=== PATIENT | female | born 1965 | race Caucasian/White ===

== ENCOUNTER → 2016-11-30 | Outpatient (CLI) | payer BC ==
[~2016-11-30] MED LIST: ARIM1TAB4 PO; ATEN50TA2 PO; CYMB60CA3 PO; FOSA70TA PO; IMIT50TA PO; LEVO75TA4 PO; LIDO5DIS36 TD; LIPI20TA PO; LORT5TAB PO; PREG50CA PO; PROA1AER IN; VITA100066 PO; VITATAB73 PO; ZANA2CAP PO; ZANA4TAB PO
--- NOTE | 2016-12-15 23:47 | ECWPNPC ---
PATIENT NAME: NATHANIEL ROSALES : 1965 GENDER: FEMALE VISIT DATE: 11/30/2016 DISCHARGE DATE: 11/30/16 1233 VISIT LOCKED DATE TIME: PHYSICIAN: SIRI CALDERON RESOURCE: SIRI CALDERON REASON FOR APPOINTMENT 1. INCREASING PAIN/ LEG NUMBNESS HISTORY OF PRESENT ILLNESS TODAY'S VISIT: NOTES: FIRST VISIT BACK TO CLINIC SINCE 03/12/16. ON THAT DATE SHE DID HAVE A LEFT THERAPEUTIC LUMBAR FACET BLOCK . HAD SOME GENERALIZED BACK DISCOMFORT AND DID TAKE SOME OCCASIONAL SOMA WIT RELIEF. STATES AWOKE ON 11/25/16 WITH INCREASED LOW BACK PAIN, INABILITY TO TURN, STAND AND SIT. PAIN HAS IMPROVED BUT NOW HAS NEW NUMBNESS. NUMBNESS IS FROM LOW BACK RADIATING ACROSS THE BOTTOM OF RIGHT FOOT, THROUGH 3RD TOE AND UP LATERAL CALF TO KNEE. IS STILL HAVING TROUBLE SITTING, STANDING OR LYING FOR PROLONGED PERIODS.. HISTORY OF PRESENT ILLNESS: PAIN THE PATIENT DESCRIBES THE PAIN... FALL RISK SCREENING: SCREENING :NO FALLS IN THE PAST YEAR CURRENT MEDICATIONS TAKING LIPITOR 20 MG TABLET 1 TABLET ORALLY ONCE A DAY TAKING LYRICA 50 MG CAPSULE 1 CAPSULE ORALLY BID TAKING LEVOTHYROXINE SODIUM 75 MCG TABLET 1 TABLET ORALLY ONCE A DAY TAKING ATENOLOL 50 MG TABLET 1 TABLET ORALLY ONCE A DAY TAKING IMITREX 50 MG TABLET 1 TABLET NEEDED ORALLY PRN TAKING PROAIR HFA AEROSOL SOLUTION 2 PUFFS NEEDED INHALATION PRN TAKING PHENTERMINE HCL 30 MG TABLET DISPERSIBLE 1 TABLET ON THE TONGUE AND ALLOW TO DISSOLVE ORALLY ONCE A DAY TAKING IBUPROFEN 600 MG TABLET 1 TABLET ORALLY THREE TIMES A DAY NOT-TAKING ARIMIDEX 1 MG TABLET 1 TABLET ORALLY ONCE A DAY NOT-TAKING CYMBALTA 60 MG CAPSULE DELAYED RELEASE PARTICLES 1 CAPSULE ORALLY ONCE A DAY, NOTES: 03-11-162099 NOT-TAKING ALPRAZOLAM 0.25 MG TABLET 1 TABLET ORALLY THREE TIMES A DAY, NOTES: 12-06-15 NOT-TAKING ZANAFLEX 2 MG CAPSULE 1 TO 2 CAPSULE NEEDED ORALLY PRIOR GOING TO SLEEP, NOTES: 03-11-162099 NOT-TAKING B COMPLETE TABLET ORALLY DAILY MEDICATION LIST REVIEWED AND RECONCILED WITH THE PATIENT PAST MEDICAL HISTORY SVT BREAST CANCER HYPOTHYROID MIGRANES ASTHMA FIBROMYALGIA ALLERGIES SULFA (FOR ALLERGY USE ONLY): ITCH / SWELLING MACRODANTIN: ITCH/ SWELLING CIPRO: REDNESS SOCIAL HISTORY GENERAL: TOBACCO USE ARE YOU A:NONSMOKER ARE YOU A:NONSMOKER ARE YOU A:NONSMOKER LEARNING BARRIERS / SPECIAL NEEDS ORIENTED TO PLAN OF CARE: PATIENT, PAIN MANAGEMENT PATIENT, ORIENTED TO PLAN OF CARE: PATIENT, PAIN MANAGEMENT PATIENT, ORIENTED TO PLAN OF CARE: PATIENT, PAIN MANAGEMENT PATIENT, ORIENTED TO PLAN OF CARE: PATIENT, PAIN MANAGEMENT PATIENT, ORIENTED TO PLAN OF CARE: PATIENT, PAIN MANAGEMENT PATIENT, ORIENTED TO PLAN OF CARE: PATIENT, PAIN MANAGEMENT PATIENT. NEW PATIENT PAIN DIARY TODAY'S VISITNOTES FROM 0-10, WHAT LEVEL IS YOUR PAIN TODAY?0 TODAY'S VISITNOTES FROM 0-10, WHAT LEVEL IS YOUR PAIN TODAY?0 TODAY'S VISITNOTES FROM 0-10, WHAT LEVEL IS YOUR PAIN TODAY?0 PAIN CLINIC PFS, CLERGY, PUBLIC HEALTH REFERRALS PFS REFERRAL NEEDED?NO CLERGY REFERRAL NEEDED?NO PUBLIC HEALTH REFERRAL NEEDED?NO WAS THE PROVIDER NOTIFIED OF ANY PERTINENT INFO?NO PFS REFERRAL NEEDED?NO CLERGY REFERRAL NEEDED?NO PUBLIC HEALTH REFERRAL NEEDED?NO WAS THE PROVIDER NOTIFIED OF ANY PERTINENT INFO?NO PFS REFERRAL NEEDED?NO CLERGY REFERRAL NEEDED?NO PUBLIC HEALTH REFERRAL NEEDED?NO WAS THE PROVIDER NOTIFIED OF ANY PERTINENT INFO?NO PFS REFERRAL NEEDED?NO CLERGY REFERRAL NEEDED?NO PUBLIC HEALTH REFERRAL NEEDED?NO WAS THE PROVIDER NOTIFIED OF ANY PERTINENT INFO?NO PFS REFERRAL NEEDED?NO CLERGY REFERRAL NEEDED?NO PUBLIC HEALTH REFERRAL NEEDED?NO WAS THE PROVIDER NOTIFIED OF ANY PERTINENT INFO?NO PFS REFERRAL NEEDED?NO CLERGY REFERRAL NEEDED?NO PUBLIC HEALTH REFERRAL NEEDED?NO WAS THE PROVIDER NOTIFIED OF ANY PERTINENT INFO?NO REVIEW OF SYSTEMS CONSTITUTIONAL: ANY CHANGE IN YOUR MEDICAL CONDITION? NO . CHILLS NO . FEVER NO . INFECTION: DO YOU HAVE NEW INFECTIONS? NO - HAD UPPER RESPIRATOY INFECTION IN [facility] . DO YOU HAVE HISTORY OF MRSA? NO . MUSCULOSKELETAL: ANY NEW PATTERNS OF PAIN OR NUMBNESS? YES NEW NUMBNESS SINCE 11-25-15=7 . GASTROENTEROLOGY: GENERAL STARTED PHENTERAMINE FOR WEIGHT GAIN. . ANY NEW CHANGE IN BOWEL CONTROL? NO . GENITOURINARY: ANY NEW CHANGE IN BLADDER CONTROL? NO . IS THERE A CHANCE YOU COULD BE ? NO . HEMATOLOGY/LYMPH: DO YOU TAKE ANY BLOOD THINNERS? (FOR EXAMPLE- COUMADIN, PLAVIX, AGGRENOX, PLATEL, PRADAXA, OR XARELTO) NO . WHEN WAS YOUR LAST DOSE? DATE: TIME: . NEUROLOGY: HAVE YOU FALLEN IN THE PAST 6 MONTHS? NO . ANY NEW EXTREMITY NUMBNESS OR WEAKNESS? NO . CARDIOLOGY: DO YOU HAVE A PACEMAKER OR DEFIBRILLATOR? NO . RESPIRATORY: HAVE YOU BEEN SICK IN THE PAST WEEK? NO . FEVER NO . FLU LIKE SYMPTOMS? NO . COUGH NO . INTEGUMENTARY: DO YOU HAVE ANY RASHES OR OPEN SORES? NO . ALLERGIC/IMMUNO: ARE YOU ALLERGIC TO SHELLFISH OR IV DYE? NO . ANY NEW ALLERGIES? NO . PSYCHIATRIC: DO YOU HAVE THOUGHTS OF HURTING YOURSELF OR SOMEONE ELSE? NO . ARE YOU ABUSED, NEGLECTED, OR IN AN UNSAFE ENVIRONMENT? NO . ENDOCRINOLOGY: ARE YOU DIABETIC? YES - A1C CHECKED AND WAS 6.5. HAS BEEN WORKING ON HEALTHY DIET . OTHER: DO YOU NEED ANY PRESCRIPTIONS? NO . IF YES, PLEASE LIST: ____ . ANY NEW PROBLEMS WITH YOUR MEDICATIONS? NO . WHEN DID YOU LAST EAT? ____ . WHEN DID YOU LAST DRINK? ____ . WHAT DID YOU LAST DRINK? ____ . NAME OF PERSON DRIVING YOU HOME? ____ . DO YOU HAVE ANY OTHER QUESTIONS OR CONCERNS NO . REVIEWED BY: PROVIDER: SIRI BECK . VITAL SIGNS WT 173 LBS, HT 63 IN, BMI 30.64 INDEX, BP 128/62 MM HG, HR 70 /MIN, RR 16 /MIN, TEMP 98 F, OXYGEN SAT % 98, SAFE IN ENV? (Y/N) Y, REVIEWED BY: KG. EXAMINATION GENERAL EXAMINATION: PSYCHALERT , ORIENTED X 3 , TALKATIVE, VERY UNCOMFORTABLE. LUNGS:CLEAR TO AUSCULTATION BILATERALLY, NO WHEEZES, RALES OR RHONCHI. HEART:HEART RATE REGULAR. MUSCULOSKELETAL:MUSCLE STRENGTH TESTING 5/5 BILATERAL LOWER EXT. POINT TENDERNESS OVER LUMBAR SPINOUS PROCESSES AND OVER LEFT SACRAL ILIAC JOINT AND FACETS. TRIGGER POINTS:, REMITIES, ELICITED WITH PALPATION OVER LUMBAR PARAVERTEBRAL MUSCLES AND INTO THE SECRUM. RESTRICTION OF ROM IN THIS AREA. GAIT ANTALGIC. SLOW TO RISE TO STANDING POSITION. ASSESSMENTS SPONDYLOSIS OF LUMBAR REGION WITHOUT MYELOPATHY OR RADICULOPATHY - M47.816 (PRIMARY) SACROILIITIS, NOT ELSEWHERE CLASSIFIED - M46.1 (PRIMARY) SPONDYLOSIS OF LUMBOSACRAL REGION WITHOUT MYELOPATHY OR RADICULOPATHY - M47.817 TREATMENT SPONDYLOSIS OF LUMBAR REGION WITHOUT MYELOPATHY OR RADICULOPATHY START TIZANIDINE HCL TABLET, 4 MG, 1 TABLET NEEDED, ORALLY, THREE TIMES A DAY PRN SPASM, 10 DAY(S), 30, REFILLS 1 INJECTION ANESTHETIC SACROILIAC [id number] Matute 11/30/2016 12:21:11 PM > LEFT PREVENTIVE MEDICINE PAIN CLINIC TEACHING: PROCEDURE TEACHING WENT OVER PROCEDURE AND PT VERBALIZES UNDERSTNADING/GAVE PRINTED MATERIAL. PROCEDURE CODES FA211 ESTABILISHED PATIENT [facility] FACILITY CHARGE FOLLOW UP AFTER INJECTION (REASON: CHECK AUTH FOR SIJ INJECTION JAMES) ELECTRONICALLY SIGNED BY KIRK MONTANEZ ON 12/15/2016 AT 09:38 AM EST DISCLAIMER : THIS IS A VISIT SUMMARY EXTRACTED FROM THE [employer] CHART. IT IS NOT A COPY OF THE [employer] PROGRESS NOTE. ELLIE
== END ==
LOC: M PAIN 11:20
PROVIDERS: ATTEND Nurse Practitioner Family
DX: Z09 Encounter for follow-up examination after completed treatment for conditions other than malignant neoplasm (principal); G89.29 Other chronic pain; M47.816 Spondylosis without myelopathy or radiculopathy, lumbar region; M46.1 Sacroiliitis, not elsewhere classified; M47.817 Spondylosis without myelopathy or radiculopathy, lumbosacral region; I47.1 Supraventricular tachycardia; E03.9 Hypothyroidism, unspecified; G43.909 Migraine, unspecified, not intractable, without status migrainosus; J45.909 Unspecified asthma, uncomplicated; M79.7 Fibromyalgia; E11.9 Type 2 diabetes mellitus without complications; Z88.2 Allergy status to sulfonamides; Z88.8 Allergy status to other drugs, medicaments and biological substances; Z79.1 Long term (current) use of non-steroidal anti-inflammatories (NSAID); Z79.899 Other long term (current) drug therapy; Z85.3 Personal history of malignant neoplasm of breast

== ENCOUNTER → 2016-12-02 | Outpatient (CLI) | payer BC ==
[~2016-12-02] MED LIST changes: +BUPIVACAINE HCL 0.25% 30 ML VIAL As Ordered ONE; +ISOVUE-M 300 61% 15ML VIAL (Q9967) As Ordered ONE; +LIDOCAINE 1% SDV INJ 30 ML VIAL As Ordered ONE; +TRIAMCINOLONE ACETONIDE SUSP 40 MG/ML VIAL (J3301) As Ordered ONE; +diazePAM 5 MG TAB As Ordered ONE; +oxyCODONE 5MG TAB As Ordered ONE
--- NOTE | 2016-12-02 13:24 | REP ---
C-arm fluoroscopy performed for left SI joint injection 12/02/2016 Findings: 12 seconds c-arm fluoroscopy time was provided to Dr. Beard , who performed left SI joint injection. On image #1 spinal needle placed in the superior half of the left SI joint. Small amount of contrast is seen adjacent to the needle tip. On image #2 and image #3 , there is no residual contrast within the left SI joint adjacent to needle tip 12 seconds c-arm fluoroscopy time was utilized for this procedure. Three images were recorded and are available for review on PACS. Signed by Ryann Castaneda MD 12/02/2016 01:15 P
--- NOTE | 2016-12-06 23:21 | ECWPNPC ---
PATIENT NAME: NATHANIEL ROSALES : 1965 GENDER: FEMALE VISIT DATE: 12/02/2016 DISCHARGE DATE: 12/02/16 1320 VISIT LOCKED DATE TIME: PHYSICIAN: NELSON LUNA RESOURCE: NELSON LUNA REASON FOR APPOINTMENT 1. SIJ HISTORY OF PRESENT ILLNESS HISTORY OF PRESENT ILLNESS: PAIN THE PATIENT DESCRIBES THE PAIN... FALL RISK SCREENING: SCREENING :NO FALLS IN THE PAST YEAR CURRENT MEDICATIONS TAKING LIPITOR 20 MG TABLET 1 TABLET ORALLY ONCE A DAY, NOTES: 12/01/16 TAKING LYRICA 50 MG CAPSULE 1 CAPSULE ORALLY BID, NOTES: 12/02/16 TAKING LEVOTHYROXINE SODIUM 75 MCG TABLET 1 TABLET ORALLY ONCE A DAY, NOTES: 12/02/16 TAKING ATENOLOL 50 MG TABLET 1 TABLET ORALLY ONCE A DAY, NOTES: 12/01/16 TAKING IMITREX 50 MG TABLET 1 TABLET NEEDED ORALLY PRN, NOTES: 1 MONTH AGO TAKING PROAIR HFA AEROSOL SOLUTION 2 PUFFS NEEDED INHALATION PRN, NOTES: 3 MONTHS AGO TAKING PHENTERMINE HCL 30 MG TABLET DISPERSIBLE 1 TABLET ON THE TONGUE AND ALLOW TO DISSOLVE ORALLY ONCE A DAY, NOTES: 12/02/16@699 TAKING IBUPROFEN 600 MG TABLET 1 TABLET ORALLY THREE TIMES A DAY, NOTES: 11/30/16 TAKING TIZANIDINE HCL 4 MG TABLET 1 TABLET NEEDED ORALLY THREE TIMES A DAY PRN SPASM, NOTES: 11/30/16@0630 TAKING VITAMIN D 2000 UNIT TABLET 1 TABLET ORALLY ONCE A DAY, NOTES: 12/02/16@0700 NOT-TAKING ARIMIDEX 1 MG TABLET 1 TABLET ORALLY ONCE A DAY NOT-TAKING CYMBALTA 60 MG CAPSULE DELAYED RELEASE PARTICLES 1 CAPSULE ORALLY ONCE A DAY, NOTES: 03-11-162099 NOT-TAKING ALPRAZOLAM 0.25 MG TABLET 1 TABLET ORALLY THREE TIMES A DAY, NOTES: 12-06-15 NOT-TAKING ZANAFLEX 2 MG CAPSULE 1 TO 2 CAPSULE NEEDED ORALLY PRIOR GOING TO SLEEP, NOTES: 03-11-162099 NOT-TAKING B COMPLETE TABLET ORALLY DAILY MEDICATION LIST REVIEWED AND RECONCILED WITH THE PATIENT PAST MEDICAL HISTORY SVT BREAST CANCER HYPOTHYROID MIGRANES ASTHMA FIBROMYALGIA ALLERGIES SULFA (FOR ALLERGY USE ONLY): ITCH / SWELLING MACRODANTIN: ITCH/ SWELLING CIPRO: REDNESS SOCIAL HISTORY GENERAL: TOBACCO USE ARE YOU A:NONSMOKER LEARNING BARRIERS / SPECIAL NEEDS ORIENTED TO PLAN OF CARE: PATIENT, PAIN MANAGEMENT PATIENT, ORIENTED TO PLAN OF CARE: PATIENT, PAIN MANAGEMENT PATIENT. NEW PATIENT PAIN DIARY TODAY'S VISITNOTES FROM 0-10, WHAT LEVEL IS YOUR PAIN TODAY?0 PAIN CLINIC PFS, CLERGY, PUBLIC HEALTH REFERRALS PFS REFERRAL NEEDED?NO CLERGY REFERRAL NEEDED?NO PUBLIC HEALTH REFERRAL NEEDED?NO WAS THE PROVIDER NOTIFIED OF ANY PERTINENT INFO?NO PFS REFERRAL NEEDED?NO CLERGY REFERRAL NEEDED?NO PUBLIC HEALTH REFERRAL NEEDED?NO WAS THE PROVIDER NOTIFIED OF ANY PERTINENT INFO?NO REVIEW OF SYSTEMS CONSTITUTIONAL: ANY CHANGE IN YOUR MEDICAL CONDITION? NO . CHILLS NO . FEVER NO . INFECTION: DO YOU HAVE NEW INFECTIONS? NO . DO YOU HAVE HISTORY OF MRSA? NO . MUSCULOSKELETAL: ANY NEW PATTERNS OF PAIN OR NUMBNESS? YES . GASTROENTEROLOGY: ANY NEW CHANGE IN BOWEL CONTROL? NO . GENITOURINARY: ANY NEW CHANGE IN BLADDER CONTROL? NO . IS THERE A CHANCE YOU COULD BE ? NO . HEMATOLOGY/LYMPH: DO YOU TAKE ANY BLOOD THINNERS? (FOR EXAMPLE- COUMADIN, PLAVIX, AGGRENOX, PLATEL, PRADAXA, OR XARELTO) NO . WHEN WAS YOUR LAST DOSE? DATE: TIME: . NEUROLOGY: HAVE YOU FALLEN IN THE PAST 6 MONTHS? NO . ANY NEW EXTREMITY NUMBNESS OR WEAKNESS? NO . CARDIOLOGY: DO YOU HAVE A PACEMAKER OR DEFIBRILLATOR? NO . RESPIRATORY: HAVE YOU BEEN SICK IN THE PAST WEEK? NO . FEVER NO . FLU LIKE SYMPTOMS? NO . COUGH NO . INTEGUMENTARY: DO YOU HAVE ANY RASHES OR OPEN SORES? NO . ALLERGIC/IMMUNO: ARE YOU ALLERGIC TO SHELLFISH OR IV DYE? NO . ANY NEW ALLERGIES? NO . PSYCHIATRIC: DO YOU HAVE THOUGHTS OF HURTING YOURSELF OR SOMEONE ELSE? NO . ARE YOU ABUSED, NEGLECTED, OR IN AN UNSAFE ENVIRONMENT? NO . ENDOCRINOLOGY: ARE YOU DIABETIC? YES . OTHER: DO YOU NEED ANY PRESCRIPTIONS? NO . IF YES, PLEASE LIST: ____ . ANY NEW PROBLEMS WITH YOUR MEDICATIONS? NO . WHEN DID YOU LAST EAT? ____12/01/16@1900 . WHEN DID YOU LAST DRINK? ____12/02/16@0700 . WHAT DID YOU LAST DRINK? ____WATER . NAME OF PERSON DRIVING YOU HOME? ___ASHLEE . DO YOU HAVE ANY OTHER QUESTIONS OR CONCERNS NO . REVIEWED BY: PROVIDER: . VITAL SIGNS WT 172 LBS, HT 63 IN, BMI 30.47 INDEX, BP 119/74 MM HG, HR 74 /MIN, RR 16 /MIN, TEMP 96.5 F, OXYGEN SAT % 98, NA INITIALS TL 1110, REVIEWED BY: VD. ASSESSMENTS SACROILIITIS, NOT ELSEWHERE CLASSIFIED - M46.1 (PRIMARY) PROCEDURES PN SI PRE PROCEDURE DIAGNOSIS SACROILIITIS, SACROILIAC JOINT DYSFUNCTION POST PROCEDURE DIAGNOSIS SACROILIITIS, SACROILIAC JOINT DYSFUNCTION PROCEDURE ., LEFT SACROILIAC JOINT BLOCK SURGEON DR. 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 I EVALUATED THE PATIENT AND REVIEWED THE CHART. I WENT OVER THE RISKS, ALTERNATIVES, AND BENEFITS ASSOCIATED WITH THIS PROCEDURE. THE PATIENT WOULD LIKE TO PROCEED AND GAVE CONSENT TO PERFORM THE PROCEDURE. THE PATIENT DENIES UNEXPLAINABLE WEIGHT LOSS, FEVER, CHILLS, OR NEW CHANGES IN URINARY OR BOWEL CONTROL DESCRIPTION OF PROCEDURE THE PATIENT WAS BROUGHT TO THE PROCEDURE ROOM AND PLACED IN THE PRONE POSITION. THE LUMBOSACRAL AREA WAS CLEANED WITH CHLORAPREP SOLUTION AND DRAPED ASEPTICALLY. THE PROCEDURE WAS DONE UNDER STERILE CONDITIONS. I CHECKED LATERALITY AND THE LEVEL WHERE THE PROCEDURE WAS GOING TO BE PERFORMED WITH THE PATIENT AND THE SUPPORTING STAFF AT THE MOMENT OF THE TIME OUT IN THE PROCEDURE ROOM. UNDER FLUOROSCOPIC GUIDANCE, TARGET POINT WAS SELECTED AT THE LOWER BORDER OF THE LEFT SACROILIAC JOINT. TARGET POINT WAS SELECTED AFTER MEDIAL ROTATION AND TILT OF THE MAGNIFIER OF THE C-ARM. LIDOCAINE WAS USED TO NUMB THE SKIN AND SUBCUTANEOUS TISSUE BELOW IT. A SPINAL NEEDLE, 22-GAUGE, WAS ADVANCED UNDER FLUOROSCOPIC GUIDANCE AND FOLLOWING PATIENT FEEDBACK UNTIL THE TARGET AREA WAS TOUCHED. THE POSITION OF THE NEEDLE WAS VERIFIED WITH AP AND LATERAL VIEWS. AFTER PROPER POSITION OF THE NEEDLE WAS ACHIEVED, ISOVUE M DYE 30%, 0.25 ML, WAS INJECTED SHOWING SPREAD OF THE DYE. THEN, A SOLUTION OF 20 MG OF KENALOG WAS INJECTED IN RIGHT JOINT WITH 3 ML OF BUPIVACAINE 0.125%. THERE WAS NO EVIDENCE OF BLOOD, PARESTHESIA OR CEREBROSPINAL FLUID DURING THE PROCEDURE. THE PATIENT WAS SENT TO THE RECOVERY ROOM. THE PATIENT WAS MOVING THE EXTREMITIES AND DOING WELL. THERE WAS NO COMPLICATION DURING THE PROCEDURE. FLUOROSCOPY TIME WAS 12 SECONDS POST PROCEDURE NOTE THE PATIENT WILL BE SEEN IN A FOLLOW UP IN THE NEXT FEW WEEKS. INSTRUCTIONS WERE GIVEN, QUESTIONS WERE ANSWERED, AND THE PATIENT EXPRESSED UNDERSTANDING AND AGREED WITH THE PLAN. INSTRUCTIONS WERE GIVEN, QUESTIONS WERE ANSWERED, PATIENT REPORTS UNDERSTANDING AND AGREES WITH THE PLAN. I, CINDI HERNANDEZ, DOCUMENTED THE ABOVE INFORMATION ACTING A SCRIBE FOR DR. LUNA. I HAVE REVIEWED THE ABOVE DOCUMENT, WRITTEN BY CINDI HERNANDEZ SCRIBE AND I VERIFY THAT IT IS ACCURATE. DIAGNOSTIC IM[facility] FLUORO GUIDANCE (PAIN)[id number] PROCEDURE CODES 63619 INJECT SACROILIAC JOINT 6045F RADXPS IN END [id number] PXD FOLLOW UP 3 WEEKS ELECTRONICALLY SIGNED BY NELSON LUNA MD ON 12/06/2016 AT 09:23 PM EST DISCLAIMER : THIS IS A VISIT SUMMARY EXTRACTED FROM THE [employer] CHART. IT IS NOT A COPY OF THE [employer] PROGRESS NOTE. MTDD
== END ==
LOC: M PAIN 11:10
PROVIDERS: ATTEND Anesthesiology
DX: G89.29 Other chronic pain (principal); M54.5 Low back pain; M46.1 Sacroiliitis, not elsewhere classified; Z79.899 Other long term (current) drug therapy; Z88.2 Allergy status to sulfonamides; Z88.8 Allergy status to other drugs, medicaments and biological substances; Z88.1 Allergy status to other antibiotic agents
CPT/HCPCS: G0260; J3301; Q9967

== ENCOUNTER → 2016-12-23 | Outpatient (CLI) | payer BC ==
[~2016-12-23] MED LIST changes: -BUPIVACAINE HCL 0.25% 30 ML VIAL As Ordered ONE; -ISOVUE-M 300 61% 15ML VIAL (Q9967) As Ordered ONE; -LIDOCAINE 1% SDV INJ 30 ML VIAL As Ordered ONE; -TRIAMCINOLONE ACETONIDE SUSP 40 MG/ML VIAL (J3301) As Ordered ONE; -diazePAM 5 MG TAB As Ordered ONE; -oxyCODONE 5MG TAB As Ordered ONE
--- NOTE | 2016-12-25 00:51 | ECWPNPC ---
PATIENT NAME: NATHANIEL ROSALES : 1965 GENDER: FEMALE VISIT DATE: 12/23/2016 DISCHARGE DATE: 12/23/16 1223 VISIT LOCKED DATE TIME: PHYSICIAN: SIRI CALDERON RESOURCE: SIRI CALDERON REASON FOR APPOINTMENT 1. POST SIJ HISTORY OF PRESENT ILLNESS HISTORY OF PRESENT ILLNESS: PAIN THE PATIENT DESCRIBES THE PAIN... FALL RISK SCREENING: SCREENING :NO FALLS IN THE PAST YEAR TODAY'S VISIT: NOTES: S/P LEFT SIJ INJECTION ON 12/02/16. NOTES OVERALL VERY GOOD IMPROVEMENT BUT STILL HAS SOME INTERMITTANT PAIN FLLOWING ACTIVITY HAS BEEN ABLE USE ICE AND MEDS WITH IMPROVEMENT IN 12 HOURS. RATES PAIN TODAY 3/10. IS HAVING SOME NUMBNESS IN LEFT LEG WITHOUT PAIN ALONG LATERAL ASPECT OF LEFT THIGH TO LATERAL TOES. INJECTION IMPROVED THIS BUT STILL HAS A GHOST OF THE SENSATION OVER LATERAL LEG. . CURRENT MEDICATIONS TAKING LIPITOR 20 MG TABLET 1 TABLET ORALLY ONCE A DAY, NOTES: 12/01/16 TAKING LYRICA 50 MG CAPSULE 1 CAPSULE ORALLY BID, NOTES: 12/02/16@699 TAKING LEVOTHYROXINE SODIUM 75 MCG TABLET 1 TABLET ORALLY ONCE A DAY, NOTES: 12/02/16 TAKING ATENOLOL 50 MG TABLET 1 TABLET ORALLY ONCE A DAY, NOTES: 12/01/16 TAKING IMITREX 50 MG TABLET 1 TABLET NEEDED ORALLY PRN, NOTES: 1 MONTH AGO TAKING PROAIR HFA AEROSOL SOLUTION 2 PUFFS NEEDED INHALATION PRN, NOTES: 3 MONTHS AGO TAKING PHENTERMINE HCL 30 MG TABLET DISPERSIBLE 1 TABLET ON THE TONGUE AND ALLOW TO DISSOLVE ORALLY ONCE A DAY, NOTES: 12/02/16@699 TAKING IBUPROFEN 600 MG TABLET 1 TABLET ORALLY THREE TIMES A DAY NEEDED, NOTES: 11/30/16 TAKING TIZANIDINE HCL 4 MG TABLET 1 TABLET NEEDED ORALLY THREE TIMES A DAY PRN SPASM, NOTES: 11/30/16@629 TAKING VITAMIN D 2000 UNIT TABLET 1 TABLET ORALLY ONCE A DAY, NOTES: 12/02/16 NOT-TAKING ARIMIDEX 1 MG TABLET 1 TABLET ORALLY ONCE A DAY NOT-TAKING CYMBALTA 60 MG CAPSULE DELAYED RELEASE PARTICLES 1 CAPSULE ORALLY ONCE A DAY, NOTES: 03-11-162099 NOT-TAKING ALPRAZOLAM 0.25 MG TABLET 1 TABLET ORALLY THREE TIMES A DAY, NOTES: 12-06-15 NOT-TAKING ZANAFLEX 2 MG CAPSULE 1 TO 2 CAPSULE NEEDED ORALLY PRIOR GOING TO SLEEP, NOTES: 03-11-16 2100 NOT-TAKING B COMPLETE TABLET ORALLY DAILY MEDICATION LIST REVIEWED AND RECONCILED WITH THE PATIENT PAST MEDICAL HISTORY SVT BREAST CANCER HYPOTHYROID MIGRANES ASTHMA FIBROMYALGIA ALLERGIES SULFA (FOR ALLERGY USE ONLY): ITCH / SWELLING MACRODANTIN: ITCH/ SWELLING CIPRO: REDNESS SOCIAL HISTORY GENERAL: TOBACCO USE ARE YOU A:NONSMOKER LEARNING BARRIERS / SPECIAL NEEDS ORIENTED TO PLAN OF CARE: PATIENT, PAIN MANAGEMENT PATIENT, ORIENTED TO PLAN OF CARE: PATIENT, PAIN MANAGEMENT PATIENT. NEW PATIENT PAIN DIARY TODAY'S VISITNOTES FROM 0-10, WHAT LEVEL IS YOUR PAIN TODAY?0 PAIN CLINIC PFS, CLERGY, PUBLIC HEALTH REFERRALS PFS REFERRAL NEEDED?NO CLERGY REFERRAL NEEDED?NO PUBLIC HEALTH REFERRAL NEEDED?NO WAS THE PROVIDER NOTIFIED OF ANY PERTINENT INFO?NO PFS REFERRAL NEEDED?NO CLERGY REFERRAL NEEDED?NO PUBLIC HEALTH REFERRAL NEEDED?NO WAS THE PROVIDER NOTIFIED OF ANY PERTINENT INFO?NO REVIEW OF SYSTEMS CONSTITUTIONAL: ANY CHANGE IN YOUR MEDICAL CONDITION? NO . CHILLS NO . FEVER NO . INFECTION: DO YOU HAVE NEW INFECTIONS? NO . DO YOU HAVE HISTORY OF MRSA? YES FACIAL WOUND . MUSCULOSKELETAL: ANY NEW PATTERNS OF PAIN OR NUMBNESS? NO . GASTROENTEROLOGY: ANY NEW CHANGE IN BOWEL CONTROL? NO . GENITOURINARY: ANY NEW CHANGE IN BLADDER CONTROL? NO . IS THERE A CHANCE YOU COULD BE ? NO . HEMATOLOGY/LYMPH: DO YOU TAKE ANY BLOOD THINNERS? (FOR EXAMPLE- COUMADIN, PLAVIX, AGGRENOX, PLATEL, PRADAXA, OR XARELTO) NO . WHEN WAS YOUR LAST DOSE? DATE: TIME: . NEUROLOGY: HAVE YOU FALLEN IN THE PAST 6 MONTHS? NO . ANY NEW EXTREMITY NUMBNESS OR WEAKNESS? NO . CARDIOLOGY: DO YOU HAVE A PACEMAKER OR DEFIBRILLATOR? NO . RESPIRATORY: HAVE YOU BEEN SICK IN THE PAST WEEK? NO . FEVER NO . FLU LIKE SYMPTOMS? NO . COUGH NO . INTEGUMENTARY: DO YOU HAVE ANY RASHES OR OPEN SORES? NO . ALLERGIC/IMMUNO: ARE YOU ALLERGIC TO SHELLFISH OR IV DYE? NO . ANY NEW ALLERGIES? NO . PSYCHIATRIC: DO YOU HAVE THOUGHTS OF HURTING YOURSELF OR SOMEONE ELSE? NO . ARE YOU ABUSED, NEGLECTED, OR IN AN UNSAFE ENVIRONMENT? NO . ENDOCRINOLOGY: ARE YOU DIABETIC? YES . OTHER: DO YOU NEED ANY PRESCRIPTIONS? YES LYRICA ? . IF YES, PLEASE LIST: ____ . ANY NEW PROBLEMS WITH YOUR MEDICATIONS? NO . WHEN DID YOU LAST EAT? ____ . WHEN DID YOU LAST DRINK? ____ . WHAT DID YOU LAST DRINK? ____ . NAME OF PERSON DRIVING YOU HOME? ____ . DO YOU HAVE ANY OTHER QUESTIONS OR CONCERNS NO . REVIEWED BY: PROVIDER: SIRI BECK . VITAL SIGNS WT 168.6 LBS, HT 63 IN, BMI 29.86 INDEX, BP 140/76 MM HG, HR 75 /MIN, RR 16 /MIN, TEMP 96.8 F, OXYGEN SAT % 98, NA INITIALS MP, REVIEWED BY: CÉSARF. EXAMINATION GENERAL EXAMINATION: PSYCHALERT , ORIENTED X 3 , APPROPRIATE MOOD AND AFFECT , TALKATIVE. LUNGS:CLEAR TO AUSCULTATION BILATERALLY. HEART:HEART RATE REGULAR. MUSCULOSKELETAL:RIGHT SIJ TENDERNESS. MILD TO MIN LEFT SIJ. , TRIGGER POINTS:, ELICITED WITH PALPATION OVER LUMBAR PARAVERTEBRAL MUSCLES AND INTO THE SACRUM. TIGHT FIEROUS BANDS NOTED WHICH RESTRICT ROM IN THIS AREA. ASSESSMENTS SACROILIITIS - M46.1 (PRIMARY) TREATMENT SACROILIITIS INJECTION ANESTHETIC SACROILIAC [id number] M 12/23/2016 11:59:12 AM > RIGHT NOTES: CONTINUE LYRICA 50 MG TWICE A DAY. CLINICAL NOTES: DISCUSSION HELD WITH PATIENT REGARDING RISKS AND BENEFITS OF LYRICA INCLUDING VISUAL DISTURBANCE, CARDIAC EFFECTS AND LOWER EXTREMITY SWELLING. PREVENTIVE MEDICINE PAIN CLINIC TEACHING: PROCEDURE TEACHING SIJ INFORMATION GIVEN TO PATIENT AND REVIEWED.. PROCEDURE CODES FA211 ESTABILISHED PATIENT [facility] CHARGE FOLLOW UP AFTER INJECTION (REASON: CHECK AUTH FOR SIJ RIGHT) ELECTRONICALLY SIGNED BY KIRK MONTANEZ ON 12/24/2016 AT 02:33 PM EST DISCLAIMER : THIS IS A VISIT SUMMARY EXTRACTED FROM THE [employer] CHART. IT IS NOT A COPY OF THE [employer] PROGRESS NOTE. ELLIE
== END ==
LOC: M PAIN 11:00
PROVIDERS: ATTEND Nurse Practitioner Family
DX: Z09 Encounter for follow-up examination after completed treatment for conditions other than malignant neoplasm (principal); G89.29 Other chronic pain; M46.1 Sacroiliitis, not elsewhere classified; E11.9 Type 2 diabetes mellitus without complications; I47.1 Supraventricular tachycardia; E03.9 Hypothyroidism, unspecified; G43.909 Migraine, unspecified, not intractable, without status migrainosus; J45.909 Unspecified asthma, uncomplicated; M79.7 Fibromyalgia; Z88.2 Allergy status to sulfonamides; Z88.8 Allergy status to other drugs, medicaments and biological substances; Z79.1 Long term (current) use of non-steroidal anti-inflammatories (NSAID); Z79.899 Other long term (current) drug therapy; Z85.3 Personal history of malignant neoplasm of breast; Z86.14 Personal history of Methicillin resistant Staphylococcus aureus infection

== ENCOUNTER → 2017-01-18 | Outpatient (CLI) | payer BC ==
[~2017-01-18] MED LIST changes: +BUPIVACAINE HCL 0.25% 30 ML VIAL As Ordered ONE; +ISOVUE-M 300 61% 15ML VIAL (Q9967) As Ordered ONE; +LIDOCAINE 1% SDV INJ 30 ML VIAL As Ordered ONE; +TRIAMCINOLONE ACETONIDE SUSP 40 MG/ML VIAL (J3301) As Ordered ONE; +diazePAM 5 MG TAB As Ordered ONE; +oxyCODONE 5MG TAB As Ordered ONE
--- NOTE | 2017-01-18 17:04 | REP ---
Partial SI joint series: Five views. History: Left SI joint injection for pain. 11 seconds of fluoroscopy time is reported. Findings: A sequence of five fluoroscopically obtained intraprocedural spot radiographs of the left SI joint document needle position and contrast injection associated with SI joint injection procedure. Signed by Ja Bermudez MD 01/19/2017 08:01 A
--- NOTE | 2017-01-22 23:28 | ECWPNPC ---
PATIENT NAME: NATHANIEL ROSALES : 1965 GENDER: FEMALE VISIT DATE: 01/18/2017 DISCHARGE DATE: 01/18/17 1459 VISIT LOCKED DATE TIME: PHYSICIAN: NELSON LUNA RESOURCE: NELSON LUNA REASON FOR APPOINTMENT 1. [facility] HISTORY OF PRESENT ILLNESS HISTORY OF PRESENT ILLNESS: PAIN THE PATIENT DESCRIBES THE PAIN... FALL RISK SCREENING: SCREENING :NO FALLS IN THE PAST YEAR CURRENT MEDICATIONS TAKING LIPITOR 20 MG TABLET 1 TABLET ORALLY ONCE A DAY, NOTES: 01-17-171929 TAKING LYRICA 50 MG CAPSULE 1 CAPSULE ORALLY BID, NOTES: 01-18-17 TAKING LEVOTHYROXINE SODIUM 75 MCG TABLET 1 TABLET ORALLY ONCE A DAY, NOTES: 01-18-17599 TAKING ATENOLOL 50 MG TABLET 1 TABLET ORALLY ONCE A DAY, NOTES: 01-17-171929 TAKING IMITREX 50 MG TABLET 1 TABLET NEEDED ORALLY PRN, NOTES: 01-18-17599 TAKING PROAIR HFA AEROSOL SOLUTION 2 PUFFS NEEDED INHALATION PRN, NOTES: 3 MONTHS AGO TAKING PHENTERMINE HCL 30 MG TABLET DISPERSIBLE 1 TABLET ON THE TONGUE AND ALLOW TO DISSOLVE ORALLY ONCE A DAY, NOTES: 01-18-17599 TAKING IBUPROFEN 600 MG TABLET 1 TABLET ORALLY THREE TIMES A DAY NEEDED, NOTES: NONE TAKING TIZANIDINE HCL 4 MG TABLET 1 TABLET NEEDED ORALLY THREE TIMES A DAY PRN SPASM, NOTES: 01-17-171929 DISCONTINUED VITAMIN D 2000 UNIT TABLET 1 TABLET ORALLY ONCE A DAY, NOTES: 12/02/16@0700 DISCONTINUED LYRICA 50 MG CAPSULE 1 CAPSULE ORALLY BID MDD=2 DISCONTINUED ARIMIDEX 1 MG TABLET 1 TABLET ORALLY ONCE A DAY DISCONTINUED CYMBALTA 60 MG CAPSULE DELAYED RELEASE PARTICLES 1 CAPSULE ORALLY ONCE A DAY, NOTES: 03-11-162099 DISCONTINUED ALPRAZOLAM 0.25 MG TABLET 1 TABLET ORALLY THREE TIMES A DAY, NOTES: 12-06-15 DISCONTINUED ZANAFLEX 2 MG CAPSULE 1 TO 2 CAPSULE NEEDED ORALLY PRIOR GOING TO SLEEP, NOTES: 03-11-162099 DISCONTINUED B COMPLETE TABLET ORALLY DAILY MEDICATION LIST REVIEWED AND RECONCILED WITH THE PATIENT PAST MEDICAL HISTORY SVT BREAST CANCER HYPOTHYROID MIGRANES ASTHMA FIBROMYALGIA ALLERGIES SULFA (FOR ALLERGY USE ONLY): ITCH / SWELLING MACRODANTIN: ITCH/ SWELLING CIPRO: REDNESS SURGICAL HISTORY D&C 1987 L5S1 LAMI AND DISECTOMY 2006 HYSTERECTOMY 2007 SOCIAL HISTORY GENERAL: TOBACCO USE ARE YOU A:NONSMOKER LEARNING BARRIERS / SPECIAL NEEDS ORIENTED TO PLAN OF CARE: PATIENT, PAIN MANAGEMENT PATIENT, ORIENTED TO PLAN OF CARE: PATIENT, PAIN MANAGEMENT PATIENT. NEW PATIENT PAIN DIARY TODAY'S VISITNOTES FROM 0-10, WHAT LEVEL IS YOUR PAIN TODAY?0 PAIN CLINIC PFS, CLERGY, PUBLIC HEALTH REFERRALS PFS REFERRAL NEEDED?NO CLERGY REFERRAL NEEDED?NO PUBLIC HEALTH REFERRAL NEEDED?NO WAS THE PROVIDER NOTIFIED OF ANY PERTINENT INFO?NO PFS REFERRAL NEEDED?NO CLERGY REFERRAL NEEDED?NO PUBLIC HEALTH REFERRAL NEEDED?NO WAS THE PROVIDER NOTIFIED OF ANY PERTINENT INFO?NO REVIEW OF SYSTEMS CONSTITUTIONAL: ANY CHANGE IN YOUR MEDICAL CONDITION? NO . CHILLS NO . FEVER NO . INFECTION: DO YOU HAVE NEW INFECTIONS? NO . DO YOU HAVE HISTORY OF MRSA? NO . MUSCULOSKELETAL: ANY NEW PATTERNS OF PAIN OR NUMBNESS? NO . GASTROENTEROLOGY: ANY NEW CHANGE IN BOWEL CONTROL? NO . GENITOURINARY: ANY NEW CHANGE IN BLADDER CONTROL? NO . IS THERE A CHANCE YOU COULD BE ? NO . HEMATOLOGY/LYMPH: DO YOU TAKE ANY BLOOD THINNERS? (FOR EXAMPLE- COUMADIN, PLAVIX, AGGRENOX, PLATEL, PRADAXA, OR XARELTO) NO . WHEN WAS YOUR LAST DOSE? DATE: TIME: . NEUROLOGY: HAVE YOU FALLEN IN THE PAST 6 MONTHS? NO . ANY NEW EXTREMITY NUMBNESS OR WEAKNESS? NO . CARDIOLOGY: DO YOU HAVE A PACEMAKER OR DEFIBRILLATOR? NO . RESPIRATORY: HAVE YOU BEEN SICK IN THE PAST WEEK? NO . FEVER NO . FLU LIKE SYMPTOMS? NO . COUGH NO . INTEGUMENTARY: DO YOU HAVE ANY RASHES OR OPEN SORES? NO . ALLERGIC/IMMUNO: ARE YOU ALLERGIC TO SHELLFISH OR IV DYE? NO . ANY NEW ALLERGIES? NO . PSYCHIATRIC: DO YOU HAVE THOUGHTS OF HURTING YOURSELF OR SOMEONE ELSE? NO . ARE YOU ABUSED, NEGLECTED, OR IN AN UNSAFE ENVIRONMENT? NO . ENDOCRINOLOGY: ARE YOU DIABETIC? YES . OTHER: DO YOU NEED ANY PRESCRIPTIONS? NO . IF YES, PLEASE LIST: ____ . ANY NEW PROBLEMS WITH YOUR MEDICATIONS? NO . WHEN DID YOU LAST EAT? 01-17-171929 . WHEN DID YOU LAST DRINK? 01-18-17729 . WHAT DID YOU LAST DRINK? WATER . NAME OF PERSON DRIVING YOU HOME? NATASHA . DO YOU HAVE ANY OTHER QUESTIONS OR CONCERNS YES, LEFT SIDE IS VERY PAINFUL TODAY . REVIEWED BY: PROVIDER: . VITAL SIGNS WT 163 LBS, HT 63 IN, BMI 28.87 INDEX, BP 120/69 MM HG, HR 66 /MIN, RR 16 /MIN, TEMP 96.2 F, OXYGEN SAT % 98, NA INITIALS TL 1302, REVIEWED BY: CM. ASSESSMENTS SACROILIITIS, NOT ELSEWHERE CLASSIFIED - M46.1 (PRIMARY) PROCEDURES PN SI PRE PROCEDURE DIAGNOSIS SACROILIITIS, SACROILIAC JOINT DYSFUNCTION POST PROCEDURE DIAGNOSIS SACROILIITIS, SACROILIAC JOINT DYSFUNCTION PROCEDURE ., LEFT SACROILIAC JOINT BLOCK SURGEON DR. 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 I EVALUATED THE PATIENT AND REVIEWED THE CHART. I WENT OVER THE RISKS, ALTERNATIVES, AND BENEFITS ASSOCIATED WITH THIS PROCEDURE. THE PATIENT WOULD LIKE TO PROCEED AND GAVE CONSENT TO PERFORM THE PROCEDURE. THE PATIENT DENIES UNEXPLAINABLE WEIGHT LOSS, FEVER, CHILLS, OR NEW CHANGES IN URINARY OR BOWEL CONTROL DESCRIPTION OF PROCEDURE THE PATIENT WAS BROUGHT TO THE PROCEDURE ROOM AND PLACED IN THE PRONE POSITION. THE LUMBOSACRAL AREA WAS CLEANED WITH CHLORAPREP SOLUTION AND DRAPED ASEPTICALLY. THE PROCEDURE WAS DONE UNDER STERILE CONDITIONS. I CHECKED LATERALITY AND THE LEVEL WHERE THE PROCEDURE WAS GOING TO BE PERFORMED WITH THE PATIENT AND THE SUPPORTING STAFF AT THE MOMENT OF THE TIME OUT IN THE PROCEDURE ROOM. UNDER FLUOROSCOPIC GUIDANCE, TARGET POINT WAS SELECTED AT THE LOWER BORDER OF THE LEFT SACROILIAC JOINT. TARGET POINT WAS SELECTED AFTER MEDIAL ROTATION AND TILT OF THE MAGNIFIER OF THE C-ARM. LIDOCAINE WAS USED TO NUMB THE SKIN AND SUBCUTANEOUS TISSUE BELOW IT. A SPINAL NEEDLE, 22-GAUGE, WAS ADVANCED UNDER FLUOROSCOPIC GUIDANCE AND FOLLOWING PATIENT FEEDBACK UNTIL THE TARGET AREA WAS TOUCHED. THE POSITION OF THE NEEDLE WAS VERIFIED WITH AP AND LATERAL VIEWS. AFTER PROPER POSITION OF THE NEEDLE WAS ACHIEVED, ISOVUE M DYE 30%, 0.25 ML, WAS INJECTED SHOWING SPREAD OF THE DYE. THEN, A SOLUTION OF 20 MG OF KENALOG WAS INJECTED IN RIGHT JOINT WITH 3 ML OF BUPIVACAINE 0.125%. THERE WAS NO EVIDENCE OF BLOOD, PARESTHESIA OR CEREBROSPINAL FLUID DURING THE PROCEDURE. THE PATIENT WAS SENT TO THE RECOVERY ROOM. THE PATIENT WAS MOVING THE EXTREMITIES AND DOING WELL. THERE WAS NO COMPLICATION DURING THE PROCEDURE. FLUOROSCOPY TIME WAS 11 SECONDS POST PROCEDURE NOTE THE PATIENT WILL BE SEEN IN A FOLLOW UP IN THE NEXT FEW WEEKS. INSTRUCTIONS WERE GIVEN, QUESTIONS WERE ANSWERED, AND THE PATIENT EXPRESSED UNDERSTANDING AND AGREED WITH THE PLAN. INSTRUCTIONS WERE GIVEN, QUESTIONS WERE ANSWERED, PATIENT REPORTS UNDERSTANDING AND AGREES WITH THE PLAN. I, CINDI HERNANDEZ, DOCUMENTED THE ABOVE INFORMATION ACTING A SCRIBE FOR DR. LUNA. I HAVE REVIEWED THE ABOVE DOCUMENT, WRITTEN BY CINDI HERNANDEZ SCRIBE AND I VERIFY THAT IT IS ACCURATE. DIAGNOSTIC IMAGING [facility] FLUORO GUIDANCE (PAIN)[id number] PROCEDURE CODES 88869 INJECT SACROILIAC JOINT 6045F RADXPS IN END [id number] PXD DISPOSITION & COMMUNICATION FOLLOW UP 3 WEEKS ELECTRONICALLY SIGNED BY NELSON LUNA MD ON 01/22/2017 AT 04:26 PM EST DISCLAIMER : THIS IS A VISIT SUMMARY EXTRACTED FROM THE [employer] CHART. IT IS NOT A COPY OF THE [employer] PROGRESS NOTE. MTDShelli
== END ==
LOC: M PAIN 13:00
PROVIDERS: ATTEND Anesthesiology
DX: G89.29 Other chronic pain (principal); M46.1 Sacroiliitis, not elsewhere classified; I47.1 Supraventricular tachycardia; E03.9 Hypothyroidism, unspecified; E11.9 Type 2 diabetes mellitus without complications; G43.909 Migraine, unspecified, not intractable, without status migrainosus; J45.909 Unspecified asthma, uncomplicated; M79.7 Fibromyalgia; Z88.2 Allergy status to sulfonamides; Z88.8 Allergy status to other drugs, medicaments and biological substances; Z79.1 Long term (current) use of non-steroidal anti-inflammatories (NSAID); Z79.899 Other long term (current) drug therapy; Z85.3 Personal history of malignant neoplasm of breast
CPT/HCPCS: G0260; J3301; Q9967

== ENCOUNTER → 2017-02-15 | Outpatient (CLI) | payer BC ==
[~2017-02-15] MED LIST changes: -BUPIVACAINE HCL 0.25% 30 ML VIAL As Ordered ONE; -ISOVUE-M 300 61% 15ML VIAL (Q9967) As Ordered ONE; -LIDOCAINE 1% SDV INJ 30 ML VIAL As Ordered ONE; -TRIAMCINOLONE ACETONIDE SUSP 40 MG/ML VIAL (J3301) As Ordered ONE; -diazePAM 5 MG TAB As Ordered ONE; -oxyCODONE 5MG TAB As Ordered ONE
--- NOTE | 2017-02-22 02:05 | ECWPNPC ---
PATIENT NAME: NATHANIEL ROSALES : 1965 GENDER: FEMALE VISIT DATE: 02/15/2017 DISCHARGE DATE: 02/15/17 1633 VISIT LOCKED DATE TIME: PHYSICIAN: NELSON LUNA RESOURCE: NELSON LUNA REASON FOR APPOINTMENT 1. POST PROCEDURE HISTORY OF PRESENT ILLNESS HISTORY OF PRESENT ILLNESS: PAIN THE PATIENT DESCRIBES THE PAIN... 51 YEAR OLD FEMALE PATIENT WITH HISTORY OF CHRONIC BACK PAIN. PATIENT DESCRIBES THE PAIN ACHING AND IT COMES AND GOES WITH A PAIN SCORE OF 2-3/10 ON TODAY'S VISIT. PATIENT REPORTS OF HAVING BACK SURGERY ON 04/11/2006 AT L5-S1. PATIENT RECEIVED A LEFT SIJ ON 01/18/2017 AND REPORTS OF GETTING GOOD PAIN RELIEF FROM THE INJECTION. PATIENT STATES THAT SINCE THE INJECTION SHE IS ABLE TO SLEEP BETTER, HER MOBILITY AND FUNCTIONALITY HAS GREATLY INCREASED. PATIENT REPORTS THAT SHE DOES STILL HAVE SOME PAIN BUT WHAT IS THERE DOES NOT BOTHER HER AND DOES NOT HINDER HER DAILY ACTIVITIES LIKE BEFORE THE INJECTION. PATIENT STATES THAT THE PAIN THAT IS THERE IS ON THE RIGHT LOW BACK AREA STOPPING AT THE BOTTOM OF HER BUTTOCKS. PATIENT DENIES UNEXPLAINABLE WEIGHT LOSS, FEVER, CHILLS, NEW CHANGES ON HER URINARY OR BOWEL CONTROL. FALL RISK SCREENING: SCREENING :NO FALLS IN THE PAST YEAR CURRENT MEDICATIONS TAKING LIPITOR 20 MG TABLET 1 TABLET ORALLY ONCE A DAY TAKING LYRICA 50 MG CAPSULE 1 CAPSULE ORALLY BID TAKING LEVOTHYROXINE SODIUM 75 MCG TABLET 1 TABLET ORALLY ONCE A DAY TAKING ATENOLOL 50 MG TABLET 1 TABLET ORALLY ONCE A DAY TAKING IMITREX 50 MG TABLET 1 TABLET NEEDED ORALLY PRN TAKING PROAIR HFA AEROSOL SOLUTION 2 PUFFS NEEDED INHALATION PRN TAKING PHENTERMINE HCL 30 MG TABLET DISPERSIBLE 1 TABLET ON THE TONGUE AND ALLOW TO DISSOLVE ORALLY ONCE A DAY TAKING TIZANIDINE HCL 4 MG TABLET 1 TABLET NEEDED ORALLY THREE TIMES A DAY PRN SPASM NOT-TAKING IBUPROFEN 600 MG TABLET 1 TABLET ORALLY THREE TIMES A DAY NEEDED MEDICATION LIST REVIEWED AND RECONCILED WITH THE PATIENT PAST MEDICAL HISTORY SVT BREAST CANCER HYPOTHYROID MIGRANES ASTHMA FIBROMYALGIA ALLERGIES SULFA (FOR ALLERGY USE ONLY): ITCH / SWELLING MACRODANTIN: ITCH/ SWELLING CIPRO: REDNESS SURGICAL HISTORY D&C 1986 L5S1 LAMI AND DISECTOMY 2006 HYSTERECTOMY 2007 FAMILY HISTORY NO FAMILY HISTORY DOCUMENTED. SOCIAL HISTORY GENERAL: TOBACCO USE ARE YOU A:NONSMOKER LEARNING BARRIERS / SPECIAL NEEDS ORIENTED TO PLAN OF CARE: PATIENT, PAIN MANAGEMENT PATIENT, ORIENTED TO PLAN OF CARE: PATIENT, PAIN MANAGEMENT PATIENT. NEW PATIENT PAIN DIARY TODAY'S VISITNOTES FROM 0-10, WHAT LEVEL IS YOUR PAIN TODAY?0 PAIN CLINIC PFS, CLERGY, PUBLIC HEALTH REFERRALS PFS REFERRAL NEEDED?NO CLERGY REFERRAL NEEDED?NO PUBLIC HEALTH REFERRAL NEEDED?NO WAS THE PROVIDER NOTIFIED OF ANY PERTINENT INFO?NO PFS REFERRAL NEEDED?NO CLERGY REFERRAL NEEDED?NO PUBLIC HEALTH REFERRAL NEEDED?NO WAS THE PROVIDER NOTIFIED OF ANY PERTINENT INFO?NO HOSPITALIZATION/MAJOR DIAGNOSTIC PROCEDURE NO HOSPITALIZATION HISTORY. REVIEW OF SYSTEMS CONSTITUTIONAL: ANY CHANGE IN YOUR MEDICAL CONDITION? NO . CHILLS NO . FEVER NO . INFECTION: DO YOU HAVE NEW INFECTIONS? NO . DO YOU HAVE HISTORY OF MRSA? YES 2 YRS AGO ON [place] . MUSCULOSKELETAL: ANY NEW PATTERNS OF PAIN OR NUMBNESS? NO . GASTROENTEROLOGY: ANY NEW CHANGE IN BOWEL CONTROL? NO . GENITOURINARY: ANY NEW CHANGE IN BLADDER CONTROL? NO . IS THERE A CHANCE YOU COULD BE ? NO . HEMATOLOGY/LYMPH: DO YOU TAKE ANY BLOOD THINNERS? (FOR EXAMPLE- COUMADIN, PLAVIX, AGGRENOX, PLATEL, PRADAXA, OR XARELTO) NO . WHEN WAS YOUR LAST DOSE? DATE: TIME: . NEUROLOGY: HAVE YOU FALLEN IN THE PAST 6 MONTHS? NO . ANY NEW EXTREMITY NUMBNESS OR WEAKNESS? NO . CARDIOLOGY: DO YOU HAVE A PACEMAKER OR DEFIBRILLATOR? NO . RESPIRATORY: HAVE YOU BEEN SICK IN THE PAST WEEK? NO . FEVER NO . FLU LIKE SYMPTOMS? NO . COUGH NO . INTEGUMENTARY: DO YOU HAVE ANY RASHES OR OPEN SORES? NO . ALLERGIC/IMMUNO: ARE YOU ALLERGIC TO SHELLFISH OR IV DYE? NO . ANY NEW ALLERGIES? NO . PSYCHIATRIC: DO YOU HAVE THOUGHTS OF HURTING YOURSELF OR SOMEONE ELSE? NO . ARE YOU ABUSED, NEGLECTED, OR IN AN UNSAFE ENVIRONMENT? NO . ENDOCRINOLOGY: ARE YOU DIABETIC? YES, DIET CONTROLLED . OTHER: DO YOU NEED ANY PRESCRIPTIONS? NO . IF YES, PLEASE LIST: ____ . ANY NEW PROBLEMS WITH YOUR MEDICATIONS? NO . WHEN DID YOU LAST EAT? ____ . WHEN DID YOU LAST DRINK? ____ . WHAT DID YOU LAST DRINK? ____ . NAME OF PERSON DRIVING YOU HOME? ____ . DO YOU HAVE ANY OTHER QUESTIONS OR CONCERNS NO . REVIEWED BY: PROVIDER: NELSON LUNA MD . VITAL SIGNS WT 159.2 LBS, HT 63 IN, BMI 28.20 INDEX, BP 120/81 MM HG, HR 78 /MIN, RR 16 /MIN, TEMP 98.8 F, OXYGEN SAT % 100%, NA INITIALS SC 15:03, REVIEWED BY: AD. EXAMINATION : PATIENT IS ALERT O X 3 AND COOPERATIVE. PATIENT AMBULATES WITH A SLIGHT ANTALGIC GAIT. PATIENT HAS SOME TENDERNESS IN THE LOWER BACK. 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 ROSALES'S PAIN MANAGEMENT CASE. AT THIS TIME I WILL REFILL TIZANIDINE FOR THE PATIENT TODAY. PATIENT WILL START ON IBUPROFEN TODAY, I ADVISED THE PATIENT TO ALWAYS TAKE THIS MEDICATION WITH FOOD, TO AVOID ANY POTENTIAL STOMACH UPSETS. PATIENT WILL FOLLOW UP WITH ME IN 2 MONTHS AND ADVISED THE PATIENT TO CALL IF SHE NEEDS TO COME IN SOONER. , INSTRUCTIONS WERE GIVEN, QUESTIONS WERE ANSWERED, PATIENT REPORTS UNDERSTANDING AND AGREES WITH THE PLAN. I, CINDI HERNANDEZ, DOCUMENTED THE ABOVE INFORMATION ACTING A SCRIBE FOR DR. LUNA. I HAVE REVIEWED THE ABOVE DOCUMENT, WRITTEN BY CINDI THAOIBKatia AND I VERIFY THAT IT IS ACCURATE. OTHERS START IBUPROFEN TABLET, 800 MG, 1 TABLET, ORALLY WITH FOOD, THREE TIMES A DAY NEEDED FOR PAIN MDD3, 30 DAY(S), 50, REFILLS 2 PROCEDURE CODES FA211 ESTABILISHED PATIENT [facility] FACILITY CHARGE G8730 PAIN ASSESS POS TOOL F/U PLAN DOC G8427 DOC MEDS VERIFIED W/PT OR RE DISPOSITION & COMMUNICATION FOLLOW UP 2 MONTHS ELECTRONICALLY SIGNED BY NELSON LUNA MD ON 02/21/2017 AT 09:27 AM EDT DISCLAIMER : THIS IS A VISIT SUMMARY EXTRACTED FROM THE [employer] CHART. IT IS NOT A COPY OF THE [employer] PROGRESS NOTE. MTDD
== END ==
LOC: M PAIN 15:00
PROVIDERS: ATTEND Anesthesiology
DX: Z09 Encounter for follow-up examination after completed treatment for conditions other than malignant neoplasm (principal); G89.29 Other chronic pain; M47.816 Spondylosis without myelopathy or radiculopathy, lumbar region; M96.1 Postlaminectomy syndrome, not elsewhere classified; M51.16 Intervertebral disc disorders with radiculopathy, lumbar region; I47.1 Supraventricular tachycardia; E03.9 Hypothyroidism, unspecified; J45.909 Unspecified asthma, uncomplicated; M79.7 Fibromyalgia; E11.9 Type 2 diabetes mellitus without complications; Z88.2 Allergy status to sulfonamides; Z88.8 Allergy status to other drugs, medicaments and biological substances; Z79.899 Other long term (current) drug therapy; Z85.3 Personal history of malignant neoplasm of breast; Z86.14 Personal history of Methicillin resistant Staphylococcus aureus infection

== ENCOUNTER → 2017-04-21 | Outpatient (CLI) | payer BC ==
--- NOTE | 2017-05-12 00:23 | ECWPNPC ---
PATIENT NAME: NATHANIEL ROSALES : 1965 GENDER: FEMALE VISIT DATE: 04/21/2017 DISCHARGE DATE: 04/21/17 1511 VISIT LOCKED DATE TIME: PHYSICIAN: SIRI CALDERON RESOURCE: SIRI CALDERON HISTORY OF PRESENT ILLNESS HISTORY OF PRESENT ILLNESS: PAIN THE PATIENT DESCRIBES THE PAIN... FALL RISK SCREENING: SCREENING :NO FALLS IN THE PAST YEAR TODAY'S VISIT: NOTES: INTERMITTANT LOW BACK AND SACRAL ILIAC JOINT PAIN - USES ICE, TIZANLEX, AND IBU PROFEN. NOTESPAIN WHEN RISES TO STANDING POSITION.HAD ISSUE WHEN HOLDING 30# GRANDDAUGHTER WHEN LOW BACK/SACRUM WENT NUMB AND "COULDN'T DO ANYTHING". THIS LASTED LESS THAN 2 MINUTES. OCCURRED . BACK PAIN HAS BEEN . NECK PAIN ONSET 2005. PREVIOUSLY HAD TPI WITH DR CRUZ. PAIN WITH NECK ROTATION. HAS HAD XRAYS WHICH DEMONSTRATED DEGENERATIVE CHANGES. TREATS WITH ICE, HEAT AND MASSAGE WELL AN INVERSION TABLE. HAS PERSISTANT NUMBNESS IN BOTH UPPER EXTREMITES. HAS HAD NERVE CONDUCTION STUDIES WHICH DEMONSTRATED CTS. IN 2005-. . CURRENT MEDICATIONS TAKING IBUPROFEN 800 MG TABLET 1 TABLET ORALLY WITH FOOD THREE TIMES A DAY NEEDED FOR PAIN MDD3 TAKING TIZANIDINE HCL 4 MG TABLET 1 TABLET NEEDED ORALLY THREE TIMES A DAY PRN SPASM TAKING LIPITOR 20 MG TABLET 1 TABLET ORALLY ONCE A DAY TAKING LYRICA 50 MG CAPSULE 1 CAPSULE ORALLY BID TAKING LEVOTHYROXINE SODIUM 75 MCG TABLET 1 TABLET ORALLY ONCE A DAY TAKING ATENOLOL 50 MG TABLET 1 TABLET ORALLY ONCE A DAY TAKING IMITREX 50 MG TABLET 1 TABLET NEEDED ORALLY PRN TAKING PROAIR HFA AEROSOL SOLUTION 2 PUFFS NEEDED INHALATION PRN TAKING PHENTERMINE HCL 30 MG TABLET DISPERSIBLE 1 TABLET ON THE TONGUE AND ALLOW TO DISSOLVE ORALLY ONCE A DAY NOT-TAKING IBUPROFEN 600 MG TABLET 1 TABLET ORALLY THREE TIMES A DAY NEEDED MEDICATION LIST REVIEWED AND RECONCILED WITH THE PATIENT PAST MEDICAL HISTORY SVT BREAST CANCER HYPOTHYROID MIGRANES ASTHMA FIBROMYALGIA ALLERGIES SULFA (FOR ALLERGY USE ONLY): ITCH / SWELLING MACRODANTIN: ITCH/ SWELLING CIPRO: REDNESS REVIEW OF SYSTEMS CONSTITUTIONAL: ANY CHANGE IN YOUR MEDICAL CONDITION? NO . CHILLS NO . FEVER NO . INFECTION: DO YOU HAVE NEW INFECTIONS? NO . DO YOU HAVE HISTORY OF MRSA? NO . MUSCULOSKELETAL: ANY NEW PATTERNS OF PAIN OR NUMBNESS? NO . GASTROENTEROLOGY: GENERAL ON PHENTERAINE - HAS LOST WEIGHT. . ANY NEW CHANGE IN BOWEL CONTROL? NO . GENITOURINARY: ANY NEW CHANGE IN BLADDER CONTROL? NO . IS THERE A CHANCE YOU COULD BE ? NO . HEMATOLOGY/LYMPH: DO YOU TAKE ANY BLOOD THINNERS? (FOR EXAMPLE- COUMADIN, PLAVIX, AGGRENOX, PLATEL, PRADAXA, OR XARELTO) NO . WHEN WAS YOUR LAST DOSE? DATE: TIME: . NEUROLOGY: HAVE YOU FALLEN IN THE PAST 6 MONTHS? NO . ANY NEW EXTREMITY NUMBNESS OR WEAKNESS? NO . CARDIOLOGY: DO YOU HAVE A PACEMAKER OR DEFIBRILLATOR? NO . CHEST PAIN PATIENT DENIES . IRREGULAR HEART BEAT FEELS HEART RACING INTERMITTANTLY. . RESPIRATORY: HAVE YOU BEEN SICK IN THE PAST WEEK? NO . FEVER NO . FLU LIKE SYMPTOMS? NO . COUGH NO . INTEGUMENTARY: DO YOU HAVE ANY RASHES OR OPEN SORES? NO . ALLERGIC/IMMUNO: ARE YOU ALLERGIC TO SHELLFISH OR IV DYE? NO . ANY NEW ALLERGIES? NO . PSYCHIATRIC: DO YOU HAVE THOUGHTS OF HURTING YOURSELF OR SOMEONE ELSE? NO . ARE YOU ABUSED, NEGLECTED, OR IN AN UNSAFE ENVIRONMENT? NO . ENDOCRINOLOGY: ARE YOU DIABETIC? YES . OTHER: DO YOU NEED ANY PRESCRIPTIONS? YES . IF YES, PLEASE LIST: ____LYRICA . ANY NEW PROBLEMS WITH YOUR MEDICATIONS? NO . WHEN DID YOU LAST EAT? ____ . WHEN DID YOU LAST DRINK? ____ . WHAT DID YOU LAST DRINK? ____ . NAME OF PERSON DRIVING YOU HOME? ____ . DO YOU HAVE ANY OTHER QUESTIONS OR CONCERNS NO . REVIEWED BY: PROVIDER: SIRI BECK . VITAL SIGNS WT 153.8 LBS, HT 63 IN, BMI 27.24 INDEX, BP 115/72 MM HG, HR 61 /MIN, RR 16 /MIN, TEMP 98.4 F, OXYGEN SAT % 99%, SAFE IN ENV? (Y/N) YES, NA INITIALS SC 14:30, REVIEWED BY: CARIE. EXAMINATION GENERAL EXAMINATION: PSYCHALERT , ORIENTED X 3 , APPROPRIATE MOOD AND AFFECT , TALKATIVE. LUNGS:CLEAR TO AUSCULTATION BILATERALLY. HEART:HEART RATE REGULAR. MUSCULOSKELETAL: EXQUISITE RIGHT SIJ TENDERNESS. MILD TO MIN LEFT SIJ. , TRIGGER POINTS:, ELICITED WITH PALPATION OVER LUMBAR PARAVERTEBRAL MUSCLES AND INTO THE SACRUM. TIGHT FIBROUS BANDS NOTED WHICH RESTRICT ROM IN THIS AREA. RISES EASILY TO STANDING POSITION. POSTURE UPRIGHT. GAIT MILDLY ANTALGIC. POINT TENDERNESS OVER CERVICAL SPINOUS PROCESSES AND OVER CERVICAL PARASPINOUS MUSCLES. PATCHY DYSESTHESIA OVER BILATERAL SHOULDERS AND UPPER ARMS, LEFT GREATER THAN RIGHT. 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 CLINICAL NOTES: PT HAS ATTENDED PHYSICAL THERAPY FOR NECK AND UPPER EXTREMITY PAIN AND STRENGTHENING WITHOUT IMPROVMENT. HAS TAKEN NSAIDS FOR MORE THAN 6 SUPERIVISED WEEKS. DISPOSITION & COMMUNICATION FOLLOW UP AFTER (REASON: CHECK AUTH BILATERAL SACRALILIAC JOINT INJECTS AND CHECK AUTH FOR CERVICAL MRI) ELECTRONICALLY SIGNED BY KIRK MONTANEZ ON 05/11/2017 AT 09:20 AM EDT DISCLAIMER : THIS IS A VISIT SUMMARY EXTRACTED FROM THE [email or web address] CHART. IT IS NOT A COPY OF THE [email or web address] PROGRESS NOTE. ELLIE
== END ==
LOC: M PAIN 14:20
PROVIDERS: ATTEND Nurse Practitioner Family
DX: G89.29 Other chronic pain (principal); M47.816 Spondylosis without myelopathy or radiculopathy, lumbar region; M96.1 Postlaminectomy syndrome, not elsewhere classified; M51.16 Intervertebral disc disorders with radiculopathy, lumbar region; M12.88 Other specific arthropathies, not elsewhere classified, other specified site; M79.1 Myalgia; I47.1 Supraventricular tachycardia; E03.9 Hypothyroidism, unspecified; G43.909 Migraine, unspecified, not intractable, without status migrainosus; J45.909 Unspecified asthma, uncomplicated; Z88.2 Allergy status to sulfonamides; Z88.8 Allergy status to other drugs, medicaments and biological substances; Z79.899 Other long term (current) drug therapy

== ENCOUNTER → 2017-04-28 | Outpatient (CLI) | payer BC ==
[~2017-04-28] MED LIST changes: +BUPIVACAINE HCL 0.25% 30 ML VIAL As Ordered ONE; +ISOVUE-M 300 61% 15ML VIAL (Q9967) As Ordered ONE; +LIDOCAINE 1% SDV INJ 30 ML VIAL As Ordered ONE; +TRIAMCINOLONE ACETONIDE SUSP 40 MG/ML VIAL (J3301) As Ordered ONE
--- NOTE | 2017-04-28 12:14 | REP ---
PARTIAL SI JOINT SERIES: Four views. HISTORY: Bilateral SI joint injection for pain. 20 seconds of fluoroscopy time is reported. FINDINGS: A sequence of four last image hold fluoroscopic spot radiographs of the SI joints document bilateral needle positions and contrast injections associated with injection procedure. Signed by Ja Bermudez MD 04/28/2017 03:07 P
--- NOTE | 2017-05-08 23:31 | ECWPNPC ---
PATIENT NAME: NATHANIEL ROSALES : 1965 GENDER: FEMALE VISIT DATE: 04/28/2017 DISCHARGE DATE: 04/28/17 1057 VISIT LOCKED DATE TIME: PHYSICIAN: NELSON LUNA RESOURCE: NELSON LUNA REASON FOR APPOINTMENT 1. SIJ, NO AUTH HISTORY OF PRESENT ILLNESS HISTORY OF PRESENT ILLNESS: PAIN THE PATIENT DESCRIBES THE PAIN... FALL RISK SCREENING: SCREENING :NO FALLS IN THE PAST YEAR CURRENT MEDICATIONS TAKING IBUPROFEN 800 MG TABLET 1 TABLET ORALLY WITH FOOD THREE TIMES A DAY NEEDED FOR PAIN MDD3, NOTES: 04/27/17 0900 TAKING TIZANIDINE HCL 4 MG TABLET 1 TABLET NEEDED ORALLY THREE TIMES A DAY PRN SPASM, NOTES: 04/27/171999 TAKING LIPITOR 20 MG TABLET 1 TABLET ORALLY ONCE A DAY, NOTES: 04/27/171999 TAKING LYRICA 50 MG CAPSULE 1 CAPSULE ORALLY BID, NOTES: 04/27/171999 TAKING LEVOTHYROXINE SODIUM 75 MCG TABLET 1 TABLET ORALLY ONCE A DAY, NOTES: 04/27/17 06 TAKING ATENOLOL 50 MG TABLET 1 TABLET ORALLY ONCE A DAY, NOTES: 04/27/171999 TAKING IMITREX 50 MG TABLET 1 TABLET NEEDED ORALLY PRN, NOTES: 1 MONTH AGO TAKING PROAIR HFA AEROSOL SOLUTION 2 PUFFS NEEDED INHALATION PRN, NOTES: MORE THAN 3 MONTHS AGO TAKING PHENTERMINE HCL 30 MG CAPSULE 1 CAPSULE ORALLY ONCE A DAY, NOTES: 04/28/17 0400 TAKING VITAMIN B COMPLEX - TABLET 1 TABLET ORALLY DAILY, NOTES: 2 DAYS AGO NOT-TAKING IBUPROFEN 600 MG TABLET 1 TABLET ORALLY THREE TIMES A DAY NEEDED MEDICATION LIST REVIEWED AND RECONCILED WITH THE PATIENT PAST MEDICAL HISTORY SVT BREAST CANCER HYPOTHYROID MIGRANES ASTHMA FIBROMYALGIA ALLERGIES SULFA (FOR ALLERGY USE ONLY): ITCH / SWELLING MACRODANTIN: ITCH/ SWELLING CIPRO: REDNESS SURGICAL HISTORY D&C 1987 L5S1 LAMI AND DISECTOMY 2006 HYSTERECTOMY 2007 SOCIAL HISTORY GENERAL: TOBACCO USE ARE YOU A:NONSMOKER LEARNING BARRIERS / SPECIAL NEEDS ORIENTED TO PLAN OF CARE: PATIENT, PAIN MANAGEMENT PATIENT, ORIENTED TO PLAN OF CARE: PATIENT, PAIN MANAGEMENT PATIENT. NEW PATIENT PAIN DIARY TODAY'S VISITNOTES FROM 0-10, WHAT LEVEL IS YOUR PAIN TODAY?0 PAIN CLINIC PFS, CLERGY, PUBLIC HEALTH REFERRALS PFS REFERRAL NEEDED?NO CLERGY REFERRAL NEEDED?NO PUBLIC HEALTH REFERRAL NEEDED?NO WAS THE PROVIDER NOTIFIED OF ANY PERTINENT INFO?NO PFS REFERRAL NEEDED?NO CLERGY REFERRAL NEEDED?NO PUBLIC HEALTH REFERRAL NEEDED?NO WAS THE PROVIDER NOTIFIED OF ANY PERTINENT INFO?NO HOSPITALIZATION/MAJOR DIAGNOSTIC PROCEDURE SURGERIES INTRACTABLET BACK PAIN AND SVT 10/2015 CHILDBIRTH REVIEW OF SYSTEMS CONSTITUTIONAL: ANY CHANGE IN YOUR MEDICAL CONDITION? NO . CHILLS NO . FEVER NO . INFECTION: DO YOU HAVE NEW INFECTIONS? NO . DO YOU HAVE HISTORY OF MRSA? NO . MUSCULOSKELETAL: ANY NEW PATTERNS OF PAIN OR NUMBNESS? NO . GASTROENTEROLOGY: ANY NEW CHANGE IN BOWEL CONTROL? NO . GENITOURINARY: ANY NEW CHANGE IN BLADDER CONTROL? NO . IS THERE A CHANCE YOU COULD BE ? NO . HEMATOLOGY/LYMPH: DO YOU TAKE ANY BLOOD THINNERS? (FOR EXAMPLE- COUMADIN, PLAVIX, AGGRENOX, PLATEL, PRADAXA, OR XARELTO) NO . WHEN WAS YOUR LAST DOSE? DATE: TIME: . NEUROLOGY: HAVE YOU FALLEN IN THE PAST 6 MONTHS? NO . ANY NEW EXTREMITY NUMBNESS OR WEAKNESS? NO . CARDIOLOGY: DO YOU HAVE A PACEMAKER OR DEFIBRILLATOR? NO . RESPIRATORY: HAVE YOU BEEN SICK IN THE PAST WEEK? NO . FEVER NO . FLU LIKE SYMPTOMS? NO . COUGH NO . INTEGUMENTARY: DO YOU HAVE ANY RASHES OR OPEN SORES? YES, STATES HAS SPIDER BITE FROM [address] REPORT[address] LUNA. . ALLERGIC/IMMUNO: ARE YOU ALLERGIC TO SHELLFISH OR IV DYE? NO . ANY NEW ALLERGIES? NO . PSYCHIATRIC: DO YOU HAVE THOUGHTS OF HURTING YOURSELF OR SOMEONE ELSE? NO . ARE YOU ABUSED, NEGLECTED, OR IN AN UNSAFE ENVIRONMENT? NO . ENDOCRINOLOGY: ARE YOU DIABETIC? YES, DOES NOT DO FSBS . OTHER: DO YOU NEED ANY PRESCRIPTIONS? NO . IF YES, PLEASE LIST: ____ . ANY NEW PROBLEMS WITH YOUR MEDICATIONS? NO . WHEN DID YOU LAST EAT? 1999 . WHEN DID YOU LAST DRINK? 399 . WHAT DID YOU LAST DRINK? WATER WITH PILL . NAME OF PERSON DRIVING YOU HOME? NATASHA . DO YOU HAVE ANY OTHER QUESTIONS OR CONCERNS NO . REVIEWED BY: PROVIDER: . VITAL SIGNS WT 153.8 LBS, HT 63 IN, BMI 27.24 INDEX, BP 119/80 MM HG, HR 63 /MIN, RR 16 /MIN, TEMP 97.9 F, OXYGEN SAT % 99%, NA INITIALS SC 09:45, REVIEWED BY: MARTHA. ASSESSMENTS SACROILIITIS, NOT ELSEWHERE CLASSIFIED - M46.1 (PRIMARY) PROCEDURES PN SI PRE PROCEDURE DIAGNOSIS SACROILIITIS, SACROILIAC JOINT DYSFUNCTION POST PROCEDURE DIAGNOSIS SACROILIITIS, SACROILIAC JOINT DYSFUNCTION PROCEDURE BILATERAL SACROILIAC JOINT BLOCK SURGEON DR. 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 I EVALUATED THE PATIENT AND REVIEWED THE CHART. I WENT OVER THE RISKS, ALTERNATIVES, AND BENEFITS ASSOCIATED WITH THIS PROCEDURE. THE PATIENT WOULD LIKE TO PROCEED AND GAVE CONSENT TO PERFORM THE PROCEDURE. THE PATIENT DENIES UNEXPLAINABLE WEIGHT LOSS, FEVER, CHILLS, OR NEW CHANGES IN URINARY OR BOWEL CONTROL DESCRIPTION OF PROCEDURE THE PATIENT WAS BROUGHT TO THE PROCEDURE ROOM AND PLACED IN THE PRONE POSITION. THE LUMBOSACRAL AREA WAS CLEANED WITH CHLORAPREP SOLUTION AND DRAPED ASEPTICALLY. THE PROCEDURE WAS DONE UNDER STERILE CONDITIONS. I CHECKED LATERALITY AND THE LEVEL WHERE THE PROCEDURE WAS GOING TO BE PERFORMED WITH THE PATIENT AND THE SUPPORTING STAFF AT THE MOMENT OF THE TIME OUT IN THE PROCEDURE ROOM. UNDER FLUOROSCOPIC GUIDANCE, TARGET POINT WAS SELECTED AT THE LOWER BORDER OF THE RIGHT AND LEFT SACROILIAC JOINT. TARGET POINT WAS SELECTED AFTER MEDIAL ROTATION AND TILT OF THE MAGNIFIER OF THE C-ARM. LIDOCAINE WAS USED TO NUMB THE SKIN AND SUBCUTANEOUS TISSUE BELOW IT. A SPINAL NEEDLE, 22-GAUGE, WAS ADVANCED UNDER FLUOROSCOPIC GUIDANCE AND FOLLOWING PATIENT FEEDBACK UNTIL THE TARGET AREA WAS TOUCHED. THE POSITION OF THE NEEDLE WAS VERIFIED WITH AP AND LATERAL VIEWS. AFTER PROPER POSITION OF THE NEEDLE WAS ACHIEVED, ISOVUE M DYE 30%, 0.25 ML, WAS INJECTED SHOWING SPREAD OF THE DYE. THEN, A SOLUTION OF 20 MG OF KENALOG WAS INJECTED IN RIGHT JOINT WITH 3 ML OF BUPIVACAINE 0.125%. THERE WAS NO EVIDENCE OF BLOOD, PARESTHESIA OR CEREBROSPINAL FLUID DURING THE PROCEDURE. THE PATIENT WAS SENT TO THE RECOVERY ROOM. THE PATIENT WAS MOVING THE EXTREMITIES AND DOING WELL. THERE WAS NO COMPLICATION DURING THE PROCEDURE. FLUOROSCOPY TIME WAS 20 SECONDS POST PROCEDURE NOTE THE PATIENT WILL BE SEEN IN A FOLLOW UP IN THE NEXT FEW WEEKS. INSTRUCTIONS WERE GIVEN, QUESTIONS WERE ANSWERED, AND THE PATIENT EXPRESSED UNDERSTANDING AND AGREED WITH THE PLAN. I, CINDI HERNANDEZ, DOCUMENTED THE ABOVE INFORMATION ACTING A SCRIBE FOR DR. LUNA. I HAVE REVIEWED THE ABOVE DOCUMENT, WRITTEN BY CINDI MARVIN AND I VERIFY THAT IT IS ACCURATE DIAGNOSTIC IMAGING [facility] FLUORO GUIDANCE (PAIN)[id number] PROCEDURE CODES 70921 INJECT SACROILIAC JOINT 6045F RADXPS IN END [id number] PXD DISPOSITION & COMMUNICATION FOLLOW UP 3 WEEKS ELECTRONICALLY SIGNED BY NELSON LUNA MD ON 05/08/2017 AT 03:47 PM EDT DISCLAIMER : THIS IS A VISIT SUMMARY EXTRACTED FROM THE [employer] CHART. IT IS NOT A COPY OF THE [employer] PROGRESS NOTE. MTDD
== END ==
LOC: M PAIN 09:40
PROVIDERS: ATTEND Anesthesiology
DX: G89.29 Other chronic pain (principal); M46.1 Sacroiliitis, not elsewhere classified; M53.88 Other specified dorsopathies, sacral and sacrococcygeal region; I47.1 Supraventricular tachycardia; E03.9 Hypothyroidism, unspecified; G43.909 Migraine, unspecified, not intractable, without status migrainosus; J45.909 Unspecified asthma, uncomplicated; M79.7 Fibromyalgia; E11.9 Type 2 diabetes mellitus without complications; Z88.2 Allergy status to sulfonamides; Z88.8 Allergy status to other drugs, medicaments and biological substances; Z79.899 Other long term (current) drug therapy
CPT/HCPCS: G0260; J3301; Q9967

== ENCOUNTER → 2017-05-09 | Outpatient (REF) ==
[~2017-05-09] MED LIST changes: -BUPIVACAINE HCL 0.25% 30 ML VIAL As Ordered ONE; -ISOVUE-M 300 61% 15ML VIAL (Q9967) As Ordered ONE; -LIDOCAINE 1% SDV INJ 30 ML VIAL As Ordered ONE; -TRIAMCINOLONE ACETONIDE SUSP 40 MG/ML VIAL (J3301) As Ordered ONE
[2017-05-09 09:54] LABS: MEAN CORPUSCULAR HEMOGLOBIN 31.3 pg (27.0-33.0); MEAN CORPUSCULAR HGB CONC 33.8 g/dl (32.0-36.5); MEAN CORPUSCULAR VOLUME 92.6 fl (80.0-96.0); RED CELL DISTRIBUTION WIDTH 13.3 % (11.5-14.5); WHITE BLOOD COUNT 8.9 K/mm3 (4.0-10.0)
[2017-05-09 10:55] LABS: ANION GAP 8 MEQ/L (8-16); BLOOD UREA NITROGEN 17 MG/DL (7-18); CARBON DIOXIDE LEVEL 24 MEQ/L (21-32); CHLORIDE LEVEL 109 MEQ/L (98-107); CHOLESTEROL LEVEL 153 MG/DL (<200); CREATININE FOR GFR 0.72 MG/DL (0.55-1.02); GLOMERULAR FILTRATION RATE > 60.0 (>51); GLUCOSE, FASTING 91 MG/DL (70-105); POTASSIUM SERUM 4.5 MEQ/L (3.5-5.1); SODIUM LEVEL 141 MEQ/L (136-145); TRIGLYCERIDES LEVEL 63 MG/DL (<150)
[2017-05-09 10:57] LABS: HEPATITIS B SURFACE ANTIBODY NEGATIVE (POSITIVE)
--- NOTE | 2017-05-10 00:49 | ECGEPIP ---
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
== END ==
LOC: M LAB 08:50
PROVIDERS: ATTEND Internal Medicine
DX: Z02.9 Encounter for administrative examinations, unspecified (principal)

== ENCOUNTER → 2017-05-20 | Outpatient (CLI) | payer BC ==
[~2017-05-20] MED LIST changes: -LIDO5DIS36 TD; +LIDO5DIS41 TD; -PROA1AER IN; +PROAAER10 IN
--- NOTE | 2017-06-08 03:28 | ECWPNPC ---
PATIENT NAME: NATHANIEL ROSALES : 1965 GENDER: FEMALE VISIT DATE: 05/20/2017 DISCHARGE DATE: 05/20/17 1402 VISIT LOCKED DATE TIME: PHYSICIAN: SIRI CALDERON RESOURCE: SIRI CALDERON REASON FOR APPOINTMENT 1. POST [facility], [place] HISTORY OF PRESENT ILLNESS HISTORY OF PRESENT ILLNESS: PAIN THE PATIENT DESCRIBES THE PAIN... FALL RISK SCREENING: SCREENING :NO FALLS IN THE PAST YEAR TODAY'S VISIT: NOTES: RATES PAIN TODAY 0-1/10 ON RIGHT AND 2/10 ON LEFT. IS S/P BILATERAL BIJ INJECTIONS 04/26/17. HAD EPISODE OF SEVERE BACK PAIN AFTER ACTIVITY AGGRAVATED PAIN BUT THIS IMPROVED AFTER MOTRIN AND ZANAFLEX. IS NOT SLEEPING WELL FOR A NUMBER OF REASONS INCLUDING PAIN. . CURRENT MEDICATIONS TAKING IBUPROFEN 800 MG TABLET 1 TABLET ORALLY WITH FOOD THREE TIMES A DAY NEEDED FOR PAIN MDD3 TAKING TIZANIDINE HCL 4 MG TABLET 1 TABLET NEEDED ORALLY THREE TIMES A DAY PRN SPASM TAKING LIPITOR 20 MG TABLET 1 TABLET ORALLY ONCE A DAY TAKING LYRICA 50 MG CAPSULE 1 CAPSULE ORALLY BID TAKING LEVOTHYROXINE SODIUM 75 MCG TABLET 1 TABLET ORALLY ONCE A DAY TAKING ATENOLOL 50 MG TABLET 1 TABLET ORALLY ONCE A DAY TAKING IMITREX 50 MG TABLET 1 TABLET NEEDED ORALLY PRN TAKING PROAIR HFA AEROSOL SOLUTION 2 PUFFS NEEDED INHALATION PRN TAKING PHENTERMINE HCL 30 MG CAPSULE 1 CAPSULE ORALLY ONCE A DAY TAKING VITAMIN B COMPLEX - TABLET 1 TABLET ORALLY DAILY NOT-TAKING IBUPROFEN 600 MG TABLET 1 TABLET ORALLY THREE TIMES A DAY NEEDED MEDICATION LIST REVIEWED AND RECONCILED WITH THE PATIENT PAST MEDICAL HISTORY SVT BREAST CANCER HYPOTHYROID MIGRANES ASTHMA FIBROMYALGIA ALLERGIES SULFA (FOR ALLERGY USE ONLY): ITCH / SWELLING MACRODANTIN: ITCH/ SWELLING CIPRO: ERYTHEMA NODNOSUM SOCIAL HISTORY GENERAL: TOBACCO USE ARE YOU A:NONSMOKER HOAHAOISM [id number] MU-ISM LEARNING BARRIERS / SPECIAL NEEDS ORIENTED TO PLAN OF CARE: PATIENT, PAIN MANAGEMENT PATIENT, ORIENTED TO PLAN OF CARE: PATIENT, PAIN MANAGEMENT PATIENT. NEW PATIENT PAIN DIARY TODAY'S VISITNOTES FROM 0-10, WHAT LEVEL IS YOUR PAIN TODAY?0 PAIN CLINIC PFS, CLERGY, PUBLIC HEALTH REFERRALS PFS REFERRAL NEEDED?NO CLERGY REFERRAL NEEDED?NO PUBLIC HEALTH REFERRAL NEEDED?NO WAS THE PROVIDER NOTIFIED OF ANY PERTINENT INFO?NO HAS THE PATIENT BEEN EDUCATED REGARDING HIS/HER PLAN OF CARE?YES HAS THE PATIENT BEEN EDUCATED REGARDING PAIN, THE RISK FOR PAIN, THE IMPORTANCE OF EFFECTIVE PAIN MANAGEMENT, AND THE PAIN ASSESSMENT PROCESS?YES REVIEW OF SYSTEMS REVIEWED BY: PROVIDER: SIRI BECK . CONSTITUTIONAL: ANY CHANGE IN YOUR MEDICAL CONDITION? NO . CHILLS NO . FEVER NO . INFECTION: DO YOU HAVE NEW INFECTIONS? NO . DO YOU HAVE HISTORY OF MRSA? NO . MUSCULOSKELETAL: ANY NEW PATTERNS OF PAIN OR NUMBNESS? NO . GASTROENTEROLOGY: GENERAL RECENT INDIGENSTION WHICH DID NOT RESPOND TO TUMS . ANY NEW CHANGE IN BOWEL CONTROL? NO . GENITOURINARY: ANY NEW CHANGE IN BLADDER CONTROL? NO . IS THERE A CHANCE YOU COULD BE ? NO . HEMATOLOGY/LYMPH: DO YOU TAKE ANY BLOOD THINNERS? (FOR EXAMPLE- COUMADIN, PLAVIX, AGGRENOX, PLATEL, PRADAXA, OR XARELTO) NO . WHEN WAS YOUR LAST DOSE? DATE: TIME: . NEUROLOGY: HAVE YOU FALLEN IN THE PAST 6 MONTHS? NO . ANY NEW EXTREMITY NUMBNESS OR WEAKNESS? NO . CARDIOLOGY: DO YOU HAVE A PACEMAKER OR DEFIBRILLATOR? NO . RESPIRATORY: HAVE YOU BEEN SICK IN THE PAST WEEK? NO . FEVER NO . FLU LIKE SYMPTOMS? NO . COUGH NO . INTEGUMENTARY: DO YOU HAVE ANY RASHES OR OPEN SORES? NO . ALLERGIC/IMMUNO: ARE YOU ALLERGIC TO SHELLFISH OR IV DYE? NO . ANY NEW ALLERGIES? NO . PSYCHIATRIC: DO YOU HAVE THOUGHTS OF HURTING YOURSELF OR SOMEONE ELSE? NO . ARE YOU ABUSED, NEGLECTED, OR IN AN UNSAFE ENVIRONMENT? NO . ENDOCRINOLOGY: ARE YOU DIABETIC? YES - UNSURE OF BS - A1C IN 03/07 6.4 . OTHER: DO YOU NEED ANY PRESCRIPTIONS? NO . IF YES, PLEASE LIST: ____ . ANY NEW PROBLEMS WITH YOUR MEDICATIONS? NO . WHEN DID YOU LAST EAT? ____ . WHEN DID YOU LAST DRINK? ____ . WHAT DID YOU LAST DRINK? ____ . NAME OF PERSON DRIVING YOU HOME? ____ . DO YOU HAVE ANY OTHER QUESTIONS OR CONCERNS NO . VITAL SIGNS WT 145.2 LBS, HT 63 IN, BMI 25.72 INDEX, BP 120/76 MM HG, HR 64 /MIN, RR 18 /MIN, TEMP 98.7 F, OXYGEN SAT % 96%, REVIEWED BY: CS (DONE AT 1330). EXAMINATION GENERAL EXAMINATION: PSYCHALERT , ORIENTED X 3 , APPROPRIATE MOOD AND AFFECT , TALKATIVE. LUNGS:CLEAR TO AUSCULTATION BILATERALLY. HEART:HEART RATE REGULAR. MUSCULOSKELETAL:MINIMAL SIJ TENDERNESS. TRIGGER POINTS:, ELICITED WITH PALPATION OVER LUMBAR PARAVERTEBRAL MUSCLES AND INTO THE SACRUM. TIGHT FIBROUS BANDS NOTED WHICH RESTRICT ROM IN THIS AREA. RISES EASILY TO STANDING POSITION. POSTURE UPRIGHT. GAIT MILDLY ANTALGIC. POINT TENDERNESS OVER CERVICAL SPINOUS PROCESSES AND OVER CERVICAL PARASPINOUS MUSCLES.. 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 INCREASE FLUIDS. USE NEEDED ZANAFLEX. GET EARPLUGS/HEADPHONES TO DIMINISH NOISE. PROCEDURE CODES FA211 ESTABILISHED PATIENT [facility] CHARGE DISPOSITION & COMMUNICATION FOLLOW UP CALL IF PAIN RETURNS (REASON: BACK/NECK PAIN) ELECTRONICALLY SIGNED BY KIRK MONTANEZ ON 06/07/2017 AT 05:56 PM EDT DISCLAIMER : THIS IS A VISIT SUMMARY EXTRACTED FROM THE [employer] CHART. IT IS NOT A COPY OF THE [employer] PROGRESS NOTE. ELLIE
== END ==
LOC: M PAIN 13:20
PROVIDERS: ATTEND Nurse Practitioner Family
DX: M96.1 Postlaminectomy syndrome, not elsewhere classified (principal); M47.816 Spondylosis without myelopathy or radiculopathy, lumbar region; M51.16 Intervertebral disc disorders with radiculopathy, lumbar region; M12.88 Other specific arthropathies, not elsewhere classified, other specified site; M79.7 Fibromyalgia; E03.9 Hypothyroidism, unspecified; G43.909 Migraine, unspecified, not intractable, without status migrainosus; J45.909 Unspecified asthma, uncomplicated; Z88.2 Allergy status to sulfonamides; Z88.8 Allergy status to other drugs, medicaments and biological substances; Z79.899 Other long term (current) drug therapy

== ENCOUNTER → 2017-06-22 | Outpatient (CLI) | payer BC ==
--- NOTE | 2017-06-23 08:31 | REP ---
MR CERVICAL SPINE WITHOUT CONTRAST: HISTORY: Spondylosis. COMPARISON: 06/16/2010 Facet hypertrophy is present on the left at the C2-3 level. This produces minimal narrowing of the left C2 neural foramen. The right C2 neural foramen is patent. Uncinate process hypertrophy is present on the right at the C4-5 level. This produces minimal narrowing of the right C4 neural foramen. The left C4 neural foramen is patent. A disc bulge with associated osteophyte formation is present at the C5-6 level. There is mild effacement of the thecal sac without spinal cord compression. Bilateral uncinate process hypertrophy is present. This produces moderate and minimal narrowing of the right and left C4 neural foramina respectively. A disc bulge with associated osteophyte formation is present at the C6-7 level. There is mild effacement of the thecal sac without spinal cord compression. Bilateral uncinate process hypertrophy is present. This produces moderate and minimal narrowing of the right and left C6 neural foramina respectively. There is no other disc bulge or herniation. The remaining neural foramina are patent. The spinal cord is normal in signal intensity. Normal signal intensity is present in the cervical vertebral bodies. IMPRESSION: There is cervical spondylosis at the C2-3 through C6-7 levels without spinal cord compression. Findings at the C2-3 and C4-5 levels are new. Signed by Xavi Olmos MD 06/23/2017 08:41 A
== END ==
LOC: M RAD 18:08
PROVIDERS: ATTEND Nurse Practitioner Family
DX: M47.812 Spondylosis without myelopathy or radiculopathy, cervical region (principal); M47.816 Spondylosis without myelopathy or radiculopathy, lumbar region

== ENCOUNTER → 2017-12-13 | Outpatient (CLI) | payer BC | LOC: M WUC 10:22 | DX: S50.01XA Contusion of right elbow, initial encounter (principal); X58.XXXA Exposure to other specified factors, initial encounter; Y92.9 Unspecified place or not applicable | CPT/HCPCS: 73080 ==

== ENCOUNTER → 2018-01-06 | Outpatient (CLI) | payer BC | LOC: M PAIN 14:30 | DX: M47.816 Spondylosis without myelopathy or radiculopathy, lumbar region (principal); M96.1 Postlaminectomy syndrome, not elsewhere classified; M51.16 Intervertebral disc disorders with radiculopathy, lumbar region; M12.88 Other specific arthropathies, not elsewhere classified, other specified site; M79.1 Myalgia; M46.1 Sacroiliitis, not elsewhere classified; M79.7 Fibromyalgia; E03.9 Hypothyroidism, unspecified; G43.909 Migraine, unspecified, not intractable, without status migrainosus; J45.909 Unspecified asthma, uncomplicated; Z79.899 Other long term (current) drug therapy; Z88.8 Allergy status to other drugs, medicaments and biological substances; Z85.3 Personal history of malignant neoplasm of breast | CPT/HCPCS: G0463 ==

== ENCOUNTER → 2018-01-30 | Outpatient (CLI) | payer BC ==
[~2018-01-30] MED LIST changes: -ARIM1TAB4 PO; -ATEN50TA2 PO; +BUPIVACAINE HCL 0.25% 30 ML VIAL As Ordered; -CYMB60CA3 PO; -FOSA70TA PO; -IMIT50TA PO; +ISOVUE-M 300 61% 15ML VIAL (Q9967) As Ordered; -LEVO75TA4 PO; -LIDO5DIS41 TD; +LIDOCAINE 1% SDV INJ 30 ML VIAL As Ordered; -LIPI20TA PO; -LORT5TAB PO; -PREG50CA PO; -PROAAER10 IN; +TRIAMCINOLONE ACETONIDE SUSP 40 MG/ML VIAL (J3301) As Ordered; -VITA100066 PO; -VITATAB73 PO; -ZANA2CAP PO; -ZANA4TAB PO
== END ==
LOC: M PAIN 08:30
DX: G89.29 Other chronic pain (principal); M46.1 Sacroiliitis, not elsewhere classified; E03.9 Hypothyroidism, unspecified; G43.909 Migraine, unspecified, not intractable, without status migrainosus; J45.909 Unspecified asthma, uncomplicated; Z79.899 Other long term (current) drug therapy; Z88.8 Allergy status to other drugs, medicaments and biological substances; Z85.3 Personal history of malignant neoplasm of breast
CPT/HCPCS: J3301

== ENCOUNTER 2019-04-26 17:50 | Emergency (ER) | payer BC, SELFPAY ==
[~2019-04-26] VITALS: Ht 160 cm; Wt 62.7 kg
[~2019-04-26 17:50] MED LIST changes: +ARIM1TAB5 PO; +ATEN50TA2 PO; -BUPIVACAINE HCL 0.25% 30 ML VIAL As Ordered; +CYMB60CA3 PO; +FOSA70TA PO; +IMIT50TA PO; -ISOVUE-M 300 61% 15ML VIAL (Q9967) As Ordered; +LEVO75TA4 PO; +LIDO5DIS41 TD; -LIDOCAINE 1% SDV INJ 30 ML VIAL As Ordered; +LIPI20TA PO; +LORT5TAB PO; +PREG50CA PO; +PROAAER10 IN; -TRIAMCINOLONE ACETONIDE SUSP 40 MG/ML VIAL (J3301) As Ordered; +VITA100066 PO; +VITATAB73 PO; +ZANA2CAP PO; +ZANA4TAB PO
[2019-04-26] MEDS ORDERED: METHOCARBAMOL 750 MG TAB PO ONE (19:15)
[2019-04-26] MEDS ORDERED: KETOROLAC 60 MG/2 ML VIAL (J1885) IM ONE (19:15)
--- NOTE | 2019-04-26 20:12 | REP ---
AP PELVIS AND TWO VIEW RIGHT HIP: HISTORY: Status post trauma. A single AP view of the pelvis was performed. The right hip joint spaces are symmetric and relatively well maintained. There is no acute fracture or destructive osseous lesion. Electronically Signed by Piyush Chavez DO 04/27/2019 04:42 P
[2019-04-26] MEDS ORDERED: IBUP-1114 PO (20:14)
[2019-04-26] MEDS ORDERED: METF10004 PO (20:16)
[2019-04-26 21:13] VITALS: BP 131/73
[2019-04-26] MEDS ORDERED: ROBA500T PO (21:47)
[2019-04-26] MEDS ORDERED: GABA-843 PO (21:47)
[2019-04-26] MEDS ORDERED: KETO10TAB PO (21:47)
== END 2019-04-26 21:59 | disposition home or self-care (01) ==
LOC: M ED 17:50
DX: M25.551 Pain in right hip (principal); M54.30 Sciatica, unspecified side; M79.7 Fibromyalgia; G43.909 Migraine, unspecified, not intractable, without status migrainosus; J45.909 Unspecified asthma, uncomplicated; Z85.3 Personal history of malignant neoplasm of breast; Z79.84 Long term (current) use of oral hypoglycemic drugs; Z79.899 Other long term (current) drug therapy; Z88.2 Allergy status to sulfonamides; Z88.8 Allergy status to other drugs, medicaments and biological substances
CPT/HCPCS: 73502; 96372; 99283; J1885

== ENCOUNTER 2019-11-29 16:46 | Inpatient (IN) | payer MEDICAID, MEDICARE, OTHER ==
[~2019-11-29] VITALS: Ht 160 cm; Wt 58.1 kg
[~2019-11-29 16:46] MED LIST changes: -IBRA125C PO; -VENTAER INH
[2019-11-29] MEDS: MORPHINE 2 MG/ML 1ML VIAL (J2270) IV PRN ×2 (17:41→19:11)
[2019-11-29] MEDS ORDERED: PERCOCET 5MG/325MG TAB PO ONE (17:45)
[2019-11-29] MEDS ORDERED: VENTAER INH (18:00)
[2019-11-29] MEDS ORDERED: GABA-843 PO (18:00)
[2019-11-29] MEDS ORDERED: MOM 30ML SUSPENSION UDC PO PRN (18:15)
[2019-11-29] MEDS ORDERED: SUMAtriptan SUCCINATE 25 MG TAB PO PRN (18:30)
[2019-11-29] MEDS ORDERED: METHYLNALTREXONE BROMIDE 12 MG/0.6 ML VIAL (RELISTOR) SC ONE (18:30)
--- NOTE | 2019-11-29 18:36 | HPEPDOC ---
General Date of Admission 11/29/19 Date of Service: Nov 29, 2019 Chief Complaint The patient is a 54-year-old female admitted with a reason for visit of PAIN. Source: Patient Exam Limitations: No limitations Timing/Duration: Other Severity: Severe Associated Symptoms: Other (since few weeks. Right hip) History of Present Illness This is a 54 years old white female with past medical history of breast cancer, status post chemoradiation and a right-sided mastectomy in 2012, history of SVT, hyperlipidemia, hypertension, fibromyalgia, hypothyroidism, was in usual state of health while she was working in [place]. She started having difficulty walking and she was using 2 cans to walk and she was seen at multiple emergency room today without any diagnosis. Later, patient had a MRI of the spine and hip done which showed multiple bone lesions in both extremities, lumbar, thoracic and cervical spine as well as bilateral ribs. And had a bone lesion biopsy done today and was sent for admission to medical floor by Dr. Martin as she is planning to start hormonal therapy on patient. Also patient requires pain management in the meantime. Home Medications Scheduled Atenolol (Atenolol) 50 Mg Tab, 50 MG PO DAILY, (Reported) Dexamethasone (Dexamethasone) 4 Mg Tablet, 4 MG PO BID Gabapentin (Gabapentin) 300 Mg Capsule, 300 MG PO TID, (Reported) Letrozole (Letrozole) 2.5 Mg Tablet, 1 TAB PO DAILY Levothyroxine Sodium (Levothyroxine Sodium) 75 Mcg Tab, 75 MCG PO QAM, (Reported) Sennosides (Senna) 8.6 Mg Tablet, 8.6 MG PO DAILY, (Reported) Vitamin B Complex (Vitamin B Complex) 1 Tab Tab, 1 TAB PO DAILY, (Reported) Scheduled PRN Albuterol Sulfate (Ventolin Hfa) 18 Gm Hfa.aer.ad, 2 PUFF INH Q6H PRN for S HORTNESS OF BREATH, (Reported) Ondansetron HCl (Zofran) 8 Mg Tablet, 8 MG PO TID PRN for NAUSEA OR VOMITING, (Reported) Oxycodone HCl (Oxycodone HCl) 5 Mg Tablet, 5 MG PO Q4H PRN for PAIN, (Reported) MAY TAKE ONE TO THREE TABLETS NEEDED Sumatriptan Succinate (Imitrex) 50 Mg Tab, 50 MG PO PRN PRN for MIGRAINE, (Reported) Allergies Coded Allergies: Quinolones (Verified Allergy, Unknown, "HARD RED BUMPS ON LEGS AND COULDN'T WALK", 11/29/19) Sulfa (Sulfonamide Antibiotics) (Verified Allergy, Unknown, 11/29/19) nitrofurantoin (Verified Allergy, Unknown, ITCHING AND SWELLING OF ARMS, 11/29/19) Past Medical History Medical History CA breast status post right mastectomy with chemotherapy and radiation, hyperlipidemia, hypertension, fibromyalgia, hypothyroidism, Surgical History surgical history lumpectomy on right side L5-S1 laminectomy, hysterectomy and D&C Family History Significant Family History: No pertinent family hx Social History * Smoker: Denies Alcohol: Denies Drugs: denies A-FIB/CHADSVASC A-FIB History Current/History of A-Fib/PAF?: No Review of Systems Constitutional: Reports: Fatigue Eyes: Denies: Pain, Vision change, Conjunctivae inflammation, Eyelid inflammation, Redness, Other ENT: Denies: Head Aches, Ear Pain, Dysphagia, Sinus Congestion, Post Nasal Drip, Sore Throat, Epistaxis, Other Symptoms Skin: Denies: Rash, Lesions, Jaundice, Bruising, Itching, Dry, Breakdown, Nail Changes, Other Pulmonary: Denies: Dyspnea, Cough, Pleuritic Chest Pain, Other Symptoms Cardiovascular: Denies: Chest Pain, Palpitations, Orthopnea, Paroxysmal Noc. Dyspnea, Edema, Lt Headedness, Other Symptoms Gastrointestinal: Denies: Nausea, Vomiting, Abdominal Pain, Diarrhea, Constipation, Melena, Hematochezia, Other Symptoms Hematologic: Denies: Bruising, Bleeding Excessively, Petecchia, Purpura, Enlarged Lymph Nodes, Other Hematologic Endocrine: Denies: Polydipsia, Polyphagia, Polyuria, Heat Intolerance, Cold Intolerance, Other Endocrine Sx Musculoskeletal: Reports: Back Pain, Leg Pain (, right hip pain and pain all over the body), Other Symptoms Neurological: Reports: Weakness, Other Symptoms (, decreased motor strength on right leg but able to ambulate) Physical Examination General Exam: Positive: Alert, Cooperative Eye Exam: Positive: PERRLA, Conjunctiva & lids normal ENT Exam: Positive: Atraumatic, Mucous membr. moist/pink Neck Exam: Positive: Supple Chest Exam: Positive: Clear to auscultation, Normal air movement Heart Exam: Positive: Rate Normal, Normal S1, Normal S2 Abdomen Exam: Positive: Normal bowel sounds, Soft Extremity Exam: Positive: Other (and weakness with tenderness on right hip) Skin Exam: Positive: Nl turgor and temperature Neuro Exam: Positive: Sensation Intact, Cranial Nerves 3-12 NL, Other (weakness on the right hip but able to ambulate) Psych Exam: Positive: Mental status NL, Mood NL, Oriented x 3 Vital Signs Vital Signs Date Time Temp Pulse Resp B/P (MAP) Pulse Ox O2 Delivery O2 Flow Rate FiO2 11/29/19 18:06 18 11/29/19 16:58 99.4 81 153/81 (105) 99 Room Air Laboratory Data Labs 24H Laboratory Tests 2 11/29/19 17:34: Urine Color YELLOW, Urine Appearance CLEAR, Urine pH 7.0, Urine Specific [place] 1.006, Urine Protein NEGATIVE, Urine Glucose (UA) NEGATIVE, Urine Ketones NEGATIVE, Urine Blood NEGATIVE, Urine Nitrite NEGATIVE, Urine Bilirubin NEGATIVE, Urine Urobilinogen 0.2, Urine Leukocyte Esterase TRACEH, Urine WBC (Auto) 12H, Urine RBC (Auto) 2, Urine Hyaline Casts (Auto) 0, Urine Bacteria (Auto) 1+H, Urine Squamous Epithelial Cells 1, Urine Amorphous Sediment SMALLH, Urine Mucus (Auto) SMALL, Urine Sperm (Auto) Microbiology Microbiology 11/29/19 Urine Culture, Received Pending Problems (1) Breast cancer metastasized to bone Status: Acute Problem Text: 54 years old white female with past medical history of breast cancer status post right lumpectomy with chemotherapy radiation 2013 has been diagnosed again with multiple bone metastases all over the body lower extremities, lumbar, thoracic and cervical spine bilateral ribs and lungs. Patient being admitted for pain management and symptom control and possible hormonal therapy as per Dr. Martin Patient. WBC count is 7.7, hemoglobin 10.6, platelets 372. Electrolytes are normal. Calcium 10.2, magnesium 10.2, AST 94, ALT 127, and ALP 195 Admit patient to [facility] floor for symptomatic care Start IV fluid normal saline at 70 mL per hour Oxycodone 10 mg by mouth every 4 hours when necessary Sulfate 2 mg IV every 4 hours when necessary Zofran 8 mg by mouth every 4 hours when necessary Bed rest with commode Regular diet DVT prophylaxis with heparin Oncology consult with Dr. Martin has been called. Further, as per oncology's recommendations (2) HTN (hypertension) Status: Chronic Problem Text: Continue home meds (3) Pain management Status: Acute Problem Text: Oxycodone 10 mg by mouth every 4 hours when necessary Morphine sulfate 2 mg IV every 4 4-6 hour when necessary (4) Hypercalcemia Status: Acute Problem Text: Calcium level was 10.2 Continue IV fluids normal saline at 70 mL per hour Further, as per oncology recommendations (5) Hypothyroid Status: Chronic Problem Text: Continue home meds (6) Constipation due to pain medication Status: Acute Problem Text: Constipation, most likely secondary to opiate pain meds relistor 12 g subcutaneous 1 Plan / VTE VTE Prophylaxis Ordered?: Yes SANDEE LEDBETTER MD Nov 29, 2019 18:36
[2019-11-29 20:59] VITALS: BP 128/72
[2019-11-29] MEDS: NS 1,000 ML IV SCH (21:54)
[2019-11-29] MEDS: DOCUSATE SODIUM 100 MG CAP PO SCH (23:07)
[2019-11-29] MEDS: GABAPENTIN 300 MG CAP PO SCH (23:08)
[2019-11-29] MEDS: oxyCODONE 5MG TAB PO PRN (23:11)
[2019-11-30] MEDS: ACETAMINOPHEN TAB 650MG DOSE (2X325MG) PO PRN ×2 (01:50→22:07)
[2019-11-30 06:14] LABS: HEMATOCRIT 34.7 % (36.0-47.0); HEMOGLOBIN 10.8 g/dl (12.0-15.5); MEAN CORPUSCULAR HEMOGLOBIN 28.6 pg (27.0-33.0); MEAN CORPUSCULAR HGB CONC 31.1 g/dl (32.0-36.5); MEAN CORPUSCULAR VOLUME 91.8 fl (80.0-96.0); PLATELET COUNT, AUTOMATED 340 10^3/uL (150-450); RED BLOOD COUNT 3.78 10^6/uL (4.00-5.40); WHITE BLOOD COUNT 9.5 10^3/uL (4.0-10.0)
[2019-11-30] MEDS: LEVOTHYROXINE 75MCG TABLET (0.075MG) PO SCH (06:23)
[2019-11-30 06:41] LABS: ALBUMIN 3.3 GM/DL (3.2-5.2); ALT/SGPT 119 U/L (12-78); BILIRUBIN,TOTAL 0.5 MG/DL (0.2-1.0); BLOOD UREA NITROGEN 8 MG/DL (7-18); CALCIUM LEVEL 9.5 MG/DL (8.5-10.1); CARBON DIOXIDE LEVEL 24 MEQ/L (21-32); CHLORIDE LEVEL 106 MEQ/L (98-107); CREATININE FOR GFR 0.75 MG/DL (0.55-1.30); GLOMERULAR FILTRATION RATE > 60.0 (>51); GLUCOSE, FASTING 122 MG/DL (70-100); POTASSIUM SERUM 4.5 MEQ/L (3.5-5.1); SODIUM LEVEL 139 MEQ/L (136-145); TOTAL PROTEIN 7.5 GM/DL (6.4-8.2)
[2019-11-30 06:46] VITALS: BP 113/59
[2019-11-30] MEDS: GABAPENTIN 300 MG CAP PO SCH ×3 (09:06→20:44)
[2019-11-30] MEDS: LETROZOLE 2.5 MG TAB PO SCH (09:06)
[2019-11-30] MEDS: SENNA 8.6 MG TAB (SENOKOT) PO SCH (09:07)
[2019-11-30] MEDS: DOCUSATE SODIUM 100 MG CAP PO SCH ×2 (09:07→20:44)
[2019-11-30] MEDS: atenoloL 50 MG TAB PO SCH (09:08)
[2019-11-30] MEDS: NS 1,000 ML IV SCH (09:09)
[2019-11-30] MEDS: HEPARIN SOD (PORCINE) 5000 UNITS/ML VIAL (J1644 PER 1000UNITS) SC SCH ×2 (09:09→20:45)
[2019-11-30] MEDS ORDERED: ZOLEDRONIC ACID 4 MG in D5W 100 ML IV ONE ×3 (10:00→14:00)
--- NOTE | 2019-11-30 10:58 | IPNPDOC ---
Subjective Date Seen The patient was seen on 11/30/19. Subjective Chief Complaint/HPI Patient had a large BMs feels much better, in no apparent distress General: Denies: ROS Unobtainable, Chills, Night Sweats, Fatigue, Malaise, Normal Appetite, Other Symptoms Constitutional: Denies: Chills, Fever, Malaise, Night Sweats, Weakness, Fatigue, Weight Loss, Lethargy, Other Pulmonary: Denies: Dyspnea, Cough, Pleuritic Chest Pain, Other Symptoms Cardiovascular: Denies: Chest Pain, Palpitations, Orthopnea, Paroxysmal Noc. Dyspnea, Edema, Lt Headedness, Other Symptoms Gastrointestinal: Denies: Nausea, Vomiting, Abdominal Pain, Diarrhea, Constipation, Melena, Hematochezia, Other Symptoms Musculoskeletal: Denies: Neck Pain, Back Pain, Shoulder Pain, Arm Pain, Hand Pain, Leg Pain, Foot Pain, Joint Pain, Muscle Pain, Spasms, Other Symptoms Neurological: Denies: Weakness, Numbness, Incoordination, Change in speech, Confusion, Seizures, Other Symptoms Objective Physical Examination General Exam: Positive: Alert, Cooperative Eye Exam: Positive: PERRLA, Conjunctiva & lids normal ENT Exam: Positive: Atraumatic, Mucous membr. moist/pink Neck Exam: Positive: Supple Chest Exam: Positive: Clear to auscultation, Normal air movement Heart Exam: Positive: Rate Normal, Normal S1, Normal S2 Abdomen Exam: Positive: Normal bowel sounds, Soft Extremity Exam: Positive: Other (and weakness with tenderness on right hip) Skin Exam: Positive: Nl turgor and temperature Neuro Exam: Positive: Sensation Intact, Cranial Nerves 3-12 NL, Other (weakness on the right hip but able to ambulate) Psych Exam: Positive: Mental status NL, Mood NL, Oriented x 3 Assessment /Plan Problems (1) Breast cancer Onset Date: ~ 2019 Status: Acute Problem Text: Breast cancer with bone metastases 54 years old white female with past medical history of breast cancer status post right lumpectomy with chemotherapy radiation 2013 has been diagnosed again with multiple bone metastases all over the body lower extremities, lumbar, thoracic and cervical spine bilateral ribs and lungs. Patient being admitted for pain management and symptom control and possible hormonal therapy as per Dr. Martin Patient. WBC count is 7.7, hemoglobin 10.6, platelets 372. Electrolytes are normal. Calcium 10.2, magnesium 10.2, AST 94, ALT 127, and ALP 195 Oxycodone 10 mg by mouth every 4 hours when necessary Zofran when necessary Discussed with Dr. Goldstein Will order CT of the abdomen and pelvis with contrast Zoledronate also has been ordered Shows a repeat calcium level is within normal limits. DC IV fluids Further, as per oncology recommendations (2) Hypercalcemia Status: Resolved Problem Text: Calcium level was 10.2 on admission Received IV fluids, calcium level is 9.0 today DC IV fluids Further, as per oncology recommendations (3) HTN (hypertension) Status: Chronic Problem Text: Continue home meds (4) Hypothyroid Status: Chronic Problem Text: Continue home meds (5) Constipation Status: Resolved Problem Text: Cost to patient secondary to provide Constipation, resolved with Relistor injection Stool softeners and will watch clinically Plan/VTE VTE Prophylaxis Ordered?: Yes VS, I&O, 24H, Fishbone Vital Signs/I&O Vital Signs Date Time Temp Pulse Resp B/P (MAP) Pulse Ox O2 Delivery O2 Flow Rate FiO2 11/30/19 09:08 91 129/80 11/30/19 06:46 98.1 20 95 Room Air I&O- Last 24 Hours up to 6 AM 11/30/19 06:00 Intake Total 100 ml Output Total 750 ml Balance -650 ml Laboratory Data 24H LABS Laboratory Tests 2 11/29/19 17:34: Urine Color YELLOW, Urine Appearance CLEAR, Urine pH 7.0, Urine Specific Alpine 1.006, Urine Protein NEGATIVE, Urine Glucose (UA) NEGATIVE, Urine Ketones NEGATIVE, Urine Blood NEGATIVE, Urine Nitrite NEGATIVE, Urine Bilirubin NEGATIVE, Urine Urobilinogen 0.2, Urine Leukocyte Esterase TRACEH, Urine WBC (Auto) 12H, Urine RBC (Auto) 2, Urine Hyaline Casts (Auto) 0, Urine Bacteria (Auto) 1+H, Urine Squamous Epithelial Cells 1, Urine Amorphous Sediment SMALLH, Urine Mucus (Auto) SMALL, Urine Sperm (Auto) 11/30/19 05:53: Nucleated Red Blood Cells % (auto) 0.0, Anion Gap 9, Glomerular Filtration Rate > 60.0, Calcium Level 9.5, Total Bilirubin 0.5, Aspartate Amino Transf (AST/SGOT) 82H, Alanine Aminotransferase (ALT/SGPT) 119H, Alkaline Phosphatase 192H, Total Protein 7.5, Albumin 3.3, Albumin/Globulin Ratio 0.79L CBC/BMP Laboratory Tests 11/30/19 05:53 Microbiology Microbiology 11/29/19 Urine Culture, Received Pending SANDEE LEDBETTER MD Nov 30, 2019 10:57
[2019-11-30] MEDS ORDERED: ZOLEDRONIC ACID 4 MG OVER 15 MINUTES IV ONE ×2 (12:00)
[2019-11-30] MEDS: GASTROGRAFIN SOLUTION 30ML PO SCH (12:33)
[2019-11-30] MEDS ORDERED: ISOVUE-370 76% 100ML VIAL (Q9967) As Ordered ONE (13:32)
[2019-11-30] MEDS: oxyCODONE 5MG TAB PO PRN ×2 (13:48→19:41)
[2019-11-30] MEDS: MORPHINE 2 MG/ML 1ML VIAL (J2270) IV PRN (13:48)
[2019-11-30 14:00] VITALS: BP 123/76
[2019-11-30 15:34] LABS: IMMUNOGLOBULIN G 859 MG/DL (681-1648); LDH LACTATE DEHYDROGENASE 324 U/L (84-246); TOTAL PROTEIN 7.3 GM/DL (6.4-8.2)
--- NOTE | 2019-11-30 19:07 | REP ---
CT abdomen and pelvis with IV and oral contrast: History: Known extensive skeletal metastasis. Rule out progression. Comparison is made with recent prior CT study from an outside institution dated November 11, 2019. The patient has a history of breast carcinoma. CT contrast dose: 100 mL of intravenous Isovue [address] findings: Buyer Grain view demonstrates an unremarkable bowel gas pattern. There are right lower lobe and right middle lobe nodules which are felt to be unchanged. No pleural effusion is seen. The liver is normal in size and homogeneous in texture. No definite liver lesion is seen. The spleen is unremarkable. No adrenal masses observed. No abnormalities noted in the pancreas or the gallbladder. Small and large intestinal bowel loops are unremarkable in the abdomen and pelvis. The uterus is surgically absent. Urinary bladder is intact. The kidneys enhance symmetrically and are morphologically intact. On bone window settings, there is widespread skeletal metastatic disease again noted. There is anterior wedge compression deformity at T10 with some retropulsion and epidural disease narrowing the canal at the T10 level. There has been some progressive loss of anterior vertebral body height at T10 in the interval since the November 11, 2019 study. Anterior vertebral body height was 15 mm November 11, 2019 and is 12 mm today. Similarly, there has been interval growth in a small metastasis in the anterior aspect of the T11 level. There is interval cortical erosion and bone destruction in the spinous process and laminar metastasis at T12. There is a new metastatic lesion visible in the inferior aspect of L3 and another new lesion is seen at the superior endplate of L2. At L4, there is a large lesion anteriorly which appears unchanged. There is extensive involvement of the right L4 pedicle and this lesion has progressed. There is encroachment on the right foramen at 4-5 due to this deposit. There is extensive posterior element and pedicle involvement on the right at L5 as well. This is essentially unchanged. There is extensive replacement of the bony sacrum with metastatic disease. There is pathologic sacral fracture and deformity. The deformity has become more prominent at the level of the 5th sacral segment. There is extensive metastatic destruction of the right pelvis from the ischium to the iliac crest including the acetabular region. This does appear more extensive as well since the November 11, 2019 study. Impression: Rapidly progressive skeletal metastatic disease. Electronically Signed by Ja Bermudez MD 12/01/2019 05:37 A
[2019-11-30 20:22] VITALS: BP 107/64
[2019-12-01] MEDS: oxyCODONE 5MG TAB PO PRN (05:48)
[2019-12-01] MEDS: LEVOTHYROXINE 75MCG TABLET (0.075MG) PO SCH (05:48)
[2019-12-01 06:20] VITALS: BP 112/64
[2019-12-01] MEDS: ACETAMINOPHEN TAB 650MG DOSE (2X325MG) PO PRN ×2 (06:47→15:11)
[2019-12-01] MEDS: SENNA 8.6 MG TAB (SENOKOT) PO SCH (08:50)
[2019-12-01] MEDS: LETROZOLE 2.5 MG TAB PO SCH (08:50)
[2019-12-01] MEDS: DOCUSATE SODIUM 100 MG CAP PO SCH ×2 (08:50→20:32)
[2019-12-01] MEDS: GABAPENTIN 300 MG CAP PO SCH ×3 (08:50→20:32)
[2019-12-01] MEDS: HEPARIN SOD (PORCINE) 5000 UNITS/ML VIAL (J1644 PER 1000UNITS) SC SCH ×2 (08:51→20:32)
[2019-12-01] MEDS: atenoloL 50 MG TAB PO SCH (08:51)
--- NOTE | 2019-12-01 09:04 | IPNPDOC ---
Subjective Date Seen The patient was seen on 12/01/19. Subjective Chief Complaint/HPI Patient complaining of a lot of pain in her right hip and unable to find a comfortable position has good BMs the General: Denies: ROS Unobtainable, Chills, Night Sweats, Fatigue, Malaise, Normal Appetite, Other Symptoms Constitutional: Denies: Chills, Fever, Malaise, Night Sweats, Weakness, Fatigue, Weight Loss, Lethargy, Other Pulmonary: Denies: Dyspnea, Cough, Pleuritic Chest Pain, Other Symptoms Cardiovascular: Denies: Chest Pain, Palpitations, Orthopnea, Paroxysmal Noc. Dyspnea, Edema, Lt Headedness, Other Symptoms Gastrointestinal: Denies: Nausea, Vomiting, Abdominal Pain, Diarrhea, Constipation, Melena, Hematochezia, Other Symptoms Musculoskeletal: Reports: Back Pain, Leg Pain, Joint Pain Neurological: Denies: Weakness, Numbness, Incoordination, Change in speech, Confusion, Seizures, Other Symptoms Psych: Denies: Mood Normal, Anxiety, Depression, Memory Issues, Thoughts of Self Harm, Anger, Thoughts of Harming Other, Other Psych Objective Physical Examination Neck Exam: Positive: Supple Chest Exam: Positive: Clear to auscultation, Normal air movement Heart Exam: Positive: Rate Normal, Normal S1, Normal S2 Abdomen Exam: Positive: Normal bowel sounds, Soft Extremity Exam: Positive: Other (and weakness with tenderness on right hip) Skin Exam: Positive: Nl turgor and temperature Neuro Exam: Positive: Sensation Intact, Cranial Nerves 3-12 NL, Other (weakness on the right hip but able to ambulate) Psych Exam: Positive: Mental status NL, Mood NL, Oriented x 3 Assessment /Plan Problems (1) Breast cancer Onset Date: ~ 2018 Status: Acute Problem Text: Breast cancer with bone metastases 54 years old white female with past medical history of breast cancer status post right lumpectomy with chemotherapy radiation 2013 has been diagnosed again with multiple bone metastases all over the body lower extremities, lumbar, thoracic and cervical spine bilateral ribs and lungs. Patient being admitted for pain management and symptom control and possible hormonal therapy as per Dr. Martin Patient. WBC count is 7.7, hemoglobin 10.6, platelets 372. Electrolytes are normal. Calcium 10.2, magnesium 10.2, AST 94, ALT 127, and ALP 195 Oxycodone 10 mg by mouth every 4 hours when necessary Zofran when necessary Discussed with Dr. Goldstein Will order CT of the abdomen and pelvis with contrast Zoledronate also has been ordered Shows a repeat calcium level is within normal limits. DC IV fluids Patient was seen by Dr. Goldstein as per patient, awaiting official consult in the chart Patient was also seen by Dr. Carmona again the official note is awaited Further treatment plans as per Dr. Goldstein and Dr. Carmona Regarding pain management. We will start OxyContin 10 mg by mouth twice a day and oxycodone when necessary as needed better pain control (2) Hypercalcemia Status: Resolved Problem Text: Calcium level was 10.2 on admission Received IV fluids, calcium level is 9.0 today DC IV fluids Further, as per oncology recommendations (3) HTN (hypertension) Status: Chronic Problem Text: Continue home meds (4) Hypothyroid Status: Chronic Problem Text: Continue home meds (5) Constipation Status: Resolved Problem Text: Cost to patient secondary to provide Constipation, resolved with Relistor injection Stool softeners and will watch clinically Plan/VTE VTE Prophylaxis Ordered?: Yes VS, I&O, 24H, Fishbone Vital Signs/I&O Vital Signs Date Time Temp Pulse Resp B/P (MAP) Pulse Ox O2 Delivery O2 Flow Rate FiO2 12/01/19 08:51 77 112/64 12/01/19 06:20 98.4 16 95 Room Air I&O- Last 24 Hours up to 6 AM 12/01/19 06:00 Intake Total 2430 ml Output Total 2650 ml Balance -220 ml Laboratory Data 24H LABS Laboratory Tests 2 11/30/19 14:43: Lactate Dehydrogenase 324H, Total Protein (PEP) 7.3, Immunoglobulin G 859, Immunoglobulin A 127.0, Immunoglobulin M 103.0, Immunoglobulin E 60.0 Microbiology Microbiology 11/29/19 Urine Culture - Final, Complete SANDEE LEDBETTER MD Dec 01, 2019 09:04
[2019-12-01] MEDS: oxyCODONE 10 MG CR TAB PO SCH ×2 (09:52→20:32)
[2019-12-01 14:00] VITALS: BP 101/56
--- NOTE | 2019-12-01 16:29 | IPN ---
DATE: 12/01/2019 DIAGNOSIS: A 54-year-old woman with personal history of stage II ER positive breast cancer in 2013, now presenting with widespread skeletal metastases, unstable T10 and iliac lytic lesions, progressive spinal disease status post right hip bone biopsy result pending with elevated CA27.29 and normal quantitative immunoglobulins, suggestive of metastatic breast cancer. INTERIM HISTORY: Mirna reports doing okay. She recounts in some detail how yesterday the CT abdomen and pelvis scan interrupted the flow of work before her T-spine localizing procedure. The pain medications were not given an hour before as directed. She was not able to lie on the table. The pain medications were brought to her, and since then her pain medications have been given appropriately. She is into the discussions with Dr. Randolph about the pain medication regimen. I explained the current knowledge of biochemical results as far as CA 27, 29 being elevated supporting metastatic breast cancer but not proving it. The abdomen and pelvis CT was negative for evidence of liver metastases. The abdomen and pelvis CT was negative for evidence of liver involvement or other abdominal organ involvement, and the transaminitis has not worsened. Mirna is seated up in bed with lunch on a tray before her, open potato chip packages, drink orange juice, and a hot dog half eaten. She is surrounded by family. More family comes in during our visit. She reports currently being more comfortable than yesterday and again in fairly articulate long setencene, elaborate, descriptive narration describes that her pain is 5/5. Reviewing the analgesia, Mirna is currently on OxyContin 10 mg twice a day, gabapentin 300 mg three times a day, sumatriptan as needed, morphine sulfate 2 mg intravenous (IV) every 4 hours as needed, and Roxicodone 10 mg every 4 hours as needed. Her bowel regimen appears adequate. She received zoledronic laconic acid on 11/30/2019, and her medications include letrozole 2.5 mg daily, which she reports taking. LABORATORY DATA: WBC 9.5, hemoglobin 10.8, hematocrit 34.7, platelets 340, neutrophil percentage 70. Electrolytes overall unremarkable. Normal renal function. Quantitative immunoglobulins normal. ALTA negative. SPEP serum free light chain pending. IMPRESSION: A 54-year-old woman with history of stage II ER positive, OK weakly positive HER2/sharron negative breast cancer in 2012 with widespread skeletal metastases, bilateral pulmonary subcentimeter metastases. No evidence of below the diaphragm visceral disease. Elevated CA27.29 (1864), on empiric letrozole, zoledronic acid, and starting palliative radiation to thoracic spine, possibly lumbar spine, and right hip/iliac for bony destructive lesions. Eastern Cooperative Oncology Group (ECOG) performance to currently 4, avoiding weightbearing due to extent of iliac destruction and vertebral involvement with many vertebrate nearly completely replaced by tumor. Pain partially controlled. The patient's subjective report slightly out of synchrony with objective appearance. Bone biopsy pending. PLAN: 1. Continue current therapy. 2. Should breast cancer be confirmed I will work toward getting Mirna on a CDK4/6 inhibitor therapy, such as palbociclib. 3. At some point, next-generation sequencing should be sought on tumor tissue to discern whether an estrogen receptor mutation is present which confirms resistance to aromatase inhibitor therapy. Again, assuming confirmation of metastatic breast cancer. 4. For the time being, antiestrogen therapy is appropriate unless rapid evolution of visceral metastases develops. 5. Followup all myeloma labs. 6. Will follow [facility] health care team. It's 801 pm and I'm still here! MTDD
--- NOTE | 2019-12-01 19:07 | CR ---
DATE OF CONSULTATION: 11/30/2019 DIAGNOSIS: Widespread metastatic cancer, primarily involving skeleton, with severe bone marrow involvement throughout the cervical, thoracic, and lumbar spine, widely involving pelvis with epidural involvement at T10, destructive right iliac lesions, right leg weakness for over a month, and pulmonary metastases. Admitted for skeletal fragility involving all weightbearing bones, concern for imminent vertebral collapse at T10 and pelvic bone collapse. Patient with history of stage II node-negative, ER positive/HI weakly positive/HER2/sharron negative breast cancer in 2012. REQUESTING PHYSICIAN: Dr. Randolph of the hospital service. 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 She has a personal history of T2N0M0 screen-detected right breast upper-outer quadrant invasive ductal carcinoma, moderate to poorly differentiated with lymphovascular invasion, ER 70% positive, HI 5-10% positive, HER2/sharron negative. She is status post lumpectomy/sentinel node biopsy 06/07/2013 with a 2.7 cm tumor, clear margins, but satellite lesions noted, and lymphovascular vision. She had adjuvant chemotherapy with Adriamycin/Cytoxan followed by Taxol followed by radiation followed by anastrozole for 3 years. She has been no evidence of disease ([place]) since. Over the summer and particularly fall she developed low back pain. She had the diagnosis of fibromyalgia and said it was just chronic, but she worked through it. The pain extended to become right leg pain, becoming so severe that in late October while working in [place] on a job she was referred to orthopedics for workup of her right leg pain. An MRI of the pelvis revealed extensive right iliac lytic metastases, destructive to the iliac wing. Lumbosacral (LS) spine and thoracic spine imaging revealed a large T10 vertebral compression fracture with soft tissue extension into the epidural space, metastases involving L4-5, and multiple other chest CTs showed intrathoracic bilateral pulmonary metastases up to 1.2 cm, skeletal lesions involving left supraclavicular and left scapular lesions, supraclavicular and mediastinal lymphadenopathy, and the T10 lytic metastasis with 50% loss of vertebral height. Brain MRI was negative for intracranial parenchymal lesions but showed osseous metastasis in the left petrous apex extending into the petroclival ligament and left internal auditory canal, abutting the left flocculus with small osseous metastasis in the left C1 vertebral area. Abdomen and pelvis CT was negative for hepatic or splenic involvement. The patient was referred immediately to oncology at [facility] ([facility]). On her way to the oncology appointment she collapsed, was hospitalized. Much of the imaging workup completed there. She declined biopsy and radiation treatment there are in favor of relocating back home where she would be closer to family. She was seen in radiation oncology yesterday by Dr. Carmona, who raised concern for potentially unstable vertebral and iliac metastatic disease. She was seen by me in oncology clinic yesterday. The primarily skeletal nature of her metastatic disease raises a question of recurrent breast cancer, though notably, a right hip and pelvis plain x-ray of 04/26/2019 was negative for acute fracture or destructive bony lesion and showed that the right hip joint spaces were symmetric and well maintained. Thus, this is a very aggressive process emerging within the last 6 months. Based on extent of disease, concern for unstable pelvic and spinal skeletal lesions, Dr. Carmona and I agreed Mirna should be inpatient, nonweightbearing, with some repeat imaging to rule out any progression of disease. On exam yesterday, she had notable right hip flexor weakness, knee extensor weakness, ankle flexor weakness, but, reviewing the notes from [facility] from on a November 16 at [facility] with Dr. Pamela So, these were entirely present as recorded yesterday on my exam. Mirna also notes she has had the consistent right leg weakness without any changes at least for the last month or more. PAST MEDICAL HISTORY: 1. Fibromyalgia. 2. Asthma. 3. Heart murmur. 4. Bronchitis. 5. Osteoarthritis. 6. Stage II ER/HI positive, HER2/sharron negative breast cancer 2012. PAST SURGICAL HISTORY: Includes total abdominal hysterectomy/bilateral salpingo-oophorectomy (JEREMIAH-BSO) in 2006. Microdiskectomy. SOCIAL HISTORY: Patient is a never smoker, rarely drinks alcohol. 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 Has family in [place]. ALLERGIES: QUINOLONES, SULFA, and NITROFURANTOIN. FAMILY HISTORY: Maternal grandmother with lymphoma and breast cancer. A maternal aunt with breast cancer. Father with skin cancer. Brother with skin cancer. Father was a smoker. REVIEW OF SYSTEMS: Right leg weakness for many months, low back pain, many months. No urinary or bowel incontinence. One skin lesion involving left upper abdominal wall laterally, mobile, subcutaneous, the patient noticed in the last week or so. No new headache or visual disturbance but some ear discomfort. No shortness of breath or cough. No hemoptysis. Decreased appetite but no tray postprandial vomiting or nausea. Constipation recently but able to have infrequent bowel movements. Gas being passed daily. No urinary incontinence or inability to urinate. No leg swelling or cramping. No numbness involving the legs, toes, or hand. PHYSICAL EXAMINATION: Deferred today. Vital signs: Blood pressure 113/59, heart rate 75, respiratory 20, oxygen saturation 95%. Patient is a well-groomed appearing, pleasant woman in no distress. LABORATORY DATA: WBC 7.7 on admission, 9.5 today, hemoglobin 10.6-10.8 between yesterday and today, platelets 372 on admission, 340 today. Differential notable for neutrophilia 70%. CMP from this morning: Sodium 139, potassium 4.5, chloride 106. Remainder of electrolytes normal. BUN 8, creatinine 0.75, GFR greater than 60, glucose 125. Calcium yesterday 10.2 on admission with albumin 3.7, AST/ALT 82 and 119 today, alkaline phosphatase 192. IMAGING: As discussed. IMPRESSION: A 54-year-old woman with widespread destructive skeletal metastatic lesions of uncertain primary cancer with a history of stage II breast cancer in 2012 and status post completed treatment, ER positive, HI weakly positive, HER2/sharron negative with a full high-risk feature lymphovascular invasion, pulmonary metastatic disease at present. No current evidence of abdomen and pelvis visceral disease but new transaminitis emerging since her hospitalization in [place] in October. The differential diagnosis includes metastatic breast cancer, metastatic other malignancy, such as other solid tumor, lung cancer, melanoma, thyroid cancer. In addition to primary, hematologic malignancy, such as multiple myeloma, needs to be considered. PLAN: 1. Empirically we started Mirna on letrozole yesterday, pending biopsy results (biopsy of bone site). 2. Empiric zoledronic acid 4 mg once today. This would treat solid tumor metastasis, multiple myeloma, and manage the patient's transitory hypercalcemia. 3. Abdomen and pelvis CT to evaluate for liver metastases given new fairly significant transaminitis. 4. Multiple myeloma. Lab survey, including SPEP, serum free light chains, LDH, quantitative immunoglobulins, including IgG, IgA, IgM, IgD. 5. Pain management as needed. 6. CA27.29 and CA15-3 levels with remaining high concern for metastatic breast cancer. 7. Close followup of biopsy results. 8. Radiation palliatively as indicated by Dr. Carmona. Most importantly, probably involving the T10 lesion and consideration of intracranial radiation to the pterygoid and clivus areas if needed. 9. If biopsy positive for breast cancer, would consider addition of CDK4/6 inhibitor to letrozole; if liver metastatic disease has emerged, and biopsy consistent with breast or other solid tumor cancer, will consider systemic chemotherapy. 10. Avoid weightbearing; may need orthopedic involvement. We will follow. MTDD
[2019-12-01 22:22] VITALS: BP 116/68
[2019-12-02] MEDS: oxyCODONE 5MG TAB PO PRN ×2 (01:47→16:08)
[2019-12-02] MEDS: LEVOTHYROXINE 75MCG TABLET (0.075MG) PO SCH (05:15)
[2019-12-02 07:05] VITALS: BP 116/68
[2019-12-02] MEDS: HEPARIN SOD (PORCINE) 5000 UNITS/ML VIAL (J1644 PER 1000UNITS) SC SCH ×2 (08:44→20:06)
[2019-12-02] MEDS: GABAPENTIN 300 MG CAP PO SCH ×3 (08:44→20:05)
[2019-12-02] MEDS: DOCUSATE SODIUM 100 MG CAP PO SCH ×2 (08:45→20:06)
[2019-12-02] MEDS: SENNA 8.6 MG TAB (SENOKOT) PO SCH (08:45)
[2019-12-02] MEDS: LETROZOLE 2.5 MG TAB PO SCH (08:46)
[2019-12-02] MEDS: oxyCODONE 10 MG CR TAB PO SCH ×2 (08:46→20:05)
[2019-12-02] MEDS: atenoloL 50 MG TAB PO SCH (09:09)
--- NOTE | 2019-12-02 09:25 | IPNPDOC ---
Subjective Date Seen The patient was seen on 12/02/19. Subjective Chief Complaint/HPI Patient comfortable. Still has some pain in right hip but improved with the pain medications General: Denies: ROS Unobtainable, Chills, Night Sweats, Fatigue, Malaise, Normal Appetite, Other Symptoms Pulmonary: Denies: Dyspnea, Cough, Pleuritic Chest Pain, Other Symptoms Cardiovascular: Denies: Chest Pain, Palpitations, Orthopnea, Paroxysmal Noc. Dyspnea, Edema, Lt Headedness, Other Symptoms Gastrointestinal: Denies: Nausea, Vomiting, Abdominal Pain, Diarrhea, Constipation, Melena, Hematochezia, Other Symptoms Musculoskeletal: Reports: Other Symptoms (. Right hip pain); Denies: Neck Pain, Back Pain, Shoulder Pain, Arm Pain, Hand Pain, Leg Pain, Foot Pain, Joint Pain, Muscle Pain, Spasms Neurological: Denies: Weakness, Numbness, Incoordination, Change in speech, Confusion, Seizures, Other Symptoms Objective Physical Examination Neck Exam: Positive: Supple Chest Exam: Positive: Clear to auscultation, Normal air movement Heart Exam: Positive: Rate Normal, Normal S1, Normal S2 Abdomen Exam: Positive: Normal bowel sounds, Soft Extremity Exam: Positive: Other (and weakness with tenderness on right hip) Skin Exam: Positive: Nl turgor and temperature Neuro Exam: Positive: Sensation Intact, Cranial Nerves 3-12 NL, Other (weakness on the right hip but able to ambulate) Psych Exam: Positive: Mental status NL, Mood NL, Oriented x 3 Assessment /Plan Problems (1) Breast cancer Onset Date: ~ 2018 Status: Acute Problem Text: Breast cancer with bone metastases 54 years old white female with past medical history of breast cancer status post right lumpectomy with chemotherapy radiation 2013 has been diagnosed again with multiple bone metastases all over the body lower extremities, lumbar, thoracic and cervical spine bilateral ribs and lungs. Patient being admitted for pain management and symptom control and possible hormonal therapy as per Dr. Martin Patient. WBC count is 7.7, hemoglobin 10.6, platelets 372. Electrolytes are normal. Calcium 10.2, magnesium 10.2, AST 94, ALT 127, and ALP 195 Oxycodone 10 mg by mouth every 4 hours when necessary Zofran when necessary Discussed with Dr. Goldstein Will order CT of the abdomen and pelvis with contrast Zoledronate also has been ordered Shows a repeat calcium level is within normal limits. DC IV fluids and Dr. Carmona has seen the patient and consults appreciated Further plan as per Dr. Martin once the biopsy report is back Regarding pain management. We will start OxyContin 10 mg by mouth twice a day and oxycodone when necessary as needed better pain control (2) Hypercalcemia Status: Resolved Problem Text: Calcium level was 10.2 on admission Received IV fluids, calcium level is 9.0 today DC IV fluids Further, as per oncology recommendations (3) HTN (hypertension) Status: Chronic Problem Text: Continue home meds (4) Hypothyroid Status: Chronic Problem Text: Continue home meds (5) Constipation Status: Resolved Problem Text: Cost to patient secondary to provide Constipation, resolved with Relistor injection Stool softeners and will watch clinically Plan/VTE VTE Prophylaxis Ordered?: Yes VS, I&O, 24H, Fishbone Vital Signs/I&O Vital Signs Date Time Temp Pulse Resp B/P (MAP) Pulse Ox O2 Delivery O2 Flow Rate FiO2 12/02/19 09:09 77 115/67 12/02/19 08:46 18 12/02/19 07:05 98.5 97 Room Air I&O- Last 24 Hours up to 6 AM 12/02/19 06:00 Intake Total 2030 ml Balance 2030 ml Laboratory Data Microbiology Microbiology 11/29/19 Urine Culture - Final, Complete SANDEE LEDBETTER MD Dec 02, 2019 09:25
[2019-12-02 14:00] VITALS: BP 122/77
[2019-12-02 22:00] VITALS: BP 121/76
[2019-12-03] MEDS: ACETAMINOPHEN TAB 650MG DOSE (2X325MG) PO PRN (03:04)
[2019-12-03] MEDS: oxyCODONE 5MG TAB PO PRN ×2 (05:57→14:28)
[2019-12-03] MEDS: LEVOTHYROXINE 75MCG TABLET (0.075MG) PO SCH (05:57)
[2019-12-03 06:00] VITALS: BP 106/58
[2019-12-03] MEDS: HEPARIN SOD (PORCINE) 5000 UNITS/ML VIAL (J1644 PER 1000UNITS) SC SCH ×2 (08:22→20:57)
[2019-12-03] MEDS: oxyCODONE 10 MG CR TAB PO SCH ×2 (08:25→20:58)
[2019-12-03] MEDS: GABAPENTIN 300 MG CAP PO SCH ×3 (08:25→20:57)
[2019-12-03] MEDS: atenoloL 50 MG TAB PO SCH (08:25)
[2019-12-03] MEDS: DOCUSATE SODIUM 100 MG CAP PO SCH ×2 (08:26→20:57)
[2019-12-03] MEDS: LETROZOLE 2.5 MG TAB PO SCH (08:26)
[2019-12-03] MEDS: SENNA 8.6 MG TAB (SENOKOT) PO SCH (08:26)
--- NOTE | 2019-12-03 10:29 | IPNPDOC ---
Subjective Date Seen The patient was seen on 12/03/19. Subjective Chief Complaint/HPI Patient is comfortable offers no new complaint is still has a loss of appetite General: Denies: ROS Unobtainable, Chills, Night Sweats, Fatigue, Malaise, Normal Appetite, Other Symptoms Constitutional: Denies: Chills, Fever, Malaise, Night Sweats, Weakness, Fatigue, Weight Loss, Lethargy, Other Eyes: Denies: Pain, Vision change, Conjunctivae inflammation, Eyelid inflammation, Redness, Other Cardiovascular: Denies: Chest Pain, Palpitations, Orthopnea, Paroxysmal Noc. Dyspnea, Edema, Lt Headedness, Other Symptoms Gastrointestinal: Denies: Nausea, Vomiting, Abdominal Pain, Diarrhea, Constipation, Melena, Hematochezia, Other Symptoms Genitourinary: Denies: Dysuria, Frequency, Incontinence, Hematuria, Retention, Other Symptoms Musculoskeletal: Denies: Neck Pain, Back Pain, Shoulder Pain, Arm Pain, Hand Pain, Leg Pain, Foot Pain, Joint Pain, Muscle Pain, Spasms, Other Symptoms Neurological: Denies: Weakness, Numbness, Incoordination, Change in speech, Confusion, Seizures, Other Symptoms Objective Physical Examination Neck Exam: Positive: Supple Chest Exam: Positive: Clear to auscultation, Normal air movement Heart Exam: Positive: Rate Normal, Normal S1, Normal S2 Abdomen Exam: Positive: Normal bowel sounds, Soft Extremity Exam: Positive: Other (and weakness with tenderness on right hip) Skin Exam: Positive: Nl turgor and temperature Neuro Exam: Positive: Sensation Intact, Cranial Nerves 3-12 NL, Other (weakness on the right hip but able to ambulate) Psych Exam: Positive: Mental status NL, Mood NL, Oriented x 3 Assessment /Plan Problems (1) Breast cancer Onset Date: ~ 2018 Status: Acute Problem Text: Breast cancer with bone metastases 54 years old white female with past medical history of breast cancer status post right lumpectomy with chemotherapy radiation 2013 has been diagnosed again with multiple bone metastases all over the body lower extremities, lumbar, thoracic and cervical spine bilateral ribs and lungs. Patient being admitted for pain management and symptom control and possible hormonal therapy as per Dr. Martin Patient. WBC count is 7.7, hemoglobin 10.6, platelets 372. Electrolytes are normal. Calcium 10.2, magnesium 10.2, AST 94, ALT 127, and ALP 195 Oxycodone 10 mg by mouth every 4 hours when necessary Zofran when necessary Discussed with Dr. Goldstein Will order CT of the abdomen and pelvis with contrast Zoledronate also has been ordered Shows a repeat calcium level is within normal limits. DC IV fluids and Dr. Carmona has seen the patient and consults appreciated Further plan as per Dr. Martin once the biopsy report is back Good pain control with OxyContin 10 mg by mouth twice a day and oxycodone when necessary At [place] no pedal milligrams by mouth twice a day for loss of appetite (2) Hypercalcemia Status: Resolved Problem Text: Calcium level was 10.2 on admission Received IV fluids, calcium level is 9.0 today DC IV fluids Further, as per oncology recommendations (3) HTN (hypertension) Status: Chronic Problem Text: Continue home meds (4) Hypothyroid Status: Chronic Problem Text: Continue home meds (5) Constipation Status: Resolved Problem Text: Cost to patient secondary to provide Constipation, resolved with Relistor injection Stool softeners and will watch clinically Plan/VTE VTE Prophylaxis Ordered?: Yes VS, I&O, 24H, Fishbone Vital Signs/I&O Vital Signs Date Time Temp Pulse Resp B/P (MAP) Pulse Ox O2 Delivery O2 Flow Rate FiO2 12/03/19 08:25 18 12/03/19 08:25 70 106/58 12/03/19 06:00 98.5 96 Room Air I&O- Last 24 Hours up to 6 AM 12/03/19 06:00 Intake Total 2090 ml Output Total 400 ml Balance 1690 ml Laboratory Data Microbiology Microbiology 11/29/19 Urine Culture - Final, Complete SANDEE LEDBETTER MD Dec 03, 2019 10:29
[2019-12-03] MEDS: DRONABINOL 2.5 MG CAP (MARINOL) PO SCH ×2 (12:30→17:19)
[2019-12-03] MEDS ORDERED: IBRA125C PO (14:46)
[2019-12-03 16:42] VITALS: BP 119/66
[2019-12-03 22:00] VITALS: BP 116/65
--- NOTE | 2019-12-03 22:41 | IPN ---
DATE: 12/03/2019 MEDICAL ONCOLOGY INPATIENT FOLLOWUP DIAGNOSIS: Widespread skeletal metastatic adenocarcinoma, with small pulmonary nodules, presumptive metastatic ER positive, HER2 negative breast cancer in patient with personal history of stage II breast cancer 2012. INTERVAL EVENTS: Bone biopsy performed on 11/30/2019 is positive for adenocarcinoma most consistent with the patient's prior breast. We have requested ER, [place], HER2 testing. In addition, if there is sufficient tissue, I will request next generation sequencing testing with [facility] for ERBB2, and other potential targetable mutations. Over the weekend, CT abdomen and pelvis revealed disease progression in the epidural space at clearly dictated L4-L5, and this will be incorporated into the radiation planning per Dr. Carmona. Today, at the bedside, Mirna is comfortable. She understands we are going forward with radiation. I explained the second drug, palbociclib can only be added once she is outpatient. This is primarily due to a drug distribution and insurance issue, but it is perfectly okay to withhold it currently as she is starting radiation, has received Zometa recently, and is just starting the letrozole. IMPRESSION: Metastatic breast cancer, presumptive ER positive, HER2 negative. ECOG performance status: Zero; avoiding weightbearing due to fracture threatening pelvic lesions, T10 and L4-5 epidural involved lesions. Right leg weakness since at least October, persistent, likely secondary to the L4-5 lesion. PLAN: 1. Continue letrozole. 2. Plan for zoledronic acid, repeat at least 30 days after the first. 3. Continue radiation as planned. 4. Plan for palbociclib 125 mg daily days 1 through 21 every 28 days once outpatient. 5. Organizing the ultimate discharge plan will be complex for Mirna given her need to be nonweightbearing for the foreseeable future until radiation is mostly under way or possibly completed. She may need complex, high level orthopedic oncology evaluation prior to being able to weightbear given the extent of disease involving the pelvis and spine. She could potentially be referred to Dr. Sidney Clarke in [place]. 5. I will follow intermittently for the present. MTDD
[2019-12-04] MEDS: oxyCODONE 5MG TAB PO PRN ×3 (02:14→14:15)
[2019-12-04 06:00] VITALS: BP 106/59
[2019-12-04] MEDS: LEVOTHYROXINE 75MCG TABLET (0.075MG) PO SCH (06:06)
[2019-12-04 06:51] LABS: BASO % 0.2 % (0.0-1.0); EOS % 0.1 % (0.0-3.0); HEMATOCRIT 33.6 % (36.0-47.0); HEMOGLOBIN 10.7 g/dl (12.0-15.5); LYMPH # 1.4 10^3/uL (1.5-5.0); LYMPH % 12.6 % (24.0-44.0); MEAN CORPUSCULAR HEMOGLOBIN 28.8 pg (27.0-33.0); MEAN CORPUSCULAR HGB CONC 31.8 g/dl (32.0-36.5); MEAN CORPUSCULAR VOLUME 90.6 fl (80.0-96.0); MONO # 0.9 10^3/uL (0.0-0.8); NEUTROPHILS # 8.6 10^3/uL (1.5-8.5); PLATELET COUNT, AUTOMATED 380 10^3/uL (150-450); RED BLOOD COUNT 3.71 10^6/uL (4.00-5.40)
[2019-12-04 07:20] LABS: ALBUMIN 3.2 GM/DL (3.2-5.2); ALT/SGPT 81 U/L (12-78); BILIRUBIN,TOTAL 0.3 MG/DL (0.2-1.0); BLOOD UREA NITROGEN 13 MG/DL (7-18); CALCIUM LEVEL 8.3 MG/DL (8.5-10.1); CARBON DIOXIDE LEVEL 21 MEQ/L (21-32); CHLORIDE LEVEL 107 MEQ/L (98-107); CREATININE FOR GFR 0.61 MG/DL (0.55-1.30); GLOMERULAR FILTRATION RATE > 60.0 (>51); GLUCOSE, FASTING 106 MG/DL (70-100); POTASSIUM SERUM 4.5 MEQ/L (3.5-5.1); SODIUM LEVEL 136 MEQ/L (136-145); TOTAL PROTEIN 6.9 GM/DL (6.4-8.2)
[2019-12-04] MEDS: DOCUSATE SODIUM 100 MG CAP PO SCH ×2 (09:03→20:36)
[2019-12-04] MEDS: GABAPENTIN 300 MG CAP PO SCH ×3 (09:03→20:36)
[2019-12-04] MEDS: SENNA 8.6 MG TAB (SENOKOT) PO SCH (09:04)
[2019-12-04] MEDS: HEPARIN SOD (PORCINE) 5000 UNITS/ML VIAL (J1644 PER 1000UNITS) SC SCH ×2 (09:04→20:36)
[2019-12-04] MEDS: oxyCODONE 10 MG CR TAB PO SCH ×2 (09:04→20:37)
[2019-12-04] MEDS: atenoloL 50 MG TAB PO SCH (09:04)
[2019-12-04] MEDS: LETROZOLE 2.5 MG TAB PO SCH (09:04)
[2019-12-04] MEDS: DRONABINOL 2.5 MG CAP (MARINOL) PO SCH ×2 (12:44→17:17)
[2019-12-04 12:55] LABS: ALBUMIN % 49.3 % (55.8-66.1)
[2019-12-04 12:56] LABS: ALPHA-1-GLOBULINS 0.51 GM/DL (0.17-0.41); ALPHA-2-GLOBULINS % 23.3 % (7.1-11.8); BETA-1-GLOBULINS 0.34 GM/DL (0.28-0.60); BETA-1-GLOBULINS % 4.7 % (4.7-7.2); BETA-2-GLOBULINS 0.36 GM/DL (0.19-0.55); BETA-2-GLOBULINS % 4.9 % (3.2-6.5); GAMMA GLOBULIN % 10.8 % (11.1-18.8); GAMMA GLOBULINS 0.79 GM/DL (0.65-1.58)
[2019-12-04 14:07] VITALS: BP 102/59
--- NOTE | 2019-12-04 18:57 | IPNPDOC ---
Date Seen The patient was seen on 12/04/19. Progress Note SUBJECTIVE: 54-year-old female with past medical history of breast cancer with extensive bone metastases is admitted for pain control and radiation therapy. Patient is nonweightbearing given high risk for pathologic fractures due to metastases, started radiation therapy yesterday, without any complaints at this time apart from right hip pain. Patient denies any shortness of breath, chest pain, nausea, vomiting, abdominal pain or diarrhea. 10 point review of system is negative except for above PHYSICAL EXAMINATION: VITAL SIGNS: Please see below. GENERAL: No distress HEENT: Normocephalic, atraumatic, moist mucous membranes NECK: Supple CARDIOVASCULAR EXAMINATION: S1, S2, no murmurs RESPIRATORY EXAMINATION: Clear to auscultation, no wheezing ABDOMINAL EXAMINATION: Soft, nontender, nondistended, positive bowel sounds EXTREMITIES: Right hip with significant tenderness to palpation SKIN: No rash NEUROLOGICAL EXAMINATION: Alert and oriented 3, no focal deficits PSYCHIATRIC EXAMINATION: Calm and cooperative LABORATORY DATA, IMAGING STUDIES, MICROBIOLOGY: Please see below. DVT prophylaxis ordered?: Yes ASSESSMENT AND PLAN: 54-year-old female with past medical history of breast ca ncer and extensive bone metastases is admitted for pain control and radiation treatment. PROBLEMS: 1. Breast cancer with bone metastases: Being followed by medical and radiation oncology, currently undergoing radiation therapy, continue Letrozole with plan for a second chemotherapy agent in the outpatient setting, continue pain control and Decadron. Further management as per medical/radiation oncologist. 2. Hypothyroidism: Continue levothyroxine DVT prophylaxis: Heparin subcutaneous GI prophylaxis: Not needed VS, I&O, 24H, Fishbone Vital Signs/I&O Vital Signs Date Time Temp Pulse Resp B/P (MAP) Pulse Ox O2 Delivery O2 Flow Rate FiO2 12/04/19 14:46 18 Room Air 12/04/19 14:07 99.2 77 102/59 (73) 95 I&O- Last 24 Hours up to 6 AM 12/04/19 06:00 Intake Total 1390 ml Output Total 1150 ml Balance 240 ml Laboratory Data 24H LABS Laboratory Tests 2 12/04/19 06:31: Immature Granulocyte % (Auto) 1.1, Neutrophils (%) (Auto) 78.0H, Lymphocytes (%) (Auto) 12.6L, Monocytes (%) (Auto) 8.0H, Eosinophils (%) (Auto) 0.1, Basophils (%) (Auto) 0.2, Neutrophils # (Auto) 8.6H, Lymphocytes # (Auto) 1.4L, Monocytes # (Auto) 0.9H, Eosinophils # (Auto) 0.0, Basophils # (Auto) 0.0, Nucleated Red Blood Cells % (auto) 0.0, Anion Gap 8, Glomerular Filtration Rate > 60.0, Calcium Level 8.3L, Total Bilirubin 0.3, Aspartate Amino Transf (AST/SGOT) 62H, Alanine Aminotransferase (ALT/SGPT) 81H, Alkaline Phosphatase 232H, Total Protein 6.9, Albumin 3.2, Albumin/Globulin Ratio 0.86L CBC/BMP Laboratory Tests 12/04/19 06:31 Microbiology Microbiology 11/29/19 Urine Culture - Final, Complete IZAIAH PARRA MD Dec 04, 2019 18:57
[2019-12-04 22:00] VITALS: BP 106/60
[2019-12-05 00:06] LABS: FREE KAPPA LIGHT CHAINS SERUM 13.4 mg/L (3.3-19.4); FREE LAMBDA LIGHT CHAINS SERUM 14.6 mg/L (5.7-26.3); IMMUNOGLOBULIN D <1.28 mg/dL (<14.11); KAPPA/LAMBDA RATIO SERUM 0.92 (0.26-1.65)
[2019-12-05] MEDS: oxyCODONE 5MG TAB PO PRN ×4 (03:57→18:22)
[2019-12-05 06:00] VITALS: BP 113/62
[2019-12-05] MEDS: LEVOTHYROXINE 75MCG TABLET (0.075MG) PO SCH (06:09)
[2019-12-05 08:12] LABS: HEMATOCRIT 35.5 % (36.0-47.0); HEMOGLOBIN 11.2 g/dl (12.0-15.5); MEAN CORPUSCULAR HEMOGLOBIN 28.6 pg (27.0-33.0); MEAN CORPUSCULAR HGB CONC 31.5 g/dl (32.0-36.5); MEAN CORPUSCULAR VOLUME 90.8 fl (80.0-96.0); PLATELET COUNT, AUTOMATED 372 10^3/uL (150-450); RED BLOOD COUNT 3.91 10^6/uL (4.00-5.40); WHITE BLOOD COUNT 11.7 10^3/uL (4.0-10.0)
[2019-12-05] MEDS: HEPARIN SOD (PORCINE) 5000 UNITS/ML VIAL (J1644 PER 1000UNITS) SC SCH ×2 (08:26→21:28)
[2019-12-05] MEDS: oxyCODONE 10 MG CR TAB PO SCH ×2 (08:27→21:28)
[2019-12-05] MEDS: SENNA 8.6 MG TAB (SENOKOT) PO SCH (08:28)
[2019-12-05] MEDS: atenoloL 50 MG TAB PO SCH (08:30)
[2019-12-05] MEDS: DOCUSATE SODIUM 100 MG CAP PO SCH ×2 (08:31→21:29)
[2019-12-05] MEDS: GABAPENTIN 300 MG CAP PO SCH ×3 (08:31→21:29)
[2019-12-05] MEDS: LETROZOLE 2.5 MG TAB PO SCH (08:33)
[2019-12-05 08:40] LABS: BLOOD UREA NITROGEN 15 MG/DL (7-18); CALCIUM LEVEL 8.3 MG/DL (8.5-10.1); CARBON DIOXIDE LEVEL 21 MEQ/L (21-32); CHLORIDE LEVEL 106 MEQ/L (98-107); CREATININE FOR GFR 0.61 MG/DL (0.55-1.30); GLOMERULAR FILTRATION RATE > 60.0 (>51); GLUCOSE, FASTING 90 MG/DL (70-100); MAGNESIUM LEVEL 2.7 MG/DL (1.8-2.4); POTASSIUM SERUM 4.8 MEQ/L (3.5-5.1); SODIUM LEVEL 135 MEQ/L (136-145)
[2019-12-05] MEDS: K-PHOS NEUTRAL 250MG TABLET (SOD.PHOSPHATE/POT.PHOSPHATE) PO SCH ×3 (10:30→21:29)
[2019-12-05] MEDS: DRONABINOL 2.5 MG CAP (MARINOL) PO SCH ×2 (12:33→16:44)
[2019-12-05] MEDS ORDERED: VITAMIN D 1,000 INTERNATIONAL UNITS TABLET PO ONE (16:00)
[2019-12-05] MEDS ORDERED: VITAMIN D 50,000 UNITS CAPSULE (ERGOCALCIFEROL 1.25MG) PO ONE (17:00)
[2019-12-05 21:29] VITALS: BP 113/63
--- NOTE | 2019-12-05 22:48 | IPNPDOC ---
Date Seen The patient was seen on 12/05/19. Progress Note SUBJECTIVE: 54-year-old female with past medical history of breast cancer with extensive bone metastases is admitted for pain control and radiation therapy. Patient is nonweightbearing given high risk for pathologic fractures due to metastases, started radiation therapy yesterday, without any complaints at this time apart from right hip pain. Patient denies any shortness of breath, chest pain, nausea, vomiting, abdominal pain or diarrhea. 12/05/19 Patient reports significant improvement in hip pain, she has had the best pain control today since admission. She is tolerating radiation therapy without any difficulty or adverse effects at this time. She denies any SOB, CP, N/V/D or abdominal pain. 10 point review of system is negative except for above PHYSICAL EXAMINATION: VITAL SIGNS: Please see below. GENERAL: No distress HEENT: Normocephalic, atraumatic, moist mucous membranes NECK: Supple CARDIOVASCULAR EXAMINATION: S1, S2, no murmurs RESPIRATORY EXAMINATION: Clear to auscultation, no wheezing ABDOMINAL EXAMINATION: Soft, nontender, nondistended, positive bowel sounds EXTREMITIES: Right hip with significant tenderness to palpation SKIN: No rash NEUROLOGICAL EXAMINATION: Alert and oriented 3, no focal deficits PSYCHIATRIC EXAMINATION: Calm and cooperative LABORATORY DATA, IMAGING STUDIES, MICROBIOLOGY: Please see below. DVT prophylaxis ordered?: Yes ASSESSMENT AND PLAN: 54-year-old female with past medical history of breast cancer and extensive bone metastases is admitted for pain control and radiation treatment. PROBLEMS: 1. Breast cancer with bone metastases: Being followed by medical and radiation oncology, currently undergoing radiation therapy, continue Letrozole with plan for a second chemotherapy agent in the outpatient setting, continue pain control and Decadron. Further management as per medical/radiation oncologist. - patient is high risk for pathological fracture, will continue inpatient treatment until deemed appropriate for discharge by radiation/medical oncologist. 2. Hypothyroidism: Continue levothyroxine DVT prophylaxis: Heparin subcutaneous GI prophylaxis: Not needed VS, I&O, 24H, Fishbone Vital Signs/I&O Vital Signs Date Time Temp Pulse Resp B/P (MAP) Pulse Ox O2 Delivery O2 Flow Rate FiO2 12/05/19 21:28 17 12/05/19 08:30 63 113/62 12/05/19 06:00 98.7 95 Room Air I&O- Last 24 Hours up to 6 AM 12/05/19 06:00 Intake Total 880 ml Output Total 2090 ml Balance -1210 ml Laboratory Data 24H LABS Laboratory Tests 2 12/05/19 07:34: Nucleated Red Blood Cells % (auto) 0.0, Anion Gap 8, Glomerular Filtration Rate > 60.0, Calcium Level 8.3L, Phosphorus Level 2.0L, Magnesium Level 2.7H CBC/BMP Laboratory Tests 12/05/19 07:34 Microbiology Microbiology 11/29/19 Urine Culture - Final, Complete IZAIAH PARRA MD Dec 05, 2019 22:48
[2019-12-06] MEDS: oxyCODONE 5MG TAB PO PRN ×3 (03:16→14:00)
[2019-12-06] MEDS: LEVOTHYROXINE 75MCG TABLET (0.075MG) PO SCH (05:38)
[2019-12-06 06:17] VITALS: BP 113/60
[2019-12-06] MEDS: GABAPENTIN 300 MG CAP PO SCH ×3 (08:48→21:41)
[2019-12-06] MEDS: LETROZOLE 2.5 MG TAB PO SCH (08:48)
[2019-12-06] MEDS: SENNA 8.6 MG TAB (SENOKOT) PO SCH (08:48)
[2019-12-06] MEDS: HEPARIN SOD (PORCINE) 5000 UNITS/ML VIAL (J1644 PER 1000UNITS) SC SCH ×2 (08:48→21:40)
[2019-12-06] MEDS: DOCUSATE SODIUM 100 MG CAP PO SCH ×2 (08:49→21:41)
[2019-12-06] MEDS: oxyCODONE 10 MG CR TAB PO SCH ×2 (08:49→21:40)
[2019-12-06] MEDS: K-PHOS NEUTRAL 250MG TABLET (SOD.PHOSPHATE/POT.PHOSPHATE) PO SCH ×3 (08:49→21:40)
[2019-12-06] MEDS: atenoloL 50 MG TAB PO SCH (08:50)
[2019-12-06] MEDS: DRONABINOL 2.5 MG CAP (MARINOL) PO SCH ×2 (11:31→17:05)
[2019-12-06 14:00] VITALS: BP 106/65
--- NOTE | 2019-12-06 17:41 | IPNPDOC ---
Date Seen The patient was seen on 12/06/19. Progress Note SUBJECTIVE: 54-year-old female with past medical history of breast cancer with extensive bone metastases is admitted for pain control and radiation therapy. Patient is nonweightbearing given high risk for pathologic fractures due to metastases, started radiation therapy yesterday, without any complaints at this time apart from right hip pain. Patient denies any shortness of breath, chest pain, nausea, vomiting, abdominal pain or diarrhea. 12/05/19 Patient reports significant improvement in hip pain, she has had the best pain control today since admission. She is tolerating radiation therapy without any difficulty or adverse effects at this time. She denies any SOB, CP, N/V/D or abdominal pain. 12/06/19 Reports increased R hip pain today with an episode of loose stool along with fe eling irritable today; no other complaints. She denies any SOB, CP, N/V or abdominal pain. 10 point review of system is negative except for above PHYSICAL EXAMINATION: VITAL SIGNS: Please see below. GENERAL: No distress HEENT: Normocephalic, atraumatic, moist mucous membranes NECK: Supple CARDIOVASCULAR EXAMINATION: S1, S2, no murmurs RESPIRATORY EXAMINATION: Clear to auscultation, no wheezing ABDOMINAL EXAMINATION: Soft, nontender, nondistended, positive bowel sounds EXTREMITIES: Right hip with minimal tenderness to palpation SKIN: No rash NEUROLOGICAL EXAMINATION: Alert and oriented 3, no focal deficits PSYCHIATRIC EXAMINATION: Calm and cooperative LABORATORY DATA, IMAGING STUDIES, MICROBIOLOGY: Please see below. DVT prophylaxis ordered?: Yes ASSESSMENT AND PLAN: 54-year-old female with past medical history of breast cancer and extensive bone metastases is admitted for pain control and radiation treatment. PROBLEMS: 1. Breast cancer with bone metastases: Being followed by medical and radiation oncology, currently undergoing radiation therapy, further management as per medical/radiation oncologist. - patient is high risk for pathological fracture, will continue inpatient treatment until deemed appropriate for discharge by radiation/medical oncologist . 2. Hypothyroidism: Continue levothyroxine DVT prophylaxis: Heparin subcutaneous GI prophylaxis: Not needed VS, I&O, 24H, Fishbone Vital Signs/I&O Vital Signs Date Time Temp Pulse Resp B/P (MAP) Pulse Ox O2 Delivery O2 Flow Rate FiO2 12/06/19 14:41 18 12/06/19 14:00 98.9 71 106/65 (79) 95 Room Air I&O- Last 24 Hours up to 6 AM 12/06/19 06:00 Intake Total 1585 ml Output Total 700 ml Balance 885 ml Laboratory Data Microbiology Microbiology 11/29/19 Urine Culture - Final, Complete IZAIAH PARRA MD Dec 06, 2019 17:41
[2019-12-06 20:52] VITALS: BP 106/64
[2019-12-07] MEDS: oxyCODONE 5MG TAB PO PRN ×2 (01:26→13:56)
[2019-12-07] MEDS: LEVOTHYROXINE 75MCG TABLET (0.075MG) PO SCH (05:33)
[2019-12-07 05:34] VITALS: BP 107/63
[2019-12-07] MEDS: HEPARIN SOD (PORCINE) 5000 UNITS/ML VIAL (J1644 PER 1000UNITS) SC SCH ×2 (08:36→21:01)
[2019-12-07] MEDS: DOCUSATE SODIUM 100 MG CAP PO SCH ×2 (08:37→21:00)
[2019-12-07] MEDS: SENNA 8.6 MG TAB (SENOKOT) PO SCH (08:37)
[2019-12-07] MEDS: LETROZOLE 2.5 MG TAB PO SCH (08:37)
[2019-12-07] MEDS: GABAPENTIN 300 MG CAP PO SCH ×3 (08:37→21:00)
[2019-12-07] MEDS: atenoloL 50 MG TAB PO SCH (08:38)
[2019-12-07] MEDS: oxyCODONE 10 MG CR TAB PO SCH ×2 (08:38→21:00)
[2019-12-07] MEDS: DRONABINOL 2.5 MG CAP (MARINOL) PO SCH ×2 (12:33→17:38)
[2019-12-07 14:00] VITALS: BP 109/62
[2019-12-07] MEDS ORDERED: IBRA125C PO (15:54)
[2019-12-07 22:00] VITALS: BP 115/60
[2019-12-08] MEDS: oxyCODONE 5MG TAB PO PRN ×3 (00:33→15:46)
[2019-12-08] MEDS: LEVOTHYROXINE 75MCG TABLET (0.075MG) PO SCH (05:23)
[2019-12-08 06:00] VITALS: BP 111/60
[2019-12-08 06:38] LABS: HEMATOCRIT 35.8 % (36.0-47.0); MEAN CORPUSCULAR HEMOGLOBIN 28.1 pg (27.0-33.0); MEAN CORPUSCULAR HGB CONC 30.7 g/dl (32.0-36.5); MEAN CORPUSCULAR VOLUME 91.6 fl (80.0-96.0); PLATELET COUNT, AUTOMATED 360 10^3/uL (150-450); RED BLOOD COUNT 3.91 10^6/uL (4.00-5.40); WHITE BLOOD COUNT 7.4 10^3/uL (4.0-10.0)
[2019-12-08 07:10] LABS: ALBUMIN 2.9 GM/DL (3.2-5.2); ALT/SGPT 63 U/L (12-78); BILIRUBIN,TOTAL 0.7 MG/DL (0.2-1.0); BLOOD UREA NITROGEN 16 MG/DL (7-18); CALCIUM LEVEL 7.9 MG/DL (8.5-10.1); CARBON DIOXIDE LEVEL 20 MEQ/L (21-32); CHLORIDE LEVEL 102 MEQ/L (98-107); CREATININE FOR GFR 0.62 MG/DL (0.55-1.30); GLOMERULAR FILTRATION RATE > 60.0 (>51); GLUCOSE, FASTING 125 MG/DL (70-100); MAGNESIUM LEVEL 2.4 MG/DL (1.8-2.4); PHOSPHORUS LEVEL 1.7 MG/DL (2.5-4.9); POTASSIUM SERUM 4.7 MEQ/L (3.5-5.1); SODIUM LEVEL 132 MEQ/L (136-145); TOTAL PROTEIN 6.8 GM/DL (6.4-8.2)
[2019-12-08] MEDS: atenoloL 50 MG TAB PO SCH (08:57)
[2019-12-08] MEDS: GABAPENTIN 300 MG CAP PO SCH ×3 (08:57→20:23)
[2019-12-08] MEDS: SENNA 8.6 MG TAB (SENOKOT) PO SCH (08:58)
[2019-12-08] MEDS: DOCUSATE SODIUM 100 MG CAP PO SCH ×2 (08:58→20:23)
[2019-12-08] MEDS: oxyCODONE 10 MG CR TAB PO SCH ×2 (08:59→20:23)
[2019-12-08] MEDS: LETROZOLE 2.5 MG TAB PO SCH (08:59)
[2019-12-08] MEDS: HEPARIN SOD (PORCINE) 5000 UNITS/ML VIAL (J1644 PER 1000UNITS) SC SCH ×2 (08:59→20:23)
[2019-12-08] MEDS ORDERED: SODIUM PHOSPHATE INJ 30 MMOL in D5W 500 ML IV ONE (11:00)
[2019-12-08] MEDS: DRONABINOL 2.5 MG CAP (MARINOL) PO SCH ×2 (12:11→16:56)
[2019-12-09] MEDS: oxyCODONE 5MG TAB PO PRN ×3 (03:11→17:37)
[2019-12-09] MEDS: LEVOTHYROXINE 75MCG TABLET (0.075MG) PO SCH (05:59)
[2019-12-09 06:00] VITALS: BP 109/59
[2019-12-09] MEDS: HEPARIN SOD (PORCINE) 5000 UNITS/ML VIAL (J1644 PER 1000UNITS) SC SCH ×2 (08:19→20:46)
[2019-12-09] MEDS: LETROZOLE 2.5 MG TAB PO SCH (08:19)
[2019-12-09] MEDS: GABAPENTIN 300 MG CAP PO SCH ×3 (08:19→20:47)
[2019-12-09] MEDS: SENNA 8.6 MG TAB (SENOKOT) PO SCH (08:20)
[2019-12-09] MEDS: DOCUSATE SODIUM 100 MG CAP PO SCH ×2 (08:20→20:47)
[2019-12-09] MEDS: atenoloL 50 MG TAB PO SCH (08:20)
[2019-12-09] MEDS: oxyCODONE 10 MG CR TAB PO SCH ×2 (08:21→20:47)
[2019-12-09] MEDS: DRONABINOL 2.5 MG CAP (MARINOL) PO SCH ×2 (12:53→17:37)
[2019-12-10] MEDS: oxyCODONE 5MG TAB PO PRN ×2 (03:51→14:04)
[2019-12-10 05:32] VITALS: BP 109/60
[2019-12-10] MEDS: LEVOTHYROXINE 75MCG TABLET (0.075MG) PO SCH (05:52)
[2019-12-10 06:26] LABS: HEMATOCRIT 34.1 % (36.0-47.0); HEMOGLOBIN 10.8 g/dl (12.0-15.5); MEAN CORPUSCULAR HEMOGLOBIN 28.6 pg (27.0-33.0); MEAN CORPUSCULAR HGB CONC 31.7 g/dl (32.0-36.5); MEAN CORPUSCULAR VOLUME 90.5 fl (80.0-96.0); PLATELET COUNT, AUTOMATED 335 10^3/uL (150-450); RED BLOOD COUNT 3.77 10^6/uL (4.00-5.40); WHITE BLOOD COUNT 5.7 10^3/uL (4.0-10.0)
[2019-12-10 07:07] LABS: BLOOD UREA NITROGEN 17 MG/DL (7-18); CALCIUM LEVEL 8.6 MG/DL (8.5-10.1); CARBON DIOXIDE LEVEL 23 MEQ/L (21-32); CHLORIDE LEVEL 101 MEQ/L (98-107); CREATININE FOR GFR 0.54 MG/DL (0.55-1.30); GLOMERULAR FILTRATION RATE > 60.0 (>51); GLUCOSE, FASTING 93 MG/DL (70-100); POTASSIUM SERUM 5.3 MEQ/L (3.5-5.1); SODIUM LEVEL 132 MEQ/L (136-145)
[2019-12-10] MEDS: DOCUSATE SODIUM 100 MG CAP PO SCH ×2 (08:45→21:41)
[2019-12-10] MEDS: atenoloL 50 MG TAB PO SCH (08:45)
[2019-12-10] MEDS: SENNA 8.6 MG TAB (SENOKOT) PO SCH (08:45)
[2019-12-10] MEDS: GABAPENTIN 300 MG CAP PO SCH ×3 (08:45→21:41)
[2019-12-10] MEDS: LETROZOLE 2.5 MG TAB PO SCH (08:46)
[2019-12-10] MEDS: HEPARIN SOD (PORCINE) 5000 UNITS/ML VIAL (J1644 PER 1000UNITS) SC SCH ×2 (08:46→21:40)
[2019-12-10] MEDS: oxyCODONE 10 MG CR TAB PO SCH ×2 (08:47→21:41)
[2019-12-10] MEDS: MAALOX 30 ML SUSP *UDC PO PRN (10:10)
--- NOTE | 2019-12-10 11:26 | IPNPDOC ---
Subjective Date Seen The patient was seen on 12/10/19. Subjective Chief Complaint/HPI Patient offers no new complaints undergoing radiation therapy at present General: Denies: ROS Unobtainable, Chills, Night Sweats, Fatigue, Malaise, Normal Appetite, Other Symptoms Constitutional: Denies: Chills, Fever, Malaise, Night Sweats, Weakness, Fatigue, Weight Loss, Lethargy, Other Pulmonary: Denies: Dyspnea, Cough, Pleuritic Chest Pain, Other Symptoms Cardiovascular: Denies: Chest Pain, Palpitations, Orthopnea, Paroxysmal Noc. Dyspnea, Edema, Lt Headedness, Other Symptoms Gastrointestinal: Denies: Nausea, Vomiting, Abdominal Pain, Diarrhea, Constipation, Melena, Hematochezia, Other Symptoms Musculoskeletal: Denies: Neck Pain, Back Pain, Shoulder Pain, Arm Pain, Hand Pain, Leg Pain, Foot Pain, Joint Pain, Muscle Pain, Spasms, Other Symptoms Neurological: Denies: Weakness, Numbness, Incoordination, Change in speech, Confusion, Seizures, Other Symptoms Objective Physical Examination General Exam: Positive: Alert, Cooperative Neck Exam: Positive: Supple Chest Exam: Positive: Clear to auscultation, Normal air movement Heart Exam: Positive: Rate Normal, Normal S1, Normal S2 Abdomen Exam: Positive: Normal bowel sounds, Soft Extremity Exam: Positive: Other (and weakness with tenderness on right hip) Skin Exam: Positive: Nl turgor and temperature Neuro Exam: Positive: Sensation Intact, Cranial Nerves 3-12 NL, Other (weakness on the right hip but able to ambulate) Psych Exam: Positive: Mental status NL, Mood NL, Oriented x 3 Assessment /Plan Problems (1) Breast cancer Onset Date: ~ 2018 Status: Acute Problem Text: Breast cancer with bone metastases Continue present medications Patient is receiving radiation therapy by Dr. Carmona Discharge once the radiation therapy is complete Shunt his ALC is status (2) HTN (hypertension) Status: Chronic Problem Text: Continue home meds (3) Hypothyroid Status: Chronic Problem Text: Continue home meds Plan/VTE VTE Prophylaxis Ordered?: Yes VS, I&O, 24H, Fishbone Vital Signs/I&O Vital Signs Date Time Temp Pulse Resp B/P (MAP) Pulse Ox O2 Delivery O2 Flow Rate FiO2 12/10/19 08:47 18 Room Air 12/10/19 08:45 64 109/60 12/10/19 05:32 98.9 95 I&O- Last 24 Hours up to 6 AM 12/10/19 06:00 Intake Total 1350 ml Output Total 1520 ml Balance -170 ml Laboratory Data 24H LABS Laboratory Tests 2 12/10/19 05:39: Nucleated Red Blood Cells % (auto) 0.0, Anion Gap 8, Glomerular Filtration Rate > 60.0, Calcium Level 8.6 CBC/BMP Laboratory Tests 12/10/19 05:39 SANDEE LEDBETTER MD Dec 10, 2019 11:26
[2019-12-10] MEDS: DRONABINOL 2.5 MG CAP (MARINOL) PO SCH ×2 (12:58→18:58)
[2019-12-10] MEDS: ONDANSETRON 4 MG TAB (S0181) PO PRN (14:03)
[2019-12-11] MEDS: oxyCODONE 5MG TAB PO PRN ×2 (04:22→13:58)
[2019-12-11] MEDS: LEVOTHYROXINE 75MCG TABLET (0.075MG) PO SCH (05:43)
[2019-12-11 06:00] VITALS: BP 118/72
[2019-12-11] MEDS: HEPARIN SOD (PORCINE) 5000 UNITS/ML VIAL (J1644 PER 1000UNITS) SC SCH ×2 (09:35→20:56)
[2019-12-11] MEDS: SENNA 8.6 MG TAB (SENOKOT) PO SCH (09:36)
[2019-12-11] MEDS: atenoloL 50 MG TAB PO SCH (09:37)
[2019-12-11] MEDS: DOCUSATE SODIUM 100 MG CAP PO SCH ×2 (09:37→20:56)
[2019-12-11] MEDS: GABAPENTIN 300 MG CAP PO SCH ×3 (09:38→20:56)
[2019-12-11] MEDS: LETROZOLE 2.5 MG TAB PO SCH (09:39)
[2019-12-11] MEDS: oxyCODONE 10 MG CR TAB PO SCH ×2 (09:39→20:57)
[2019-12-11] MEDS: DRONABINOL 2.5 MG CAP (MARINOL) PO SCH ×2 (11:59→16:39)
--- NOTE | 2019-12-11 18:38 | IPN ---
DATE: 12/11/2019 DIAGNOSIS: Metastatic ER-positive, ID-negative, HER2/sharron unknown breast cancer with widespread skeletal involvement, extensively involving weightbearing bones, including bilateral femurs, right greater than left pelvis, thoracic and lumbar spine, now undergoing radiation to epidural involving sites in the thoracic and lumbar spine and right pelvis. Baseline CA27.29 of 1864 on 11/29/2019. CURRENT THERAPY: 1. Letrozole 2.5 mg daily. 2. Zoledronic acid 4 mg every 4 weeks 3. Palliative radiation 4. To begin palbociclib 125 mg by mouth daily days 1-25 every 28 days within the next week. INTERIM HISTORY: Mirna continues radiation. She reports things going fairly well. She has some pain on and off but is generally well controlled. I spoke with her today about beginning palbociclib, now that her ER positive breast cancer status has been established. This is a targeted CD4-6 inhibitor, not a cytotoxic drug, not a chemotherapy, taken orally days 1-21 every 28 days. Its typical side effects can include myelosuppression, including anemia of low platelets and low white blood cell count, fatigue, transaminitis. Typically patients are monitored with weekly complete blood count (CBC) in the first cycle, followed by CBC each day 1 of each subsequent cycle. I gave Mirna a starter package from the company, including brochures with information about the drug. She has questions about the specialty pharmacy to deliver the drug at home in the future, which I did my best to answer, but she will need to be in touch with our specialty drug oral chemotherapy Sarah navarro, to sort out details. Meanwhile, while she is inpatient, we were able to get drugs delivered later this week, which can be administered inpatient. This is optimum care for metastatic ER-positive breast cancer with low-volume visceral disease. Mirna and her daughter had many questions and observations about the care, communications between nurses, the hospitalist doctor, the radiation oncologist doctor, the medical oncology doctor, the specialty pharmacy, [facility]. They have concerns about her discharge planning. Between Dr. Carmona and I, we will strongly feel she needs to be in a situation where she has good supportive care, as her skeletal disease is quite extensive with questionable stability of her weightbearing bones. An optimal scenario would involve completing radiation, discharge in a wheelchair-type situation, eventual evaluation by orthopedic oncology, which may involve a trip to [place], and outpatient followup at the cancer center. Avoiding interruptions in her antiestrogen care will be campos, and on-time completion of her radiation as well as on-time next zoledronic acid dose will also be important. IMPRESSION: A 54-year-old woman with a personal history of stage II ER-positive breast cancer, now with widespread metastatic breast cancer involving the skeleton with spinal cord threatening lesions at L4-5 and T10, and unstable right pelvis, all under radiation treatment currently. Day 12, cycle 1 letrozole [employer] Co[employer] Oncology Group (ECOG) performance status 3/4. PLAN: 1. Continue current therapy. 2. Once palbociclib (Ibrance) has been delivered, will request this be administered as indicated above while inpatient. 3. Social work consult may be needed to help with the overall discharge plan for this patient with a complex medical and oncology situation. Will follow MTDD
[2019-12-12] MEDS: LEVOTHYROXINE 75MCG TABLET (0.075MG) PO SCH (05:35)
[2019-12-12 05:53] VITALS: BP 110/64
[2019-12-12] MEDS: HEPARIN SOD (PORCINE) 5000 UNITS/ML VIAL (J1644 PER 1000UNITS) SC SCH ×2 (09:50→21:18)
[2019-12-12] MEDS: atenoloL 50 MG TAB PO SCH (09:51)
[2019-12-12] MEDS: SENNA 8.6 MG TAB (SENOKOT) PO SCH (09:51)
[2019-12-12] MEDS: GABAPENTIN 300 MG CAP PO SCH ×3 (09:51→21:18)
[2019-12-12] MEDS: oxyCODONE 10 MG CR TAB PO SCH ×2 (09:51→21:18)
[2019-12-12] MEDS: DOCUSATE SODIUM 100 MG CAP PO SCH ×2 (09:51→21:18)
[2019-12-12] MEDS: LETROZOLE 2.5 MG TAB PO SCH (09:52)
--- NOTE | 2019-12-12 11:32 | IPNPDOC ---
Subjective Date Seen The patient was seen on 12/12/19. Subjective Chief Complaint/HPI Patient is comfortable in no distress. Offers no new complaints General: Denies: ROS Unobtainable, Chills, Night Sweats, Fatigue, Malaise, Normal Appetite, Other Symptoms Constitutional: Denies: Chills, Fever, Malaise, Night Sweats, Weakness, Fatigue, Weight Loss, Lethargy, Other Pulmonary: Denies: Dyspnea, Cough, Pleuritic Chest Pain, Other Symptoms Cardiovascular: Denies: Chest Pain, Palpitations, Orthopnea, Paroxysmal Noc. Dyspnea, Edema, Lt Headedness, Other Symptoms Gastrointestinal: Denies: Nausea, Vomiting, Abdominal Pain, Diarrhea, Constipation, Melena, Hematochezia, Other Symptoms Musculoskeletal: Denies: Neck Pain, Back Pain, Shoulder Pain, Arm Pain, Hand Pain, Leg Pain, Foot Pain, Joint Pain, Muscle Pain, Spasms, Other Symptoms Neurological: Denies: Weakness, Numbness, Incoordination, Change in speech, Confusion, Seizures, Other Symptoms Objective Physical Examination Neck Exam: Positive: Supple Chest Exam: Positive: Clear to auscultation, Normal air movement Heart Exam: Positive: Rate Normal, Normal S1, Normal S2 Abdomen Exam: Positive: Normal bowel sounds, Soft Extremity Exam: Positive: Other (and weakness with tenderness on right hip) Skin Exam: Positive: Nl turgor and temperature Neuro Exam: Positive: Sensation Intact, Cranial Nerves 3-12 NL, Other (weakness on the right hip but able to ambulate) Assessment /Plan Problems (1) Breast cancer Onset Date: ~ 2018 Status: Acute Problem Text: Breast cancer with bone metastases Continue present therapy Patient is receiving radiation therapy by Dr. Carmona Discharge once the radiation therapy is complete Discussed with patient regarding palliative care consultation, but patient declined at the present time Patient status is a ANC (2) HTN (hypertension) Status: Chronic Problem Text: Continue home meds (3) Hypothyroid Status: Chronic Problem Text: Continue home meds Plan/VTE VTE Prophylaxis Ordered?: Yes VS, I&O, 24H, Fishbone Vital Signs/I&O Vital Signs Date Time Temp Pulse Resp B/P (MAP) Pulse Ox O2 Delivery O2 Flow Rate FiO2 12/12/19 09:51 18 12/12/19 09:51 65 110/64 12/12/19 05:53 98.6 96 Room Air I&O- Last 24 Hours up to 6 AM 12/12/19 06:00 Intake Total 620 ml Output Total 0 ml Balance 620 ml SANDEE LEDBETTER MD Dec 12, 2019 11:32
[2019-12-12] MEDS: DRONABINOL 2.5 MG CAP (MARINOL) PO SCH ×2 (12:53→17:42)
[2019-12-12] MEDS: oxyCODONE 5MG TAB PO PRN (14:19)
[2019-12-13] MEDS: LEVOTHYROXINE 75MCG TABLET (0.075MG) PO SCH (05:27)
[2019-12-13 05:30] VITALS: BP 110/63
[2019-12-13] MEDS: GABAPENTIN 300 MG CAP PO SCH ×3 (09:13→20:30)
[2019-12-13] MEDS: oxyCODONE 5MG TAB PO PRN ×2 (09:13→14:09)
[2019-12-13] MEDS: DOCUSATE SODIUM 100 MG CAP PO SCH ×2 (09:13→20:30)
[2019-12-13] MEDS: SENNA 8.6 MG TAB (SENOKOT) PO SCH (09:13)
[2019-12-13] MEDS: LETROZOLE 2.5 MG TAB PO SCH (09:14)
[2019-12-13] MEDS: oxyCODONE 10 MG CR TAB PO SCH ×2 (09:14→20:30)
[2019-12-13] MEDS: HEPARIN SOD (PORCINE) 5000 UNITS/ML VIAL (J1644 PER 1000UNITS) SC SCH ×2 (09:14→20:29)
[2019-12-13] MEDS: atenoloL 50 MG TAB PO SCH (09:14)
[2019-12-13] MEDS: DRONABINOL 2.5 MG CAP (MARINOL) PO SCH ×2 (12:19→17:45)
[2019-12-13] MEDS: ONDANSETRON 4 MG TAB (S0181) PO PRN (14:08)
[2019-12-13 15:00] VITALS: BP 111/62
[2019-12-14 05:31] VITALS: BP 114/62
[2019-12-14] MEDS: LEVOTHYROXINE 75MCG TABLET (0.075MG) PO SCH (06:18)
[2019-12-14] MEDS: SENNA 8.6 MG TAB (SENOKOT) PO SCH (08:46)
[2019-12-14] MEDS: DOCUSATE SODIUM 100 MG CAP PO SCH ×2 (08:46→20:12)
[2019-12-14] MEDS: GABAPENTIN 300 MG CAP PO SCH ×3 (08:46→20:11)
[2019-12-14] MEDS: atenoloL 50 MG TAB PO SCH (08:46)
[2019-12-14] MEDS: oxyCODONE 10 MG CR TAB PO SCH ×2 (08:47→20:11)
[2019-12-14] MEDS: HEPARIN SOD (PORCINE) 5000 UNITS/ML VIAL (J1644 PER 1000UNITS) SC SCH ×2 (08:48→20:11)
[2019-12-14] MEDS: LETROZOLE 2.5 MG TAB PO SCH (08:48)
[2019-12-14] MEDS: oxyCODONE 5MG TAB PO PRN ×2 (08:48→14:07)
[2019-12-14] MEDS: DRONABINOL 2.5 MG CAP (MARINOL) PO SCH ×2 (11:56→16:31)
[2019-12-14 20:11] VITALS: BP 116/65
[2019-12-15] MEDS: LEVOTHYROXINE 75MCG TABLET (0.075MG) PO SCH (05:30)
[2019-12-15 05:32] VITALS: BP 141/74
[2019-12-15] MEDS: HEPARIN SOD (PORCINE) 5000 UNITS/ML VIAL (J1644 PER 1000UNITS) SC SCH ×2 (09:04→20:19)
[2019-12-15] MEDS: LETROZOLE 2.5 MG TAB PO SCH (09:04)
[2019-12-15] MEDS: oxyCODONE 10 MG CR TAB PO SCH ×2 (09:04→20:19)
[2019-12-15] MEDS: SENNA 8.6 MG TAB (SENOKOT) PO SCH (09:05)
[2019-12-15] MEDS: GABAPENTIN 300 MG CAP PO SCH ×3 (09:05→20:19)
[2019-12-15] MEDS: DOCUSATE SODIUM 100 MG CAP PO SCH ×2 (09:05→20:18)
[2019-12-15] MEDS: atenoloL 50 MG TAB PO SCH (09:05)
[2019-12-15] MEDS: DRONABINOL 2.5 MG CAP (MARINOL) PO SCH ×2 (11:17→17:33)
[2019-12-15 14:00] VITALS: BP 130/73
[2019-12-15 20:26] VITALS: BP 122/68
[2019-12-16] MEDS: LEVOTHYROXINE 75MCG TABLET (0.075MG) PO SCH (05:43)
[2019-12-16 06:21] VITALS: BP 124/72
[2019-12-16] MEDS: atenoloL 50 MG TAB PO SCH (08:03)
[2019-12-16] MEDS: GABAPENTIN 300 MG CAP PO SCH ×3 (08:03→21:13)
[2019-12-16] MEDS: LETROZOLE 2.5 MG TAB PO SCH (08:03)
[2019-12-16] MEDS: HEPARIN SOD (PORCINE) 5000 UNITS/ML VIAL (J1644 PER 1000UNITS) SC SCH ×2 (08:04→21:12)
[2019-12-16] MEDS: SENNA 8.6 MG TAB (SENOKOT) PO SCH (08:05)
[2019-12-16] MEDS: DOCUSATE SODIUM 100 MG CAP PO SCH ×2 (08:05→21:13)
[2019-12-16] MEDS: oxyCODONE 10 MG CR TAB PO SCH ×2 (08:05→21:13)
[2019-12-16] MEDS: DRONABINOL 2.5 MG CAP (MARINOL) PO SCH ×2 (12:32→16:18)
[2019-12-16 14:46] VITALS: BP 120/72
[2019-12-16] MEDS: oxyCODONE 5MG TAB PO PRN (16:19)
[2019-12-17 06:00] VITALS: BP 110/68
[2019-12-17] MEDS: LEVOTHYROXINE 75MCG TABLET (0.075MG) PO SCH (06:04)
[2019-12-17] MEDS: GABAPENTIN 300 MG CAP PO SCH ×3 (08:56→20:40)
[2019-12-17] MEDS: DOCUSATE SODIUM 100 MG CAP PO SCH ×2 (08:56→20:40)
[2019-12-17] MEDS: LETROZOLE 2.5 MG TAB PO SCH (08:56)
[2019-12-17] MEDS: oxyCODONE 10 MG CR TAB PO SCH ×2 (08:57→20:39)
[2019-12-17] MEDS: HEPARIN SOD (PORCINE) 5000 UNITS/ML VIAL (J1644 PER 1000UNITS) SC SCH ×2 (08:57→20:40)
[2019-12-17] MEDS: SENNA 8.6 MG TAB (SENOKOT) PO SCH (08:57)
[2019-12-17] MEDS: atenoloL 50 MG TAB PO SCH (08:58)
[2019-12-17] MEDS: oxyCODONE 5MG TAB PO PRN ×2 (09:01→14:08)
[2019-12-17] MEDS: DRONABINOL 2.5 MG CAP (MARINOL) PO SCH ×2 (12:34→17:09)
[2019-12-17 14:00] VITALS: BP 108/65
[2019-12-17] MEDS: IBRANCE 125 MG PO SCH (14:16)
[2019-12-17 14:23] LABS: HEMATOCRIT 36.9 % (36.0-47.0); HEMOGLOBIN 12.1 g/dl (12.0-15.5); MEAN CORPUSCULAR HEMOGLOBIN 29.6 pg (27.0-33.0); MEAN CORPUSCULAR HGB CONC 32.8 g/dl (32.0-36.5); MEAN CORPUSCULAR VOLUME 90.2 fl (80.0-96.0); PLATELET COUNT, AUTOMATED 153 10^3/uL (150-450); RED BLOOD COUNT 4.09 10^6/uL (4.00-5.40); WHITE BLOOD COUNT 4.2 10^3/uL (4.0-10.0)
[2019-12-17 15:11] LABS: ANISOCYTOSIS 2+; ATYPICAL LYMPH 1 % (0-5); EOSINOPHILS 2 % (0-3); LYMPHOCYTES 4 % (16-44); MONOCYTES 8 % (0-5); NEUTROPHILS 84 % (28-66); PLATELET ESTIMATE NORMAL (NORMAL)
[2019-12-18] MEDS: LEVOTHYROXINE 75MCG TABLET (0.075MG) PO SCH (05:57)
[2019-12-18 05:58] VITALS: BP 116/70
[2019-12-18 06:58] LABS: BLOOD UREA NITROGEN 17 MG/DL (7-18); CALCIUM LEVEL 7.7 MG/DL (8.5-10.1); CARBON DIOXIDE LEVEL 21 MEQ/L (21-32); CHLORIDE LEVEL 102 MEQ/L (98-107); CREATININE FOR GFR 0.54 MG/DL (0.55-1.30); GLOMERULAR FILTRATION RATE > 60.0 (>51); GLUCOSE, FASTING 91 MG/DL (70-100); POTASSIUM SERUM 4.3 MEQ/L (3.5-5.1); SODIUM LEVEL 132 MEQ/L (136-145)
[2019-12-18] MEDS: IBRANCE 125 MG PO SCH (09:00)
[2019-12-18] MEDS: oxyCODONE 10 MG CR TAB PO SCH ×2 (09:00→21:00)
[2019-12-18] MEDS: atenoloL 50 MG TAB PO SCH (09:00)
[2019-12-18] MEDS: GABAPENTIN 300 MG CAP PO SCH ×3 (09:00→21:00)
[2019-12-18] MEDS: DOCUSATE SODIUM 100 MG CAP PO SCH ×2 (09:00→21:00)
[2019-12-18] MEDS: SENNA 8.6 MG TAB (SENOKOT) PO SCH (09:00)
[2019-12-18] MEDS: LETROZOLE 2.5 MG TAB PO SCH (09:00)
[2019-12-18] MEDS: MORPHINE 2 MG/ML 1ML VIAL (J2270) IV PRN (09:21)
[2019-12-18] MEDS: HEPARIN SOD (PORCINE) 5000 UNITS/ML VIAL (J1644 PER 1000UNITS) SC SCH ×2 (09:22→21:00)
[2019-12-18] MEDS: DRONABINOL 2.5 MG CAP (MARINOL) PO SCH ×2 (12:00→16:57)
[2019-12-18 14:00] VITALS: BP 112/69
--- NOTE | 2019-12-18 14:18 | IPNPDOC ---
Subjective Date Seen The patient was seen on 12/18/19. Subjective Chief Complaint/HPI Complaining of pain in swallowing. Also complaining of neck pain and generalized pain all over the body, patient is getting radiation therapy at present General: Denies: ROS Unobtainable, Chills, Night Sweats, Fatigue, Malaise, Normal Appetite, Other Symptoms Constitutional: Reports: Other Eyes: Denies: Pain, Vision change, Conjunctivae inflammation, Eyelid inflammation, Redness, Other ENT: Denies: Head Aches, Ear Pain, Dysphagia, Sinus Congestion, Post Nasal Drip, Sore Throat, Epistaxis, Other Symptoms Pulmonary: Denies: Dyspnea, Cough, Pleuritic Chest Pain, Other Symptoms Cardiovascular: Denies: Chest Pain, Palpitations, Orthopnea, Paroxysmal Noc. Dyspnea, Edema, Lt Headedness, Other Symptoms Gastrointestinal: Reports: Other Symptoms Hematologic: Denies: Bruising, Bleeding Excessively, Petecchia, Purpura, Enlarged Lymph Nodes, Other Hematologic Endocrine: Denies: Polydipsia, Polyphagia, Polyuria, Heat Intolerance, Cold Intolerance, Other Endocrine Sx Musculoskeletal: Denies: Neck Pain, Back Pain, Shoulder Pain, Arm Pain, Hand Pain, Leg Pain, Foot Pain, Joint Pain, Muscle Pain, Spasms, Other Symptoms Neurological: Denies: Weakness, Numbness, Incoordination, Change in speech, Confusion, Seizures, Other Symptoms Objective Physical Examination Neck Exam: Positive: Supple Chest Exam: Positive: Clear to auscultation, Normal air movement Heart Exam: Positive: Rate Normal, Normal S1, Normal S2 Abdomen Exam: Positive: Normal bowel sounds, Soft Extremity Exam: Positive: Other (and weakness with tenderness on right hip) Skin Exam: Positive: Nl turgor and temperature Neuro Exam: Positive: Sensation Intact, Cranial Nerves 3-12 NL, Other (weakness on the right hip but able to ambulate) Assessment /Plan Problems (1) Breast cancer Onset Date: ~ 2019 Status: Acute Problem Text: Breast cancer with bone metastases Continue present therapy Patient is receiving radiation therapy by Dr. Carmona Discharge once the radiation therapy is complete Discussed with patient regarding palliative care consultation, but patient declined at the present time will start patient on IV fluids normal saline at 100 mL per hour secondary to decreased oral intake of liquids, CBC, CMP in a.m., patient ANC status has been changed to active, not Also, will start morphine sulfate 5 mg sublingual every 2 hours when necessary for pain Magic mouthwash 3 times a day when necessary Further, as per oncology and radiation oncology Unfortunately very poor prognosis (2) HTN (hypertension) Status: Chronic Problem Text: Continue home meds (3) Hypothyroid Status: Chronic Problem Text: Continue home meds Plan/VTE VTE Prophylaxis Ordered?: Yes VS, I&O, 24H, Fishbone Vital Signs/I&O Vital Signs Date Time Temp Pulse Resp B/P (MAP) Pulse Ox O2 Delivery O2 Flow Rate FiO2 12/18/19 09:31 16 12/18/19 09:00 66 116/70 12/18/19 05:58 98.9 96 Room Air I&O- Last 24 Hours up to 6 AM 12/18/19 06:00 Intake Total 1390 ml Balance 1390 ml Laboratory Data 24H LABS Laboratory Tests 2 12/18/19 05:46: Anion Gap 9, Glomerular Filtration Rate > 60.0, Calcium Level 7.7L CBC/BMP Laboratory Tests 12/18/19 05:46 SANDEE LEDBETTER MD Dec 18, 2019 14:18
[2019-12-18] MEDS: NS 1,000 ML IV SCH ×2 (14:27→23:46)
[2019-12-18] MEDS: MORPHINE 10MG/0.5ML ORAL CONCENTRATE SOLUTION U/D SL PRN ×2 (14:29→23:46)
[2019-12-18] MEDS ORDERED: MAGIC MOUTHWASH SUSPENSION BTL SSP PRN (16:00)
[2019-12-18 22:00] VITALS: BP 109/67
[2019-12-19] MEDS: LEVOTHYROXINE 75MCG TABLET (0.075MG) PO SCH (05:09)
[2019-12-19 06:00] VITALS: BP 112/64
[2019-12-19] MEDS: MORPHINE 10MG/0.5ML ORAL CONCENTRATE SOLUTION U/D SL PRN ×3 (06:08→18:10)
[2019-12-19 07:12] LABS: BASO % 0.3 % (0.0-1.0); EOS # 0.6 10^3/uL (0.0-0.5); HEMATOCRIT 34.5 % (36.0-47.0); HEMOGLOBIN 11.1 g/dl (12.0-15.5); MEAN CORPUSCULAR HEMOGLOBIN 29.1 pg (27.0-33.0); MEAN CORPUSCULAR HGB CONC 32.2 g/dl (32.0-36.5); MEAN CORPUSCULAR VOLUME 90.3 fl (80.0-96.0); MONO # 0.4 10^3/uL (0.0-0.8); MONO % 12.2 % (0.0-5.0); NEUTROPHILS # 1.7 10^3/uL (1.5-8.5); NEUTROPHILS % 58.2 % (36.0-66.0); PLATELET COUNT, AUTOMATED 111 10^3/uL (150-450); RED BLOOD COUNT 3.82 10^6/uL (4.00-5.40); WHITE BLOOD COUNT 2.9 10^3/uL (4.0-10.0)
[2019-12-19 07:42] LABS: ALBUMIN 2.3 GM/DL (3.2-5.2); ALT/SGPT 32 U/L (12-78); BILIRUBIN,TOTAL 0.5 MG/DL (0.2-1.0); BLOOD UREA NITROGEN 16 MG/DL (7-18); CALCIUM LEVEL 7.1 MG/DL (8.5-10.1); CARBON DIOXIDE LEVEL 21 MEQ/L (21-32); CHLORIDE LEVEL 108 MEQ/L (98-107); CREATININE FOR GFR 0.42 MG/DL (0.55-1.30); EOS % 20.6 % (0.0-3.0); GLOMERULAR FILTRATION RATE > 60.0 (>51); GLUCOSE, FASTING 83 MG/DL (70-100); LYMPH # 0.2 10^3/uL (1.5-5.0); POTASSIUM SERUM 3.7 MEQ/L (3.5-5.1); SODIUM LEVEL 135 MEQ/L (136-145); TOTAL PROTEIN 5.4 GM/DL (6.4-8.2)
[2019-12-19] MEDS: oxyCODONE 10 MG CR TAB PO SCH ×2 (09:00→19:27)
[2019-12-19] MEDS: DOCUSATE SODIUM 100 MG CAP PO SCH ×2 (09:00→19:26)
[2019-12-19] MEDS: IBRANCE 125 MG PO SCH (09:00)
[2019-12-19] MEDS: LETROZOLE 2.5 MG TAB PO SCH (09:00)
[2019-12-19] MEDS: HEPARIN SOD (PORCINE) 5000 UNITS/ML VIAL (J1644 PER 1000UNITS) SC SCH ×2 (09:00→19:27)
[2019-12-19] MEDS: GABAPENTIN 300 MG CAP PO SCH ×3 (09:00→19:26)
[2019-12-19] MEDS: atenoloL 50 MG TAB PO SCH (09:00)
[2019-12-19] MEDS: SENNA 8.6 MG TAB (SENOKOT) PO SCH (09:00)
[2019-12-19] MEDS: NS 1,000 ML IV SCH ×2 (09:57→20:05)
[2019-12-19] MEDS ORDERED: LIDOCAINE VISCOUS 2% SOLN 15ML UDC SS PRN (11:30)
[2019-12-19] MEDS ORDERED: PANTOPRAZOLE 40MG INJ (PROTONIX) (C9113) IV ONE (11:30)
[2019-12-19] MEDS ORDERED: FLUCONAZOLE 100 MG in IV 1 EA IV SCH (11:30)
[2019-12-19] MEDS: DRONABINOL 2.5 MG CAP (MARINOL) PO SCH ×2 (12:00→17:30)
[2019-12-19] MEDS: FLUCONAZOLE 100 MG in IV 1 EA IV SCH (13:29)
[2019-12-19 14:30] VITALS: BP 109/69
[2019-12-19] MEDS: PANTOPRAZOLE 40MG INJ (PROTONIX) (C9113) IV SCH (19:27)
[2019-12-19 22:00] VITALS: BP 111/62
[2019-12-20 05:07] VITALS: BP 151/84
[2019-12-20] MEDS: NS 1,000 ML IV SCH (05:12)
[2019-12-20] MEDS: MORPHINE 10MG/0.5ML ORAL CONCENTRATE SOLUTION U/D SL PRN ×3 (05:12→20:39)
[2019-12-20] MEDS: LEVOTHYROXINE 75MCG TABLET (0.075MG) PO SCH (05:13)
[2019-12-20] MEDS ORDERED: LORazepam 2 MG/ML VIAL (J2060) IV STA (05:31)
[2019-12-20] MEDS ORDERED: LORazepam 2 MG/ML VIAL (J2060) IM PRN (06:00)
[2019-12-20] MEDS ORDERED: LORazepam 2 MG/ML VIAL (J2060) IV PRN (06:15)
[2019-12-20 06:47] LABS: BLOOD UREA NITROGEN 10 MG/DL (7-18); CALCIUM LEVEL 6.5 MG/DL (8.5-10.1); CARBON DIOXIDE LEVEL 21 MEQ/L (21-32); CHLORIDE LEVEL 110 MEQ/L (98-107); CREATININE FOR GFR 0.42 MG/DL (0.55-1.30); GLOMERULAR FILTRATION RATE > 60.0 (>51); GLUCOSE, FASTING 87 MG/DL (70-100); POTASSIUM SERUM 3.8 MEQ/L (3.5-5.1); SODIUM LEVEL 137 MEQ/L (136-145)
[2019-12-20 07:30] VITALS: BP 108/75
[2019-12-20] MEDS: SENNA 8.6 MG TAB (SENOKOT) PO SCH (09:00)
[2019-12-20] MEDS: GABAPENTIN 300 MG CAP PO SCH ×3 (09:00→21:00)
[2019-12-20] MEDS: atenoloL 50 MG TAB PO SCH (09:00)
[2019-12-20] MEDS: oxyCODONE 10 MG CR TAB PO SCH ×2 (09:00→21:00)
[2019-12-20] MEDS: LETROZOLE 2.5 MG TAB PO SCH (09:00)
[2019-12-20] MEDS: DOCUSATE SODIUM 100 MG CAP PO SCH ×2 (09:00→21:00)
[2019-12-20] MEDS: IBRANCE 125 MG PO SCH (09:00)
[2019-12-20] MEDS: HEPARIN SOD (PORCINE) 5000 UNITS/ML VIAL (J1644 PER 1000UNITS) SC SCH ×2 (09:03→20:39)
[2019-12-20 09:30] VITALS: BP 110/74
--- NOTE | 2019-12-20 10:46 | IPNPDOC ---
Date Seen The patient was seen on 12/20/19. Progress Note SUBJECTIVE: 54-year-old female with past medical history of breast cancer with extensive bone metastases is admitted for pain control and radiation therapy. Patient is nonweightbearing given high risk for pathologic fractures due to metastases, started radiation therapy yesterday, without any complaints at this time apart from right hip pain. Patient denies any shortness of breath, chest pain, nausea, vomiting, abdominal pain or diarrhea. 12/20/19 Patient has clinically decompensated since last summer and saw her one week ago, radiation therapy as taken toll on patient's ability to tolerate oral intake. She reports odynophagia, along with profound fatigue and lack of appetite. Patient experienced an episode of choking sensation and bringing up frothy liquid this morning, became very anxious and received Ativan. She is currently comfortable, appears to be sedated from the Ativan, easily arousable and answers questions, was able to drink some fluids this morning without odynophagia, encouraged increased oral intake, if tolerated. She denies any nausea, vomiting, abdominal pain or diarrhea. 10 point review of system is negative except for above PHYSICAL EXAMINATION: VITAL SIGNS: Please see below. GENERAL: No distress HEENT: Normocephalic, atraumatic, moist mucous membranes NECK: Supple CARDIOVASCULAR EXAMINATION: S1, S2, no murmurs RESPIRATORY EXAMINATION: Clear to auscultation, no wheezing ABDOMINAL EXAMINATION: Soft, nontender, nondistended, positive bowel sounds EXTREMITIES: Range of motion intact SKIN: No rash NEUROLOGICAL EXAMINATION: Alert and oriented 3, no focal deficits PSYCHIATRIC EXAMINATION: Calm and cooperative LABORATORY DATA, IMAGING STUDIES, MICROBIOLOGY: Please see below. DVT prophylaxis ordered?: Yes ASSESSMENT AND PLAN: 54-year-old female with past medical history of breast cancer and extensive bone metastases is admitted for pain control and radiation treatment. PROBLEMS: 1. Breast cancer with bone metastases: Being followed by medical and radiation oncology, currently undergoing radiation therapy, further management as per medical/radiation oncologist. - patient is high risk for pathological fracture, will continue inpatient treatment until deemed appropriate for discharge by radiation/medical oncologist. 2. Hypothyroidism: Continue levothyroxine 3. 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 Protonix 40 mg twice a day, switched IV fluids to D5NS. DVT prophylaxis: Heparin subcutaneous GI prophylaxis: Not needed VS, I&O, 24H, Fishbone Vital Signs/I&O Vital Signs Date Time Temp Pulse Resp B/P (MAP) Pulse Ox O2 Delivery O2 Flow Rate FiO2 12/20/19 09:30 98.6 105 20 110/74 97 Room Air I&O- Last 24 Hours up to 6 AM 12/20/19 06:00 Intake Total 2510 ml Balance 2510 ml Laboratory Data 24H LABS Laboratory Tests 2 12/20/19 06:18: Anion Gap 6L, Glomerular Filtration Rate > 60.0, Calcium Level 6.5L CBC/BMP Laboratory Tests 12/20/19 06:18 IZAIAH PARRA MD Dec 20, 2019 10:46
[2019-12-20] MEDS: PANTOPRAZOLE 40MG INJ (PROTONIX) (C9113) IV SCH ×2 (11:00→20:39)
[2019-12-20] MEDS: DRONABINOL 2.5 MG CAP (MARINOL) PO SCH ×2 (12:00→16:36)
[2019-12-20] MEDS: D5W/0.9% SODIUM CHLORIDE 1,000 ML IV SCH (12:00)
[2019-12-20 14:00] VITALS: BP 117/77
[2019-12-20 22:56] VITALS: BP 120/80
[2019-12-21] MEDS: D5W/0.9% SODIUM CHLORIDE 1,000 ML IV SCH ×2 (03:12→20:12)
[2019-12-21] MEDS: MORPHINE 10MG/0.5ML ORAL CONCENTRATE SOLUTION U/D SL PRN ×3 (03:19→14:20)
[2019-12-21] MEDS: LEVOTHYROXINE 75MCG TABLET (0.075MG) PO SCH (04:01)
[2019-12-21 06:47] VITALS: BP 119/71
[2019-12-21] MEDS: DOCUSATE SODIUM 100 MG CAP PO SCH ×2 (08:49→20:14)
[2019-12-21] MEDS: LETROZOLE 2.5 MG TAB PO SCH (08:49)
[2019-12-21] MEDS: GABAPENTIN 300 MG CAP PO SCH ×3 (08:50→20:14)
[2019-12-21] MEDS: IBRANCE 125 MG PO SCH (08:50)
[2019-12-21] MEDS: PANTOPRAZOLE 40MG INJ (PROTONIX) (C9113) IV SCH ×2 (08:50→21:11)
[2019-12-21] MEDS: HEPARIN SOD (PORCINE) 5000 UNITS/ML VIAL (J1644 PER 1000UNITS) SC SCH ×2 (08:50→20:14)
[2019-12-21] MEDS: atenoloL 50 MG TAB PO SCH (08:50)
[2019-12-21] MEDS: SENNA 8.6 MG TAB (SENOKOT) PO SCH (08:50)
[2019-12-21] MEDS: oxyCODONE 10 MG CR TAB PO SCH ×2 (08:50→20:14)
[2019-12-21] MEDS: DRONABINOL 2.5 MG CAP (MARINOL) PO SCH ×2 (11:02→17:00)
[2019-12-21] MEDS: FLUCONAZOLE 100 MG in IV 1 EA IV SCH (12:56)
[2019-12-21 14:00] VITALS: BP 119/85
[2019-12-21 22:00] VITALS: BP 121/72
[2019-12-22] MEDS: MORPHINE 10MG/0.5ML ORAL CONCENTRATE SOLUTION U/D SL PRN ×2 (01:45→10:30)
[2019-12-22] MEDS: LEVOTHYROXINE 75MCG TABLET (0.075MG) PO SCH (05:52)
[2019-12-22 06:00] VITALS: BP 134/81
[2019-12-22] MEDS: DOCUSATE SODIUM 100 MG CAP PO SCH ×2 (09:00→20:44)
[2019-12-22] MEDS: atenoloL 50 MG TAB PO SCH (09:00)
[2019-12-22] MEDS: GABAPENTIN 300 MG CAP PO SCH ×3 (09:00→20:45)
[2019-12-22] MEDS: SENNA 8.6 MG TAB (SENOKOT) PO SCH (09:00)
[2019-12-22] MEDS: IBRANCE 125 MG PO SCH (09:39)
[2019-12-22] MEDS: LETROZOLE 2.5 MG TAB PO SCH (09:40)
[2019-12-22] MEDS: oxyCODONE 10 MG CR TAB PO SCH ×2 (09:40→20:45)
[2019-12-22] MEDS: HEPARIN SOD (PORCINE) 5000 UNITS/ML VIAL (J1644 PER 1000UNITS) SC SCH ×2 (09:41→20:45)
[2019-12-22] MEDS: PANTOPRAZOLE 40MG INJ (PROTONIX) (C9113) IV SCH ×2 (09:41→20:49)
[2019-12-22] MEDS: DRONABINOL 2.5 MG CAP (MARINOL) PO SCH ×2 (12:00→17:06)
--- NOTE | 2019-12-22 12:17 | REP ---
Portable chest, 12:00 p.m., single AP view with the patient semi upright: Comparison is the PA and lateral chest dated 04/14/2016. The lung stark are clear. The cardiac size is normal. The kuldip, mediastinum, and skeletal structures are unremarkable. Impression: Negative portable chest. There is no interval change. Electronically Signed by Freeman Fuentes MD 12/22/2019 12:08 P
[2019-12-22] MEDS: D5W/0.9% SODIUM CHLORIDE 1,000 ML IV SCH (12:22)
[2019-12-22 14:00] VITALS: BP 112/71
[2019-12-22] MEDS: MORPHINE 2 MG/ML 1ML VIAL (J2270) IV PRN ×2 (18:18→22:23)
[2019-12-22 22:00] VITALS: BP 115/68
[2019-12-23] MEDS: D5W/0.9% SODIUM CHLORIDE 1,000 ML IV SCH ×2 (04:03→20:14)
[2019-12-23] MEDS: LEVOTHYROXINE 75MCG TABLET (0.075MG) PO SCH (05:05)
[2019-12-23 06:00] VITALS: BP 116/68
[2019-12-23 08:08] VITALS: BP 116/68
[2019-12-23] MEDS: SENNA 8.6 MG TAB (SENOKOT) PO SCH (08:08)
[2019-12-23] MEDS: DOCUSATE SODIUM 100 MG CAP PO SCH (08:08)
[2019-12-23] MEDS: GABAPENTIN 300 MG CAP PO SCH (08:08)
[2019-12-23] MEDS: atenoloL 50 MG TAB PO SCH (08:08)
[2019-12-23] MEDS: PANTOPRAZOLE 40MG INJ (PROTONIX) (C9113) IV SCH ×2 (08:23→20:22)
[2019-12-23] MEDS: HEPARIN SOD (PORCINE) 5000 UNITS/ML VIAL (J1644 PER 1000UNITS) SC SCH ×2 (08:24→20:22)
[2019-12-23] MEDS: LETROZOLE 2.5 MG TAB PO SCH (08:24)
[2019-12-23] MEDS: oxyCODONE 10 MG CR TAB PO SCH ×2 (08:25→20:37)
[2019-12-23] MEDS: IBRANCE 125 MG PO SCH (08:25)
[2019-12-23] MEDS: DRONABINOL 2.5 MG CAP (MARINOL) PO SCH ×2 (11:04→16:42)
[2019-12-23] MEDS: FLUCONAZOLE 100 MG in IV 1 EA IV SCH (12:25)
[2019-12-23 13:09] VITALS: BP 131/74
[2019-12-23] MEDS ORDERED: SENNA 8.6 MG TAB (SENOKOT) PO PRN (14:30)
[2019-12-23] MEDS: MORPHINE 2 MG/ML 1ML VIAL (J2270) IV PRN (20:23)
[2019-12-23 22:00] VITALS: BP 132/77
[2019-12-24 06:00] VITALS: BP 140/82
[2019-12-24] MEDS: LEVOTHYROXINE 75MCG TABLET (0.075MG) PO SCH (06:00)
[2019-12-24 06:18] LABS: HEMATOCRIT 28.2 % (36.0-47.0); HEMOGLOBIN 9.2 g/dl (12.0-15.5); MEAN CORPUSCULAR HEMOGLOBIN 29.5 pg (27.0-33.0); MEAN CORPUSCULAR HGB CONC 32.6 g/dl (32.0-36.5); MEAN CORPUSCULAR VOLUME 90.4 fl (80.0-96.0); RED BLOOD COUNT 3.12 10^6/uL (4.00-5.40); WHITE BLOOD COUNT 2.3 10^3/uL (4.0-10.0)
[2019-12-24 06:26] LABS: PLATELET COUNT, AUTOMATED 91 10^3/uL (150-450)
[2019-12-24 06:44] LABS: BLOOD UREA NITROGEN 7 MG/DL (7-18); CALCIUM LEVEL 7.5 MG/DL (8.5-10.1); CARBON DIOXIDE LEVEL 23 MEQ/L (21-32); CHLORIDE LEVEL 107 MEQ/L (98-107); CREATININE FOR GFR 0.45 MG/DL (0.55-1.30); GLOMERULAR FILTRATION RATE > 60.0 (>51); GLUCOSE, FASTING 93 MG/DL (70-100); MAGNESIUM LEVEL 1.8 MG/DL (1.8-2.4); PHOSPHORUS LEVEL 1.3 MG/DL (2.5-4.9); POTASSIUM SERUM 3.4 MEQ/L (3.5-5.1); SODIUM LEVEL 136 MEQ/L (136-145)
[2019-12-24] MEDS: LETROZOLE 2.5 MG TAB PO SCH (08:26)
[2019-12-24] MEDS: PANTOPRAZOLE 40MG INJ (PROTONIX) (C9113) IV SCH ×2 (08:26→20:19)
[2019-12-24] MEDS: oxyCODONE 10 MG CR TAB PO SCH ×2 (08:27→20:19)
[2019-12-24] MEDS: HEPARIN SOD (PORCINE) 5000 UNITS/ML VIAL (J1644 PER 1000UNITS) SC SCH ×2 (08:27→21:00)
[2019-12-24] MEDS: IBRANCE 125 MG PO SCH (08:28)
[2019-12-24] MEDS ORDERED: MAG SULF 1GM/100ML (MAG RUN) 1 GM in IV 1 EA IV ONE (10:00)
[2019-12-24] MEDS ORDERED: POTASSIUM CHLORIDE 10% LIQ 20 MEQ/15 ML UDC PO ONE (10:00)
[2019-12-24] MEDS ORDERED: POTASSIUM PHOSPHATE INJ 30 MMOL in D5W 500 ML IV ONE (11:00)
[2019-12-24] MEDS: DRONABINOL 2.5 MG CAP (MARINOL) PO SCH ×2 (11:07→16:55)
[2019-12-24 14:00] VITALS: BP 139/84
[2019-12-24] MEDS: MORPHINE 2 MG/ML 1ML VIAL (J2270) IV PRN ×2 (15:06→20:19)
[2019-12-24 22:00] VITALS: BP 144/88
[2019-12-25 06:00] VITALS: BP 134/84
[2019-12-25] MEDS: LEVOTHYROXINE 75MCG TABLET (0.075MG) PO SCH (08:28)
[2019-12-25] MEDS: HEPARIN SOD (PORCINE) 5000 UNITS/ML VIAL (J1644 PER 1000UNITS) SC SCH ×2 (09:00→21:00)
[2019-12-25] MEDS: oxyCODONE 10 MG CR TAB PO SCH ×2 (09:36→21:38)
[2019-12-25] MEDS: LETROZOLE 2.5 MG TAB PO SCH (09:36)
[2019-12-25] MEDS: IBRANCE 125 MG PO SCH (09:37)
[2019-12-25] MEDS: PANTOPRAZOLE 40MG INJ (PROTONIX) (C9113) IV SCH ×2 (09:37→21:36)
[2019-12-25] MEDS: FLUCONAZOLE 100 MG TAB PO SCH (09:43)
[2019-12-25] MEDS: MORPHINE 2 MG/ML 1ML VIAL (J2270) IV PRN (11:42)
[2019-12-25] MEDS: DRONABINOL 2.5 MG CAP (MARINOL) PO SCH ×2 (12:00→16:37)
[2019-12-25 14:00] VITALS: BP 133/81
[2019-12-25 21:45] VITALS: BP 132/80
[2019-12-26 06:05] VITALS: BP 136/82
[2019-12-26] MEDS: LEVOTHYROXINE 75MCG TABLET (0.075MG) PO SCH (06:21)
[2019-12-26] MEDS: HEPARIN SOD (PORCINE) 5000 UNITS/ML VIAL (J1644 PER 1000UNITS) SC SCH ×2 (08:38→20:12)
[2019-12-26] MEDS: PANTOPRAZOLE 40MG INJ (PROTONIX) (C9113) IV SCH (08:39)
[2019-12-26] MEDS: oxyCODONE 10 MG CR TAB PO SCH ×2 (08:40→20:11)
[2019-12-26] MEDS: IBRANCE 125 MG PO SCH (08:40)
[2019-12-26] MEDS: LETROZOLE 2.5 MG TAB PO SCH (08:40)
[2019-12-26 09:04] LABS: HEMATOCRIT 33.8 % (36.0-47.0); MEAN CORPUSCULAR HEMOGLOBIN 29.3 pg (27.0-33.0); MEAN CORPUSCULAR HGB CONC 32.5 g/dl (32.0-36.5); MEAN CORPUSCULAR VOLUME 90.1 fl (80.0-96.0); MONO # 0.2 10^3/uL (0.0-0.8); MONO % 5.3 % (0.0-5.0); NEUTROPHILS # 2.5 10^3/uL (1.5-8.5); RED BLOOD COUNT 3.75 10^6/uL (4.00-5.40); WHITE BLOOD COUNT 2.8 10^3/uL (4.0-10.0)
[2019-12-26 09:32] LABS: LYMPH # 0.2 10^3/uL (1.5-5.0); PLATELET COUNT, AUTOMATED 88 10^3/uL (150-450)
[2019-12-26] MEDS: DRONABINOL 2.5 MG CAP (MARINOL) PO SCH ×2 (12:00→17:30)
[2019-12-26 14:30] VITALS: BP 128/76
[2019-12-26] MEDS: oxyCODONE 5MG TAB PO PRN (16:50)
[2019-12-26 21:03] VITALS: BP 142/85
[2019-12-27] MEDS: LEVOTHYROXINE 75MCG TABLET (0.075MG) PO SCH (05:20)
[2019-12-27 05:42] VITALS: BP 141/85
[2019-12-27] MEDS: IBRANCE 125 MG PO SCH (08:14)
[2019-12-27] MEDS: PANTOPRAZOLE 40MG TAB (PROTONIX) PO SCH (08:16)
[2019-12-27] MEDS: oxyCODONE 10 MG CR TAB PO SCH ×2 (08:16→21:24)
[2019-12-27] MEDS: FLUCONAZOLE 100 MG TAB PO SCH (08:17)
[2019-12-27] MEDS: DOCUSATE SODIUM 100 MG CAP PO PRN (08:17)
[2019-12-27] MEDS: LETROZOLE 2.5 MG TAB PO SCH (08:17)
[2019-12-27] MEDS: oxyCODONE 5MG TAB PO PRN ×2 (08:17→14:10)
[2019-12-27] MEDS: HEPARIN SOD (PORCINE) 5000 UNITS/ML VIAL (J1644 PER 1000UNITS) SC SCH ×2 (08:18→21:00)
[2019-12-27] MEDS: DRONABINOL 2.5 MG CAP (MARINOL) PO SCH ×2 (12:00→17:30)
[2019-12-27 14:00] VITALS: BP 139/85
--- NOTE | 2019-12-27 17:24 | IPN ---
MEDICAL ONCOLOGY INPATIENT FOLLOWUP DATE OF SERVICE: 12/27/2019 DIAGNOSIS: Metastatic ER positive, AK negative, HER2 unknown breast cancer with widespread skeletal involvement including ileum, bilateral femurs, right greater than left pelvis, thoracic and lumbar spine. Currently on letrozole and palbociclib and undergoing palliative radiation to thoracic, lumbar and right pelvic sites, Baseline CA27.29 1864. CURRENT THERAPY: Letrozole 2.5 mg daily. Zoledronic acid 4 mg q. 4 weeks (first given 11/30/2019). Palbociclib 125 mg p.o. daily days 1-21 on a 28-day schedule, begun 12/15/2019. INTERVAL HISTORY: Johana is doing much better. Her appetite is good. Her pain is much, much, much better. She has begun to be able to flex and extend her right hip without pain. She is gingerly bearing slight weight on the foot to transfer and picot. She has several more days of radiation to complete and discussions are underway about discharge to home. She asks about a wheelchair prescription. Will try to sort this out. Of course naturally medical oncology is the only service in the building that can write a wheelchair prescription. We discussed ongoing treatment. For example Mirna will need to have another dose of the zoledronic acid soon. The palbociclib is causing mild thrombocytopenia and neutropenia, both grade 1, within expected limits, no need to dose reduce, hold or otherwise modify her cancer regimen. LABS: WBC 2.8, hemoglobin 11, hematocrit 34, platelets 88, and ANC 2500 as of 12/26/2019. CA27.29 from 12/26/2019 is pending. IMPRESSION: 54-year-old woman with metastatic ER positive, AK negative, HER2 indeterminate breast cancer widely involving skeleton with indeterminate pulmonary nodules. No overt visceral involvement, now on palliative letrozole, palbociclib and radiation. PLAN 1. Continue current therapy as outlined. 2. The patient will be due for the zoledronic acid 4 mg IV once on approximately 12/30 or 12/31/2019. 3. Once discharged Mirna can follow up in oncology where she will be seen monthly with labs and for zoledronic acid, clinical reevaluation. 4. For grade 3 or higher thrombocytopenia were neutropenia, palbociclib is typically held, and dose reduced once labs normalize. Will continue to follow. MTDD
--- NOTE | 2019-12-27 18:42 | IPNPDOC ---
Date Seen The patient was seen on 12/27/19. Progress Note SUBJECTIVE: 54-year-old female with past medical history of breast cancer with extensive bone metastases is admitted for pain control and radiation therapy. Patient is nonweightbearing given high risk for pathologic fractures due to metastases, started radiation therapy yesterday, without any complaints at this time apart from right hip pain. Patient denies any shortness of breath, chest pain, nausea, vomiting, abdominal pain or diarrhea. 12/20/19 Patient has clinically decompensated since last summer and saw her one week ago, radiation therapy as taken toll on patient's ability to tolerate oral intake. She reports odynophagia, along with profound fatigue and lack of appetite. Patient experienced an episode of choking sensation and bringing up frothy liquid this morning, became very anxious and received Ativan. She is currently comfortable, appears to be sedated from the Ativan, easily arousable and answers questions, was able to drink some fluids this morning without odynophagia, encouraged increased oral intake, if tolerated. She denies any nausea, vomiting, abdominal pain or diarrhea. 12/27/19 Patient now tolerating oral intake, continues to undergo radiation, no new complaints. 10 point review of system is negative except for above PHYSICAL EXAMINATION: VITAL SIGNS: Please see below. GENERAL: No distress HEENT: Normocephalic, atraumatic, moist mucous membranes NECK: Supple CARDIOVASCULAR EXAMINATION: S1, S2, no murmurs RESPIRATORY EXAMINATION: Clear to auscultation, no wheezing ABDOMINAL EXAMINATION: Soft, nontender, nondistended, positive bowel sounds EXTREMITIES: Range of motion intact SKIN: No rash NEUROLOGICAL EXAMINATION: Alert and oriented 3, no focal deficits PSYCHIATRIC EXAMINATION: Calm and cooperative LABORATORY DATA, IMAGING STUDIES, MICROBIOLOGY: Please see below. DVT prophylaxis ordered?: Yes ASSESSMENT AND PLAN: 54-year-old female with past medical history of breast cancer and extensive bone metastases is admitted for pain control and radiation treatment. PROBLEMS: 1. Breast cancer with bone metastases: Being followed by medical and radiation oncology, currently undergoing radiation therapy, further management as per medical/radiation oncologist. Continue letrozole, Ibrance and dexamethasone as per oncology. 2. Hypothyroidism: Continue levothyroxine DVT prophylaxis: Heparin subcutaneous GI prophylaxis: Protonix VS, I&O, 24H, Fishbone Vital Signs/I&O Vital Signs Date Time Temp Pulse Resp B/P (MAP) Pulse Ox O2 Delivery O2 Flow Rate FiO2 12/27/19 14:10 18 Room Air 12/27/19 14:00 99.4 81 139/85 (103) 97 I&O- Last 24 Hours up to 6 AM 12/27/19 06:00 Intake Total 1740 ml Output Total 0 ml Balance 1740 ml Laboratory Data 24H LABS Laboratory Tests 2 12/26/19 19:00: IZAIAH PARRA MD Dec 27, 2019 18:42
[2019-12-27 22:00] VITALS: BP 138/74
[2019-12-28] MEDS: LEVOTHYROXINE 75MCG TABLET (0.075MG) PO SCH (05:43)
[2019-12-28 06:00] VITALS: BP 132/83
[2019-12-28 07:18] LABS: HEMATOCRIT 30.9 % (36.0-47.0); HEMOGLOBIN 10.5 g/dl (12.0-15.5); MEAN CORPUSCULAR HEMOGLOBIN 30.3 pg (27.0-33.0); RED BLOOD COUNT 3.47 10^6/uL (4.00-5.40)
[2019-12-28 07:19] LABS: PLATELET COUNT, AUTOMATED 77 10^3/uL (150-450)
[2019-12-28 07:44] LABS: ALBUMIN 2.8 GM/DL (3.2-5.2); ALT/SGPT 26 U/L (12-78); BILIRUBIN,TOTAL 0.3 MG/DL (0.2-1.0); BLOOD UREA NITROGEN 12 MG/DL (7-18); CARBON DIOXIDE LEVEL 26 MEQ/L (21-32); CHLORIDE LEVEL 99 MEQ/L (98-107); CREATININE FOR GFR 0.49 MG/DL (0.55-1.30); GLOMERULAR FILTRATION RATE > 60.0 (>51); GLUCOSE, FASTING 79 MG/DL (70-100); PHOSPHORUS LEVEL 2.1 MG/DL (2.5-4.9); POTASSIUM SERUM 4.7 MEQ/L (3.5-5.1); SODIUM LEVEL 131 MEQ/L (136-145); TOTAL PROTEIN 5.6 GM/DL (6.4-8.2)
[2019-12-28] MEDS: DOCUSATE SODIUM 100 MG CAP PO PRN (08:49)
[2019-12-28] MEDS: PANTOPRAZOLE 40MG TAB (PROTONIX) PO SCH (08:50)
[2019-12-28] MEDS: oxyCODONE 5MG TAB PO PRN ×2 (08:50→14:56)
[2019-12-28] MEDS: IBRANCE 125 MG PO SCH (08:50)
[2019-12-28] MEDS: LETROZOLE 2.5 MG TAB PO SCH (08:50)
[2019-12-28] MEDS: oxyCODONE 10 MG CR TAB PO SCH ×2 (08:51→20:09)
[2019-12-28] MEDS: HEPARIN SOD (PORCINE) 5000 UNITS/ML VIAL (J1644 PER 1000UNITS) SC SCH ×2 (08:51→20:09)
[2019-12-28] MEDS: K-PHOS NEUTRAL 250MG TABLET (SOD.PHOSPHATE/POT.PHOSPHATE) PO SCH ×3 (09:09→20:08)
[2019-12-28] MEDS: DRONABINOL 2.5 MG CAP (MARINOL) PO SCH ×2 (11:26→17:10)
[2019-12-28 14:00] VITALS: BP 132/81
[2019-12-29] MEDS: LEVOTHYROXINE 75MCG TABLET (0.075MG) PO SCH (05:31)
[2019-12-29 05:35] VITALS: BP 130/80
[2019-12-29] MEDS: HEPARIN SOD (PORCINE) 5000 UNITS/ML VIAL (J1644 PER 1000UNITS) SC SCH ×2 (09:00→21:00)
[2019-12-29] MEDS: IBRANCE 125 MG PO SCH (09:03)
[2019-12-29] MEDS: PANTOPRAZOLE 40MG TAB (PROTONIX) PO SCH (09:03)
[2019-12-29] MEDS: K-PHOS NEUTRAL 250MG TABLET (SOD.PHOSPHATE/POT.PHOSPHATE) PO SCH ×3 (09:03→21:04)
[2019-12-29] MEDS: LETROZOLE 2.5 MG TAB PO SCH (09:03)
[2019-12-29] MEDS: oxyCODONE 10 MG CR TAB PO SCH ×2 (09:05→21:04)
[2019-12-29] MEDS: oxyCODONE 5MG TAB PO PRN (09:09)
[2019-12-29] MEDS: DRONABINOL 2.5 MG CAP (MARINOL) PO SCH ×2 (11:49→16:30)
[2019-12-30] MEDS: LEVOTHYROXINE 75MCG TABLET (0.075MG) PO SCH (05:39)
[2019-12-30 06:50] VITALS: BP 128/84
[2019-12-30] MEDS: IBRANCE 125 MG PO SCH (08:07)
[2019-12-30] MEDS: LETROZOLE 2.5 MG TAB PO SCH (08:07)
[2019-12-30] MEDS: oxyCODONE 10 MG CR TAB PO SCH ×2 (08:07→21:19)
[2019-12-30] MEDS: PANTOPRAZOLE 40MG TAB (PROTONIX) PO SCH (08:07)
[2019-12-30] MEDS: HEPARIN SOD (PORCINE) 5000 UNITS/ML VIAL (J1644 PER 1000UNITS) SC SCH ×2 (08:08→21:00)
[2019-12-30] MEDS: DRONABINOL 2.5 MG CAP (MARINOL) PO SCH ×2 (12:00→16:33)
[2019-12-30] MEDS: oxyCODONE 5MG TAB PO PRN (21:21)
--- NOTE | 2019-12-30 21:57 | IPNPDOC ---
Date Seen The patient was seen on 12/30/19. Progress Note SUBJECTIVE: 54-year-old female with past medical history of breast cancer with extensive bone metastases is admitted for pain control and radiation therapy. Patient is nonweightbearing given high risk for pathologic fractures due to metastases, started radiation therapy yesterday, without any complaints at this time apart from right hip pain. Patient denies any shortness of breath, chest pain, nausea, vomiting, abdominal pain or diarrhea. 12/20/19 Patient has clinically decompensated since last summer and saw her one week ago, radiation therapy as taken toll on patient's ability to tolerate oral intake. She reports odynophagia, along with profound fatigue and lack of appetite. Patient experienced an episode of choking sensation and bringing up frothy liquid this morning, became very anxious and received Ativan. She is currently comfortable, appears to be sedated from the Ativan, easily arousable and answers questions, was able to drink some fluids this morning without odynophagia, encouraged increased oral intake, if tolerated. She denies any nausea, vomiting, abdominal pain or diarrhea. 12/27/19 Patient now tolerating oral intake, continues to undergo radiation, no new complaints. 12/30/19 Patient seen in the morning, comfortable in bed, having mild hip pain, dysphasia resolved, no other complaints at this time. 10 point review of system is negative except for above PHYSICAL EXAMINATION: VITAL SIGNS: Please see below. GENERAL: No distress HEENT: Normocephalic, atraumatic, moist mucous membranes NECK: Supple CARDIOVASCULAR EXAMINATION: S1, S2, no murmurs RESPIRATORY EXAMINATION: Clear to auscultation, no wheezing ABDOMINAL EXAMINATION: Soft, nontender, nondistended, positive bowel sounds EXTREMITIES: Range of motion intact SKIN: No rash NEUROLOGICAL EXAMINATION: Alert and oriented 3, no focal deficits PSYCHIATRIC EXAMINATION: Calm and cooperative LABORATORY DATA, IMAGING STUDIES, MICROBIOLOGY: Please see below. DVT prophylaxis ordered?: Yes ASSESSMENT AND PLAN: 54-year-old female with past medical history of breast cancer and extensive bone metastases is admitted for pain control and radiation treatment. PROBLEMS: 1. Breast cancer with bone metastases: Being followed by medical and radiation oncology, currently undergoing radiation therapy, further management as per medical/radiation oncologist. Continue letrozole, Ibrance and dexamethasone as per oncology. 2. Hypothyroidism: Continue levothyroxine DVT prophylaxis: Heparin subcutaneous GI prophylaxis: Protonix VS, I&O, 24H, Fishbone Vital Signs/I&O Vital Signs Date Time Temp Pulse Resp B/P (MAP) Pulse Ox O2 Delivery O2 Flow Rate FiO2 12/30/19 21:21 18 Room Air 12/30/19 06:50 98.7 86 128/84 (99) 97 I&O- Last 24 Hours up to 6 AM 12/30/19 05:59 Intake Total 1750 ml Balance 1750 ml IZAIAH PARRA MD Dec 30, 2019 21:57
[2019-12-31 05:33] VITALS: BP 130/83
[2019-12-31] MEDS: LEVOTHYROXINE 75MCG TABLET (0.075MG) PO SCH (06:02)
[2019-12-31] MEDS: oxyCODONE 5MG TAB PO PRN ×3 (06:02→16:43)
[2019-12-31 06:28] LABS: HEMATOCRIT 33.5 % (36.0-47.0); HEMOGLOBIN 10.7 g/dl (12.0-15.5); MEAN CORPUSCULAR HEMOGLOBIN 29.3 pg (27.0-33.0); MEAN CORPUSCULAR HGB CONC 31.9 g/dl (32.0-36.5); MEAN CORPUSCULAR VOLUME 91.8 fl (80.0-96.0); RED BLOOD COUNT 3.65 10^6/uL (4.00-5.40); WHITE BLOOD COUNT 2.3 10^3/uL (4.0-10.0)
[2019-12-31 06:31] LABS: PLATELET COUNT, AUTOMATED 80 10^3/uL (150-450)
[2019-12-31 06:48] LABS: BLOOD UREA NITROGEN 14 MG/DL (7-18); CALCIUM LEVEL 7.7 MG/DL (8.5-10.1); CARBON DIOXIDE LEVEL 25 MEQ/L (21-32); CHLORIDE LEVEL 98 MEQ/L (98-107); GLOMERULAR FILTRATION RATE > 60.0 (>51); GLUCOSE, FASTING 79 MG/DL (70-100); MAGNESIUM LEVEL 1.9 MG/DL (1.8-2.4); PHOSPHORUS LEVEL 2.2 MG/DL (2.5-4.9); POTASSIUM SERUM 4.4 MEQ/L (3.5-5.1); SODIUM LEVEL 131 MEQ/L (136-145)
[2019-12-31] MEDS: oxyCODONE 10 MG CR TAB PO SCH ×2 (08:41→20:18)
[2019-12-31] MEDS: PANTOPRAZOLE 40MG TAB (PROTONIX) PO SCH (08:41)
[2019-12-31] MEDS: IBRANCE 125 MG PO SCH (08:41)
[2019-12-31] MEDS: HEPARIN SOD (PORCINE) 5000 UNITS/ML VIAL (J1644 PER 1000UNITS) SC SCH ×2 (08:42→21:00)
[2019-12-31] MEDS: LETROZOLE 2.5 MG TAB PO SCH (08:42)
[2019-12-31] MEDS: DRONABINOL 2.5 MG CAP (MARINOL) PO SCH ×2 (12:00→17:29)
[2020-01-01] MEDS: LEVOTHYROXINE 75MCG TABLET (0.075MG) PO SCH (05:44)
[2020-01-01] MEDS: oxyCODONE 5MG TAB PO PRN ×3 (05:45→17:34)
[2020-01-01 06:00] VITALS: BP 128/68
[2020-01-01] MEDS: LETROZOLE 2.5 MG TAB PO SCH (08:54)
[2020-01-01] MEDS: PANTOPRAZOLE 40MG TAB (PROTONIX) PO SCH (08:54)
[2020-01-01] MEDS: oxyCODONE 10 MG CR TAB PO SCH ×2 (08:54→21:16)
[2020-01-01] MEDS: IBRANCE 125 MG PO SCH (08:55)
[2020-01-01] MEDS: HEPARIN SOD (PORCINE) 5000 UNITS/ML VIAL (J1644 PER 1000UNITS) SC SCH ×2 (08:55→21:00)
[2020-01-01 10:48] LABS: HEMATOCRIT 32.9 % (36.0-47.0); HEMOGLOBIN 10.7 g/dl (12.0-15.5); MEAN CORPUSCULAR HGB CONC 32.5 g/dl (32.0-36.5); MEAN CORPUSCULAR VOLUME 92.2 fl (80.0-96.0); RED BLOOD COUNT 3.57 10^6/uL (4.00-5.40)
[2020-01-01 10:49] LABS: PLATELET COUNT, AUTOMATED 81 10^3/uL (150-450); WHITE BLOOD COUNT 1.8 10^3/uL (4.0-10.0)
[2020-01-01 11:09] LABS: BLOOD UREA NITROGEN 17 MG/DL (7-18); CALCIUM LEVEL 7.8 MG/DL (8.5-10.1); CARBON DIOXIDE LEVEL 26 MEQ/L (21-32); CHLORIDE LEVEL 98 MEQ/L (98-107); CREATININE FOR GFR 0.49 MG/DL (0.55-1.30); GLOMERULAR FILTRATION RATE > 60.0 (>51); GLUCOSE, FASTING 95 MG/DL (70-100); MAGNESIUM LEVEL 2.1 MG/DL (1.8-2.4); POTASSIUM SERUM 4.1 MEQ/L (3.5-5.1); SODIUM LEVEL 131 MEQ/L (136-145)
[2020-01-01 11:46] LABS: EOSINOPHILS 4 % (0-3); LYMPHOCYTES 14 % (16-44); NEUTROPHILS 82 % (28-66); PLATELET ESTIMATE DECREASED (NORMAL)
[2020-01-01 11:47] LABS: ANISOCYTOSIS 1+
[2020-01-01] MEDS: DRONABINOL 2.5 MG CAP (MARINOL) PO SCH ×2 (11:58→16:56)
[2020-01-02] MEDS: oxyCODONE 5MG TAB PO PRN ×3 (05:59→18:07)
[2020-01-02] MEDS: LEVOTHYROXINE 75MCG TABLET (0.075MG) PO SCH (05:59)
[2020-01-02 06:00] VITALS: BP 113/72
[2020-01-02 07:02] LABS: EOS % 2.7 % (0.0-3.0); HEMOGLOBIN 10.6 g/dl (12.0-15.5); LYMPH % 17.1 % (24.0-44.0); MEAN CORPUSCULAR HEMOGLOBIN 30.2 pg (27.0-33.0); MEAN CORPUSCULAR HGB CONC 33.1 g/dl (32.0-36.5); MEAN CORPUSCULAR VOLUME 91.2 fl (80.0-96.0); MONO # 0.1 10^3/uL (0.0-0.8); MONO % 6.3 % (0.0-5.0); RED BLOOD COUNT 3.51 10^6/uL (4.00-5.40)
[2020-01-02 07:28] LABS: BLOOD UREA NITROGEN 14 MG/DL (7-18); CALCIUM LEVEL 7.8 MG/DL (8.5-10.1); CARBON DIOXIDE LEVEL 28 MEQ/L (21-32); CHLORIDE LEVEL 95 MEQ/L (98-107); CREATININE FOR GFR 0.52 MG/DL (0.55-1.30); GLOMERULAR FILTRATION RATE > 60.0 (>51); GLUCOSE, FASTING 86 MG/DL (70-100); MAGNESIUM LEVEL 2.3 MG/DL (1.8-2.4); POTASSIUM SERUM 4.4 MEQ/L (3.5-5.1); SODIUM LEVEL 128 MEQ/L (136-145)
[2020-01-02 07:32] LABS: LYMPH # 0.2 10^3/uL (1.5-5.0); NEUTROPHILS # 0.8 10^3/uL (1.5-8.5); PLATELET COUNT, AUTOMATED 87 10^3/uL (150-450); WHITE BLOOD COUNT 1.1 10^3/uL (4.0-10.0)
[2020-01-02] MEDS: oxyCODONE 10 MG CR TAB PO SCH ×2 (08:27→20:21)
[2020-01-02] MEDS: IBRANCE 125 MG PO SCH (08:27)
[2020-01-02] MEDS: LETROZOLE 2.5 MG TAB PO SCH (08:28)
[2020-01-02] MEDS: PANTOPRAZOLE 40MG TAB (PROTONIX) PO SCH (08:28)
[2020-01-02] MEDS: HEPARIN SOD (PORCINE) 5000 UNITS/ML VIAL (J1644 PER 1000UNITS) SC SCH ×3 (08:29→20:06)
[2020-01-02] MEDS: DRONABINOL 2.5 MG CAP (MARINOL) PO SCH ×2 (12:00→16:54)
[2020-01-03] MEDS: oxyCODONE 5MG TAB PO PRN ×3 (05:08→18:57)
[2020-01-03] MEDS: LEVOTHYROXINE 75MCG TABLET (0.075MG) PO SCH (05:08)
[2020-01-03 05:11] VITALS: BP 118/72
[2020-01-03 06:52] LABS: HEMATOCRIT 31.2 % (36.0-47.0); HEMOGLOBIN 10.1 g/dl (12.0-15.5); MEAN CORPUSCULAR HGB CONC 32.4 g/dl (32.0-36.5); MEAN CORPUSCULAR VOLUME 92.6 fl (80.0-96.0); RED BLOOD COUNT 3.37 10^6/uL (4.00-5.40)
[2020-01-03 07:03] LABS: PLATELET COUNT, AUTOMATED 82 10^3/uL (150-450); WHITE BLOOD COUNT 1.1 10^3/uL (4.0-10.0)
[2020-01-03 07:08] LABS: BLOOD UREA NITROGEN 18 MG/DL (7-18); CALCIUM LEVEL 7.5 MG/DL (8.5-10.1); CARBON DIOXIDE LEVEL 25 MEQ/L (21-32); CHLORIDE LEVEL 98 MEQ/L (98-107); CREATININE FOR GFR 0.61 MG/DL (0.55-1.30); GLOMERULAR FILTRATION RATE > 60.0 (>51); GLUCOSE, FASTING 101 MG/DL (70-100); MAGNESIUM LEVEL 2.2 MG/DL (1.8-2.4); POTASSIUM SERUM 4.3 MEQ/L (3.5-5.1); SODIUM LEVEL 131 MEQ/L (136-145)
[2020-01-03 08:20] LABS: ATYPICAL LYMPH 3 % (0-5); EOSINOPHILS 8 % (0-3); LYMPHOCYTES 24 % (16-44); MONOCYTES 2 % (0-5); NEUTROPHILS 58 % (28-66)
[2020-01-03 08:23] LABS: ANISOCYTOSIS 1+; PLATELET ESTIMATE DECREASED (NORMAL)
[2020-01-03] MEDS: HEPARIN SOD (PORCINE) 5000 UNITS/ML VIAL (J1644 PER 1000UNITS) SC SCH (09:00)
[2020-01-03] MEDS: LETROZOLE 2.5 MG TAB PO SCH (09:05)
[2020-01-03] MEDS: PANTOPRAZOLE 40MG TAB (PROTONIX) PO SCH (09:05)
[2020-01-03] MEDS: IBRANCE 125 MG PO SCH (09:06)
[2020-01-03] MEDS: oxyCODONE 10 MG CR TAB PO SCH ×2 (09:11→21:39)
[2020-01-03] MEDS: DRONABINOL 2.5 MG CAP (MARINOL) PO SCH ×2 (12:00→17:30)
[2020-01-03] MEDS: MAALOX 30 ML SUSP *UDC PO PRN (19:00)
[2020-01-04] MEDS: oxyCODONE 5MG TAB PO PRN ×3 (05:30→17:56)
[2020-01-04] MEDS: LEVOTHYROXINE 75MCG TABLET (0.075MG) PO SCH (05:30)
[2020-01-04 05:31] VITALS: BP 120/71
[2020-01-04 07:25] LABS: EOS % 3.6 % (0.0-3.0); HEMATOCRIT 32.6 % (36.0-47.0); HEMOGLOBIN 10.8 g/dl (12.0-15.5); LYMPH % 21.4 % (24.0-44.0); MEAN CORPUSCULAR HEMOGLOBIN 30.3 pg (27.0-33.0); MEAN CORPUSCULAR HGB CONC 33.1 g/dl (32.0-36.5); MEAN CORPUSCULAR VOLUME 91.6 fl (80.0-96.0); MONO # 0.1 10^3/uL (0.0-0.8); MONO % 7.1 % (0.0-5.0); NEUTROPHILS % 66.7 % (36.0-66.0); RED BLOOD COUNT 3.56 10^6/uL (4.00-5.40)
[2020-01-04 07:26] LABS: LYMPH # 0.2 10^3/uL (1.5-5.0); NEUTROPHILS # 0.6 10^3/uL (1.5-8.5); PLATELET COUNT, AUTOMATED 88 10^3/uL (150-450); WHITE BLOOD COUNT 0.8 10^3/uL (4.0-10.0)
[2020-01-04 07:52] LABS: BLOOD UREA NITROGEN 15 MG/DL (7-18); CALCIUM LEVEL 7.9 MG/DL (8.5-10.1); CARBON DIOXIDE LEVEL 24 MEQ/L (21-32); CHLORIDE LEVEL 96 MEQ/L (98-107); CREATININE FOR GFR 0.49 MG/DL (0.55-1.30); GLOMERULAR FILTRATION RATE > 60.0 (>51); GLUCOSE, FASTING 82 MG/DL (70-100); MAGNESIUM LEVEL 2.4 MG/DL (1.8-2.4); POTASSIUM SERUM 3.7 MEQ/L (3.5-5.1); SODIUM LEVEL 129 MEQ/L (136-145)
[2020-01-04] MEDS: oxyCODONE 10 MG CR TAB PO SCH ×2 (08:20→20:15)
[2020-01-04] MEDS: PANTOPRAZOLE 40MG TAB (PROTONIX) PO SCH (08:20)
[2020-01-04] MEDS: DRONABINOL 2.5 MG CAP (MARINOL) PO SCH ×2 (10:29→16:14)
[2020-01-05] MEDS: LEVOTHYROXINE 75MCG TABLET (0.075MG) PO SCH (05:19)
[2020-01-05] MEDS: oxyCODONE 5MG TAB PO PRN ×3 (05:19→18:16)
[2020-01-05 06:39] VITALS: BP 117/69
[2020-01-05 07:17] LABS: EOS % 4.8 % (0.0-3.0); HEMATOCRIT 30.5 % (36.0-47.0); HEMOGLOBIN 10.3 g/dl (12.0-15.5); LYMPH % 23.8 % (24.0-44.0); MEAN CORPUSCULAR HEMOGLOBIN 30.7 pg (27.0-33.0); MEAN CORPUSCULAR HGB CONC 33.8 g/dl (32.0-36.5); MEAN CORPUSCULAR VOLUME 90.8 fl (80.0-96.0); MONO # 0.1 10^3/uL (0.0-0.8); MONO % 9.5 % (0.0-5.0); NEUTROPHILS % 60.3 % (36.0-66.0); RED BLOOD COUNT 3.36 10^6/uL (4.00-5.40)
[2020-01-05 07:23] LABS: LYMPH # 0.2 10^3/uL (1.5-5.0); NEUTROPHILS # 0.4 10^3/uL (1.5-8.5); PLATELET COUNT, AUTOMATED 81 10^3/uL (150-450); WHITE BLOOD COUNT 0.6 10^3/uL (4.0-10.0)
[2020-01-05 07:38] LABS: BLOOD UREA NITROGEN 13 MG/DL (7-18); CALCIUM LEVEL 7.4 MG/DL (8.5-10.1); CARBON DIOXIDE LEVEL 23 MEQ/L (21-32); CHLORIDE LEVEL 100 MEQ/L (98-107); CREATININE FOR GFR 0.51 MG/DL (0.55-1.30); GLOMERULAR FILTRATION RATE > 60.0 (>51); GLUCOSE, FASTING 81 MG/DL (70-100); MAGNESIUM LEVEL 2.2 MG/DL (1.8-2.4); POTASSIUM SERUM 3.9 MEQ/L (3.5-5.1); SODIUM LEVEL 131 MEQ/L (136-145)
[2020-01-05] MEDS: oxyCODONE 10 MG CR TAB PO SCH ×2 (09:30→20:22)
[2020-01-05] MEDS: PANTOPRAZOLE 40MG TAB (PROTONIX) PO SCH (09:30)
[2020-01-05] MEDS: FILGRASTIM 300 MCG/0.5 ML SYRINGE (J1442 PER 1MCG) SC SCH (11:11)
[2020-01-05] MEDS: DRONABINOL 2.5 MG CAP (MARINOL) PO SCH ×2 (11:11→17:30)
--- NOTE | 2020-01-05 13:33 | IPNPDOC ---
Text Note Date of Service The patient was seen on 01/05/20. NOTE Subjective: Patient is a 54-year-old female with past medical history of breast cancer with extensive bone metastasis who was admitted for pain control and radiation therapy. Patient is currently on letrozole, Ibrance, and dexamethasone per oncology. Patient's Ibrance was stopped on 01/03/2020 as the patient's platelet count and absolute neutrophil count continued to be low. Patient has been fdc status for over a week now. Patient is awaiting a ramp to be built in her house so she can get up the stairs as she is nonweightbearing due to the increased risk of pathologic fracture secondary to bone metastasis. In talking with the patient, she does feel well today. She has been eating but is experiencing gas pain. Patient was wondering if her Protonix was causing this. Patient says she does have an appetite. Review of systems General: Patient denies fevers HEENT: Patient denies headaches Cardiovascular: Patient denies chest pain Respiratory: Patient denies shortness of breath, cough GI: Patient endorses gassy abdominal pain and increased belching. : Patient denies pain or difficulty with urination Extremities: Patient endorses pain in her extremities secondary to bone metastasis. Objective: Vitals: (see below) General: Alert and oriented female who was laying in bed when I walked in the room. Patient did not appear to be in any acute distress. HEENT: Normocephalic, atraumatic, moist mucous membranes. Cardiac: Regular rate and rhythm, no murmurs, normal S1, normal S2 Pulm: Clear to auscultation bilaterally. No wheezes, rhonchi, rales Abd: Tenderness to palpation of the abdomen. No rebound tenderness. Ext: No edema bilateral lower extremities Labs (see below) Images: No new imaging has been performed. Assessment: Patient is a 54-year-old female who was hospitalized for pain control for breast cancer with metastasis in multiple skeletal sites. Patient is being followed by medical and radiation oncology. Plan: 1. Breast cancer with bone metastasis. Being followed by medical and radiation oncology, currently undergoing radiation therapy. I spoke with Dr. Wan, medical oncology, this morning about the patient's absolute neutrophil count being 371.4. He suggested Neupogen 300 mcg subcutaneous today and to recheck the patient's absolute neutrophil count tomorrow. If still below 800, another dose should be given. Once the patient's absolute neutrophil count is above 800, and her platelet count has stabilized, patient could resume Ibrance. Treatment can be resumed per oncology. - Plan to continue with immunotherapy as counts improved - Plan for additional radiation therapy over the course of this week - assuming counts improve - Will continue to work with physical therapy with adjusted weight bearing status - Wheelchair has been established; family in the process of establishing wheel chair ramp - Estimated / Tuesday 2. Hypothyroidism: Continue levothyroxine. 3. Radiation esophagitis. Continue Protonix. DVT prophy: Subcutaneous heparin Dispo: Pending ramp being built in the patient's house so she can get in and out of her house to and from treatments as she is nonweightbearing because of risk for pathologic fracture. Patient will remain fdc status. VS,Fishbone, I+O VS, Fishbone, I+O Laboratory Tests 01/05/20 06:50 Vital Signs Date Time Temp Pulse Resp B/P (MAP) Pulse Ox O2 Delivery O2 Flow Rate FiO2 01/05/20 09:30 18 01/05/20 06:39 98.7 78 117/69 (85) 97 Room Air I&O- Last 24 Hours up to 6 AM 01/05/20 06:00 Intake Total 860 ml Output Total 0 ml Balance 860 ml GME ATTESTATION GME ATTESTATION My faculty preceptor for this patient encounter was physically present during the encounter and was fully available. All aspects of the patient interview, examination, medical decision making process, and medical care plan development were reviewed and approved by the faculty preceptor. The faculty preceptor is aware and concurs with the plan as stated in the body of this note and will attest to such by his/her cosignature. ATTENDING NOTE I, Venus Noyola, have independently examined this patient and performed my own physical exam, as well as reviewed the documentation and edited where necessary. I have discussed in detail with the resident / student the findings and plan of treatment as documented by the resident / student and edited their note. I agree with their findings and treatment plan and have edited their documentation. I will continue to follow the patient during this hospital stay. DIANE RENE DO Jan 05, 2020 13:33 VENUS NOYOLA MD Jan 05, 2020 13:41
[2020-01-05] MEDS: SIMETHICONE 80 MG CHEW TAB PO SCH ×2 (17:34→17:35)
[2020-01-06] MEDS: LEVOTHYROXINE 75MCG TABLET (0.075MG) PO SCH (06:22)
[2020-01-06 06:32] VITALS: BP 117/70
[2020-01-06 07:18] LABS: EOS % 1.3 % (0.0-3.0); HEMATOCRIT 28.8 % (36.0-47.0); HEMOGLOBIN 9.9 g/dl (12.0-15.5); MEAN CORPUSCULAR HEMOGLOBIN 31.3 pg (27.0-33.0); MEAN CORPUSCULAR HGB CONC 34.4 g/dl (32.0-36.5); MEAN CORPUSCULAR VOLUME 91.1 fl (80.0-96.0); MONO # 0.1 10^3/uL (0.0-0.8); NEUTROPHILS % 69.4 % (36.0-66.0); RED BLOOD COUNT 3.16 10^6/uL (4.00-5.40)
[2020-01-06 07:19] LABS: LYMPH # 0.1 10^3/uL (1.5-5.0); NEUTROPHILS # 0.5 10^3/uL (1.5-8.5); PLATELET COUNT, AUTOMATED 78 10^3/uL (150-450); WHITE BLOOD COUNT 0.8 10^3/uL (4.0-10.0)
[2020-01-06 07:41] LABS: BLOOD UREA NITROGEN 14 MG/DL (7-18); CALCIUM LEVEL 7.6 MG/DL (8.5-10.1); CARBON DIOXIDE LEVEL 24 MEQ/L (21-32); CHLORIDE LEVEL 100 MEQ/L (98-107); CREATININE FOR GFR 0.47 MG/DL (0.55-1.30); GLOMERULAR FILTRATION RATE > 60.0 (>51); GLUCOSE, FASTING 86 MG/DL (70-100); MAGNESIUM LEVEL 2.1 MG/DL (1.8-2.4); SODIUM LEVEL 130 MEQ/L (136-145)
[2020-01-06] MEDS: SIMETHICONE 80 MG CHEW TAB PO SCH ×3 (08:03→18:20)
[2020-01-06] MEDS: oxyCODONE 5MG TAB PO PRN ×3 (08:03→18:20)
[2020-01-06] MEDS: PANTOPRAZOLE 40MG TAB (PROTONIX) PO SCH (08:03)
[2020-01-06] MEDS: oxyCODONE 10 MG CR TAB PO SCH ×2 (08:04→20:51)
[2020-01-06] MEDS: FILGRASTIM 300 MCG/0.5 ML SYRINGE (J1442 PER 1MCG) SC SCH (11:33)
[2020-01-07] MEDS: LEVOTHYROXINE 75MCG TABLET (0.075MG) PO SCH (05:46)
[2020-01-07] MEDS: oxyCODONE 5MG TAB PO PRN ×3 (05:47→17:28)
[2020-01-07 07:08] LABS: HEMATOCRIT 29.8 % (36.0-47.0); MEAN CORPUSCULAR HEMOGLOBIN 30.7 pg (27.0-33.0); MEAN CORPUSCULAR HGB CONC 33.6 g/dl (32.0-36.5); MEAN CORPUSCULAR VOLUME 91.4 fl (80.0-96.0); RED BLOOD COUNT 3.26 10^6/uL (4.00-5.40)
[2020-01-07 07:18] LABS: PLATELET COUNT, AUTOMATED 71 10^3/uL (150-450); WHITE BLOOD COUNT 1.1 10^3/uL (4.0-10.0)
[2020-01-07 07:19] VITALS: BP 116/70
[2020-01-07 07:30] LABS: BLOOD UREA NITROGEN 17 MG/DL (7-18); CALCIUM LEVEL 7.7 MG/DL (8.5-10.1); CARBON DIOXIDE LEVEL 25 MEQ/L (21-32); CHLORIDE LEVEL 101 MEQ/L (98-107); CREATININE FOR GFR 0.46 MG/DL (0.55-1.30); GLOMERULAR FILTRATION RATE > 60.0 (>51); GLUCOSE, FASTING 77 MG/DL (70-100); MAGNESIUM LEVEL 1.8 MG/DL (1.8-2.4); POTASSIUM SERUM 4.3 MEQ/L (3.5-5.1); SODIUM LEVEL 131 MEQ/L (136-145)
[2020-01-07 07:45] LABS: ATYPICAL LYMPH 4 % (0-5); LYMPHOCYTES 24 % (16-44); METAMYELOCYTES 2 % (0-0); MONOCYTES 7 % (0-5); MYELOCYTES 2 % (0-0); NEUTROPHILS 53 % (28-66)
[2020-01-07 07:46] LABS: PLATELET ESTIMATE DECREASED (NORMAL)
[2020-01-07 07:47] LABS: ANISOCYTOSIS 1+; DOHLE BODIES 1+; POIKILOCYTOSIS 1+; POLYCHROMASIA 1+; SPHEROCYTES 1+; TOXIC GRANULATION 1+
[2020-01-07] MEDS: PANTOPRAZOLE 40MG TAB (PROTONIX) PO SCH (08:44)
[2020-01-07] MEDS: SIMETHICONE 80 MG CHEW TAB PO SCH ×3 (08:44→17:28)
[2020-01-07] MEDS: oxyCODONE 10 MG CR TAB PO SCH ×2 (08:45→21:16)
[2020-01-07] MEDS ORDERED: FILGRASTIM 300 MCG/0.5 ML SYRINGE (J1442 PER 1MCG) SC ONE (11:00)
[2020-01-08 05:45] VITALS: BP 115/75
[2020-01-08] MEDS: LEVOTHYROXINE 75MCG TABLET (0.075MG) PO SCH (06:10)
[2020-01-08] MEDS: oxyCODONE 5MG TAB PO PRN ×3 (06:11→17:27)
[2020-01-08 06:50] LABS: HEMATOCRIT 28.8 % (36.0-47.0); HEMOGLOBIN 9.5 g/dl (12.0-15.5); MEAN CORPUSCULAR VOLUME 90.9 fl (80.0-96.0); RED BLOOD COUNT 3.17 10^6/uL (4.00-5.40)
[2020-01-08 06:54] LABS: PLATELET COUNT, AUTOMATED 66 10^3/uL (150-450)
[2020-01-08 07:07] LABS: BLOOD UREA NITROGEN 15 MG/DL (7-18); CALCIUM LEVEL 7.4 MG/DL (8.5-10.1); CARBON DIOXIDE LEVEL 25 MEQ/L (21-32); CHLORIDE LEVEL 101 MEQ/L (98-107); CREATININE FOR GFR 0.43 MG/DL (0.55-1.30); GLOMERULAR FILTRATION RATE > 60.0 (>51); GLUCOSE, FASTING 82 MG/DL (70-100); MAGNESIUM LEVEL 1.7 MG/DL (1.8-2.4); SODIUM LEVEL 131 MEQ/L (136-145)
[2020-01-08 07:10] LABS: ANISOCYTOSIS 1+; LYMPHOCYTES 17 % (16-44); METAMYELOCYTES 3 % (0-0); MONOCYTES 4 % (0-5); NEUTROPHILS 64 % (28-66); PLATELET ESTIMATE DECREASED (NORMAL); POLYCHROMASIA 1+
[2020-01-08 07:11] LABS: TOXIC GRANULATION 1+
[2020-01-08] MEDS: SIMETHICONE 80 MG CHEW TAB PO SCH ×3 (08:52→17:27)
[2020-01-08] MEDS: oxyCODONE 10 MG CR TAB PO SCH ×2 (08:52→21:46)
[2020-01-08] MEDS: PANTOPRAZOLE 40MG TAB (PROTONIX) PO SCH (08:52)
[2020-01-09] MEDS: LEVOTHYROXINE 75MCG TABLET (0.075MG) PO SCH (06:20)
[2020-01-09] MEDS: oxyCODONE 5MG TAB PO PRN ×2 (06:20→15:11)
[2020-01-09 06:35] VITALS: BP 134/83
[2020-01-09] MEDS: SIMETHICONE 80 MG CHEW TAB PO SCH ×3 (08:04→17:18)
[2020-01-09] MEDS: PANTOPRAZOLE 40MG TAB (PROTONIX) PO SCH (08:04)
[2020-01-09] MEDS: oxyCODONE 10 MG CR TAB PO SCH ×2 (08:05→20:01)
[2020-01-09 10:32] LABS: HEMATOCRIT 28.8 % (36.0-47.0); HEMOGLOBIN 9.7 g/dl (12.0-15.5); MEAN CORPUSCULAR HEMOGLOBIN 30.6 pg (27.0-33.0); MEAN CORPUSCULAR HGB CONC 33.7 g/dl (32.0-36.5); MEAN CORPUSCULAR VOLUME 90.9 fl (80.0-96.0); RED BLOOD COUNT 3.17 10^6/uL (4.00-5.40); WHITE BLOOD COUNT 3.3 10^3/uL (4.0-10.0)
[2020-01-09 10:36] LABS: PLATELET COUNT, AUTOMATED 71 10^3/uL (150-450)
[2020-01-09 11:03] LABS: ATYPICAL LYMPH 1 % (0-5); DOHLE BODIES 1+; LYMPHOCYTES 8 % (16-44); METAMYELOCYTES 3 % (0-0); MONOCYTES 2 % (0-5); MYELOCYTES 2 % (0-0); NEUTROPHILS 74 % (28-66); PLATELET ESTIMATE DECREASED (NORMAL)
[2020-01-09 11:04] LABS: ANISOCYTOSIS 1+; POIKILOCYTOSIS 1+; TOXIC GRANULATION 1+
[2020-01-10] MEDS: oxyCODONE 5MG TAB PO PRN ×3 (05:10→17:48)
[2020-01-10] MEDS: LEVOTHYROXINE 75MCG TABLET (0.075MG) PO SCH (05:10)
[2020-01-10 06:00] VITALS: BP 125/83
[2020-01-10 06:18] LABS: HEMATOCRIT 27.8 % (36.0-47.0); HEMOGLOBIN 9.3 g/dl (12.0-15.5); MEAN CORPUSCULAR HEMOGLOBIN 30.4 pg (27.0-33.0); MEAN CORPUSCULAR HGB CONC 33.5 g/dl (32.0-36.5); MEAN CORPUSCULAR VOLUME 90.8 fl (80.0-96.0); PLATELET COUNT, AUTOMATED 74 10^3/uL (150-450); RED BLOOD COUNT 3.06 10^6/uL (4.00-5.40); WHITE BLOOD COUNT 3.8 10^3/uL (4.0-10.0)
[2020-01-10 06:44] LABS: LYMPHOCYTES 6 % (16-44); METAMYELOCYTES 1 % (0-0); MONOCYTES 5 % (0-5); MYELOCYTES 1 % (0-0); NEUTROPHILS 84 % (28-66)
[2020-01-10 06:45] LABS: ANISOCYTOSIS 2+; PLATELET ESTIMATE DECREASED (NORMAL)
[2020-01-10 06:47] LABS: DOHLE BODIES 1+; POLYCHROMASIA 1+
[2020-01-10 06:48] LABS: TOXIC GRANULATION 1+
[2020-01-10] MEDS: PANTOPRAZOLE 40MG TAB (PROTONIX) PO SCH (08:02)
[2020-01-10] MEDS: SIMETHICONE 80 MG CHEW TAB PO SCH ×3 (08:02→17:47)
[2020-01-10] MEDS: oxyCODONE 10 MG CR TAB PO SCH ×2 (08:03→20:55)
[2020-01-10] MEDS: LETROZOLE 2.5 MG TAB PO SCH (12:54)
[2020-01-11] MEDS: LEVOTHYROXINE 75MCG TABLET (0.075MG) PO SCH (05:58)
[2020-01-11 06:17] VITALS: BP 112/69
[2020-01-11] MEDS: oxyCODONE 10 MG CR TAB PO SCH ×2 (08:31→21:34)
[2020-01-11] MEDS: LETROZOLE 2.5 MG TAB PO SCH (08:32)
[2020-01-11] MEDS: oxyCODONE 5MG TAB PO PRN ×2 (08:32→14:46)
[2020-01-11] MEDS: SIMETHICONE 80 MG CHEW TAB PO SCH ×3 (08:32→17:29)
[2020-01-11] MEDS: PANTOPRAZOLE 40MG TAB (PROTONIX) PO SCH (08:32)
[2020-01-11 08:57] LABS: HEMATOCRIT 28.4 % (36.0-47.0); HEMOGLOBIN 9.5 g/dl (12.0-15.5); MEAN CORPUSCULAR HEMOGLOBIN 31.3 pg (27.0-33.0); MEAN CORPUSCULAR HGB CONC 33.5 g/dl (32.0-36.5); MEAN CORPUSCULAR VOLUME 93.4 fl (80.0-96.0); RED BLOOD COUNT 3.04 10^6/uL (4.00-5.40); WHITE BLOOD COUNT 4.3 10^3/uL (4.0-10.0)
[2020-01-11 09:00] LABS: PLATELET COUNT, AUTOMATED 78 10^3/uL (150-450)
[2020-01-11 09:43] LABS: ANISOCYTOSIS 2+; EOSINOPHILS 1 % (0-3); LYMPHOCYTES 8 % (16-44); METAMYELOCYTES 3 % (0-0); MONOCYTES 8 % (0-5); MYELOCYTES 5 % (0-0); NEUTROPHILS 61 % (28-66); PLATELET ESTIMATE DECREASED (NORMAL)
[2020-01-12] MEDS: LEVOTHYROXINE 75MCG TABLET (0.075MG) PO SCH (05:37)
[2020-01-12 06:00] VITALS: BP 112/70
[2020-01-12 08:15] LABS: HEMATOCRIT 29.8 % (36.0-47.0); HEMOGLOBIN 9.9 g/dl (12.0-15.5); MEAN CORPUSCULAR HGB CONC 33.2 g/dl (32.0-36.5); MEAN CORPUSCULAR VOLUME 93.4 fl (80.0-96.0); RED BLOOD COUNT 3.19 10^6/uL (4.00-5.40); WHITE BLOOD COUNT 3.3 10^3/uL (4.0-10.0)
[2020-01-12 08:20] LABS: PLATELET COUNT, AUTOMATED 95 10^3/uL (150-450)
[2020-01-12 09:39] LABS: ATYPICAL LYMPH 1 % (0-5); EOSINOPHILS 1 % (0-3); LYMPHOCYTES 9 % (16-44); METAMYELOCYTES 3 % (0-0); MONOCYTES 2 % (0-5); MYELOCYTES 5 % (0-0); NEUTROPHILS 63 % (28-66); PLATELET ESTIMATE DECREASED (NORMAL)
[2020-01-12 09:40] LABS: ANISOCYTOSIS 1+
[2020-01-12] MEDS: LETROZOLE 2.5 MG TAB PO SCH (09:57)
[2020-01-12] MEDS: oxyCODONE 5MG TAB PO PRN (09:58)
[2020-01-12] MEDS: PANTOPRAZOLE 40MG TAB (PROTONIX) PO SCH (09:58)
[2020-01-12] MEDS: SIMETHICONE 80 MG CHEW TAB PO SCH ×3 (10:02→18:13)
[2020-01-12] MEDS: oxyCODONE 10 MG CR TAB PO SCH ×2 (10:46→21:34)
--- NOTE | 2020-01-12 11:49 | IPNPDOC ---
Text Note Date of Service The patient was seen on 01/12/20. NOTE Subjective: Patient is a 54-year-old female with past medical history of breast cancer with extensive bone metastasis who is admitted for pain control and radiation therapy. Patient is on letrozole and dexamethasone per oncology. Patient's Ibrance is on hold as patient finished radiation therapy. Patient says her gas pain that she had been experiencing is doing much better now that she has simethicone. Other than that, patient is doing well and has no acute concerns. Review of systems General: Patient denies fevers HEENT: Patient denies headaches Cardiovascular: Patient denies chest pain Respiratory: Patient denies shortness of breath, cough GI: Patient denies abdominal pain, nausea, vomiting, diarrhea : Patient denies pain or difficulty with urination Extremities: Patient denies swelling or pain in extremities Objective: Vitals: (see below) General: Alert and oriented female patient who was laying in bed when I walked in the room. Patient does not appear to be in any acute distress. HEENT: Normocephalic, atraumatic, moist mucous membranes. Cardiac: Regular rate and rhythm, no murmurs, normal S1, normal S2 Pulm: Clear to auscultation bilaterally. No wheezes, rhonchi, rales Abd: Nondistended, nontender to palpation, normal bowel sounds Ext: No edema bilateral lower extremities Skin: Skin of the back and sacral area was examined did not show any evidence of wound. There is 1+ pitting sacral edema. Labs (see below) Images: No new imaging is been performed. Assessment: She has a 54-year-old female hospitalized for pain control and for radiation for breast cancer with metastasis in multiple skeletal sites. Patient is being followed by medical and radiation oncology. Plan 1. Breast cancer with bone metastasis. I spoke with both medical and radiation oncology this week. Radiation is complete however, radiation oncologist would like to see the patient on Tuesday when he returns from being out of town to evaluate for possible further treatments. Patient was hospitalized as the patient has multiple skeletal sites that very high risk for pathologic fracture of her pelvis or femur. They wanted to limit the amount of moving around the patient did well doing radiation treatment. If radiation oncology teams at no more radiation treatment is necessary, patient can be discharged. Medical oncology would like to hold off on Ibrance interval radiation is fully completed. Patient's at absolute neutrophil count has improved with 3 doses of Neupogen. Patient's pain is being controlled with scheduled narcotic pain medication. 2. Hypothyroidism: Continue levothyroxine 3. Radiation esophagitis. Continue Protonix DVT prophy: Heparin subcutaneous injection Dispo: Pending completion of ramping being completed at patient's house as well as radiation oncology reevaluating in finishing treatment. Attending: Patient seen and examined independently. Agree with resident's note. VS,Ashue, I+O VS, Ashue, I+O Laboratory Tests 01/12/20 07:39 Vital Signs Date Time Temp Pulse Resp B/P (MAP) Pulse Ox O2 Delivery O2 Flow Rate FiO2 01/12/20 10:46 18 01/12/20 06:00 99.9 98 112/70 (84) 98 Room Air I&O- Last 24 Hours up to 6 AM 01/12/20 06:00 Intake Total 820 ml Output Total 0 ml Balance 820 ml DIANE RENE DO Jan 12, 2020 11:49 BOLIVAR WEBER MD Jan 21, 2020 23:15
[2020-01-13] MEDS: LEVOTHYROXINE 75MCG TABLET (0.075MG) PO SCH (05:09)
[2020-01-13] MEDS: oxyCODONE 5MG TAB PO PRN ×2 (05:10→23:12)
[2020-01-13 06:00] VITALS: BP 118/72
[2020-01-13 07:35] LABS: HEMATOCRIT 30.9 % (36.0-47.0); HEMOGLOBIN 10.3 g/dl (12.0-15.5); MEAN CORPUSCULAR HGB CONC 33.3 g/dl (32.0-36.5); MEAN CORPUSCULAR VOLUME 93.1 fl (80.0-96.0); PLATELET COUNT, AUTOMATED 103 10^3/uL (150-450); RED BLOOD COUNT 3.32 10^6/uL (4.00-5.40); WHITE BLOOD COUNT 3.9 10^3/uL (4.0-10.0)
[2020-01-13] MEDS: oxyCODONE 10 MG CR TAB PO SCH ×2 (07:35→20:04)
[2020-01-13] MEDS: PANTOPRAZOLE 40MG TAB (PROTONIX) PO SCH (07:35)
[2020-01-13] MEDS: LETROZOLE 2.5 MG TAB PO SCH (07:35)
[2020-01-13] MEDS: SIMETHICONE 80 MG CHEW TAB PO SCH ×3 (07:35→17:45)
[2020-01-13 08:37] LABS: LYMPHOCYTES 6 % (16-44); METAMYELOCYTES 5 % (0-0); MONOCYTES 3 % (0-5); MYELOCYTES 5 % (0-0); NEUTROPHILS 71 % (28-66)
[2020-01-13 08:38] LABS: PLATELET ESTIMATE DECREASED (NORMAL)
[2020-01-13 08:40] LABS: ANISOCYTOSIS 1+; POLYCHROMASIA 1+
[2020-01-13 08:41] LABS: POIKILOCYTOSIS 1+
[2020-01-14] MEDS: oxyCODONE 5MG TAB PO PRN (05:18)
[2020-01-14] MEDS: LEVOTHYROXINE 75MCG TABLET (0.075MG) PO SCH (05:18)
[2020-01-14 06:00] VITALS: BP 117/75
[2020-01-14 06:52] LABS: HEMATOCRIT 29.2 % (36.0-47.0); HEMOGLOBIN 9.7 g/dl (12.0-15.5); MEAN CORPUSCULAR HEMOGLOBIN 31.1 pg (27.0-33.0); MEAN CORPUSCULAR HGB CONC 33.2 g/dl (32.0-36.5); MEAN CORPUSCULAR VOLUME 93.6 fl (80.0-96.0); PLATELET COUNT, AUTOMATED 110 10^3/uL (150-450); RED BLOOD COUNT 3.12 10^6/uL (4.00-5.40); WHITE BLOOD COUNT 4.4 10^3/uL (4.0-10.0)
[2020-01-14 07:21] LABS: EOSINOPHILS 1 % (0-3); LYMPHOCYTES 6 % (16-44); METAMYELOCYTES 7 % (0-0); MONOCYTES 8 % (0-5); MYELOCYTES 4 % (0-0); NEUTROPHILS 66 % (28-66)
[2020-01-14 07:22] LABS: ANISOCYTOSIS 2+; PLATELET ESTIMATE DECREASED (NORMAL); POLYCHROMASIA 1+
[2020-01-14 07:23] LABS: TOXIC GRANULATION 1+
[2020-01-14] MEDS: PANTOPRAZOLE 40MG TAB (PROTONIX) PO SCH (08:13)
[2020-01-14] MEDS: oxyCODONE 10 MG CR TAB PO SCH (08:13)
[2020-01-14] MEDS: SIMETHICONE 80 MG CHEW TAB PO SCH ×2 (08:13→11:58)
[2020-01-14] MEDS: LETROZOLE 2.5 MG TAB PO SCH (08:14)
[2020-01-14 14:00] VITALS: BP 109/68
[2020-01-14] MEDS ORDERED: DEXA5TA PO (15:10)
[2020-01-14] MEDS ORDERED: PANT40TA3 PO (15:10)
[2020-01-14] MEDS ORDERED: MAGICMW SSP (15:10)
[2020-01-14] MEDS ORDERED: SIME80TA PO (15:39)
--- NOTE | 2020-01-14 16:09 | DS.PDOC ---
Discharge Summary General Date of Admission Nov 29, 2019 at 18:12 Date of Discharge Jan 14, 2020 Discharge Summary DISCHARGE DIAGNOSIS: Breast Cancer with bone metastasis SECONDARY DIAGNOSIS: 1. Neutropenia 2. Pain management 3. Radiation Esphagitis 4. Hyperthyroid PROCEDURES PERFORMED DURING STAY: Palliative Radiation to the thoracic, lumbar and R pelvic sites. CONSULTANTS: Dr. Martin, oncology and Dr. Carmona, radiation oncology. HOSPITAL COURSE: Patient was admitted to the hospital after recommendation by Dr. Martin after a bone lesion biopsy, to start hormonal therapy and due to patient needing to be non-weightbearing throughout her treatment because of very high risk for pathologic fractures of her pelvis or femur. She also needed pain management. Patient was placed on Ibrance, Letrozole and Palbociclib during her hospitalization as well as received palliative radiation to the thoracic, lumbar and R pelvic sites. Her absolute neutrophil count dropped and patient was started on Neupogen 300 mcg subcutaneous and Ibrance was held. Patient had 3 doses of Neupogen until her absolute neutrophil count went about 800. Oncology decided to hold the Ibrance and continue with Letrozole and Palbociclib outpatient. Patient was discharged once radiation decided she no longer needed more treatments. Patient is being discharged home with a wheelchair and a ramp has been put in her house. 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 She is safely being discharged home today. She will follow up with oncology outpatient as scheduled as well as follow up with her PCP in 5-7 days. DISCHARGE MEDICATIONS: Please see below. ALLERGIES: Please see below. SUBJECTIVE: Patient feels well today. Denies chest pain, shortness of breath, nausea, vomiting, fevers, chills. OBJECTIVE: PHYSICAL EXAMINATION: VITAL SIGNS: Please see below. GENERAL: Pleasant 54 year old female lying in bed, no acute respiratory distress. HEENT: Atraumatic, normocephalic moist mucous membranes no elevated JVD. CARDIOVASCULAR: Normal S1 S2 regular rate and rhythm with no murmurs, gallops, or rubs. RESPIRATORY: Clear to auscultation bilaterally with no wheezes, rhonchi or rales. ABDOMINAL: Bowel sounds present abdomen soft and nontender. EXTREMITIES: No lower extremity edema. NEUROLOGICAL: AOx3, no gross focal deficits. PSYCHOLOGICAL: Appropriate. LABORATORY DATA, MICROBIOLOGY: Please see below. IMAGING STUDIES: Abdomen/Pelvis CT 11/30/2019- impression: Rapidly progressive skeletal metastatic disease. Chest Xray 12/22/2019- impression: Negative Portable Chest Xray. DVT prophylaxis ordered: Heparin subcutaneous injections. DISPOSITION: Home. DISCHARGE CONDITION: Improved and Stable. FOLLOW UP: 1. Follow up with PCP in 5-7 days. 2. Follow up with oncology as scheduled. 3. If symptoms return or worsen please call your PCP or return to the ED. Activity: As directed by oncology and radiation. DIET: As prior to admission. TIME SPENT ON DISCHARGE: 50 minutes. Attending: Patient seen and examined independently. Agree with resident's note. Vital Signs/I&Os Vital Signs Date Time Temp Pulse Resp B/P (MAP) Pulse Ox O2 Delivery O2 Flow Rate FiO2 01/14/20 14:00 98.8 93 17 109/68 (82) 98 Room Air I&O- Last 24 Hours up to 6 AM 01/14/20 05:59 Intake Total 1220 ml Balance 1220 ml Laboratory Data Labs 24H Laboratory Tests 2 01/14/20 06:10: Immature Granulocyte % (Auto) , Neutrophils (%) (Auto) , Nucleated Red Blood Cells % (auto) 1.8H, Neutrophils 66, Band Neutrophils 8, Lymphocytes (Manual) 6L, Monocytes (Manual) 8H, Eosinophils (Manual) 1, Metamyelocytes 7H, Myelocytes 4H, Polychromasia 1+, Anisocytosis 2+, Toxic Granulation 1+, Platelet Estimate DECREASED CBC/BMP Laboratory Tests 01/14/20 06:10 Discharge Medications Scheduled Dexamethasone (Dexamethasone) 0.5 Mg Tablet, 0.5 MG PO DAILY take 4 pills (2mg) daily for first 4 days, then 2 pills for 4 days (1mgx4), then 1 pill for 4 days (0.5mg x4), then stop. Gabapentin (Gabapentin) 300 Mg Capsule, 300 MG PO TID, (Reported) Letrozole (Letrozole) 2.5 Mg Tablet, 1 TAB PO DAILY Levothyroxine Sodium (Levothyroxine Sodium) 75 Mcg Tab, 75 MCG PO QAM, (Reported) Palbociclib (Ibrance) 100 Mg Capsule, 1 CAP PO DAILY TAKE ON DAYS 1-21, THEN TAKE 7 DAYS OFF Pantoprazole Sodium (Pantoprazole Sodium) 40 Mg Tablet.dr, 40 MG PO DAILY Sennosides (Senna) 8.6 Mg Tablet, 8.6 MG PO DAILY, (Reported) Simethicone (Simethicone) 80 Mg Tab.chew, 80 MG PO WM Vitamin B Complex (Vitamin B Complex) 1 Tab Tab, 1 TAB PO DAILY, (Reported) Scheduled PRN Albuterol Sulfate (Ventolin Hfa) 18 Gm Hfa.aer.ad, 2 PUFF INH Q6H PRN for SHORTNESS OF BREATH, (Reported) Hyoscyamine Sulfate (Hyoscyamine Sulfate) 0.125 Mg Tab.subl, 0.125 MG PO Q4HP PRN for TERMINAL SECRETIONS Use sublingually if unable to swallow Lorazepam (Lorazepam) 0.5 Mg Tablet, 0.5 MG PO Q4HP PRN for ANXIETY/AGITATION Use sublingually if unable to swallow Morphine Sulfate (Morphine Sulfate) 100 Mg/5 Ml Solution, 0.25-1 ML PO Q2H PRN for PAIN OR DYSPNEA Use sublingually if unable to swallow Ondansetron HCl (Zofran) 8 Mg Tablet, 8 MG PO TID PRN for NAUSEA OR VOMITING, (Reported) Oxycodone HCl (Oxycodone HCl) 5 Mg Tablet, 5 MG PO Q4H PRN for PAIN, (Reported) MAY TAKE ONE TO THREE TABLETS NEEDED Sumatriptan Succinate (Imitrex) 50 Mg Tab, 50 MG PO PRN PRN for MIGRAINE, (Reported) Allergies Coded Allergies: Quinolones (Verified Allergy, Unknown, "HARD RED BUMPS ON LEGS AND COULD N'T WALK", 11/29/19) Sulfa (Sulfonamide Antibiotics) (Verified Allergy, Unknown, 11/29/19) nitrofurantoin (Verified Allergy, Unknown, ITCHING AND SWELLING OF ARMS, 11/29/19) JUSTUS MOSLEY OMS-3 Jan 14, 2020 16:09 BOLIVAR WEBER MD Jan 21, 2020 23:17
[2020-01-14] MEDS ORDERED: LORA0.5T5 PO (17:55)
[2020-01-14] MEDS ORDERED: HYOS125TA PO (17:55)
[2020-01-14] MEDS ORDERED: MORP20SO3 PO (17:55)
[2020-01-15] MEDS ORDERED: IBRA100C PO (16:10)
--- NOTE | 2020-01-17 09:47 | RADONC ---
RADIATION ONCOLOGY TREATMENT SUMMARY: DATE: 01/14/2020 CHART NUMBER: [id number] DIAGNOSIS: Right breast cancer. STAGE: IIA, T2, N0, M0, ER positive, MN positive, HER2/sharron negative, grade 2, now metastatic. ECOG PERFORMANCE STATUS: 4 TREATMENT SUMMARY: Ms. Motley is a delightful 54-year-old white female with the diagnosis of what appears to be rapidly developing massive metastatic malignancy who presented to us for consideration of palliative radiation therapy to multiple sites. Initially, we treated the patient to her thoracic spine from the levels of T6 through T12 for a dose of 3000 cGy delivered in 10 fractions of 300 cGy each from 12/03/2019 through to 12/14/2019. The patient's spine was treated on a linear accelerator utilizing a 15 MV photon beam via single posterior field. In addition, we treated the patient to her pelvis for a dose of 3400 cGy delivered in 17 fractions of 200 cGy each over 24 elapsed days from 12/04/2019 through 12/28/2019. The patient's pelvis was treated on the linear accelerator utilizing a 15 MV photon beam via anterior and posterior parallel opposed stark. Ms. Motley tolerated her treatments generally well. She did have some difficulty swallowing after the thoracic vertebral body radiation, but the abdominal radiation went without any difficulties. The patient has had remarkable improvement and is able to swallow and sit up. Her pain has improved significantly. I have given the patient a further Decadron taper schedule, and she should be off of Decadron within the next week. The patient is being managed closely by her medical oncologist, Dr. Martin, and is receiving systemic therapy consisting of Ibrance and letrozole. The patient is now scheduled to be discharged from the hospital this week to home care. Her systemic therapy will continue at home. Since she is being managed and followed closely by her medical oncologist, I am not setting her up for any followup in my office at this time considering her difficulties with transportation and her potential for pathologic fractures. We are available to her. The patient has my cell phone number and office number, and we are more than happy to see this delightful woman at any time. If I could be of any further assistance, please feel free to contact me at any time. As always, with warm regards, cc: MD Antony Jurado Jr, MD Sirisha Narayana, MD
[2020-01-22] MEDS ORDERED: IBRA100C PO (10:30)
== END 2020-01-14 18:05 | disposition home or self-care (01) | DRG 343 ==
LOC: M ED 16:46 → M ED INP 18:12 → ENRESERVTM 19:03 → ENRESERVDT 19:03 → M MS5PR 20:15
PROVIDERS: ADMIT Internal Medicine; ATTEND Internal Medicine
PROC: 0QB23ZX Excision of Right Pelvic Bone, Percutaneous Approach, Diagnostic (ICD-10-PCS; principal; 2019-11-29)
DX: C79.51 Secondary malignant neoplasm of bone (principal); C90.02 Multiple myeloma in relapse; D70.9 Neutropenia, unspecified; C50.911 Malignant neoplasm of unspecified site of right female breast; E83.52 Hypercalcemia; I47.1 Supraventricular tachycardia; G89.3 Neoplasm related pain (acute) (chronic); I10 Essential (primary) hypertension; Z92.21 Personal history of antineoplastic chemotherapy; Z92.3 Personal history of irradiation; Z90.11 Acquired absence of right breast and nipple; E78.5 Hyperlipidemia, unspecified; M79.7 Fibromyalgia; E05.90 Thyrotoxicosis, unspecified without thyrotoxic crisis or storm; K59.00 Constipation, unspecified; K20.8 Other esophagitis; M19.90 Unspecified osteoarthritis, unspecified site; G43.909 Migraine, unspecified, not intractable, without status migrainosus; Z88.2 Allergy status to sulfonamides; Z88.8 Allergy status to other drugs, medicaments and biological substances

== ENCOUNTER → 2019-11-29 | Outpatient (CLI) | payer MEDICARE, MEDICAID ==
[~2019-11-29] MED LIST changes: +DEXA4TA PO; +GABA-843 PO; +IBRA125C PO; +IBUP-1114 PO; +KETO10TAB PO; +LETR2.5T2 PO; +METF10004 PO; +OXYC-517 PO; +ROBA500T PO; +SENN1TAB8 PO; +VENTAER INH; +ZOFR8TAB24 PO
== END ==
LOC: M ONCR 10:02
PROVIDERS: ATTEND Radiology Radiation Oncology
DX: C50.411 Malignant neoplasm of upper-outer quadrant of right female breast (principal); C79.51 Secondary malignant neoplasm of bone

== ENCOUNTER → 2019-12-21 | Outpatient (RCR) | payer MEDICARE, MEDICAID ==
--- NOTE | 2019-12-03 08:42 | RADONC ---
RADIATION ONCOLOGY CONSULTATION NOTE DATE: 11/29/2019 CHART NUMBER: [id number] DIAGNOSIS: Right breast cancer. STAGE: II A, T2, N0, M0, ER positive, OR positive, HER2/sharron negative, grade 2, now metastatic. ECOG PERFORMANCE STATUS: 4 CONSULTATION NOTE: Ms. Motley is a delightful 54-year-old white female who is presenting to us today with what appears to be rapidly developing massive metastatic malignancy for discussion of her therapeutic options. HISTORY OF PRESENT ILLNESS: The patient was in her usual state of health until she first felt a lump in her right breast on 04/24/2013. A mammogram was done on 04/25/2013 and showed a 3 cm spiculated mass in the upper outer quadrant of the right breast. On 04/27/2013, a biopsy was undertaken which revealed a moderately differentiated invasive ductal carcinoma, which was estrogen receptor positive, progesterone receptor positive and HER2/sharron negative. The patient subsequently underwent lumpectomy and sentinel lymph node biopsy on 06/07/2013 and pathology revealed a 2.7 cm x 2.3 cm x 1.9 cm poorly differentiated invasive ductal carcinoma. Two adjacent 1 mm satellite foci invasive carcinomas were present slightly deep to the main carcinoma. There was also noted to be a 5 mm focus of invasive carcinoma associated with lymphatic tumor. This was present slightly inferior and medial to the main tumor mass. The margins of resection were all negative for malignancy and the closest margin was 0.55 cm. Lymphatic invasion was noted. A total of three sentinel lymph nodes were sampled and all lymph nodes were negative for malignancy. The patient was subsequently seen by medical oncology and underwent four cycles of Adriamycin and Cytoxan followed by four cycles of Taxol. The patient did well and was subsequently seen by me on 12/07/2013. We treated the patient to the right breast for a total dose of 4860 cGy delivered in 27 fractions 180 cGy each over 45 elapsed days from 12/24/2013 through 01/2014. The patient's right breast was treated on a linear accelerator utilizing tangential stark. We then treated the primary site for an additional boost of 1200 cGy in 6 fractions of 200 cGy each from 01/31/2014 through 02/07/2014. This brought the primary site to a total dose of 6060 cGy from 12/24/2013 through 02/07/2014. The patient reported doing well since then and underwent 3 years of hormonal treatments. She discontinued that approximately 2 years ago. Apparently, the patient had some right hip discomfort this summer and was seen here where an x-ray of the hip and pelvis were undertaken and showed no evidence of abnormalities. I have personally reviewed the results of that hip x-ray done on 04/26/[address] Bermudez who also sees no evidence of deformities or problems. The patient subsequently return to [place] and recently developed severe right leg discomfort and pain as well as hip pain. She is unable to walk without the assistance of walker. MRIs of the cervical, thoracic spine were undertaken on 11/17/2019 which showed multiple areas of osseous metastasis including posterior element metastases at multiple vertebral bodies. These included T2, T8, T11, T12 and L1. Multiple vertebral bodies including T1, T2, T3, T8, T9, T 11 and most pronounced at T10 were noted. There was near total replacement of the T10 vertebral body with extension to the posterior element. There was also noted to be left, right 7th seventh rib bone replaced by lesion. An MRI of the brain was done and showed osseous metastasis in the left petrous apex which extends into the petroclival ligament and left internal auditory canal and abuts the left flocculus. There was also noted to be metastatic disease in the C1 vertebral body. On 11/11/2019, a CT scan of the abdomen and pelvis was undertaken and showed an extremely expansile lytic metastatic lesion diffusely involving the pelvic bones and lower lumbar spine. There were enlarged right iliac chain lymph nodes of indeterminate significance. A CT chest done on 11/11/2019 again showed osseous metastasis in the vertebral bodies with compression fracture at T10 with 50% loss of height and extension of tumor into the epidural space. On 09/11/2019, an MRI of the pelvis was also done and showed extensive ostial metastasis in the pelvic bone with near replacement of the right iliac wing and right sacrum. There was intense lesion in the hyperintense lesion in left hamstring musculature which was thought to represent soft tissue metastasis. Of note, CT scan of the chest on 11/11/2019 showed bilateral pulmonary nodules consistent with metastatic disease. The patient was told at [facility] to get home to [place] as soon as possible to be with her family. She has been referred to me to discuss the overall situation which is quite shocking. REVIEW OF SYSTEMS: The patient's review of systems is positive for right leg, hip and back pain that is severe. She has limited range of motion and difficulty walking secondary to the pain. Indeed many of her right pelvic bones are shattered. Other than that the patient's review of systems is largely noncontributory. Denies nausea, vomiting, fevers, chills, night sweats, diplopia, headaches, anxiety or depression, anorexia, weight loss, visual disturbances, chest pain, urinary or bowel difficulties, bone pain, or neurological problems. PHYSICAL EXAMINATION: The patient is a well-developed, well-nourished white female in no acute distress. HEENT exam is normocephalic, atraumatic. Extraocular movements appear intact. She is sitting in a chair at this time. The lungs are clear to auscultation and percussion. She has acute pain and tenderness and difficulty sitting still with regards to her low back and right leg. The remainder of her physical exam was deferred at this point. ASSESSMENT: I have reviewed all of the patient's MRIs and CT scans. In addition, I have reviewed them with our radiologist, Dr. Willis Bermudez. We have compared this with the x-ray from just 6 months ago which was normal. The progress of this disease is rather shocking. In light of the rapid spread of this disease, I have ordered a biopsy to be undertaken. Dr. Bermudez is expediting that so that the biopsy will be done today. He will be biopsying the right hip, which he reports should be easy to get to. In addition, I have spoken with our medical oncologist, Dr. Martin, who will be seeing this patient today at 1 o'clock. She will initially be starting some hormonal treatments. I have also placed this patient our list for discussion at multidisciplinary tumor conference for Tuesday. I have referred this patient for palliative care in the meantime. Once again, the patient is going for biopsy today to determine whether or not we are still dealing with lung cancer. Pending the results of the pathology further systemic therapy recommendations will be made by her medical oncologist, Dr. Martin. I did speak with Dr. Martin, who request that we set her up for admission as an inpatient. Indeed, I am concerned overall with this patient. She needs pain control but I am also worried about significant pathologic fractures of the various vertebral bodies with possible cord impingement. Indeed there already is some evidence of epidural disease in the spinal column. In light of the fact that the acetabulum is largely replaced with tumor, I am worried about this patient putting weight on her leg which may fracture through her pelvis. I think she is in a very delicate situation at this point that requires close followup and management. Indeed, I think this patient should be off her feet and not bearing any weight at this time. The areas requiring treatments are significant. Indeed radiation to all of the areas which can cause paralysis or even more significant problems would lower her blood counts to such a degree that I am worried about her being able to tolerate systemic therapy. Indeed the base of skull, the thoracic and lumbar spine as well as the entire pelvis, upper femurs all are in great danger and cause this patient has significant problems. Radiation to these areas would lead to sandra lowering of blood counts and a significant delay in systemic therapy if given. Once again, we will continue to coordinate this patient's care. Further recommendations will be made. I look forward to the results of the pathology test, the discussion at multidisciplinary tumor conference and the input from her medical oncologist as well as other specialists. cc: MD Antony Jurado Jr, MD Sirisha Narayana, MD
--- NOTE | 2019-12-03 12:04 | MEDONC ---
MEDICAL ONCOLOGY INITIAL VISIT DATE OF SERVICE: 11/29/2019 DIAGNOSIS: Widespread skeletal metastatic malignancy uncertain etiology in a patient with personal history of stage II, ER positive, AR weakly positive, HER2/sharron negative, right breast cancer diagnosed 2013 status post all completed treatment. 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 She has a personal history of stage II right breast upper outer quadrant screen detected breast cancer, moderate to poorly differentiated, ER 70% positive, AR 5-10% positive, HER2/sharron negative (0+) diagnosed in 2013 status post lumpectomy, sentinel node biopsy followed by adjuvant ACT radiation and 3 years of Arimidex. Her tumor size was 2.7 cm. Margins were negative. Lymphovascular invasion was present as were micro deposits involving satellite areas around the tumor but with negative margins. Her surgeon was Dr. Rosa Lay. In the last 6 months, she developed progressive back pain which she assumed was based on the usual DJD and/or fibromyalgia. This progressed and in the fall she developed progressive right hip pain. She was working in [place] when this became intolerable. She was referred to an orthopedist who started a workup but images were quickly revealed widespread skeletal metastases involving right hip acetabulum, right iliac with destructive lesions of the iliac and pubic symphysis, cervical, thoracic, lumbar spine lesions including a large T10 lesion with epidural extension, a C1 small focus of lesion but with intracranial clival and pterygoid bone involvement, and small bilateral pulmonary metastases. On her way to see an oncologist she collapsed and was hospitalized. Additional scans done in late October confirming the findings so far. On muscle strength exam 11/16/2019, she was noted to have significant right hip flexor, knee extensor, and ankle flexor weakness. Left leg strength intact. Upper extremities intact. She was recommended to have of biopsy and radiation started with treatment in [place] but she elected to come home for a workup here closer to family. In the office today, she appears calm, pleasant, well-groomed but in a wheelchair. She is able to get on the examining table with a little assistance. She describes right leg weakness for many months without any acute change in the last month. She does not have shortness of breath. No cough. No headache or visual disturbance. She has had some ear discomfort and low back pain. She has constipation, is taking many pain medications with occasional constipation [id number] meds. She denies urinary incontinence. PAST MEDICAL HISTORY: Fibromyalgia, osteoarthritis, heart murmur, surgical menopause as of 2006, chronic DJD. PAST SURGICAL HISTORY: Laminectomy, discectomy 2005, JEREMIAH-BSO 2006, dilation and curettage 1986, right lumpectomy and sentinel node biopsy 2012. ALLERGIES: SULFA, NITROFURANTOIN, and "(dictation cut off)". MEDICATIONS: - albuterol 18 gram inhaler 2 puffs q.6 h p.r.n. - atenolol 50 mg daily - gabapentin 300 mg t.i.d. - levothyroxine 75 mcg daily - ondansetron 8 mg t.i.d. p.r.n. - oxycodone 5 mg q. 4 hours p.r.n. - Senokot 8.6 mg tablet daily - sumatriptan 50 mg as needed for migraine - vitamin B complex FAMILY HISTORY: Maternal grandmother with lymphoma and breast cancer. Maternal aunt with breast cancer. Father with skin cancer. The patient is not sure she had BRCA1 or 2 testing. SOCIAL HISTORY: Never smoker. Alcohol rarely. 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 Lives in [place]. Supportive family. REVIEW OF SYSTEMS: In addition to pertinent positives and negatives above, Mirna denies any hand weakness, numbness or tingling, foot weakness, numbness or tingling. She has had some falls. No hemoptysis. No shortness of breath or cough. No visual disturbance. No difficulty with chewing or swallowing. Positives are chronic back pain, right leg pain and weakness, some subjective numbness in the right leg. No leg swelling or cramping or asymmetry. Remainder of 12 system review negative. PHYSICAL EXAMINATION: Weight 64 kg. Height 5 feet 3 inches. Temperature 99. Blood pressure 123/75. Heart rate 84. Respiratory 18. O2 sat 100%. The patient is a pleasant, well-groomed woman in no distress. HEENT: No scleral icterus. Oropharynx clear. Hughes dentition good repair. Moist pink mucous membranes. Respiratory: Occasional wheeze bilaterally. No basilar crackles. No zone of diminished breath sounds. Cardiac: S1, S2. 1/6 systolic murmur. Abdomen is soft, nontender, nondistended. No hepatosplenomegaly or mass. Extremities. No edema or asymmetry. Skin: No petechiae, ecchymoses or rash. In the left upper lateral outer quadrant of the abdomen there is a palpable mobile subcutaneous irregular nodule without erythema. Musculoskeletal: No vertebral tenderness to light percussion along the vertebral column. 4/5 muscle strength right hip flexion, extension 5/5, 4/5 right patellar extension, 5/5 flexion, 4/5 right ankle flexion, 5/5, ankle extension. Decreased sensation in the right leg versus left. DTRs not checked. Cranial nerves II-XII grossly intact. LABORATORY DATA: WBC 7.7, hemoglobin 10.6, hematocrit 33, platelets 372, MCV 89. Electrolytes, renal function normal. AST 94, ALT 127. Calcium 10.2. Albumin 3.7. Alk phos 195. CA 27.29 pending. IMPRESSION: Widespread skeletal metastases/lytic lesions with destructive cord threatening lesion at T10 near obliteration of parts of the right iliac, C1 lesion, pterygoid and clival involvement intracranially without brain parenchymal involvement, multiple lytic/vertebral lesions involving thoracic and lumbar spine, right leg weakness significant following an L1-L2, L3-L4, L5-S2, dermatomal distribution. Clinical exam apparently stable since late October and by the patient report persistent sustained leg weakness for nearly a month at least. Differential diagnosis includes metastatic breast cancer, another unidentified cancer such as lung melanoma or thyroid. Or multiple myeloma. PLAN: 1. Dr. Carmona and I decided today the patient needs to be hospitalized, non-weightbearing, and further imaging of abdomen and pelvis to review potential involving of liver currently. 2. Empirically will start letrozole at 2.5 mg daily as potentially harmless in the face of a different cancer but potentially helpful if this is breast cancer. 3. The patient will need zoledronic acid or denosumab treating the bones. 4. Consider repeat LS spine testing given absence of prior evidence of cord compressing lesion involving the L1-S4 dermatomes but presence of radicular signs on exam. 5. Defer to radiation oncology in terms of targets but certainly T10 and possibly lower lumbar spine are targets. 6. A.s.a.p biopsy, plan is underway per Dr. Carmona, will need stain this for potential breast origin and be on the lookout for plasma cells as well. TIME STATEMENT: 60 minutes [id number] with the patient; more than 50% involved in counseling, reviewing findings, differential diagnosis, provisional plan, explaining letrozole and need for possible additional imaging as well as explaining the need for hospitalization to avoid weightbearing and for pain control. Electronically Signed by Rhiannon Martin MD 12/04/2019 07:58 P DD: Rhiannon Martin MD 11/30/2019 03:40 P DT: keven 12/03/2019 11:34 A CC: Freeman Carmona MD
--- NOTE | 2019-12-03 16:22 | RADONC ---
RADIATION ONCOLOGY SIMULATION NOTE DATE: 11/30/2019 CHART NUMBER: [id number] SIMULATION NOTE: Ms. Motley was taken to the CT scan for CT simulation of basically her entire body field. We CT the patient from her mid cervical spine down to her mid femurs. CT was accomplished without difficulty or discomfort. Radiation treatment planning is underway and radiation treatments will begin subsequently. We gave the patient pain medication since she was in significant pain when she came down from the floor. Her pelvic bones have largely been replaced by tumor as has her sacrum and coccyx and much of her spinal column. We used a mattress on the table to help alleviate some of her discomfort as well. In light of her extent of disease and multiple areas which are causing her significant problems at this time as well as potential problems in the future, great care is to be undertaking in deciding which areas to treat. We are still awaiting the results of the patient's biopsy and pathology. I do not wish to use extensive stark if this patient will need systemic therapy. I want to want to limit our damage to the bone marrow. After reviewing her MRI however, much of the pelvis has no remaining meaning bone marrow as is. I will continue to coordinate this patient with her medical oncologist, Dr. Martin. She is also on for discussion at our multidisciplinary tumor conference and we await the pathology reports. Once again, this is a rather shocking case and the end results of radiation are questionable. Indeed if we kill the tumor there are no remaining bones in several parts of her body. Indeed entire vertebral bodies appear replaced by tumor as do many of her pelvic bones and lower back bones. A successful result from radiation may be even more problematic.
--- NOTE | 2019-12-04 09:59 | RADONC ---
RADIATION ONCOLOGY PROGRESS NOTE DATE: 12/03/2019 CHART NUMBER: [id number] PROGRESS NOTE: Ms. Motley is taken to the linear accelerator today for her first treatment to the spine for a dose of 300 cGy. We treated the area from T6-T12. The patient tolerated her treatments quite well. The patient was given pain medication on the way out and so her pain was somewhat improved. She is clearly still having low back and pelvic pain. We are undertaking treatment planning for the lower spine and pelvis region. At this point, the disease appears to be progressing rapidly. We will initiate treatment to that area. This will lower her overall blood count. We will continue to monitor her CBCs closely.
--- NOTE | 2019-12-11 07:52 | RADONC ---
RADIATION ONCOLOGY PROGRESS NOTE DATE: 12/10/2019 CHART NUMBER: [id number] Ms. Motley is presently at a dose of 1000 cGy to her pelvis and 1800 cGy to her spine. She is tolerating treatments quite well with no complaints related to her radiation therapy. She has had no nausea or other issues. Indeed the patient reports an improvement in her pain as well as improvement in her bowel movements. The patient's review of systems is basically unchanged. She is immobile and in a hospital bed. She does have some improvement in pain and no problems with her bowels at this time. PHYSICAL EXAMINATION: The patient's skin is in excellent condition with no evidence of radiation change present. The remainder of her physical exam remains unchanged. The patient is tolerating treatments quite well and radiation will continue as scheduled. A CBC done this morning showed her platelet count and her white cell count to be in good condition. Radiation will continue.
--- NOTE | 2019-12-19 08:15 | RADONC ---
RADIATION ONCOLOGY PROGRESS NOTE DATE: 12/17/2019 CHART #: [id number] Ms. Motley completed her thoracic spine radiation last Tuesday to a dose of 3000 cGy. At this time, she is presently at a dose of 2000 cGy to her pelvis. The patient reports that she has difficulty swallowing and discomfort because of the thoracic radiation. She also had a large bowel movement following her pelvic radiation over the weekend. She also reports some increased pain over the right hip which she attributes to having to get up to go to the bathroom more frequently. The patient initiated her IBRANCE therapy today. On physical exam, the patient's skin overall is in good condition with some radiation tanning in the groin region. The remainder of her physical exam remains unchanged. We are planning on continuing with the pelvic radiation at this time and will follow this patient closely. The goal of radiation treatment is clearly just palliative in nature and we do not want to cause her more problems than we are helping. If her bowel movements increase in number and become a problem for her, we are going to place the patient on rest from this. At least now she is under the treatment of her hormonal therapy and IBRANCE. Once again, we will follow her closely throughout the next week of therapy.
[~2019-12-21] MED LIST changes: +IBRA125C PO; +VENTAER INH
== END ==
LOC: M ONCR 11-30 13:03
PROVIDERS: ATTEND Radiology Radiation Oncology
DX: C79.51 Secondary malignant neoplasm of bone (principal)

== ENCOUNTER 2019-12-28 14:29 | Outpatient (RCR) | payer MEDICAID, MEDICARE ==
[2020-01-14] MEDS ORDERED: MAGICMW SSP (15:10)
[2020-01-14] MEDS ORDERED: PANT40TA3 PO (15:10)
[2020-01-14] MEDS ORDERED: DEXA5TA PO (15:10)
[2020-01-14] MEDS ORDERED: SIME80TA PO (15:39)
[2020-01-14] MEDS ORDERED: LORA0.5T5 PO (17:55)
[2020-01-14] MEDS ORDERED: HYOS125TA PO (17:55)
[2020-01-14] MEDS ORDERED: MORP20SO3 PO (17:55)
[2020-01-15] MEDS ORDERED: IBRA100C PO (16:10)
[2020-01-22] MEDS ORDERED: IBRA100C PO (10:30)
[2020-02-11] MEDS ORDERED: LETR2.5T2 PO (16:01)
[2020-02-11] MEDS ORDERED: OXYC-517 PO (16:11)
[2020-02-13] MEDS ORDERED: OXYC-517 PO (09:00)
== END 2020-01-19 ==
LOC: M ONCR 14:29
PROVIDERS: ATTEND Radiology Radiation Oncology
DX: C79.51 Secondary malignant neoplasm of bone (principal)

== ENCOUNTER → 2020-03-13 | Outpatient (CLI) | payer MEDICAID ==
[~2020-03-13] MED LIST changes: +DEXA5TA PO; +HYOS125TA PO; +IBRA100C PO; +LORA0.5T5 PO; +MAGICMW SSP; +MORP20SO3 PO; +PANT40TA3 PO; +SENN-80 PO; -SENN1TAB8 PO; +SIME80TA PO
[2020-03-13 13:34] LABS: BASO % 1.7 % (0.0-1.0); EOS # 0.1 10^3/uL (0.0-0.5); HEMATOCRIT 35.2 % (36.0-47.0); HEMOGLOBIN 11.3 g/dl (12.0-15.5); LYMPH # 0.4 10^3/uL (1.5-5.0); LYMPH % 20.3 % (24.0-44.0); MEAN CORPUSCULAR HGB CONC 32.1 g/dl (32.0-36.5); MEAN CORPUSCULAR VOLUME 96.4 fl (80.0-96.0); MONO # 0.2 10^3/uL (0.0-0.8); MONO % 13.6 % (0.0-5.0); NEUTROPHILS # 1.1 10^3/uL (1.5-8.5); NEUTROPHILS % 59.8 % (36.0-66.0); PLATELET COUNT, AUTOMATED 271 10^3/uL (150-450); RED BLOOD COUNT 3.65 10^6/uL (4.00-5.40); WHITE BLOOD COUNT 1.8 10^3/uL (4.0-10.0)
[2020-03-13 14:06] LABS: ALBUMIN 3.7 GM/DL (3.2-5.2); ALT/SGPT 19 U/L (12-78); BILIRUBIN,TOTAL 0.8 MG/DL (0.2-1.0); BLOOD UREA NITROGEN 9 MG/DL (7-18); CALCIUM LEVEL 8.8 MG/DL (8.5-10.1); CARBON DIOXIDE LEVEL 25 MEQ/L (21-32); CHLORIDE LEVEL 105 MEQ/L (98-107); CREATININE FOR GFR 0.59 MG/DL (0.55-1.30); GLOMERULAR FILTRATION RATE > 60.0 (>51); GLUCOSE, FASTING 89 MG/DL (70-100); POTASSIUM SERUM 4.4 MEQ/L (3.5-5.1); SODIUM LEVEL 137 MEQ/L (136-145)
== END ==
LOC: M LAB 13:01
PROVIDERS: ATTEND Internal Medicine Medical Oncology
DX: C50.919 Malignant neoplasm of unspecified site of unspecified female breast (principal)

== ENCOUNTER → 2020-05-13 | Outpatient (CLI) | payer OTHER ==
[~2020-05-13] MED LIST changes: +DOCU-129 PO; +IBRA75CA PO; +PALB100T PO; +PALB75TA PO
[2020-05-13 12:12] LABS: BASO % 1.6 % (0.0-1.0); EOS % 1.6 % (0.0-3.0); HEMATOCRIT 33.5 % (36.0-47.0); HEMOGLOBIN 10.8 g/dl (12.0-15.5); LYMPH # 0.2 10^3/uL (1.5-5.0); LYMPH % 18.3 % (24.0-44.0); MEAN CORPUSCULAR HEMOGLOBIN 32.4 pg (27.0-33.0); MEAN CORPUSCULAR HGB CONC 32.2 g/dl (32.0-36.5); MEAN CORPUSCULAR VOLUME 100.6 fl (80.0-96.0); MONO # 0.2 10^3/uL (0.0-0.8); MONO % 18.3 % (0.0-5.0); NEUTROPHILS % 59.4 % (36.0-66.0); PLATELET COUNT, AUTOMATED 234 10^3/uL (150-450); RED BLOOD COUNT 3.33 10^6/uL (4.00-5.40); WHITE BLOOD COUNT 1.3 10^3/uL (4.0-10.0)
[2020-05-13 12:16] LABS: NEUTROPHILS # 0.8 10^3/uL (1.5-8.5)
[2020-05-13 12:47] LABS: ALBUMIN 3.8 GM/DL (3.2-5.2); ALT/SGPT 12 U/L (12-78); BILIRUBIN,TOTAL 0.6 MG/DL (0.2-1.0); BLOOD UREA NITROGEN 8 MG/DL (7-18); CALCIUM LEVEL 8.8 MG/DL (8.5-10.1); CARBON DIOXIDE LEVEL 25 MEQ/L (21-32); CHLORIDE LEVEL 110 MEQ/L (98-107); CREATININE FOR GFR 0.55 MG/DL (0.55-1.30); GLOMERULAR FILTRATION RATE > 60.0 (>51); GLUCOSE, FASTING 85 MG/DL (70-100); POTASSIUM SERUM 4.6 MEQ/L (3.5-5.1); SODIUM LEVEL 140 MEQ/L (136-145); TOTAL PROTEIN 6.8 GM/DL (6.4-8.2)
== END ==
LOC: M LAB 10:53
PROVIDERS: ATTEND Internal Medicine Medical Oncology
DX: C50.919 Malignant neoplasm of unspecified site of unspecified female breast (principal)

== ENCOUNTER → 2020-05-20 | Outpatient (CLI) | payer OTHER ==
[2020-05-20 18:02] LABS: BASO % 1.5 % (0.0-1.0); HEMATOCRIT 32.2 % (36.0-47.0); HEMOGLOBIN 10.6 g/dl (12.0-15.5); LYMPH # 0.4 10^3/uL (1.5-5.0); MEAN CORPUSCULAR HEMOGLOBIN 33.1 pg (27.0-33.0); MEAN CORPUSCULAR HGB CONC 32.9 g/dl (32.0-36.5); MEAN CORPUSCULAR VOLUME 100.6 fl (80.0-96.0); MONO # 0.6 10^3/uL (0.0-0.8); NEUTROPHILS # 0.9 10^3/uL (1.5-8.5); PLATELET COUNT, AUTOMATED 265 10^3/uL (150-450)
[2020-05-20 18:26] LABS: ALBUMIN 3.7 GM/DL (3.2-5.2); ALT/SGPT 17 U/L (12-78); BILIRUBIN,TOTAL 0.2 MG/DL (0.2-1.0); BLOOD UREA NITROGEN 8 MG/DL (7-18); CALCIUM LEVEL 8.8 MG/DL (8.5-10.1); CARBON DIOXIDE LEVEL 28 MEQ/L (21-32); CHLORIDE LEVEL 109 MEQ/L (98-107); CREATININE FOR GFR 0.46 MG/DL (0.55-1.30); GLOMERULAR FILTRATION RATE > 60.0 (>51); GLUCOSE, FASTING 84 MG/DL (70-100); POTASSIUM SERUM 3.9 MEQ/L (3.5-5.1); SODIUM LEVEL 138 MEQ/L (136-145); TOTAL PROTEIN 7.2 GM/DL (6.4-8.2)
== END ==
LOC: M LAB 17:08
PROVIDERS: ATTEND Internal Medicine Medical Oncology
DX: C50.919 Malignant neoplasm of unspecified site of unspecified female breast (principal)

== ENCOUNTER → 2020-05-26 | Outpatient (CLI) | payer OTHER ==
[~2020-05-26] MED LIST changes: +PROHANCE 279.3MG/ML 15ML VIAL As Ordered ONE
--- NOTE | 2020-05-26 12:17 | REP ---
MRI LUMBAR SPINE: INDICATION: Metastatic breast carcinoma. TECHNIQUE: Multiplanar short and long MA sequences of the lumbar spine were performed including IV gadolinium imaging. COMPARISON: 11/11/2019 FINDINGS: Multiple iliac, sacral, and lumbar osseous metastases are re-demonstrated without severe narrowing of the spinal canal. There are no pathologic compression fractures. Disease progression is minimal. No focal disc herniations are present. IMPRESSION: Multifocal axial skeletal metastases with mild progression compared to the most recent study dated 11/11/2019. No areas of severe spinal canal narrowing are present. Unreviewed
== END ==
LOC: M RAD 08:34
PROVIDERS: ATTEND Internal Medicine Medical Oncology
DX: C50.919 Malignant neoplasm of unspecified site of unspecified female breast (principal); C79.51 Secondary malignant neoplasm of bone
CPT/HCPCS: 72158; A9576

== ENCOUNTER → 2020-07-25 | Outpatient (CLI) | payer OTHER ==
[~2020-07-25] MED LIST changes: +DURA1CAP PO; +GASTROGRAFIN SOLUTION 30ML (Q9963) As Ordered ONE; +ISOVUE-370 76% 100ML VIAL As Ordered ONE; +PANT40TA29 PO; -PANT40TA3 PO; -PROHANCE 279.3MG/ML 15ML VIAL As Ordered ONE
--- NOTE | 2020-08-19 09:01 | REP ---
WHOLE BODY BONE SCAN HISTORY: Metastatic breast cancer to bone. Following the intravenous administration of 21.8 mCi Technetium-99m MDP, patients whole body is imaged in the anterior and posterior projections. Additional oblique and lateral views are obtained. There is evidence of diffuse skeletal metastatic disease. There is diffuse heterogeneous increased uptake throughout the pelvic bones consistent with diffuse metastasis. The uptake is particularly intense in the sacrum and particularly in the right sacrum and adjacent right iliac bone. There are bilateral foci of uptake at the pubic symphysis and in the superior pubic rami bilaterally. Multiple focal areas of increased uptake are seen throughout the spine. There is a focus of increased uptake likely in the T2 vertebral body. There is intense diffuse increased uptake in the T10 vertebral body. There is mild increased uptake in T11, L1, L4, and L5. Linear abnormal uptake is seen in the posterior right 7th rib. Multiple foci of increased uptake are seen in the left ribs. There are three foci of increased uptake in the left humeral shaft. There is focal increased uptake in the superior left scapula and another focus is seen in the inferior left scapula. There is a focus of increased uptake in the proximal right femur, as well as the proximal left femur. Focal increased uptake is seen in the distal end of each femur, as well as in the proximal left tibia. IMPRESSION: Diffuse skeletal metastases as discussed in detail above. MTDD
--- NOTE | 2020-08-19 09:01 | REP ---
CONTRAST ENHANCED CT OF THE CHEST CLINICAL: History of metastatic breast cancer. TECHNIQUE: Axial contrast enhanced images from the thoracic inlet to the upper abdomen with coronal and sagittal reformations using 100 cc Isovue-370 intravenous contrast material followed by CT of the abdomen and pelvis. COMPARISON: Outside examination dated 11/11/2019 FINDINGS: Comparison is made to prior examination, and the bilateral lung stark demonstrate multiple metastatic lesions which all have decreased in size from prior examination. No new pulmonary metastatic foci are identified, and no visible lesions have increased in size from prior examination. There is no consolidation, effusion, or pneumothorax. The tracheobronchial tree is patent. No axillary, hilar, or mediastinal adenopathy is appreciated. Further evaluation of the mediastinum demonstrates normal thoracic aortic, pulmonary vasculature, and heart/pericardium. No pericardial effusion. Thyroid gland appears normal. Evaluation of the skeletal structures demonstrate multiple sclerotic lesions throughout the thoracic and visualized lumbar vertebral bodies consistent with metastatic disease. These sclerotic lesions measure up to 17 mm maximal diameter. There also appears to be sclerotic focus involving the lateral aspect of the left fifth and sixth ribs as well as sclerotic changes involving the varied thoracic and lumbar posterior elements and spinous processes. Sagittal view demonstrates sclerotic metastatic compression fracture involving T12 with approximately 50% loss of vertebral body height and mild subtle retropulsion which narrows the canal focally to approximately 9.4 mm AP diameter. This T12 compression deformity has progressed since the prior examination. Limited evaluation of the upper abdomen demonstrates normal bilateral adrenal glands. IMPRESSION: * The pulmonary metastases all appear either stable or decreased in size when compared to prior examination and no new pulmonary metastatic foci are identified. There is no associated adenopathy or pleural effusion. * Increased innumerable sclerotic lesions throughout the vertebral bodies including the posterior facets and spinous processes as well as the left fifth and sixth ribs which appear increased from prior examination. * Metastatic compression fracture involving T12 as described above with approximately 50% loss of vertebral body height with mild retropulsion and minimal canal stenosis which also appears to have progressed since prior examination. MTDD
== END ==
LOC: M RAD 07:31
PROVIDERS: ATTEND Internal Medicine Medical Oncology
DX: C79.51 Secondary malignant neoplasm of bone (principal); C50.919 Malignant neoplasm of unspecified site of unspecified female breast
CPT/HCPCS: 71260; 74177; 78306; A9503; Q9963; Q9967

== ENCOUNTER → 2020-08-20 | Outpatient (CLI) | payer OTHER ==
[~2020-08-20] MED LIST changes: -GASTROGRAFIN SOLUTION 30ML (Q9963) As Ordered ONE; -ISOVUE-370 76% 100ML VIAL As Ordered ONE; +PROHANCE 279.3MG/ML 15ML VIAL As Ordered ONE
--- NOTE | 2020-08-20 16:22 | REPVR ---
PROCEDURE INFORMATION: Exam: MR Thoracic Spine Without and With Contrast Exam date and time: 08/20/2020 2:44 PM Age: 54 years old Clinical indication: Condition or disease; Cancer, metastatic/secondary to thoracic bone; Additional info: Breast CA TECHNIQUE: Imaging protocol: Multiplanar magnetic resonance images of the thoracic spine without and with intravenous contrast. Contrast material: PROHANCE; Contrast volume: 12 ml; Contrast route: INTRAVENOUS (IV); COMPARISON: MRI-T SPINE W/O FOLL WITH CON 11/11/2015 9:14 AM FINDINGS: Numerous enhancing lesions throughout the visualized vertebral levels, concerning for diffuse metastatic disease. Moderate pathologic compression fracture of T10 with approximately 50% loss of height and osseous retropulsion contributing to approximately 20% osseous canal narrowing. Remaining thoracic vertebral body heights are intact. No spinal cord compression. No abnormal cord signal. Thoracic kyphosis is preserved. Thoracic disc space heights are unremarkable. Soft tissues are unremarkable. IMPRESSION: Findings compatible with diffuse osseous metastatic disease with moderate pathologic compression fracture of T10. Electronically signed by: Kamron Acevedo On 08/20/2020 16:21:34 PM
== END ==
LOC: M RAD 13:20
PROVIDERS: ATTEND Internal Medicine Medical Oncology
DX: M54.9 Dorsalgia, unspecified (principal); C50.919 Malignant neoplasm of unspecified site of unspecified female breast; M84.48XA Pathological fracture, other site, initial encounter for fracture
CPT/HCPCS: 72157; A9576

== ENCOUNTER → 2020-11-27 | Outpatient (CLI) | payer OTHER ==
[~2020-11-27] MED LIST changes: +GABA-282 PO; -GABA-843 PO; +GASTROGRAFIN SOLUTION 30ML (Q9963) As Ordered ONE; +ISOVUE-370 76% 100ML VIAL As Ordered ONE; -PROHANCE 279.3MG/ML 15ML VIAL As Ordered ONE
--- NOTE | 2020-11-27 12:55 | REP ---
INDICATION: MET BREAST CA. COMPARISON: None TECHNIQUE: Axial contrast-enhanced images from the lung bases to the pubic symphysis using oral and 100 cc Isovue 370 intravenous contrast material. Delayed images of the abdomen obtained along with coronal and sagittal reformations.. This CT examination was performed using the following dose reduction techniques: Automated exposure control, adjustment of mA and/or kv according to the patient's size, and the use of iterative reconstruction technique. FINDINGS: Liver, spleen, pancreas, gallbladder, bilateral adrenal glands and kidneys are normal. The enteric system including stomach, small, and large bowel appears normal. No evidence for obstruction or acute inflammatory process. Normal terminal ileum and appendix are identified in the right lower quadrant. Pelvis demonstrates normal bladder and evidence for prior hysterectomy. No ascites. No free air. No intraperitoneal or retroperitoneal adenopathy. Abdominal aorta and vasculature appear normal. Musculoskeletal structures demonstrate extensive sclerotic metastatic lesions throughout the visualized thoracolumbar spine as well as significant sclerotic/irregular blastic changes involving the pelvis (right greater than left). Findings are essentially unchanged compared to 07/25/2020. IMPRESSION: 1. No acute abdominopelvic pathology and no evidence for intra-abdominal metastatic disease. 2. Extensive relatively stable osseous metastatic lesions unchanged compared to 07/25/2020 <Electronically signed by Lam Mendoza > 11/27/20 [id number]
--- NOTE | 2020-11-27 13:05 | REP ---
INDICATION: MET BREAST CA. COMPARISON: Comparison is made with prior chest CT studies from July 25, 2020 and November 11, 2019.. TECHNIQUE: Contrast enhancement dose is 100 mL of intravenous Isovue 370. Helical scanning is acquired and 3 mm axial images re-formatted. Coronal and sagittal MPR images are generated. FINDINGS: There are multiple noncalcified pulmonary nodules consistent with metastatic pulmonary parenchymal lesions. As noted previously, these have regressed when compared with the 11/11/2019 study. They are unchanged compared to the July 25, 2020 prior study. No new pulmonary metastasis or progressive lung nodule is appreciated. There is no pleural or pericardial effusion. No hilar or mediastinal mass or adenopathy is observed. There is good opacification of the mediastinal vascular structures and no significant vascular abnormality is observed. No supraclavicular or axillary mass or adenopathy is observed. There are somewhat asymmetric fibrotic appearing densities in the right breast laterally which are unchanged. There is fairly widespread skeletal blastic metastatic disease in the thoracic and upper lumbar spine. The most extensive involvement is in the T10 vertebral body which has lost approximately 50% of its anterior and 40% of its posterior vertebral body height. This is unchanged from most recent prior study of July 25, 2020. There are smaller lesions noted at multiple other thoracic and lumbar levels which are all unchanged from the most recent comparison study of July 25, 2020. There are left-sided rib lesions laterally which are also unchanged from the most recent prior study. There is a small lesion in the inferior tip of the left scapula unchanged. There is also a stable lesion in the medial aspect of the left scapula. IMPRESSION: There is evidence of metastatic pulmonary parenchymal and skeletal disease. These findings are stable from most recent prior study July 25, 2020. <Electronically signed by Robbi Bermudez > 11/27/20 [id number]
== END ==
LOC: M RAD 11:03
PROVIDERS: ATTEND Internal Medicine Medical Oncology
DX: D48.0 Neoplasm of uncertain behavior of bone and articular cartilage (principal); D38.1 Neoplasm of uncertain behavior of trachea, bronchus and lung; C50.919 Malignant neoplasm of unspecified site of unspecified female breast; R91.8 Other nonspecific abnormal finding of lung field
CPT/HCPCS: 71260; 74177; Q9963; Q9967

== ENCOUNTER → 2021-01-28 | Outpatient (CLI) | payer BC, OTHER ==
[~2021-01-28] MED LIST changes: -GASTROGRAFIN SOLUTION 30ML (Q9963) As Ordered ONE; -ISOVUE-370 76% 100ML VIAL As Ordered ONE; +PREG100CA PO; +SIME80CH5 PO; -SIME80TA PO; +[UNRECOGNIZED DRUG - CODE] PO
--- NOTE | 2021-02-03 00:04 | ECWPNPC ---
PATIENT NAME: NATHANIEL ROSALES : 1965 GENDER: FEMALE VISIT DATE: 01/28/2021 DISCHARGE DATE: 01/28/21928 VISIT LOCKED DATE TIME: PHYSICIAN: OWEN CORDOBA PHYSICIAN PAGER NO: ACTIVE RESOURCE: OWEN CORDOBA REASON FOR APPOINTMENT 1. THORACIC BACK HISTORY OF PRESENT ILLNESS DEPRESSION SCREENING: PHQ-2 (2015 EDITION) LITTLE INTEREST OR PLEASURE IN DOING THINGS?NOT AT ALL FEELING DOWN, DEPRESSED, OR HOPELESS?NOT AT ALL TOTAL SCORE0 GENERAL: 55-YEAR-OLD FEMALE BEING REFERRED BY DR. MURILLO, [facility] TO EVALUATE PERSISTENT GENERALIZED PAIN. HISTORY OF METASTATIC BREAST CANCER. THIS WAS DIAGNOSED IN 2019. SHE HAS UNDERGONE RADIATION AND CHEMOTHERAPY. CURRENTLY TAKING MEDICATIONS FOR METASTATIC BREAST CANCER. FOLLOWS WITH [facility]. CHIEF AREA OF PAIN IS LOW BACK. ALSO REPORTS RIGHT HIP PAIN AND RIGHT GROIN PAIN. AT ONE POINT SHE WAS WHEELCHAIR DEPENDENT AFTER BEING DIAGNOSED AND PROGRESSED TO WALKING WITH A CANE AND CURRENTLY IS DOING QUITE WELL. REPORTS DIFFICULTY WITH SLEEP AT NIGHT DUE TO PAIN. RIGHT LEG IS SHORTER THAN LEFT BY APPROXIMATELY A HALF INCH. PATIENT STATES IT'S BEEN THIS WAY SINCE TREATMENT FOR CANCER. REPORTS POOR APPETITE BUT WEIGHT IS STABLE. CURRENTLY ON MEDICATION BY MOUTH FOR CANCER TREATMENT. - - -. FALL RISK SCREENING: SCREENING : NO FALLS REPORTED IN THE LAST YEAR , : NO FALLS REPORTED IN THE LAST YEAR. PAIN SCREENING: PATIENT HAS A COMPLAINT OF ACUTE OR CHRONIC PAIN :YES LOCATION OF PAIN:MID BACK, LOW BACK INTENSITY OF PAIN (SCALE OF 1 TO 10):3 WHAT DOES YOUR PAIN FEEL LIKE:ACHING, TENDER, SORE DURATION:CONTINOUS, CONSTANT, ALL DAY PAIN IS INCREASED BY:PROLONGED STANDING, OTHERS SITTING TOO LONG PAIN IS DECREASED BY:USE OF PAIN MEDICATIONS, OTHERS HEAT AND ICE NURSING NOTE: - - -. PAIN CENTER INTAKE QUESTIONS: DO YOU HAVE A HISTORY OF MRSA? :YES MANY YEARS AGO DO YOU TAKE A BLOOD THINNERS? :NO DO YOU HAVE ANY BLEEDING DISORDERS? :NO ANY NEW NUMBNESS OR WEAKNESS IN YOUR LEGS OR ARMS? :NO ANY PACEMAKER,DEFIBRILLATOR, OR DORSAL COLUMN STIMULATOR? :NO DO YOU HAVE ANY RASHES OR OPEN SORES? :NO ARE YOU ALLERGIC TO IV DYE? :NO ARE YOU DIABETIC? :NO ANY NEW PROBLEMS WITH YOUR MEDICATIONS? :NO HAVE YOU RECEIVED A VACCINE IN THE PAST 30 DAYS? :NO DO YOU PLAN TO RECEIVE A VACCINE IN THE NEXT 21 DAYS? :NO DO YOU NEED ANY PRESCRIPTION? :NO DO YOU TAKE ANY IMMUNOSUPPRESSIVE MEDICATIONS? :YES CURRENT MEDICATIONS TAKING IBUPROFEN 200 MG TABLET 1 TABLET ORALLY TWICE A DAY NEEDED FOR PAIN MDD3 TAKING VITAMIN B COMPLEX - TABLET 1 TABLET ORALLY DAILY TAKING DOCUSATE SODIUM 100 MG CAPSULE 1 CAPSULE NEEDED ORALLY ONCE A DAY TAKING IBRANCE 75 MG CAPSULE 1 CAPSULE WITH FOOD ORALLY ONCE A DAY TAKING LETROZOLE 2.5 MG TABLET 1 TABLET ORALLY ONCE A DAY TAKING ALBUTEROL SULFATE (2.5 MG/3ML) 0.083% NEBULIZATION SOLUTION 3 ML NEEDED INHALATION EVERY 6 HRS TAKING METHOCARBAMOL 500 MG TABLET 1.5 TABLETS ORALLY EVERY 4 HRS TAKING NALOXONE HCL 0.4 MG/ML SOLUTION DIRECTED INJECTION TAKING ZOLEDRONIC ACID 4 MG/5ML CONCENTRATE DIRECTED INTRAVENOUS MONTHLY, NOTES: MONTHLY TAKING VITAMIN D PLUS COFACTORS - TABLET DIRECTED ORALLY TAKING LEVOTHYROXINE SODIUM 75 MCG TABLET 1 TABLET ORALLY ONCE A DAY TAKING ATENOLOL 50 MG TABLET 1 TABLET ORALLY ONCE A DAY TAKING IMITREX 50 MG TABLET 1 TABLET NEEDED ORALLY PRN TAKING OXYCODONE HCL 5 MG TABLET 1 TABLET NEEDED ORALLY EVERY 6 HRS NOT-TAKING OXYCODONE HCL 5 MG/5ML SOLUTION 5 ML NEEDED ORALLY EVERY 6 HRS NOT-TAKING DULOXETINE HCL 60 MG CAPSULE DELAYED RELEASE PARTICLES 1 CAPSULE ORALLY ONCE A DAY NOT-TAKING MILNACIPRAN HCL 100 MG TABLET 1 TABLET ORALLY TWICE A DAY NOT-TAKING NABUMETONE 750 MG TABLET DIRECTED ORALLY NOT-TAKING POLYETHYLENE GLYCOL 3350 17 GM PACKET 1 PACKET MIXED WITH 8 OUNCES OF FLUID ORALLY ONCE A DAY, NOTES: MIRALAX NOT-TAKING LYRICA 150 MG CAPSULE 1 CAPSULE ORALLY TWICW A DAY NOT-TAKING SENOKOT 8.6 MG TABLET 2 TABLETS AT BEDTIME NEEDED ORALLY ONCE A DAY NOT-TAKING TRAZODONE HCL 50 MG TABLET 1 TABLET AT BEDTIME NEEDED ORALLY ONCE A DAY NOT-TAKING ZOLMITRIPTAN 5 MG TABLET 1 TABLET ORALLY ONCE A DAY, NOTES: ZOMIG NOT-TAKING LIPITOR 20 MG TABLET 1 TABLET ORALLY ONCE A DAY NOT-TAKING PROAIR HFA AEROSOL SOLUTION 2 PUFFS NEEDED INHALATION PRN NOT-TAKING TIZANIDINE HCL 4 MG TABLET 1 TABLET NEEDED ORALLY THREE TIMES A DAY PRN SPASM NOT-TAKING VITAMIN D 125 MCG (5000 UT) CAPSULE DIRECTED ORALLY NOT-TAKING NABUMETONE(RELAFEN) 500 MG 500 MG TABLET ONE TABLET ORALLY EVERY 12 HOURS PRN PAIN MEDICATION LIST REVIEWED AND RECONCILED WITH THE PATIENT PAST MEDICAL HISTORY SVT BREAST CANCER HYPOTHYROID MIGRANES ASTHMA FIBROMYALGIA BACK PAIN ALLERGIES SULFA (FOR ALLERGY USE ONLY): ITCH / SWELLING MACRODANTIN: ITCH/ SWELLING CIPRO: ERYTHEMA NODNOSUM SURGICAL HISTORY D&C 1986 L5S1 LAMI AND DISECTOMY 2005 HYSTERECTOMY 2006 LUMPECTOMY RIGHT BREAST WITH 4 NODES REOMVED 2012 FAMILY HISTORY FATHER: ALIVE MOTHER: ALIVE SIBLINGS: ALIVE SON(S): UNKNOWN DAUGHTER(S): ALIVE 1 BROTHER(S) , 1 SISTER(S) - HEALTHY. 2DAUGHTER(S) - HEALTHY. SOCIAL HISTORY GENERAL: TOBACCO USE ARE YOU A: NONSMOKER. LATEX QUESTIONNAIRE LATEX ALLERGY : HAVE YOU EVER DEVELOPED ANY TYPE OF REACTION AFTER HANDLING LATEX PRODUCTS SUCH RUBBER GLOVES, CONDOMS, DIAPHRAGMS, BALLOONS, SOCKS, OR UNDERWEAR?NO LATEX ALLERGY : HAVE YOU EVER DEVELOPED ANY TYPE OF REACTION DURING OR AFTER DENTAL APPOINTMENT, VAGINAL/RECTAL EXAMINATION, SURGICAL PROCEDURE, OR ANY OTHER EXPOSURE?NO LATEX RISK : HAVE YOU EVER HAD ANY DIFFICULTY BREATHING OR HIVES AFTER EATING OR HANDLING ANY FRUITS, OR VEGETABLES; SUCH KIWI, BANANAS, STONE FRUITS, OR CHESTNUTSNO LATEX RISK : DO YOU HAVE A PREVIOUS PERSONAL HISTORY OF MORE THAN NINE SURGERIES, SPINA BIFIDA, OR REPEATED CATHERIZATIONS? NO LATEX RISK : ARE YOU FREQUENTLY EXPOSED TO LATEX PRODUCTS IN YOUR OCCUPATION?NO DATE ASKED : 01/28/2021 ALCOHOL USE: YES. RECREATIONAL DRUG USE DRUG USE?NO TAOISM [id number] HOAHAOISM LEARNING BARRIERS / SPECIAL NEEDS BARRIERS TO LEARNING?NO HEARING IMPAIRED?NO VISION IMPAIRED?YES READERS COGNITIVELY IMPAIRED?NO READINESS TO LEARN?YES LEARNING PREFERENCES?YES :HANDOUTS, DEMONSTRATION/VERBAL INSTRUCTION LEARNING CAPABILITIES PRESENT?YES EMOTIONAL BARRIERS?NO SPECIAL DEVICES?NO ESTHETICIAN MAKEUP ARTIST NEEDED?NO DOMESTIC VIOLENCE DO YOU FEEL SAFE IN YOUR ENVIRONMENT?YES TODAY'S VISIT NOTES, FROM 0-10, WHAT LEVEL IS YOUR PAIN TODAY? 0. - PFS REFERRAL NEEDED?NO CLERGY REFERRAL NEEDED?NO PUBLIC HEALTH REFERRAL NEEDED?NO WAS THE PROVIDER NOTIFIED OF ANY PERTINENT INFO?NO HAS THE PATIENT BEEN EDUCATED REGARDING HIS/HER PLAN OF CARE?YES HAS THE PATIENT BEEN EDUCATED REGARDING PAIN, THE RISK FOR PAIN, THE IMPORTANCE OF EFFECTIVE PAIN MANAGEMENT, AND THE PAIN ASSESSMENT PROCESS?YES HOSPITALIZATION/MAJOR DIAGNOSTIC PROCEDURE SURGERIES INTRACTABLET BACK PAIN AND SVT 10/2015 CHILDBIRTH SEE ABOVE REVIEW OF SYSTEMS CONSTITUTIONAL: ANY RECENT FEVER NO . CHILLS NO . WEIGHT CHANGE OF UNKNOWN REASONS NO . GASTROENTEROLOGY: NEW UNEXPLAINABLE CHANGES IN BOWEL CONTROL NO . CONSTIPATION NO . GENITOURINARY: ANY NEW CHANGE IN BLADDER CONTROL? NO . NEUROLOGY: NEW ONSET DIZZINESS OR NEUROLOGICAL CHANGES NOT MENTIONED NO . NEW NUMBNESS OR PAIN PATTERNS NOT MENTIONED AND PERTINENT TO TODAY'S VISIT NO . CARDIOLOGY: NEW CHEST PRESSURE NO . PATIENT DENIES NO . RESPIRATORY: UNEXPLAINABLE COUGH NO . NEW SHORTNESS OF BREATH NO . VITAL SIGNS WT 137.0 LBS, HT 63 IN, BMI 24.27 INDEX, BP 113/78 MM HG, HR 79 /MIN, RR 18 /MIN, TEMP 98.7 F, OXYGEN SAT % 99%, SAFE IN ENV? (Y/N) NAYLA, NA INITIALS AW [id number].AUDI MAYA. EXAMINATION GENERAL EXAMINATION: GENERALNO ACUTE DISTRESS, WELL NOURISHED AND HYDRATED. PSYCHAPPROPRIATE MOOD AND AFFECT . NECK:NO LYMPHADENOPATHY, SUPPLE, NO THYROMEGALLY. LUNGS:CLEAR TO AUSCULTATION BILATERALLY, NO WHEEZES, RHONCHI, RALES. HEART:NO MURMURS, REGULAR RATE AND RHYTHM. LUMBAR:TENDERNESS NOTED OVER THORACIC AND LUMBAR SPINE AND PARASPINAL REGION. PAIN IS AGGRAVATED IN THESE AREAS WITH RANGE OF JOINT MOTION OF THE SPINE. SPECIFIC POINT TENDERNESS NOTED OVER SACROILIAC JOINT BILATERALLY . DIAGNOSTIC TESTS REVIEWED MRI THORACIC SPINE 2019. ASSESSMENTS SACROILIITIS - M46.1 (PRIMARY) LEG LENGTH DISCREPANCY - M21.70 TREATMENT SACROILIITIS START LYRICA CAPSULE, 100 MG, 1 CAPSULE, ORALLY, BID, 30 DAYS, 60 CAPSULE, REFILLS 2 START CELEBREX CAPSULE, 200 MG, 1 CAPSULE WITH FOOD, ORALLY, ONCE A DAY, 30 DAY(S), 30, REFILLS 2 NOTES: DISCUSSED TREATMENT OPTIONS. I WILL DISCUSS CASE WITH DR. LUNA TO SEE IF WE CAN DO BILATERAL SACROILIAC JOINT BLOCK AND TRIGGER POINT INJECTIONS. TODAY I WILL HAVE HER START LYRICA 100 MG TWICE A DAY FOR FIBROMYALGIA. ALSO I'M GOING TO START CELEBREX 200 MG DAILY FOR JOINT AND BONE PAIN. PROCEDURE CODES FA211 ESTABILISHED PATIENT [facility] CHARGE DISPOSITION & COMMUNICATION FOLLOW UP 2 WEEKS (REASON: CONSIDER INTERVENTIONAL THERAPY/SACROILIAC JOINT BLOCK/TRIGGER POINT INJECTIONS) ELECTRONICALLY SIGNED BY KIRAN CASH ON 02/02/2021 AT 01:08 PM EDT DISCLAIMER : THIS IS A VISIT SUMMARY EXTRACTED FROM THE [employer] CHART. IT IS NOT A COPY OF THE [employer] PROGRESS NOTE. ELLIE
== END ==
LOC: M PAIN 08:15
PROVIDERS: ATTEND Nurse Practitioner Family
DX: M46.1 Sacroiliitis, not elsewhere classified (principal); M21.751 Unequal limb length (acquired), right femur; E03.9 Hypothyroidism, unspecified; G43.909 Migraine, unspecified, not intractable, without status migrainosus; J45.909 Unspecified asthma, uncomplicated; M79.7 Fibromyalgia; Z85.3 Personal history of malignant neoplasm of breast; Z92.3 Personal history of irradiation; Z92.21 Personal history of antineoplastic chemotherapy; Z79.891 Long term (current) use of opiate analgesic; Z79.899 Other long term (current) drug therapy; Z88.2 Allergy status to sulfonamides; Z88.1 Allergy status to other antibiotic agents

== ENCOUNTER → 2021-02-11 | Outpatient (CLI) | payer MEDICARE ==
--- NOTE | 2021-02-13 00:51 | ECWPNPC ---
PATIENT NAME: NATHANIEL ROSALES : 1965 GENDER: FEMALE VISIT DATE: 02/11/2021 DISCHARGE DATE: 02/11/21 1027 VISIT LOCKED DATE TIME: PHYSICIAN: OWEN CORDOBA PHYSICIAN PAGER NO: ACTIVE RESOURCE: OWEN CORDOBA REASON FOR APPOINTMENT 1. CONSIDER INTERVENTIONAL THERAPY/SACROILIAC JOINT BLOCK/TRIGGER POINT INJECTIONS HISTORY OF PRESENT ILLNESS GENERAL: THIS IS A FOLLOW-UP AND MEDICATION MANAGEMENT FOR CHRONIC GENERALIZED BACK PAIN WITH HISTORY OF METASTATIC BREAST CA. STARTED ON LYRICA 100 MG TWICE A DAY AT LAST VISIT. PATIENT IS DOING WELL AND REPORTS IMPROVED SLEEP SINCE STARTING MEDICATION. USING TYLENOL AND IBUPROFEN NEEDED FOR SEVERE PAIN EPISODES WITH RESOLUTION OF PAIN. HAS CONSTANT PAIN THAT CONTINUES ACROSS HER LOWER BACK BUT IS MORE TOLERABLE. REPORTING SPECIFIC MID TO LOWER THORACIC AXIAL PAIN THAT IS STINGING IN NATURE. WAS UNABLE TO GET CELEBREX THAT I HAD ORDERED AT LAST VISIT DUE TO INSURANCE CONSTRAINTS. DISCUSSED PURCHASING LIDODERM PATCH [id number]. OVERALL DOING VERY WELL. HAS CLOSE FOLLOW-UP WITH DR. SOFIA AT [facility]. DISCUSSED CONVERSATION THAT I HAD WITH DR. SOFIA IN REGARDS TO INJECTION THERAPY IF NECESSARY IN THE FUTURE.-. FALL RISK SCREENING: SCREENING : ONE FALLS REPORTED IN THE LAST YEAR WITH [facility]. PAIN SCREENING: PATIENT HAS A COMPLAINT OF ACUTE OR CHRONIC PAIN :YES LOCATION OF PAIN:MID BACK, LOW BACK, RIGHT HIP INTENSITY OF PAIN (SCALE OF 1 TO 10):4 WHAT DOES YOUR PAIN FEEL LIKE:ACHING, BURNING, TENDER DURATION:CONTINOUS, CONSTANT PAIN IS INCREASED BY:ACTIVITIES PAIN IS DECREASED BY:USE OF PAIN MEDICATIONS NURSING NOTE: -. PAIN CENTER INTAKE QUESTIONS: DO YOU HAVE A HISTORY OF MRSA? :YES TO CHIN 10 YEARS AGO DO YOU TAKE A BLOOD THINNERS? :NO DO YOU HAVE ANY BLEEDING DISORDERS? :NO ANY NEW NUMBNESS OR WEAKNESS IN YOUR LEGS OR ARMS? :YES FINGERS ARE PAINFUL AND WEAKNESS ANY PACEMAKER,DEFIBRILLATOR, OR DORSAL COLUMN STIMULATOR? :NO DO YOU HAVE ANY RASHES OR OPEN SORES? :NO ARE YOU ALLERGIC TO IV DYE? :NO ARE YOU DIABETIC? :NO ANY NEW PROBLEMS WITH YOUR MEDICATIONS? :YES INSURANCE HAS NOT COVERED CELEBREX HAVE YOU RECEIVED A VACCINE IN THE PAST 30 DAYS? :YES IF SO WHAT VACCINE AND WHEN? COVID VACCINE #1 01/29/21 DO YOU PLAN TO RECEIVE A VACCINE IN THE NEXT 21 DAYS? :YES IF SO WHAT VACCINE AND WHEN? COVID VACCINE #2 03/02/21 DO YOU NEED ANY PRESCRIPTION? :YES HAS NOT RECEIVED CELEBREX BECAUSE OF INSURANCE, MAY NEED REFILL ON LYRICA DO YOU TAKE ANY IMMUNOSUPPRESSIVE MEDICATIONS? :NO DO YOU HAVE ANY KIDNEY OR LIVER DISEASE? :NO IS THERE A CHANCE YOU COULD BE ? :NO ARE YOU BREAST FEEDING? :NO CURRENT MEDICATIONS TAKING LYRICA 100 MG CAPSULE 1 CAPSULE ORALLY BID TAKING IBUPROFEN 200 MG TABLET 1 TABLET ORALLY TWICE A DAY NEEDED FOR PAIN MDD3 TAKING VITAMIN B COMPLEX - TABLET 1 TABLET ORALLY DAILY TAKING DOCUSATE SODIUM 100 MG CAPSULE 1 CAPSULE NEEDED ORALLY ONCE A DAY TAKING IBRANCE 75 MG CAPSULE 1 CAPSULE WITH FOOD ORALLY ONCE A DAY TAKING LETROZOLE 2.5 MG TABLET 1 TABLET ORALLY ONCE A DAY TAKING ALBUTEROL SULFATE (2.5 MG/3ML) 0.083% NEBULIZATION SOLUTION 3 ML NEEDED INHALATION EVERY 6 HRS TAKING METHOCARBAMOL 500 MG TABLET 1.5 TABLETS ORALLY EVERY 4 HRS TAKING NALOXONE HCL 0.4 MG/ML SOLUTION DIRECTED INJECTION TAKING ZOLEDRONIC ACID 4 MG/5ML CONCENTRATE DIRECTED INTRAVENOUS MONTHLY, NOTES: MONTHLY TAKING VITAMIN D PLUS COFACTORS - TABLET DIRECTED ORALLY TAKING LEVOTHYROXINE SODIUM 75 MCG TABLET 1 TABLET ORALLY ONCE A DAY TAKING ATENOLOL 50 MG TABLET 1 TABLET ORALLY ONCE A DAY TAKING IMITREX 50 MG TABLET 1 TABLET NEEDED ORALLY PRN TAKING OXYCODONE HCL 5 MG TABLET 1 TABLET NEEDED ORALLY EVERY 6 HRS NOT-TAKING CELEBREX 200 MG CAPSULE 1 CAPSULE WITH FOOD ORALLY ONCE A DAY NOT-TAKING OXYCODONE HCL 5 MG/5ML SOLUTION 5 ML NEEDED ORALLY EVERY 6 HRS NOT-TAKING DULOXETINE HCL 60 MG CAPSULE DELAYED RELEASE PARTICLES 1 CAPSULE ORALLY ONCE A DAY NOT-TAKING MILNACIPRAN HCL 100 MG TABLET 1 TABLET ORALLY TWICE A DAY NOT-TAKING NABUMETONE 750 MG TABLET DIRECTED ORALLY NOT-TAKING POLYETHYLENE GLYCOL 3350 17 GM PACKET 1 PACKET MIXED WITH 8 OUNCES OF FLUID ORALLY ONCE A DAY, NOTES: MIRALAX NOT-TAKING LYRICA 150 MG CAPSULE 1 CAPSULE ORALLY TWICW A DAY NOT-TAKING SENOKOT 8.6 MG TABLET 2 TABLETS AT BEDTIME NEEDED ORALLY ONCE A DAY NOT-TAKING TRAZODONE HCL 50 MG TABLET 1 TABLET AT BEDTIME NEEDED ORALLY ONCE A DAY NOT-TAKING ZOLMITRIPTAN 5 MG TABLET 1 TABLET ORALLY ONCE A DAY, NOTES: ZOMIG NOT-TAKING LIPITOR 20 MG TABLET 1 TABLET ORALLY ONCE A DAY NOT-TAKING PROAIR HFA AEROSOL SOLUTION 2 PUFFS NEEDED INHALATION PRN NOT-TAKING TIZANIDINE HCL 4 MG TABLET 1 TABLET NEEDED ORALLY THREE TIMES A DAY PRN SPASM NOT-TAKING VITAMIN D 125 MCG (5000 UT) CAPSULE DIRECTED ORALLY NOT-TAKING NABUMETONE(RELAFEN) 500 MG 500 MG TABLET ONE TABLET ORALLY EVERY 12 HOURS PRN PAIN MEDICATION LIST REVIEWED AND RECONCILED WITH THE PATIENT PAST MEDICAL HISTORY SVT BREAST CANCER HYPOTHYROID MIGRANES ASTHMA FIBROMYALGIA BACK PAIN METASTATIC BREAST CANCER TO BONES ALLERGIES SULFA (FOR ALLERGY USE ONLY): ITCH / SWELLING MACRODANTIN: ITCH/ SWELLING CIPRO: ERYTHEMA NODNOSUM SOCIAL HISTORY GENERAL: TOBACCO USE ARE YOU A: NONSMOKER. LATEX QUESTIONNAIRE LATEX ALLERGY : HAVE YOU EVER DEVELOPED ANY TYPE OF REACTION AFTER HANDLING LATEX PRODUCTS SUCH RUBBER GLOVES, CONDOMS, DIAPHRAGMS, BALLOONS, SOCKS, OR UNDERWEAR?NO LATEX ALLERGY : HAVE YOU EVER DEVELOPED ANY TYPE OF REACTION DURING OR AFTER DENTAL APPOINTMENT, VAGINAL/RECTAL EXAMINATION, SURGICAL PROCEDURE, OR ANY OTHER EXPOSURE?NO DATE ASKED : 01/28/2021 LATEX RISK : HAVE YOU EVER HAD ANY DIFFICULTY BREATHING OR HIVES AFTER EATING OR HANDLING ANY FRUITS, OR VEGETABLES; SUCH KIWI, BANANAS, STONE FRUITS, OR CHESTNUTSNO LATEX RISK : DO YOU HAVE A PREVIOUS PERSONAL HISTORY OF MORE THAN NINE SURGERIES, SPINA BIFIDA, OR REPEATED CATHERIZATIONS? NO LATEX RISK : ARE YOU FREQUENTLY EXPOSED TO LATEX PRODUCTS IN YOUR OCCUPATION?NO ALCOHOL USE: YES. RECREATIONAL DRUG USE DRUG USE?NO EPISCOPALIAN [id number] YARSANI LEARNING BARRIERS / SPECIAL NEEDS BARRIERS TO LEARNING?NO HEARING IMPAIRED?NO VISION IMPAIRED?YES READERS COGNITIVELY IMPAIRED?NO READINESS TO LEARN?YES LEARNING PREFERENCES?YES :HANDOUTS, DEMONSTRATION/VERBAL INSTRUCTION LEARNING CAPABILITIES PRESENT?YES EMOTIONAL BARRIERS?NO SPECIAL DEVICES?NO HUMAN RESOURCES LEADER NEEDED?NO DOMESTIC VIOLENCE DO YOU FEEL SAFE IN YOUR ENVIRONMENT?YES TODAY'S VISIT NOTES, FROM 0-10, WHAT LEVEL IS YOUR PAIN TODAY? 0. - PFS REFERRAL NEEDED?NO CLERGY REFERRAL NEEDED?NO PUBLIC HEALTH REFERRAL NEEDED?NO WAS THE PROVIDER NOTIFIED OF ANY PERTINENT INFO?NO HAS THE PATIENT BEEN EDUCATED REGARDING HIS/HER PLAN OF CARE?YES HAS THE PATIENT BEEN EDUCATED REGARDING PAIN, THE RISK FOR PAIN, THE IMPORTANCE OF EFFECTIVE PAIN MANAGEMENT, AND THE PAIN ASSESSMENT PROCESS?YES REVIEW OF SYSTEMS CONSTITUTIONAL: ANY RECENT FEVER NO . CHILLS NO . WEIGHT CHANGE OF UNKNOWN REASONS NO . GASTROENTEROLOGY: NEW UNEXPLAINABLE CHANGES IN BOWEL CONTROL NO . CONSTIPATION NO . GENITOURINARY: ANY NEW CHANGE IN BLADDER CONTROL? NO . NEUROLOGY: NEW ONSET DIZZINESS OR NEUROLOGICAL CHANGES NOT MENTIONED NO . NEW NUMBNESS OR PAIN PATTERNS NOT MENTIONED AND PERTINENT TO TODAY'S VISIT NO . CARDIOLOGY: NEW CHEST PRESSURE NO . PATIENT DENIES NO . RESPIRATORY: UNEXPLAINABLE COUGH NO . NEW SHORTNESS OF BREATH NO . VITAL SIGNS WT 138.4 LBS, HT 63 IN, BMI 24.51 INDEX, BP 109/65 MM HG, HR 74 /MIN, RR 18 /MIN, TEMP 98.2 F, OXYGEN SAT % 99%, SAFE IN ENV? (Y/N) Y, NA INITIALS FL 09:40, REVIEWED BY: SOLO. EXAMINATION GENERAL EXAMINATION: GENERALAWAKE,ALERT ,PLEASANT . PSYCHAFFECT NORMAL . LUNGS:LUNG RUST ARE CLEAR TO AUSCULTATION BILATERALLY. GOOD MOVEMENT OF AIR . HEART:S1, S2 IN A REGULAR RATE AND RHYTHM. NO SIGNIFICANT MURMURS, RUBS OR GALLOPS NOTED . ASSESSMENTS SACROILIITIS - M46.1 (PRIMARY) METASTATIC BREAST CANCER - C50.919 TREATMENT SACROILIITIS CONTINUE LYRICA CAPSULE, 100 MG, 1 CAPSULE, ORALLY, BID CONTINUE DOCUSATE SODIUM CAPSULE, 100 MG, 1 CAPSULE NEEDED, ORALLY, ONCE A DAY CONTINUE IBUPROFEN TABLET, 200 MG, 1 TABLET, ORALLY, TWICE A DAY NEEDED FOR PAIN MDD3 NOTES: CONTINUE DAILY EXERCISE. DISCUSSED INCREASED RISK FOR BLEEDING AND INFECTION WITH CURRENT MEDICATIONS SHE IS TAKING BY MOUTH FOR BREAST CANCER. FOLLOW-UP IS SCHEDULED IN 3 MONTHS. PROCEDURE CODES FA211 ESTABILISHED PATIENT [facility] CHARGE DISPOSITION & COMMUNICATION FOLLOW UP 3 MONTHS (REASON: MEDICATION MANAGEMENT/SPINAL PAIN ASSOCIATED WITH METASTATIC BREAST CA) ELECTRONICALLY SIGNED BY KIRAN CASH ON 02/12/2021 AT 02:34 PM EDT DISCLAIMER : THIS IS A VISIT SUMMARY EXTRACTED FROM THE [employer] CHART. IT IS NOT A COPY OF THE [employer] PROGRESS NOTE. ELLIE
== END ==
LOC: M PAIN 09:30
PROVIDERS: ATTEND Nurse Practitioner Family
DX: M46.1 Sacroiliitis, not elsewhere classified (principal); G89.29 Other chronic pain; C50.919 Malignant neoplasm of unspecified site of unspecified female breast; E03.9 Hypothyroidism, unspecified; G43.909 Migraine, unspecified, not intractable, without status migrainosus; J45.909 Unspecified asthma, uncomplicated; M79.7 Fibromyalgia; Z86.14 Personal history of Methicillin resistant Staphylococcus aureus infection; Z88.1 Allergy status to other antibiotic agents; Z88.2 Allergy status to sulfonamides; Z79.899 Other long term (current) drug therapy

== ENCOUNTER → 2021-02-13 | Outpatient (CLI) | payer OTHER ==
--- NOTE | 2021-02-13 12:56 | REP ---
INDICATION: MET BREAST CA. COMPARISON: 07/25/2020. TECHNIQUE/RADIOTRACER AND DOSE: Following the intravenous administration of 22.0 mCi technetium 99 M MDP, patient's whole-body is imaged in various projections. FINDINGS: Diffuse skeletal metastases appear essentially unchanged. The diffuse heterogeneous increased uptake in the pelvic bones appears unchanged in intensity and extent. The right-side is again more involved than the left. Foci of uptake in the pubis and pubic rami are again noted, not definitely changed. The multiple foci of increased uptake in the spine appear unchanged. There also appears to be no change in the multiple foci in the ribs, left humerus and left scapula. Proximal femur foci are stable. Bilateral distal femoral and proximal left tibial uptake is unchanged. IMPRESSION: Diffuse skeletal metastatic uptake as discussed above, appears unchanged compared to 07/25/2020. <Electronically signed by Freeman Berger > 02/13/21 [id number]
== END ==
LOC: M RAD 08:07
PROVIDERS: ATTEND Internal Medicine Medical Oncology
DX: C50.911 Malignant neoplasm of unspecified site of right female breast (principal)
CPT/HCPCS: 78306; A9503

== ENCOUNTER → 2021-04-09 | Outpatient (CLI) | payer OTHER ==
[~2021-04-09] MED LIST changes: +COVI100V IM; -DOCU-129 PO; +DOCU-153 PO; +GASTROGRAFIN SOLUTION 30ML (Q9963) As Ordered ONE; +ISOVUE-370 76% 100ML VIAL As Ordered ONE
--- NOTE | 2021-04-10 06:37 | REP ---
INDICATION: MET BREAST CA COMPARISON: 11/27/2020 TECHNIQUE: Axial contrast enhanced images from the thoracic inlet to the upper abdomen using 100 ml Isovue 370 intravenous contrast material followed by CT of the abdomen and pelvis with coronal and sagittal reformations. This CT examination was performed using the following dose reduction techniques: Automated exposure control, adjustment of mA and/or kv according to the patient's size, and use of iterative reconstruction technique. FINDINGS: Lung stark demonstrate stable scattered small presumed metastatic nodules along with stable right perihilar metastatic focus measuring approximately 14 mm (series 204; image 43). No new pulmonary parenchymal consolidations, new nodule or mass lesion is appreciated. No pleural effusion. No pneumothorax. Tracheobronchial tree is patent. The mediastinum demonstrates normal thoracic aorta, pulmonary vasculature, and heart/pericardium. No obvious adenopathy is appreciated. Diffuse skeletal metastases primarily involving the vertebral bodies although also identified within multiple ribs and left scapula are similar to prior examination. IMPRESSION: Stable metastatic disease when compared with most recent prior examination of 11/27/2020. No obvious new acute mediastinal/pleuroparenchymal process or obvious new skeletal metastatic focus. <Electronically signed by Lam Mendoza > 04/10/21 0699
--- NOTE | 2021-04-10 06:41 | REP ---
INDICATION: MET BREAST CA. COMPARISON: 11/27/2020 TECHNIQUE: Axial contrast-enhanced images from the lung bases to the pubic symphysis using oral and 100 cc Isovue 370 intravenous contrast material. Coronal and sagittal reformations obtained. This CT examination was performed using the following dose reduction techniques: Automated exposure control, adjustment of mA and/or kv according to the patient's size, and the use of iterative reconstruction technique. FINDINGS: Liver, spleen, pancreas, gallbladder, bilateral adrenal glands and kidneys are normal. The enteric system including stomach, small, and large bowel appears normal. No evidence for obstruction or acute inflammatory process. Scattered colonic diverticula noted without acute diverticulitis.. Pelvis demonstrates normal bladder and age-appropriate prostate/seminal vesicles. No ascites. No free air. No intraperitoneal or retroperitoneal adenopathy. Abdominal aorta and vasculature appear normal. Extensive osseous metastatic lesions are noted throughout the visualized thoracolumbar spine, few scattered rib lesions, and significantly involving the pelvis and bilateral proximal femurs (right greater than left). IMPRESSION: No acute abdominopelvic pathology appreciated. No abdominopelvic metastases, ascites, focal inflammatory stranding, or adenopathy appreciated. Extensive osseous metastatic disease essentially unchanged when compared with recent prior examination. <Electronically signed by Lam Mendoza > 04/10/21 0678
== END ==
LOC: M RAD 15:09
PROVIDERS: ATTEND Internal Medicine Medical Oncology
DX: C50.919 Malignant neoplasm of unspecified site of unspecified female breast (principal); C79.51 Secondary malignant neoplasm of bone
CPT/HCPCS: 71260; 74177; Q9963; Q9967

== ENCOUNTER → 2021-04-27 | Outpatient (CLI) | payer OTHER ==
[~2021-04-27] MED LIST changes: -GASTROGRAFIN SOLUTION 30ML (Q9963) As Ordered ONE; -ISOVUE-370 76% 100ML VIAL As Ordered ONE; +PROHANCE 279.3MG/ML 15ML VIAL As Ordered ONE
== END ==
LOC: M RAD 14:37
PROVIDERS: ATTEND Internal Medicine Medical Oncology
DX: C50.919 Malignant neoplasm of unspecified site of unspecified female breast (principal); C79.51 Secondary malignant neoplasm of bone; M84.48XA Pathological fracture, other site, initial encounter for fracture
CPT/HCPCS: 72157; A9576

== ENCOUNTER → 2021-05-14 | Outpatient (CLI) | payer MEDICARE ==
[~2021-05-14] MED LIST changes: +PREG200C PO; -PROHANCE 279.3MG/ML 15ML VIAL As Ordered ONE
--- NOTE | 2021-05-16 06:26 | ECWPNPC ---
PATIENT NAME: NATHANIEL ROSALES : 1965 GENDER: FEMALE VISIT DATE: 05/14/2021 DISCHARGE DATE: 05/14/21 1023 VISIT LOCKED DATE TIME: PHYSICIAN: OWEN CORDOBA PHYSICIAN PAGER NO: ACTIVE RESOURCE: OWEN CORDOBA REASON FOR APPOINTMENT 1. MEDICATION MANAGEMENT/SPINAL PAIN ASSOCIATED WITH METASTATIC BREAST CA HISTORY OF PRESENT ILLNESS GENERAL: HERE FOR FOLLOW-UP OF CHRONIC THORACIC AND LOW BACK PAIN WITH A HISTORY OF METASTATIC BREAST CANCER. FINDS LYRICA SOMEWHAT HELPFUL BUT HAS HAD AN INCREASE IN GENERALIZED FIBROMYALGIA PAIN OVER THE PAST MONTH. REVIEWED MEDICATIONS AND DISCUSS TREATMENT PLAN. FOLLOWS WITH DR. SOFIA AT [facility]. -. FALL RISK SCREENING: SCREENING : NO FALLS REPORTED IN THE LAST YEAR. PAIN SCREENING: PATIENT HAS A COMPLAINT OF ACUTE OR CHRONIC PAIN :YES LOCATION OF PAIN:BACK INTENSITY OF PAIN (SCALE OF 1 TO 10):6 WHAT DOES YOUR PAIN FEEL LIKE:ACHING, CONTINOUS, TENDER DURATION:CONTINOUS, CONSTANT, ALL DAY PAIN IS INCREASED BY:ACTIVITIES, PROLONGED STANDING PAIN IS DECREASED BY:USE OF PAIN MEDICATIONS, OTHERS HEAT AND ICE NURSING NOTE: -. PAIN CENTER INTAKE QUESTIONS: DO YOU HAVE A HISTORY OF MRSA? :YES TO CHIN 10 YEARS AGO DO YOU TAKE A BLOOD THINNERS? :NO DO YOU HAVE ANY BLEEDING DISORDERS? :NO ANY NEW NUMBNESS OR WEAKNESS IN YOUR LEGS OR ARMS? :YES FINGERS ARE PAINFUL AND WEAKNESS ANY PACEMAKER,DEFIBRILLATOR, OR DORSAL COLUMN STIMULATOR? :NO DO YOU HAVE ANY RASHES OR OPEN SORES? :NO ARE YOU ALLERGIC TO IV DYE? :NO ARE YOU DIABETIC? :NO ANY NEW PROBLEMS WITH YOUR MEDICATIONS? :NO HAVE YOU RECEIVED A VACCINE IN THE PAST 30 DAYS? :YES IF SO WHAT VACCINE AND WHEN? COVID VACCINE #1 01/29/21 DO YOU PLAN TO RECEIVE A VACCINE IN THE NEXT 21 DAYS? :YES IF SO WHAT VACCINE AND WHEN? COVID VACCINE #2 03/02/21 DO YOU NEED ANY PRESCRIPTION? :YES HAS NOT RECEIVED CELEBREX BECAUSE OF INSURANCE, MAY NEED REFILL ON LYRICA DO YOU TAKE ANY IMMUNOSUPPRESSIVE MEDICATIONS? :NO DO YOU HAVE ANY KIDNEY OR LIVER DISEASE? :NO IS THERE A CHANCE YOU COULD BE ? :NO ARE YOU BREAST FEEDING? :NO CURRENT MEDICATIONS TAKING VITAMIN B COMPLEX - TABLET 1 TABLET ORALLY DAILY TAKING IBRANCE 75 MG CAPSULE 1 CAPSULE WITH FOOD ORALLY ONCE A DAY TAKING LETROZOLE 2.5 MG TABLET 1 TABLET ORALLY ONCE A DAY TAKING NALOXONE HCL 0.4 MG/ML SOLUTION DIRECTED INJECTION TAKING ZOLEDRONIC ACID 4 MG/5ML CONCENTRATE DIRECTED INTRAVENOUS MONTHLY, NOTES: MONTHLY TAKING VITAMIN D PLUS COFACTORS - TABLET DIRECTED ORALLY TAKING LEVOTHYROXINE SODIUM 75 MCG TABLET 1 TABLET ORALLY ONCE A DAY TAKING ATENOLOL 50 MG TABLET 1 TABLET ORALLY ONCE A DAY TAKING IMITREX 50 MG TABLET 1 TABLET NEEDED ORALLY PRN TAKING OXYCODONE HCL 5 MG TABLET 1 TABLET NEEDED ORALLY EVERY 6 HRS TAKING DOCUSATE SODIUM 100 MG CAPSULE 1 CAPSULE NEEDED ORALLY ONCE A DAY TAKING IBUPROFEN 200 MG TABLET 1 TABLET ORALLY TWICE A DAY NEEDED FOR PAIN MDD3 TAKING LYRICA 100 MG CAPSULE 1 CAPSULE ORALLY BID TAKING COLACE 100 MG CAPSULE 1 CAPSULE NEEDED ORALLY ONCE A DAY NOT-TAKING CELEBREX 200 MG CAPSULE 1 CAPSULE WITH FOOD ORALLY ONCE A DAY NOT-TAKING OXYCODONE HCL 5 MG/5ML SOLUTION 5 ML NEEDED ORALLY EVERY 6 HRS NOT-TAKING DULOXETINE HCL 60 MG CAPSULE DELAYED RELEASE PARTICLES 1 CAPSULE ORALLY ONCE A DAY NOT-TAKING MILNACIPRAN HCL 100 MG TABLET 1 TABLET ORALLY TWICE A DAY NOT-TAKING NABUMETONE 750 MG TABLET DIRECTED ORALLY NOT-TAKING POLYETHYLENE GLYCOL 3350 17 GM PACKET 1 PACKET MIXED WITH 8 OUNCES OF FLUID ORALLY ONCE A DAY, NOTES: MIRALAX NOT-TAKING LYRICA 150 MG CAPSULE 1 CAPSULE ORALLY TWICW A DAY NOT-TAKING SENOKOT 8.6 MG TABLET 2 TABLETS AT BEDTIME NEEDED ORALLY ONCE A DAY NOT-TAKING TRAZODONE HCL 50 MG TABLET 1 TABLET AT BEDTIME NEEDED ORALLY ONCE A DAY NOT-TAKING ZOLMITRIPTAN 5 MG TABLET 1 TABLET ORALLY ONCE A DAY, NOTES: ZOMIG NOT-TAKING LIPITOR 20 MG TABLET 1 TABLET ORALLY ONCE A DAY NOT-TAKING PROAIR HFA AEROSOL SOLUTION 2 PUFFS NEEDED INHALATION PRN NOT-TAKING TIZANIDINE HCL 4 MG TABLET 1 TABLET NEEDED ORALLY THREE TIMES A DAY PRN SPASM NOT-TAKING VITAMIN D 125 MCG (5000 UT) CAPSULE DIRECTED ORALLY NOT-TAKING NABUMETONE(RELAFEN) 500 MG 500 MG TABLET ONE TABLET ORALLY EVERY 12 HOURS PRN PAIN NOT-TAKING ALBUTEROL SULFATE (2.5 MG/3ML) 0.083% NEBULIZATION SOLUTION 3 ML NEEDED INHALATION EVERY 6 HRS NOT-TAKING METHOCARBAMOL 500 MG TABLET 1.5 TABLETS ORALLY EVERY 4 HRS MEDICATION LIST REVIEWED AND RECONCILED WITH THE PATIENT PAST MEDICAL HISTORY SVT BREAST CANCER HYPOTHYROID MIGRANES ASTHMA FIBROMYALGIA BACK PAIN METASTATIC BREAST CANCER TO BONES ALLERGIES SULFA (FOR ALLERGY USE ONLY): ITCH / SWELLING MACRODANTIN: ITCH/ SWELLING CIPRO: ERYTHEMA NODNOSUM SOCIAL HISTORY GENERAL: TOBACCO USE ARE YOU A: NONSMOKER. LATEX QUESTIONNAIRE LATEX ALLERGY : HAVE YOU EVER DEVELOPED ANY TYPE OF REACTION AFTER HANDLING LATEX PRODUCTS SUCH RUBBER GLOVES, CONDOMS, DIAPHRAGMS, BALLOONS, SOCKS, OR UNDERWEAR?NO LATEX ALLERGY : HAVE YOU EVER DEVELOPED ANY TYPE OF REACTION DURING OR AFTER DENTAL APPOINTMENT, VAGINAL/RECTAL EXAMINATION, SURGICAL PROCEDURE, OR ANY OTHER EXPOSURE?NO LATEX RISK : HAVE YOU EVER HAD ANY DIFFICULTY BREATHING OR HIVES AFTER EATING OR HANDLING ANY FRUITS, OR VEGETABLES; SUCH KIWI, BANANAS, STONE FRUITS, OR CHESTNUTSNO LATEX RISK : DO YOU HAVE A PREVIOUS PERSONAL HISTORY OF MORE THAN NINE SURGERIES, SPINA BIFIDA, OR REPEATED CATHERIZATIONS? NO LATEX RISK : ARE YOU FREQUENTLY EXPOSED TO LATEX PRODUCTS IN YOUR OCCUPATION?NO DATE ASKED : 05/14/2021 ALCOHOL USE: YES. RECREATIONAL DRUG USE DRUG USE?NO EVANGELICAL [id number] PRESYBETERIAN LEARNING BARRIERS / SPECIAL NEEDS BARRIERS TO LEARNING?NO HEARING IMPAIRED?NO VISION IMPAIRED?YES READERS COGNITIVELY IMPAIRED?NO READINESS TO LEARN?YES LEARNING PREFERENCES?YES :HANDOUTS, DEMONSTRATION/VERBAL INSTRUCTION LEARNING CAPABILITIES PRESENT?YES EMOTIONAL BARRIERS?NO SPECIAL DEVICES?NO LPN PRIVATE DUTY NEEDED?NO DOMESTIC VIOLENCE DO YOU FEEL SAFE IN YOUR ENVIRONMENT?YES TODAY'S VISIT NOTES, FROM 0-10, WHAT LEVEL IS YOUR PAIN TODAY? 0. - PFS REFERRAL NEEDED?NO CLERGY REFERRAL NEEDED?NO PUBLIC HEALTH REFERRAL NEEDED?NO WAS THE PROVIDER NOTIFIED OF ANY PERTINENT INFO?NO HAS THE PATIENT BEEN EDUCATED REGARDING HIS/HER PLAN OF CARE?YES HAS THE PATIENT BEEN EDUCATED REGARDING PAIN, THE RISK FOR PAIN, THE IMPORTANCE OF EFFECTIVE PAIN MANAGEMENT, AND THE PAIN ASSESSMENT PROCESS?YES REVIEW OF SYSTEMS CONSTITUTIONAL: ANY RECENT FEVER NO . CHILLS NO . WEIGHT CHANGE OF UNKNOWN REASONS NO . GASTROENTEROLOGY: NEW UNEXPLAINABLE CHANGES IN BOWEL CONTROL NO . CONSTIPATION NO . GENITOURINARY: ANY NEW CHANGE IN BLADDER CONTROL? NO . NEUROLOGY: NEW ONSET DIZZINESS OR NEUROLOGICAL CHANGES NOT MENTIONED NO . NEW NUMBNESS OR PAIN PATTERNS NOT MENTIONED AND PERTINENT TO TODAY'S VISIT NO . CARDIOLOGY: NEW CHEST PRESSURE NO . PATIENT DENIES NO . RESPIRATORY: UNEXPLAINABLE COUGH NO . NEW SHORTNESS OF BREATH NO . VITAL SIGNS WT 138.4 LBS, HT 63 IN, BMI 24.51 INDEX, BP 108/66 MM HG, HR 73 /MIN, RR 18 /MIN, TEMP 98.2 F, OXYGEN SAT % 98%, SAFE IN ENV? (Y/N) YES, NA INITIALS CT 09:40T.AUDI MAYA. EXAMINATION GENERAL EXAMINATION: GENERALAWAKE,ALERT ,PLEASANT . PSYCHAFFECT NORMAL . LUNGS:LUNG RUST ARE CLEAR TO AUSCULTATION BILATERALLY. GOOD MOVEMENT OF AIR . HEART:S1, S2 IN A REGULAR RATE AND RHYTHM. NO SIGNIFICANT MURMURS, RUBS OR GALLOPS NOTED . ASSESSMENTS OTHER DORSALGIA - M54.89 (PRIMARY) TREATMENT OTHER DORSALGIA CONTINUE IBUPROFEN TABLET, 200 MG, 1 TABLET, ORALLY, TWICE A DAY NEEDED FOR PAIN MDD3 INCREASE LYRICA CAPSULE, 200 MG, 1 CAPSULE, ORALLY, BID, 30 DAYS, 60, REFILLS 2 CONTINUE COLACE CAPSULE, 100 MG, 1 CAPSULE NEEDED, ORALLY, ONCE A DAY NOTES: ADVISED TO INCREASE LYRICA TO 200 MG TWICE DAILY. FOLLOW-UP SCHEDULED IN 2 MONTHS. PROCEDURE CODES FA211 ESTABILISHED PATIENT [facility] CHARGE DISPOSITION & COMMUNICATION FOLLOW UP 2 MONTHS (REASON: THORACIC BACK PAIN, LOW BACK PAIN, HISTORY OF METASTATIC BREAST CA, EVALUATE INCREASE OF LYRICA TO 200 MG TWICE DAILY) ELECTRONICALLY SIGNED BY KIRAN CASH ON 05/15/2021 AT 12:57 PM EDT DISCLAIMER : THIS IS A VISIT SUMMARY EXTRACTED FROM THE [facility] CHART. IT IS NOT A COPY OF THE [facility] [facility] PROGRESS NOTE. ELLIE
== END ==
LOC: M PAIN 09:30
PROVIDERS: ATTEND Nurse Practitioner Family
DX: M54.89 Other dorsalgia (principal); G89.29 Other chronic pain; E03.9 Hypothyroidism, unspecified; G43.909 Migraine, unspecified, not intractable, without status migrainosus; J45.909 Unspecified asthma, uncomplicated; M79.7 Fibromyalgia; Z88.1 Allergy status to other antibiotic agents; Z88.2 Allergy status to sulfonamides; Z79.899 Other long term (current) drug therapy

== ENCOUNTER → 2021-05-18 | Outpatient (CLI) | payer OTHER ==
[~2021-05-18] MED LIST changes: -PREG200C PO
--- NOTE | 2021-05-19 10:00 | REP ---
INDICATION: RESTAGING RIGHT BREAST CANCER C50.811. Recurrent metastatic ER positive, [facility] negative, her 2 Farzana unknown breast cancer with widespread skeletal involvement and presumed pulmonary metastases. Treated with chemotherapy. Diagnosis May of 2013. Post radiation therapy to the thoracic spine and pelvis. Currently, increasing tumor markers. COMPARISON: Comparison is made with radionuclide bone scan from February 13, 2021, CT study of the chest abdomen and pelvis from April 09, 2021 and November 27, 2020.. No comparison PET-CT. TECHNIQUE: Forty-five minutes following the intravenous injection of a 8.20 mCi dose of F-18 FDG, three-dimensional PET scintigraphy is acquired from the skull base to the proximal thighs. Triplanar noncontrast CT scanning is acquired through the same anatomic range for attenuation correction, and image registration with scan parameters optimized to minimize radiation exposure to the patient. PET scintigraphy and CT datasets were fused and displayed on a workstation with multiplanar and projection display capability. FINDINGS: Head and neck soft tissues are unremarkable. No abnormal ila uptake is seen. No abnormal uptake is seen in either breast or axillary lymph node distribution. No internal mammary hypermetabolic adenopathy is seen. In the chest, there is no evidence of hilar or mediastinal hypermetabolic uptake. CT study again shows multiple pulmonary nodules but there are no nodules with a visibly hypermetabolic uptake. The largest nodule in the right lower lobe perihilar region displace maximum SUV value 2.23. No hypermetabolic pulmonary parenchymal uptake is seen. In the abdomen and pelvis, normal hepatic, splenic, gastrointestinal, and genitourinary tract uptake is seen. No abnormal intrapelvic or intra-abdominal uptake is appreciated. There is extensive hypermetabolic uptake distributed in the axial skeleton in a metastatic pattern similar to recent prior CT, MR, and radionuclide bone scan studies. There are sclerotic metastatic lesions in the right acetabulum and right superior pubic ramus, bilaterally in the symphysis pubis, and in the left tear superior pubic ramus. These are not hypermetabolic and are consistent with treated metastases. However, there is a large predominantly sclerotic hypermetabolic lesion occupying much of the mid and upper sacrum extending to the right more than to the left. Maximum standard uptake value in the sacral lesion ranges up to 15.63. There is a lesion in the right iliac bone which is also large and hypermetabolic, maximum SUV value 13.04. This is largely sclerotic as well. There is a hypermetabolic lesion in the L5 vertebral body with maximum SUV value 10.95. There are hypermetabolic lesions at L4, L2, L1, T12, T11. Maximum SUV value in these vertebral lesions ranges up to 11.64. Vertebral body as well as posterior element involvement is seen at these levels. There are non hypermetabolic sclerotic changes in the midthoracic spine consistent with treated metastatic lesions. There is a hypermetabolic right posterior rib lesion in the right posterior 7th rib. Maximum standard uptake value 3.92. The T10 vertebral body shows partial collapse and sclerosis but no hypermetabolic uptake. The thoracic spine pattern is unchanged compared with the April 27, 2021 MRI study. IMPRESSION: There is widespread skeletal hypermetabolic uptake with multiple areas of non hypermetabolic treated sclerotic disease as well as hypermetabolic metastatic disease to the axial skeleton. Only minimal non hypermetabolic uptake is seen in the known pulmonary nodule ower densities. <Electronically signed by Robbi Bermudez > 05/19/21 0919
== END ==
LOC: M PLARAD 10:32
PROVIDERS: ATTEND Internal Medicine Medical Oncology
DX: C50.811 Malignant neoplasm of overlapping sites of right female breast (principal); C79.51 Secondary malignant neoplasm of bone; R91.8 Other nonspecific abnormal finding of lung field
CPT/HCPCS: 78815; A9552

== ENCOUNTER → 2021-08-28 | Outpatient (CLI) | payer MEDICARE ==
[~2021-08-28] MED LIST changes: +ALPE1TAB5 PO; +DRON2.5C11 PO; +MORP1SOL5 PO; -MORP20SO3 PO; +MULT1TAB94 PO; +MV-M1TAB13 PO; +PREG200C PO; +VITA500C24 PO
== END ==
LOC: M PAIN 10:00
PROVIDERS: ATTEND Anesthesiology
DX: M54.89 Other dorsalgia (principal); M79.10 Myalgia, unspecified site; E03.9 Hypothyroidism, unspecified; G43.909 Migraine, unspecified, not intractable, without status migrainosus; J45.909 Unspecified asthma, uncomplicated; M79.7 Fibromyalgia; C79.51 Secondary malignant neoplasm of bone; Z79.891 Long term (current) use of opiate analgesic; Z79.899 Other long term (current) drug therapy; Z88.2 Allergy status to sulfonamides; Z88.1 Allergy status to other antibiotic agents; Z88.8 Allergy status to other drugs, medicaments and biological substances

== ENCOUNTER → 2021-09-28 | Outpatient (CLI) | payer OTHER ==
[~2021-09-28] MED LIST changes: -CYMB60CA3 PO; +CYMB60CA4 PO; +VITA200016 PO
--- NOTE | 2021-09-29 15:09 | REP ---
INDICATION: RESTAGING BREAST CANCER. COMPARISON: None. TECHNIQUE: FOLLOWING THE INJECTION OF 8.95 MCI OF FDG-18 SCANS WERE OBTAINED FROM THE HEAD THROUGH THE MID THIGHS. FINDINGS: NO ABNORMAL AREAS OF UPTAKE ARE IDENTIFIED IN THE SOFT TISSUES OF THE NECK, CHEST, ABDOMEN OR PELVIS. SIGNIFICANT INCREASED UPTAKE IS PRESENT IN THE BODY AND PEDICLE OF L2 WITH MAXIMUM SUV 8.05, BODY OF L4 WITH 3, BODY AND SPINOUS PROCESS OF L5 WITH SUV OF 4 AND DIFFUSE INTENSE UPTAKE IN THE SACRUM AND COCCYX WITH MAXIMUM UPTAKE OF 4.0, AND LARGE AREAS INCREASED UPTAKE IN THE RIGHT ILIAC BONE WITH MAXIMUM SUVS APPROXIMATELY 4. IMPRESSION: NUMEROUS AREAS OF ABNORMAL UPTAKE IN THE LOWER SPINE, RIGHT ILIAC BONE AND SACRUM AND COCCYX. <Electronically signed by Jordan Fernandez > 09/29/21 1078
== END ==
LOC: M PLARAD 11:03
PROVIDERS: ATTEND Internal Medicine Medical Oncology
DX: C50.919 Malignant neoplasm of unspecified site of unspecified female breast (principal); C79.51 Secondary malignant neoplasm of bone
CPT/HCPCS: 78815; A9552

== ENCOUNTER → 2021-10-23 | Outpatient (CLI) | payer OTHER ==
[~2021-10-23] MED LIST changes: +FULV250S IM; +PROHANCE 279.3MG/ML 15ML VIAL As Ordered ONE; +UREA20CR4 TOP
--- NOTE | 2021-10-23 17:22 | REPVR ---
PROCEDURE INFORMATION: Exam: MR Lumbar Spine Without and With Contrast Exam date and time: 10/23/2021 11:05 AM Age: 56 years old Clinical indication: Other: Breast CA w/ mets uptake l2 abn imag TECHNIQUE: Imaging protocol: Multiplanar magnetic resonance images of the lumbar spine without and with intravenous contrast. Contrast material: PROHANCE; Contrast volume: 11 ml; Contrast route: INTRAVENOUS (IV); COMPARISON: MRI-LS SPINE W/O FOLL WITH CON 05/26/2020 9:06 AM FINDINGS: Diffusely heterogeneous and enhancing marrow signal, compatible with diffuse osseous metastatic disease. Osseous thickening of the sacrum both anteriorly and posteriorly narrows the sacral spinal canal. Lumbar vertebral body heights are maintained. No cord compression. No abnormal cord signal. Conus medullaris terminates at the L1 level. Paravertebral soft tissues are unremarkable. L1-L2: No significant disc disease. No significant spinal canal stenosis. No neural foraminal stenosis. L2-L3: Small right paracentral disc protrusion superimposed over broad-based disc bulge and facet hypertrophy cause mild canal narrowing. No significant foraminal narrowing. L3-L4: Facet hypertrophy causes mild right foraminal narrowing. No significant canal narrowing. L4-L5: Broad-based disc bulge and facet hypertrophy cause mild to moderate canal narrowing with moderate left and severe right foraminal narrowing. L5-S1: Facet hypertrophy causes mild right and moderate left foraminal narrowing. No significant canal narrowing. IMPRESSION: 1. Diffuse osseous metastatic disease. Osseous thickening of the sacrum narrows the sacral spinal canal. 2. Spondylotic changes of the lumbar spine, as detailed above. Electronically signed by: Kamron Acevedo On 10/23/2021 17:21:49 PM
== END ==
LOC: M RAD 08:50
PROVIDERS: ATTEND Internal Medicine Medical Oncology
DX: C50.919 Malignant neoplasm of unspecified site of unspecified female breast (principal); M51.26 Other intervertebral disc displacement, lumbar region; M47.816 Spondylosis without myelopathy or radiculopathy, lumbar region; C79.51 Secondary malignant neoplasm of bone
CPT/HCPCS: 72158; A9576

== ENCOUNTER → 2021-11-04 | Outpatient (CLI) | payer MEDICARE ==
[~2021-11-04] MED LIST changes: -PROHANCE 279.3MG/ML 15ML VIAL As Ordered ONE
== END ==
LOC: M PAIN 10:00
PROVIDERS: ATTEND Anesthesiology
DX: M54.89 Other dorsalgia (principal); M79.10 Myalgia, unspecified site; C79.51 Secondary malignant neoplasm of bone; E03.9 Hypothyroidism, unspecified; G43.909 Migraine, unspecified, not intractable, without status migrainosus; M79.7 Fibromyalgia; C50.919 Malignant neoplasm of unspecified site of unspecified female breast; Z88.1 Allergy status to other antibiotic agents; Z88.5 Allergy status to narcotic agent; Z88.8 Allergy status to other drugs, medicaments and biological substances; Z79.891 Long term (current) use of opiate analgesic; Z79.899 Other long term (current) drug therapy

== ENCOUNTER → 2021-11-06 | Outpatient (CLI) | payer OTHER ==
[~2021-11-06] MED LIST changes: +AMMO12CR7 TOP; +ATEN25TA PO; +CALC600T57 PO; +NAPR-885 PO
== END ==
LOC: M ONCR 09:48
PROVIDERS: ATTEND General Practice
DX: C79.51 Secondary malignant neoplasm of bone (principal); C50.411 Malignant neoplasm of upper-outer quadrant of right female breast; Z92.3 Personal history of irradiation; Z92.21 Personal history of antineoplastic chemotherapy; Z88.2 Allergy status to sulfonamides; Z88.8 Allergy status to other drugs, medicaments and biological substances; Z79.891 Long term (current) use of opiate analgesic; Z79.899 Other long term (current) drug therapy

== ENCOUNTER → 2021-11-19 | Outpatient (CLI) | payer OTHER ==
[~2021-11-19] MED LIST changes: -AMMO12CR7 TOP; -ATEN25TA PO; -CALC600T57 PO; -NAPR-885 PO
--- NOTE | 2021-11-19 14:10 | REP ---
INDICATION: H/O FALL R/O FRACTURE. COMPARISON: 04/26/2019 TECHNIQUE: Two views FINDINGS: Since the last examination extensive blastic metastatic disease has developed throughout the imaged portion of the right hemipelvis and in multiple proximal femoral foci. There is no evidence of an acute fracture, dislocation, or subluxation. IMPRESSION: There is evidence of blastic metastatic disease as described above. Paget's disease can give the same appearance. This needs to be evaluated clinically. <Electronically signed by Piyush Chavez > 11/19/21 2126
== END ==
LOC: M RAD 13:03
PROVIDERS: ATTEND Internal Medicine Medical Oncology
DX: M25.551 Pain in right hip (principal)

== ENCOUNTER → 2022-01-06 | Outpatient (CLI) | payer OTHER ==
[~2022-01-06] MED LIST changes: +AMMO12CR7 TOP; +ATEN25TA PO; +PROHANCE 279.3MG/ML 15ML VIAL ONE
== END ==
LOC: M PLAIMG 10:00
PROVIDERS: ATTEND Internal Medicine Medical Oncology
DX: M54.2 Cervicalgia (principal); M62.81 Muscle weakness (generalized); C50.919 Malignant neoplasm of unspecified site of unspecified female breast; R90.82 White matter disease, unspecified

== ENCOUNTER → 2022-02-12 | Outpatient (CLI) | payer OTHER ==
[~2022-02-12] MED LIST changes: +CALC600T57 PO; +NAPR-885 PO; -PROHANCE 279.3MG/ML 15ML VIAL ONE; +PROHANCE 279.3MG/ML 5ML VIAL As Ordered ONE; +SENN-80
== END ==
LOC: M RAD 14:52
PROVIDERS: ATTEND Internal Medicine
DX: G95.89 Other specified diseases of spinal cord (principal); C79.51 Secondary malignant neoplasm of bone; S22.078A Other fracture of T9-T10 vertebra, initial encounter for closed fracture; S32.048A Other fracture of fourth lumbar vertebra, initial encounter for closed fracture; S32.028A Other fracture of second lumbar vertebra, initial encounter for closed fracture; X58.XXXA Exposure to other specified factors, initial encounter; Y92.9 Unspecified place or not applicable; Y93.9 Activity, unspecified; Y99.9 Unspecified external cause status; M47.816 Spondylosis without myelopathy or radiculopathy, lumbar region
CPT/HCPCS: 72157; 72158; A9576

== ENCOUNTER → 2022-02-17 | Outpatient (CLI) | payer OTHER ==
[~2022-02-17] MED LIST changes: +GASTROGRAFIN SOLUTION 30ML (Q9963) As Ordered ONE; +ISOVUE-370 76% 100ML VIAL As Ordered ONE; -PROHANCE 279.3MG/ML 5ML VIAL As Ordered ONE
== END ==
LOC: M RAD 12:56
PROVIDERS: ATTEND Internal Medicine
DX: C50.919 Malignant neoplasm of unspecified site of unspecified female breast (principal); R91.8 Other nonspecific abnormal finding of lung field; C78.00 Secondary malignant neoplasm of unspecified lung; C79.51 Secondary malignant neoplasm of bone
CPT/HCPCS: 71260; 74177; Q9963; Q9967

== ENCOUNTER → 2022-03-03 | Outpatient (CLI) | payer OTHER ==
[~2022-03-03] MED LIST changes: -GASTROGRAFIN SOLUTION 30ML (Q9963) As Ordered ONE; -ISOVUE-370 76% 100ML VIAL As Ordered ONE
== END ==
LOC: M RAD 11:41
PROVIDERS: ATTEND Internal Medicine
DX: C50.919 Malignant neoplasm of unspecified site of unspecified female breast (principal); C79.51 Secondary malignant neoplasm of bone
CPT/HCPCS: 78306; A9503

== ENCOUNTER → 2022-03-17 | Outpatient (CLI) | payer OTHER ==
[~2022-03-17] MED LIST changes: +AFIN10TA PO; +EXEM25TA PO; -SENN-80
== END ==
LOC: M ONCR 15:19
PROVIDERS: ATTEND General Practice
DX: C79.51 Secondary malignant neoplasm of bone (principal); Z92.3 Personal history of irradiation

== ENCOUNTER 2022-04-02 08:27 | Outpatient (RCR) | payer OTHER ==
[~2022-04-02 08:27] MED LIST changes: +ONDA-84 PO
[2022-04-08] MEDS ORDERED: COLA100C5 PO (10:24)
== END 2022-04-20 ==
LOC: M ONCR 08:27
PROVIDERS: ATTEND General Practice
DX: C79.51 Secondary malignant neoplasm of bone (principal)

== ENCOUNTER → 2022-04-21 | Outpatient (CLI) | payer MEDICARE ==
[~2022-04-21] MED LIST changes: +COLA100C5 PO
== END ==
LOC: M PAIN 09:30
PROVIDERS: ATTEND Nurse Practitioner Family
DX: M51.16 Intervertebral disc disorders with radiculopathy, lumbar region (principal); G89.29 Other chronic pain; E11.9 Type 2 diabetes mellitus without complications; E03.9 Hypothyroidism, unspecified; G43.909 Migraine, unspecified, not intractable, without status migrainosus; J45.909 Unspecified asthma, uncomplicated; M79.7 Fibromyalgia; Z86.14 Personal history of Methicillin resistant Staphylococcus aureus infection; Z88.1 Allergy status to other antibiotic agents; Z88.2 Allergy status to sulfonamides; Z79.899 Other long term (current) drug therapy

== ENCOUNTER 2022-05-15 21:22 | Emergency (ER) | payer MEDICARE, OTHER ==
[~2022-05-15] VITALS: Ht 160 cm; Wt 59.1 kg
[2022-05-15] MEDS ORDERED: PERCOCET 5MG/325MG TAB PO ONE (22:30)
[2022-05-15 23:24] VITALS: BP 119/73
[2022-06-01] MEDS ORDERED: OXYC-517 PO (08:14)
[2022-06-01] MEDS ORDERED: AFIN10TA PO (15:12)
== END 2022-05-15 23:26 | disposition home or self-care (01) ==
LOC: M ED 21:22
DX: S50.01XA Contusion of right elbow, initial encounter (principal); S70.01XA Contusion of right hip, initial encounter; W01.10XA Fall on same level from slipping, tripping and stumbling with subsequent striking against unspecified object, initial encounter; Y92.099 Unspecified place in other non-institutional residence as the place of occurrence of the external cause; C79.51 Secondary malignant neoplasm of bone; J45.909 Unspecified asthma, uncomplicated; Z79.890 Hormone replacement therapy; Z79.899 Other long term (current) drug therapy; Z88.8 Allergy status to other drugs, medicaments and biological substances; Z88.2 Allergy status to sulfonamides

== ENCOUNTER → 2022-06-21 | Outpatient (CLI) | payer MEDICARE, OTHER | LOC: M PAIN 10:00 | PROVIDERS: ATTEND Nurse Practitioner Family | DX: M51.16 Intervertebral disc disorders with radiculopathy, lumbar region (principal); G89.29 Other chronic pain; E11.9 Type 2 diabetes mellitus without complications; E03.9 Hypothyroidism, unspecified; G43.909 Migraine, unspecified, not intractable, without status migrainosus; J45.909 Unspecified asthma, uncomplicated; M79.7 Fibromyalgia; Z86.14 Personal history of Methicillin resistant Staphylococcus aureus infection; Z88.1 Allergy status to other antibiotic agents; Z88.2 Allergy status to sulfonamides; Z79.890 Hormone replacement therapy; Z79.899 Other long term (current) drug therapy ==

== ENCOUNTER → 2022-07-07 | Outpatient (CLI) | payer MEDICARE, OTHER | LOC: M ONCR 10:27 | PROVIDERS: ATTEND General Practice | DX: Z08 Encounter for follow-up examination after completed treatment for malignant neoplasm (principal); C79.51 Secondary malignant neoplasm of bone; Z85.3 Personal history of malignant neoplasm of breast; Z79.51 Long term (current) use of inhaled steroids; Z79.890 Hormone replacement therapy; Z79.891 Long term (current) use of opiate analgesic; Z79.899 Other long term (current) drug therapy; Z88.1 Allergy status to other antibiotic agents; Z88.2 Allergy status to sulfonamides; Z88.8 Allergy status to other drugs, medicaments and biological substances; Z92.3 Personal history of irradiation ==

== ENCOUNTER → 2022-07-09 | Outpatient (CLI) | payer MEDICARE, OTHER | LOC: M PLARAD 05-14 09:58 | PROVIDERS: ATTEND Internal Medicine Medical Oncology | DX: M51.26 Other intervertebral disc displacement, lumbar region (principal); M48.061 Spinal stenosis, lumbar region without neurogenic claudication; C79.51 Secondary malignant neoplasm of bone; M84.58XA Pathological fracture in neoplastic disease, other specified site, initial encounter for fracture ==

== ENCOUNTER → 2022-07-27 | Outpatient (CLI) | payer MEDICARE, OTHER ==
[~2022-07-27] VITALS: Ht 157.5 cm; Wt 61.8 kg
[~2022-07-27] MED LIST changes: +ALEN70TA87 PO; -FOSA70TA PO; +ONDA4TAB6 PO
[2022-07-27 08:15] VITALS: BP 117/74
== END ==
LOC: M PAL 07:42
PROVIDERS: ATTEND Nurse Practitioner Adult Health
DX: C79.51 Secondary malignant neoplasm of bone (principal); Z85.3 Personal history of malignant neoplasm of breast; Z92.21 Personal history of antineoplastic chemotherapy; Z92.3 Personal history of irradiation; M79.10 Myalgia, unspecified site; R11.0 Nausea; J45.909 Unspecified asthma, uncomplicated; M79.7 Fibromyalgia; R01.1 Cardiac murmur, unspecified; M19.90 Unspecified osteoarthritis, unspecified site; Z90.710 Acquired absence of both cervix and uterus; Z90.721 Acquired absence of ovaries, unilateral; Z90.79 Acquired absence of other genital organ(s); Z80.7 Family history of other malignant neoplasms of lymphoid, hematopoietic and related tissues; Z80.3 Family history of malignant neoplasm of breast; Z80.8 Family history of malignant neoplasm of other organs or systems; Z51.5 Encounter for palliative care; M51.37 Other intervertebral disc degeneration, lumbosacral region; M54.16 Radiculopathy, lumbar region; M48.061 Spinal stenosis, lumbar region without neurogenic claudication; K59.00 Constipation, unspecified; G62.9 Polyneuropathy, unspecified; R20.2 Paresthesia of skin; R53.83 Other fatigue; Z88.1 Allergy status to other antibiotic agents; Z88.2 Allergy status to sulfonamides; Z79.899 Other long term (current) drug therapy; Z79.890 Hormone replacement therapy; Z79.891 Long term (current) use of opiate analgesic

== ENCOUNTER → 2022-07-28 | Outpatient (CLI) | payer MEDICARE, OTHER | LOC: M RAD 10:21 | PROVIDERS: ATTEND Internal Medicine Medical Oncology | DX: R06.00 Dyspnea, unspecified (principal); R91.8 Other nonspecific abnormal finding of lung field ==

== ENCOUNTER → 2022-08-05 | Outpatient (CLI) | payer MEDICARE, OTHER ==
[~2022-08-05] MED LIST changes: +CAPE1TAB2 PO; +GASTROGRAFIN SOLUTION 30ML (Q9963) As Ordered ONE; +ISOVUE-370 76% 100ML VIAL As Ordered ONE; +PEPC40TA12 PO; +PRED50TA PO
== END ==
LOC: M RAD 12:30
PROVIDERS: ATTEND Internal Medicine Medical Oncology
DX: C50.911 Malignant neoplasm of unspecified site of right female breast (principal)

== ENCOUNTER → 2022-08-12 | Outpatient (CLI) | payer MEDICARE, OTHER ==
[~2022-08-12] MED LIST changes: -GASTROGRAFIN SOLUTION 30ML (Q9963) As Ordered ONE; -ISOVUE-370 76% 100ML VIAL As Ordered ONE
== END ==
LOC: M RAD 15:59
PROVIDERS: ATTEND Internal Medicine Medical Oncology
DX: C50.919 Malignant neoplasm of unspecified site of unspecified female breast (principal); J90 Pleural effusion, not elsewhere classified; C78.7 Secondary malignant neoplasm of liver and intrahepatic bile duct

== ENCOUNTER → 2022-09-04 | Outpatient (REF) | payer MEDICARE, OTHER ==
[~2022-09-04] MED LIST changes: +PROC10TA5 PO
[2022-09-04 14:53] LABS: CLOSTRIDIUM DIFFICILE PCR NEGATIVE (NEGATIVE)
== END ==
LOC: M LAB REF 13:48
PROVIDERS: ATTEND Internal Medicine Medical Oncology
DX: C50.919 Malignant neoplasm of unspecified site of unspecified female breast (principal)

== ENCOUNTER → 2022-09-14 | Outpatient (CLI) | payer MEDICARE, OTHER ==
[~2022-09-14] VITALS: Ht 160 cm; Wt 59.4 kg
[2022-09-14 11:45] VITALS: BP 119/73
== END ==
LOC: M PAL 11:19
PROVIDERS: ATTEND Nurse Practitioner Adult Health
DX: C50.911 Malignant neoplasm of unspecified site of right female breast (principal); C78.00 Secondary malignant neoplasm of unspecified lung; C79.89 Secondary malignant neoplasm of other specified sites; C79.70 Secondary malignant neoplasm of unspecified adrenal gland; G89.3 Neoplasm related pain (acute) (chronic); J45.909 Unspecified asthma, uncomplicated; K59.00 Constipation, unspecified; M54.50 Low back pain, unspecified; M25.551 Pain in right hip; M19.90 Unspecified osteoarthritis, unspecified site; M79.7 Fibromyalgia; R06.02 Shortness of breath; R01.1 Cardiac murmur, unspecified; R53.83 Other fatigue; Z80.3 Family history of malignant neoplasm of breast; Z88.1 Allergy status to other antibiotic agents; Z79.891 Long term (current) use of opiate analgesic; Z79.899 Other long term (current) drug therapy; Z92.21 Personal history of antineoplastic chemotherapy; Z90.710 Acquired absence of both cervix and uterus; Z88.2 Allergy status to sulfonamides; Z51.5 Encounter for palliative care

== ENCOUNTER 2022-09-22 12:26 | Emergency (ER) | payer MEDICARE, OTHER ==
[~2022-09-22] VITALS: Ht 160 cm; Wt 59.6 kg
[2022-09-22] MEDS ORDERED: NS 1,000 ML IV SCH (14:35)
[2022-09-22] MEDS: IPRATROPIUM 0.5MG/ALBUTEROL 2.5MG INH SOL UD 3ML (DUONEB) NEB PRN ×3 (14:46→15:21)
[2022-09-22 15:26] LABS: ABG BASE EXCESS -2.7 (-2.0-2.0); ABG HCO3 20.3 MEQ/L (22.0-26.0); ABG O2 SATURATION 97.7 % (95.0-99.0); ABG PARTIAL PRESSURE CO2 28.9 mmHg (35.0-45.0); ABG PARTIAL PRESSURE O2 102.8 mmHg (75.0-100.0); ABG STANDARD HCO3 22.3 MEQ/L (22.0-26.0); ABG TOTAL CO2 21.2 MEQ/L (22.0-29.0); ABG pH (ARTERIAL) 7.464 UNITS (7.350-7.450)
[2022-09-22 15:28] LABS: BASO % 0.3 % (0.0-1.0); EOS # 0.4 10^3/uL (0.0-0.5); EOS % 5.2 % (0.0-3.0); HEMATOCRIT 30.8 % (36.0-47.0); HEMOGLOBIN 10.2 g/dl (12.0-15.5); LYMPH # 0.4 10^3/uL (1.5-5.0); LYMPH % 5.3 % (24.0-44.0); MEAN CORPUSCULAR HEMOGLOBIN 31.2 pg (27.0-33.0); MEAN CORPUSCULAR HGB CONC 33.1 g/dl (32.0-36.5); MEAN CORPUSCULAR VOLUME 94.2 fl (80.0-96.0); MONO # 0.9 10^3/uL (0.0-0.8); MONO % 12.3 % (2.0-8.0); NEUTROPHILS # 5.6 10^3/uL (1.5-8.5); NEUTROPHILS % 76.2 % (36.0-66.0); PLATELET COUNT, AUTOMATED 252 10^3/uL (150-450); RED BLOOD COUNT 3.27 10^6/uL (4.00-5.40); WHITE BLOOD COUNT 7.3 10^3/uL (4.0-10.0)
[2022-09-22 15:40] LABS: INR 1.35; PROTHROMBIN TIME 16.9 SECONDS (12.5-14.5)
[2022-09-22 15:41] LABS: PARTIAL THROMBOPLASTIN TIME 29.5 SECONDS (24.8-34.2)
[2022-09-22 16:13] LABS: ALBUMIN 3.3 GM/DL (3.2-5.2); ALT/SGPT 36 U/L (12-78); BILIRUBIN,DIRECT 0.2 MG/DL (0.0-0.2); BILIRUBIN,TOTAL 0.6 MG/DL (0.2-1.0); BLOOD UREA NITROGEN 7 MG/DL (7-18); CALCIUM LEVEL 7.9 MG/DL (8.5-10.1); CARBON DIOXIDE LEVEL 25 MEQ/L (21-32); CHLORIDE LEVEL 112 MEQ/L (98-107); CREATININE FOR GFR 0.56 MG/DL (0.55-1.30); GLOMERULAR FILTRATION RATE > 60.0 (>51); GLUCOSE, FASTING 100 MG/DL (70-100); POTASSIUM SERUM 3.2 MEQ/L (3.5-5.1); SODIUM LEVEL 142 MEQ/L (136-145); TOTAL PROTEIN 5.8 GM/DL (6.4-8.2)
[2022-09-22] MEDS ORDERED: ISOVUE-370 76% 100ML VIAL As Ordered ONE (16:20)
[2022-09-22 16:21] LABS: CK-MB VALUE MASS 2.3 NG/ML (<3.6); MB/CK RELATIVE INDEX 1.4 (< OR =4)
[2022-09-22 18:15] VITALS: BP 118/63
[2022-09-30] MEDS ORDERED: CAPE1TAB2 PO (12:12)
[2022-09-30] MEDS ORDERED: FURO20TA2 PO (12:14)
[2022-10-07] MEDS ORDERED: OXYC-517 PO (12:29)
[2022-10-07] MEDS ORDERED: PREG200C PO (12:29)
== END 2022-09-22 18:29 | disposition home or self-care (01) ==
LOC: M ED 12:26
DX: J90 Pleural effusion, not elsewhere classified (principal); C34.90 Malignant neoplasm of unspecified part of unspecified bronchus or lung; E11.9 Type 2 diabetes mellitus without complications; Z88.1 Allergy status to other antibiotic agents
CPT/HCPCS: 71045; 71275; 80048; 80076; 82550; 82553; 82803; 83605; 84484; 85025; 85610; 85730; 87486; 87581; 87633; 87798; 93005; 93041; 94640; 94760; 96360; 96361; 99285; Q9967

== ENCOUNTER → 2022-09-30 | Outpatient (CLI) | payer MEDICARE, OTHER ==
[~2022-09-30] MED LIST changes: +FURO20TA2 PO
== END ==
LOC: M RAD 12:37
PROVIDERS: ATTEND Internal Medicine Medical Oncology
DX: R60.0 Localized edema (principal); C50.919 Malignant neoplasm of unspecified site of unspecified female breast

== ENCOUNTER → 2022-10-26 | Outpatient (CLI) | payer MEDICARE, OTHER ==
[~2022-10-26] VITALS: Ht 160 cm; Wt 59.0 kg
[2022-10-26 10:29] VITALS: BP 112/75
== END ==
LOC: M PAL 09:48
PROVIDERS: ATTEND Nurse Practitioner Adult Health
DX: C50.911 Malignant neoplasm of unspecified site of right female breast (principal); C78.00 Secondary malignant neoplasm of unspecified lung; C79.89 Secondary malignant neoplasm of other specified sites; C79.70 Secondary malignant neoplasm of unspecified adrenal gland; G89.3 Neoplasm related pain (acute) (chronic); J45.909 Unspecified asthma, uncomplicated; K59.00 Constipation, unspecified; M54.50 Low back pain, unspecified; M19.90 Unspecified osteoarthritis, unspecified site; M79.7 Fibromyalgia; Z92.21 Personal history of antineoplastic chemotherapy; Z51.5 Encounter for palliative care; Z90.710 Acquired absence of both cervix and uterus; Z80.3 Family history of malignant neoplasm of breast; R01.1 Cardiac murmur, unspecified; Z85.820 Personal history of malignant melanoma of skin; L27.1 Localized skin eruption due to drugs and medicaments taken internally; R53.83 Other fatigue; R63.0 Anorexia; Z88.1 Allergy status to other antibiotic agents; Z88.2 Allergy status to sulfonamides; Z88.8 Allergy status to other drugs, medicaments and biological substances; Z79.890 Hormone replacement therapy; Z79.899 Other long term (current) drug therapy; Z79.891 Long term (current) use of opiate analgesic

== ENCOUNTER → 2022-11-26 | Outpatient (CLI) | payer MEDICARE, OTHER | LOC: M RAD 15:15 | PROVIDERS: ATTEND Specialist | DX: C79.51 Secondary malignant neoplasm of bone (principal) ==

== ENCOUNTER → 2022-12-29 | Outpatient (CLI) | payer MEDICARE, OTHER, MEDICAID ==
[~2022-12-29] VITALS: Ht 160 cm; Wt 61.1 kg
[2022-12-29 08:42] VITALS: BP 119/81
== END ==
LOC: M PAL 08:34
PROVIDERS: ATTEND Nurse Practitioner Adult Health
DX: C50.911 Malignant neoplasm of unspecified site of right female breast (principal); C78.00 Secondary malignant neoplasm of unspecified lung; C79.89 Secondary malignant neoplasm of other specified sites; C79.70 Secondary malignant neoplasm of unspecified adrenal gland; G89.3 Neoplasm related pain (acute) (chronic); J45.909 Unspecified asthma, uncomplicated; K59.00 Constipation, unspecified; M54.50 Low back pain, unspecified; M19.90 Unspecified osteoarthritis, unspecified site; M79.7 Fibromyalgia; L27.1 Localized skin eruption due to drugs and medicaments taken internally; M25.532 Pain in left wrist; Z51.5 Encounter for palliative care; Z92.21 Personal history of antineoplastic chemotherapy; Z90.710 Acquired absence of both cervix and uterus; Z80.3 Family history of malignant neoplasm of breast; R01.1 Cardiac murmur, unspecified; Z85.820 Personal history of malignant melanoma of skin; R53.83 Other fatigue; R63.0 Anorexia; Z88.1 Allergy status to other antibiotic agents; Z88.2 Allergy status to sulfonamides; Z88.8 Allergy status to other drugs, medicaments and biological substances; Z79.890 Hormone replacement therapy; Z79.891 Long term (current) use of opiate analgesic; Z79.899 Other long term (current) drug therapy

== ENCOUNTER → 2023-01-07 | Outpatient (CLI) | payer MEDICARE, OTHER | LOC: M ONCR 10:31 | PROVIDERS: ATTEND General Practice | DX: C50.411 Malignant neoplasm of upper-outer quadrant of right female breast (principal); C79.51 Secondary malignant neoplasm of bone; Z79.890 Hormone replacement therapy; Z79.891 Long term (current) use of opiate analgesic; Z79.899 Other long term (current) drug therapy; Z88.1 Allergy status to other antibiotic agents; Z88.2 Allergy status to sulfonamides; Z88.8 Allergy status to other drugs, medicaments and biological substances ==

== ENCOUNTER → 2023-01-12 | Outpatient (CLI) | payer MEDICARE, OTHER ==
[~2023-01-12] MED LIST changes: +GASTROGRAFIN SOLUTION 30ML As Ordered ONE; +ISOVUE-370 76% 100ML VIAL As Ordered ONE
== END ==
LOC: M RAD 11:09
PROVIDERS: ATTEND Internal Medicine Medical Oncology
DX: C50.919 Malignant neoplasm of unspecified site of unspecified female breast (principal); R91.8 Other nonspecific abnormal finding of lung field; J90 Pleural effusion, not elsewhere classified; K76.89 Other specified diseases of liver
CPT/HCPCS: 71260; 74177; Q9963; Q9967

== ENCOUNTER → 2023-01-31 | Outpatient (CLI) | payer MEDICARE, OTHER, MEDICAID ==
[~2023-01-31] MED LIST changes: -GASTROGRAFIN SOLUTION 30ML As Ordered ONE; -ISOVUE-370 76% 100ML VIAL As Ordered ONE; +VITA100093 PO
== END ==
LOC: M LABSMTC 11:15
PROVIDERS: ATTEND Anesthesiology
DX: Z01.812 Encounter for preprocedural laboratory examination (principal); Z20.822 Contact with and (suspected) exposure to COVID-19

== ENCOUNTER → 2023-02-02 | Outpatient (CLI) | payer MEDICARE, OTHER ==
[~2023-02-02] MED LIST changes: +LIDOCAINE 1% MDV 20ML VIAL As Ordered ONE; +MIDAZOLAM INJ 2MG/2ML VIAL As Ordered ONE; +NS 1,000 ML IV SCH; +ceFAZolin 2 GM/D5W 50 ML IV BAG As Ordered ONE; +ceFAZolin SOD 2 GM in IV 1 EA IV ONE; +diphenhydrAMINE 50MG/ML VIAL As Ordered ONE; +fentaNYL 100 MCG/2 ML INJECTION As Ordered ONE
[2023-02-02 15:00] VITALS: BP 141/80
== END ==
LOC: M IRPRO 10:51
PROVIDERS: ATTEND Internal Medicine Medical Oncology
DX: C50.919 Malignant neoplasm of unspecified site of unspecified female breast (principal)
CPT/HCPCS: 36561; 99152; 99153; C1769; C1788; C1894; J0690; J1200; J1642; J1644; J2250; J3010

== ENCOUNTER → 2023-02-09 | Outpatient (CLI) | payer MEDICARE, OTHER, MEDICAID ==
[~2023-02-09] MED LIST changes: -LIDOCAINE 1% MDV 20ML VIAL As Ordered ONE; +MECL-136 PO; -MIDAZOLAM INJ 2MG/2ML VIAL As Ordered ONE; -NS 1,000 ML IV SCH; -ceFAZolin 2 GM/D5W 50 ML IV BAG As Ordered ONE; -ceFAZolin SOD 2 GM in IV 1 EA IV ONE; -diphenhydrAMINE 50MG/ML VIAL As Ordered ONE; -fentaNYL 100 MCG/2 ML INJECTION As Ordered ONE
== END ==
LOC: M PAL 07:24
PROVIDERS: ATTEND Nurse Practitioner Adult Health
DX: C50.911 Malignant neoplasm of unspecified site of right female breast (principal); C78.00 Secondary malignant neoplasm of unspecified lung; C79.89 Secondary malignant neoplasm of other specified sites; C79.70 Secondary malignant neoplasm of unspecified adrenal gland; G89.3 Neoplasm related pain (acute) (chronic); J45.909 Unspecified asthma, uncomplicated; M79.7 Fibromyalgia; R01.1 Cardiac murmur, unspecified; Z90.710 Acquired absence of both cervix and uterus; Z51.5 Encounter for palliative care; R11.2 Nausea with vomiting, unspecified; R42 Dizziness and giddiness; Z79.891 Long term (current) use of opiate analgesic; Z79.899 Other long term (current) drug therapy; Z88.2 Allergy status to sulfonamides; Z88.1 Allergy status to other antibiotic agents; Z88.8 Allergy status to other drugs, medicaments and biological substances; Z79.51 Long term (current) use of inhaled steroids

== ENCOUNTER 2023-02-14 08:35 | Observation (INO) | payer MEDICARE, OTHER ==
[~2023-02-14] VITALS: Ht 160 cm; Wt 58.8 kg
[2023-02-14] MEDS ORDERED: IBUPROFEN 600MG TAB PO ONE (09:05)
[2023-02-14 09:35] LABS: VENOUS BASE EXCESS 1.7 (-2.0-2.0); VENOUS HCO3 27.5 MEQ/L (23.0-27.0); VENOUS O2 SATURATION 73.9 % (60.0-80.0); VENOUS PARTIAL PRESSURE O2 41.2 mmHg (30.0-50.0); VENOUS PH 7.376 UNITS (7.330-7.430); VENOUS STANDARD HCO3 25.5 MEQ/L
[2023-02-14 09:40] LABS: HEMATOCRIT 34.5 % (36.0-47.0); HEMOGLOBIN 11.5 g/dl (12.0-15.5); MEAN CORPUSCULAR HEMOGLOBIN 32.7 pg (27.0-33.0); MEAN CORPUSCULAR HGB CONC 33.3 g/dl (32.0-36.5); PLATELET COUNT, AUTOMATED 169 10^3/uL (150-450); RED BLOOD COUNT 3.52 10^6/uL (4.00-5.40); WHITE BLOOD COUNT 5.3 10^3/uL (4.0-10.0)
[2023-02-14 09:54] LABS: INR 1.08; PROTHROMBIN TIME 14.2 SECONDS (12.5-14.5)
[2023-02-14 10:05] LABS: ATYPICAL LYMPH 2 % (0-5); BASOPHILS 1 % (0-1); EOSINOPHILS 1 % (0-3); LYMPHOCYTES 10 % (16-44); MONOCYTES 6 % (0-5); MYELOCYTES 3 % (0-0); NEUTROPHILS 73 % (28-66)
[2023-02-14 10:06] LABS: ANISOCYTOSIS 1+; PLATELET ESTIMATE NORMAL (NORMAL); POIKILOCYTOSIS 1+; POLYCHROMASIA 1+
[2023-02-14 10:09] LABS: THYROID STIMULATING HORMONE 2.219 uIU/ML (0.55-4.78); THYROXINE (T4) 12.6 UG/DL (4.5-10.9)
[2023-02-14 10:11] LABS: ALBUMIN 3.1 G/DL (3.2-5.2); ALKALINE PHOSPHATASE 117 U/L (46-116); ALT/SGPT 128 U/L (7.0-40); AST/SGOT 125 U/L (<34); BILIRUBIN,DIRECT 0.2 MG/DL (<0.4); BILIRUBIN,TOTAL 0.5 MG/DL (0.3-1.2); BLOOD UREA NITROGEN 19 MG/DL (9-23); CALCIUM LEVEL 8.4 MG/DL (8.5-10.1); CARBON DIOXIDE LEVEL 27 MMOL/L (20-31); CHLORIDE LEVEL 101 MMOL/L (98-107); CREATININE FOR GFR 0.77 MG/DL (0.55-1.30); GLOMERULAR FILTRATION RATE > 60.0 (>51); GLUCOSE, FASTING 96 MG/DL (60-100); POTASSIUM SERUM 4.3 MMOL/L (3.5-5.1); SODIUM LEVEL 138 MMOL/L (136-145); TOTAL PROTEIN 6.2 G/DL (5.7-8.2)
[2023-02-14] MEDS ORDERED: ISOVUE-370 76% 100ML VIAL As Ordered ONE (11:03)
[2023-02-14] MEDS ORDERED: cefTRIAXone SOD 1 GM in D5W MINI-BAG PLUS 50 ML IV ONE (13:45)
[2023-02-14] MEDS ORDERED: DOXYCYCLINE HYCLATE 100MG TABLET PO ONE (13:45)
[2023-02-14 14:53] LABS: LDH LACTATE DEHYDROGENASE 668 U/L (120-246)
[2023-02-14 15:58] LABS: PH BODY FLUID 7.568 UNITS (NOT ESTABLISHED); SOURCE, BODY FLUID pH PLEURAL
[2023-02-14 16:14] LABS: APPEARANCE, BODY FLUID CLEAR (CLEAR); PLEURAL FL COLOR YELLOW (COLORLESS); SOURCE, BODY FLUID PLEURAL
[2023-02-14 16:51] LABS: SOURCE, BODY FLUID ALBUMIN PLEURAL
[2023-02-14 16:56] LABS: SOURCE, BODY FLUID GLUCOSE PLEURAL
[2023-02-14 16:57] LABS: LDH, BODY FLUID 226 U/L (NOT ESTABLISHED); SOURCE, BODY FLUID LDH PLEURAL
[2023-02-14 16:58] LABS: SOURCE, BODY FLUID TOT PROTEIN PLEURAL; TOTAL PROTEIN, BODY FLUID 4.1 G/DL (NOT ESTABLISHED)
[2023-02-14 17:35] VITALS: BP 124/84
[2023-02-14] MEDS ORDERED: SODIUM CHLORIDE 0.9% INJ 10 ML SYR IV PRN (18:05)
[2023-02-14 18:43] VITALS: BP 122/82
[2023-02-14] MEDS ORDERED: HOME MED LIST COMPLETE! XX SCH (19:20)
[2023-02-14] MEDS: SODIUM CHLORIDE 0.9% INJ 10 ML SYR IV SCH (20:01)
[2023-02-14] MEDS ORDERED: DOCUSATE SODIUM 100MG CAPSULE PO PRN (20:10)
[2023-02-14 20:11] VITALS: BP 120/83
[2023-02-14] MEDS: LACTIC ACID 12% LOTION 225 GM BTL TOP SCH (21:00)
[2023-02-15] MEDS: oxyCODONE 5MG TAB PO PRN ×2 (04:37→11:08)
[2023-02-15 05:51] VITALS: BP 119/81
[2023-02-15] MEDS ORDERED: LEVOTHYROXINE 75MCG TABLET (0.075MG) PO SCH (06:00)
[2023-02-15 06:26] LABS: HEMATOCRIT 32.4 % (36.0-47.0); HEMOGLOBIN 10.8 g/dl (12.0-15.5); MEAN CORPUSCULAR HEMOGLOBIN 32.6 pg (27.0-33.0); MEAN CORPUSCULAR HGB CONC 33.3 g/dl (32.0-36.5); MEAN CORPUSCULAR VOLUME 97.9 fl (80.0-96.0); PLATELET COUNT, AUTOMATED 160 10^3/uL (150-450); RED BLOOD COUNT 3.31 10^6/uL (4.00-5.40)
[2023-02-15 06:58] LABS: ALBUMIN 2.8 G/DL (3.2-5.2); ALKALINE PHOSPHATASE 110 U/L (46-116); ALT/SGPT 107 U/L (7.0-40); AST/SGOT 104 U/L (<34); BILIRUBIN,TOTAL 0.3 MG/DL (0.3-1.2); BLOOD UREA NITROGEN 19 MG/DL (9-23); CALCIUM LEVEL 8.1 MG/DL (8.5-10.1); CARBON DIOXIDE LEVEL 24 MMOL/L (20-31); CHLORIDE LEVEL 105 MMOL/L (98-107); CREATININE FOR GFR 0.73 MG/DL (0.55-1.30); GLOMERULAR FILTRATION RATE > 60.0 (>51); GLUCOSE, FASTING 102 MG/DL (60-100); POTASSIUM SERUM 4.6 MMOL/L (3.5-5.1); SODIUM LEVEL 138 MMOL/L (136-145); TOTAL PROTEIN 5.7 G/DL (5.7-8.2)
[2023-02-15] MEDS ORDERED: ONDANSETRON 4MG ORAL DISINTEGRATING TAB PO PRN (08:10)
[2023-02-15] MEDS ORDERED: ALBUTEROL 90 MCG/ACT 8GM HFA INHALER INH PRN (08:10)
[2023-02-15] MEDS ORDERED: MECLIZINE 12.5 MG TAB PO PRN (08:10)
[2023-02-15] MEDS ORDERED: PROCHLORPERAZINE 5MG TAB PO PRN (08:10)
[2023-02-15] MEDS ORDERED: VITAMIN D 1,000 INTERNATIONAL UNITS TABLET PO SCH (09:00)
[2023-02-15] MEDS ORDERED: FAMOTIDINE 20 MG TAB PO SCH (09:00)
[2023-02-15] MEDS: LACTIC ACID 12% LOTION 225 GM BTL TOP SCH (09:39)
[2023-02-15 11:45] VITALS: BP 118/73
[2023-02-15 12:15] VITALS: BP 117/73
[2023-02-15 12:45] VITALS: BP 118/73
[2023-02-15 14:00] VITALS: BP 123/72
[2023-02-15] MEDS: SODIUM CHLORIDE 0.9% INJ 10 ML SYR IV SCH (14:50)
== END 2023-02-15 16:35 | disposition home or self-care (01) ==
LOC: M ED 08:35 → INTOOBSV 14:23 → M ED INP 14:23 → ENRESERV 15:34 → M MSPAV 17:23
PROVIDERS: ADMIT Internal Medicine; ATTEND Family Medicine
DX: C50.919 Malignant neoplasm of unspecified site of unspecified female breast (principal); J91.0 Malignant pleural effusion; C78.7 Secondary malignant neoplasm of liver and intrahepatic bile duct; C78.00 Secondary malignant neoplasm of unspecified lung; Z79.899 Other long term (current) drug therapy; Z88.2 Allergy status to sulfonamides; Z88.8 Allergy status to other drugs, medicaments and biological substances; Z92.21 Personal history of antineoplastic chemotherapy
CPT/HCPCS: 32555; 36415; 36591; 70450; 70544; 70551; 71045; 71046; 71275; 80048; 80053; 80076; 82042; 82803; 82945; 83615; 83880; 83986; 84145; 84157; 84436; 84443; 85025; 85027; 85610; 86300; 87070; 87077; 87205; 87486; 87581; 87633; 87798; 88108; 88305; 88313; 89051; 93005; 93041; 94760; 96365; 96375; 96376; 99285; G0378; G0463; J0696; Q9967

== ENCOUNTER → 2023-02-22 | Outpatient (POV) | payer MEDICARE, OTHER ==
[~2023-02-22] VITALS: Ht 160 cm; Wt 57.7 kg
[~2023-02-22] MED LIST changes: +SENN-186 PO; -SENN-80 PO
[2023-02-22 13:50] VITALS: BP 131/77
== END ==
LOC: M IRPOV 13:43
PROVIDERS: ATTEND Radiology Diagnostic Radiology
DX: Z45.2 Encounter for adjustment and management of vascular access device (principal); Z88.1 Allergy status to other antibiotic agents; Z88.2 Allergy status to sulfonamides

== ENCOUNTER → 2023-02-28 | Outpatient (CLI) | payer MEDICARE, OTHER | LOC: M RAD 08:21 | PROVIDERS: ATTEND Internal Medicine | DX: R91.8 Other nonspecific abnormal finding of lung field (principal); J90 Pleural effusion, not elsewhere classified ==

== ENCOUNTER 2023-03-07 12:30 | Inpatient (IN) | payer MEDICARE, OTHER ==
[~2023-03-07] VITALS: Ht 160 cm; Wt 58.7 kg
[2023-03-07] MEDS: SODIUM CHLORIDE 0.9% INJ 10 ML SYR IV SCH ×2 (09:00→15:47)
[2023-03-07 15:22] LABS: RSV AMPLIFICATION NEGATIVE (NEGATIVE)
[2023-03-07] MEDS ORDERED: HOME MED LIST COMPLETE! XX SCH (16:45)
[2023-03-07] MEDS ORDERED: VITA200012 PO (16:45)
[2023-03-07] MEDS ORDERED: ISOVUE-370 76% 100ML VIAL As Ordered ONE (16:55)
[2023-03-07] MEDS ORDERED: oxyCODONE 5MG TAB PO PRN (17:00)
[2023-03-07] MEDS ORDERED: PROCHLORPERAZINE 5MG TAB PO PRN (17:00)
[2023-03-07] MEDS ORDERED: DOCUSATE SODIUM 100MG CAPSULE PO PRN (17:00)
[2023-03-07] MEDS ORDERED: ONDANSETRON 4MG ORAL DISINTEGRATING TAB PO PRN (17:00)
[2023-03-07] MEDS ORDERED: MECLIZINE 12.5 MG TAB PO PRN (17:00)
[2023-03-07] MEDS ORDERED: MIRALAX *UNIT DOSE* 17GM PACKET PO PRN (17:35)
[2023-03-07] MEDS ORDERED: SENNA 8.6 MG TAB (SENOKOT) PO PRN (17:35)
[2023-03-07 18:00] VITALS: BP 118/79
[2023-03-07] MEDS ORDERED: MIDAZOLAM INJ 2MG/2ML VIAL As Ordered ONE (18:23)
[2023-03-07] MEDS ORDERED: LIDOCAINE 1% MDV 20ML VIAL As Ordered ONE (18:23)
[2023-03-07] MEDS ORDERED: flumazeniL 0.5MG/5ML VIAL As Ordered ONE (18:24)
[2023-03-07] MEDS ORDERED: LEVALBUTEROL 1.25MG 0.5ML CONCENTRATE NEB NEB PRN (19:15)
[2023-03-07] MEDS ORDERED: ACETAMINOPHEN TAB 650MG DOSE (2X325MG) PO PRN (19:15)
[2023-03-07] MEDS ORDERED: BISACODYL 10MG SUPP PR PRN (19:15)
[2023-03-07] MEDS ORDERED: MIDAZOLAM INJ 2MG/2ML VIAL IV ONE ×2 (19:20)
[2023-03-07] MEDS ORDERED: LIDOCAINE 1% MDV 20ML VIAL IM ONE ×2 (19:20)
[2023-03-07 20:00] VITALS: BP 102/69
[2023-03-07] MEDS: LEVALBUTEROL 1.25MG 0.5ML CONCENTRATE NEB NEB SCH (20:09)
[2023-03-07] MEDS: IPRATROPIUM HFA INHALER 12.9 GRAMS (ATROVENT HFA) INH SCH (20:13)
[2023-03-07 20:16] LABS: PH BODY FLUID 7.538 UNITS (NOT ESTABLISHED); SOURCE, BODY FLUID pH PLEURAL
[2023-03-07 20:26] LABS: APPEARANCE, BODY FLUID HAZY (CLEAR); PLEURAL FL COLOR YELLOW (COLORLESS); SOURCE, BODY FLUID PLEURAL
[2023-03-07 20:32] LABS: SOURCE, BODY FLUID ALBUMIN PLEURAL
[2023-03-07 20:38] LABS: SOURCE, BODY FLUID GLUCOSE PLEURAL; SOURCE, BODY FLUID TRIG PLEURAL; TRIGLYCERIDE, BODY FLUID 37 MG/DL (NOT ESTABLISHED)
[2023-03-07 20:39] LABS: LDH, BODY FLUID 172 U/L (NOT ESTABLISHED); SOURCE, BODY FLUID LDH PLEURAL
[2023-03-07 20:40] LABS: AMYLASE, BODY FLUID 23 U/L (NOT ESTABLISHED); CHOLESTEROL, BODY FLUID 74 MG/DL (NOT ESTABLISHED); SOURCE, BODY FLUID AMYLASE PLEURAL; SOURCE, BODY FLUID CHOL PLEURAL; SOURCE, BODY FLUID TOT PROTEIN PLEURAL; TOTAL PROTEIN, BODY FLUID 3.6 G/DL (NOT ESTABLISHED)
[2023-03-07] MEDS: KCL 20MEQ IN D5/NS 1000ML 1,000 ML IV SCH (20:59)
[2023-03-07] MEDS: ENOXAPARIN 40MG/0.4ML SYRINGE (J1650 PER 10MG) SC SCH (21:00)
[2023-03-07] MEDS: PREGABALIN 100 MG CAP (LYRICA) PO SCH (21:00)
[2023-03-07] MEDS: KETOROLAC 30 MG/ML 1ML VIAL IV SCH (21:00)
[2023-03-07 22:00] VITALS: BP 96/65
[2023-03-08] VITALS (8 sets, daily range): BP systolic 94–107; BP diastolic 52–65
[2023-03-08] MEDS: LEVALBUTEROL 1.25MG 0.5ML CONCENTRATE NEB NEB SCH ×4 (01:40→19:45)
[2023-03-08] MEDS: IPRATROPIUM HFA INHALER 12.9 GRAMS (ATROVENT HFA) INH SCH ×4 (01:40→19:44)
[2023-03-08] MEDS: KETOROLAC 30 MG/ML 1ML VIAL IV SCH ×4 (02:30→20:21)
[2023-03-08 06:01] LABS: HEMATOCRIT 24.3 % (36.0-47.0); HEMOGLOBIN 8.1 g/dl (12.0-15.5); MEAN CORPUSCULAR HGB CONC 33.3 g/dl (32.0-36.5); RED BLOOD COUNT 2.53 10^6/uL (4.00-5.40); WHITE BLOOD COUNT 1.6 10^3/uL (4.0-10.0)
[2023-03-08] MEDS: LEVOTHYROXINE 75MCG TABLET (0.075MG) PO SCH (06:15)
[2023-03-08 06:20] LABS: PLATELET COUNT, AUTOMATED 72 10^3/uL (150-450)
[2023-03-08 06:23] LABS: BLOOD UREA NITROGEN 17 MG/DL (9-23); CALCIUM LEVEL 7.4 MG/DL (8.5-10.1); CARBON DIOXIDE LEVEL 22 MMOL/L (20-31); CHLORIDE LEVEL 110 MMOL/L (98-107); CREATININE FOR GFR 0.81 MG/DL (0.55-1.30); GLOMERULAR FILTRATION RATE > 60.0 (>51); GLUCOSE, FASTING 101 MG/DL (60-100); POTASSIUM SERUM 4.3 MMOL/L (3.5-5.1); SODIUM LEVEL 140 MMOL/L (136-145)
[2023-03-08 07:40] LABS: ATYPICAL LYMPH 2 % (0-5); BASOPHILS 2 % (0-1); EOSINOPHILS 2 % (0-3); LYMPHOCYTES 25 % (16-44); MONOCYTES 19 % (0-5); NEUTROPHILS 46 % (28-66)
[2023-03-08 07:41] LABS: ANISOCYTOSIS 1+; PLATELET ESTIMATE DECREASED (NORMAL)
[2023-03-08 07:42] LABS: HYPOCHROMASIA 1+
[2023-03-08 07:43] LABS: GIANT PLATELETS 1+
[2023-03-08] MEDS: PREGABALIN 100 MG CAP (LYRICA) PO SCH ×2 (08:31→20:15)
[2023-03-08] MEDS: PANTOPRAZOLE 40MG TAB (PROTONIX) PO SCH (08:31)
[2023-03-08] MEDS: atenoloL 25 MG TAB PO SCH (08:31)
[2023-03-08] MEDS: MOM 30ML SUSPENSION UDC PO SCH ×2 (08:32→16:10)
[2023-03-08] MEDS: KCL 20MEQ IN D5/NS 1000ML 1,000 ML IV SCH ×2 (08:35→20:14)
[2023-03-08] MEDS: FILGRASTIM 300MCG 0.5ML SYRINGE **SC ADMINISTRATION ONLY SC SCH (16:10)
[2023-03-08] MEDS: ENOXAPARIN 40MG/0.4ML SYRINGE (J1650 PER 10MG) SC SCH (20:15)
[2023-03-09] VITALS (19 sets, daily range): BP systolic 91–118; BP diastolic 64–74
[2023-03-09] MEDS: LEVALBUTEROL 1.25MG 0.5ML CONCENTRATE NEB NEB SCH ×4 (01:26→19:26)
[2023-03-09] MEDS: IPRATROPIUM HFA INHALER 12.9 GRAMS (ATROVENT HFA) INH SCH ×4 (01:26→19:26)
[2023-03-09] MEDS: KETOROLAC 30 MG/ML 1ML VIAL IV SCH ×4 (02:00→20:27)
[2023-03-09] MEDS: LEVOTHYROXINE 75MCG TABLET (0.075MG) PO SCH (06:00)
[2023-03-09 06:22] LABS: HEMATOCRIT 25.6 % (36.0-47.0); HEMOGLOBIN 8.3 g/dl (12.0-15.5); MEAN CORPUSCULAR HEMOGLOBIN 31.8 pg (27.0-33.0); MEAN CORPUSCULAR HGB CONC 32.4 g/dl (32.0-36.5); MEAN CORPUSCULAR VOLUME 98.1 fl (80.0-96.0); RED BLOOD COUNT 2.61 10^6/uL (4.00-5.40); WHITE BLOOD COUNT 2.3 10^3/uL (4.0-10.0)
[2023-03-09 06:27] LABS: PLATELET COUNT, AUTOMATED 74 10^3/uL (150-450)
[2023-03-09 06:45] LABS: BLOOD UREA NITROGEN 18 MG/DL (9-23); CALCIUM LEVEL 7.9 MG/DL (8.5-10.1); CARBON DIOXIDE LEVEL 21 MMOL/L (20-31); CHLORIDE LEVEL 110 MMOL/L (98-107); CREATININE FOR GFR 0.85 MG/DL (0.55-1.30); GLOMERULAR FILTRATION RATE > 60.0 (>51); GLUCOSE, FASTING 101 MG/DL (60-100); POTASSIUM SERUM 4.5 MMOL/L (3.5-5.1); SODIUM LEVEL 140 MMOL/L (136-145)
[2023-03-09 08:00] LABS: ATYPICAL LYMPH 1 % (0-5); BASOPHILS 3 % (0-1); EOSINOPHILS 2 % (0-3); LYMPHOCYTES 12 % (16-44); METAMYELOCYTES 2 % (0-0); MONOCYTES 9 % (0-5); NEUTROPHILS 57 % (28-66)
[2023-03-09 08:01] LABS: ANISOCYTOSIS 1+; POLYCHROMASIA 1+
[2023-03-09 08:02] LABS: OVALOCYTES 1+; PLATELET ESTIMATE DECREASED (NORMAL); TEAR DROP CELLS 1+
[2023-03-09] MEDS: atenoloL 25 MG TAB PO SCH (08:20)
[2023-03-09] MEDS: MOM 30ML SUSPENSION UDC PO SCH (08:21)
[2023-03-09] MEDS: PANTOPRAZOLE 40MG TAB (PROTONIX) PO SCH (08:22)
[2023-03-09] MEDS: PREGABALIN 100 MG CAP (LYRICA) PO SCH ×2 (08:22→20:26)
[2023-03-09] MEDS: FILGRASTIM 300MCG 0.5ML SYRINGE **SC ADMINISTRATION ONLY SC SCH (08:39)
[2023-03-09] MEDS ORDERED: LIDOCAINE 1% MDV 20ML VIAL SC PRN ×2 (11:10→11:25)
[2023-03-09] MEDS ORDERED: flumazeniL 0.5MG/5ML VIAL IV PRN (11:10)
[2023-03-09] MEDS: KCL 20MEQ IN D5/NS 1000ML 1,000 ML IV SCH (11:10)
[2023-03-09] MEDS ORDERED: ceFAZolin SOD 2 GM in IV 1 EA IV ONE (11:35)
[2023-03-09] MEDS ORDERED: ceFAZolin 2 GM/D5W 50 ML IV BAG As Ordered ONE (11:42)
[2023-03-09] MEDS: MIDAZOLAM 5MG 5ML VIAL (FOR CHEST TUBE INSERTIONS) IV PRN ×2 (12:09→12:12)
[2023-03-09 13:06] LABS: LDH LACTATE DEHYDROGENASE 338 U/L (120-246)
[2023-03-09 15:00] LABS: APPEARANCE, BODY FLUID HAZY (CLEAR); PLEURAL FL COLOR ORANGE (COLORLESS); SOURCE, BODY FLUID PLEURAL
[2023-03-09 15:04] LABS: PH BODY FLUID 7.434 UNITS (NOT ESTABLISHED); SOURCE, BODY FLUID pH PLEURAL
[2023-03-09 15:20] LABS: SOURCE, BODY FLUID ALBUMIN PLEURAL
[2023-03-09 15:25] LABS: SOURCE, BODY FLUID GLUCOSE PLEURAL; SOURCE, BODY FLUID TRIG PLEURAL; TRIGLYCERIDE, BODY FLUID 26 MG/DL (NOT ESTABLISHED)
[2023-03-09 15:26] LABS: LDH, BODY FLUID 151 U/L (NOT ESTABLISHED); SOURCE, BODY FLUID LDH PLEURAL
[2023-03-09 15:27] LABS: AMYLASE, BODY FLUID < 20 U/L (NOT ESTABLISHED); CHOLESTEROL, BODY FLUID 55 MG/DL (NOT ESTABLISHED); SOURCE, BODY FLUID AMYLASE PLEURAL; SOURCE, BODY FLUID CHOL PLEURAL; SOURCE, BODY FLUID TOT PROTEIN PLEURAL; TOTAL PROTEIN, BODY FLUID 2.8 G/DL (NOT ESTABLISHED)
[2023-03-09] MEDS: ENOXAPARIN 40MG/0.4ML SYRINGE (J1650 PER 10MG) SC SCH (20:27)
[2023-03-10] VITALS: BP 96/61
[2023-03-10] MEDS: LEVALBUTEROL 1.25MG 0.5ML CONCENTRATE NEB NEB SCH ×3 (01:12→14:00)
[2023-03-10] MEDS: IPRATROPIUM HFA INHALER 12.9 GRAMS (ATROVENT HFA) INH SCH ×3 (01:13→14:00)
[2023-03-10] MEDS: KETOROLAC 30 MG/ML 1ML VIAL IV SCH ×3 (01:23→14:04)
[2023-03-10 04:00] VITALS: BP 92/58
[2023-03-10] MEDS: LEVOTHYROXINE 75MCG TABLET (0.075MG) PO SCH (05:30)
[2023-03-10 07:08] LABS: HEMATOCRIT 23.9 % (36.0-47.0); HEMOGLOBIN 7.5 g/dl (12.0-15.5); MEAN CORPUSCULAR HGB CONC 31.4 g/dl (32.0-36.5); MEAN CORPUSCULAR VOLUME 98.8 fl (80.0-96.0); RED BLOOD COUNT 2.42 10^6/uL (4.00-5.40); WHITE BLOOD COUNT 3.3 10^3/uL (4.0-10.0)
[2023-03-10 07:12] LABS: PLATELET COUNT, AUTOMATED 48 10^3/uL (150-450)
[2023-03-10 07:29] LABS: BLOOD UREA NITROGEN 15 MG/DL (9-23); CALCIUM LEVEL 7.8 MG/DL (8.5-10.1); CARBON DIOXIDE LEVEL 21 MMOL/L (20-31); CHLORIDE LEVEL 110 MMOL/L (98-107); CREATININE FOR GFR 0.81 MG/DL (0.55-1.30); GLOMERULAR FILTRATION RATE > 60.0 (>51); GLUCOSE, FASTING 88 MG/DL (60-100); POTASSIUM SERUM 4.5 MMOL/L (3.5-5.1); SODIUM LEVEL 138 MMOL/L (136-145)
[2023-03-10] MEDS: MOM 30ML SUSPENSION UDC PO SCH (08:17)
[2023-03-10] MEDS: PREGABALIN 100 MG CAP (LYRICA) PO SCH (08:18)
[2023-03-10] MEDS: PANTOPRAZOLE 40MG TAB (PROTONIX) PO SCH (08:19)
[2023-03-10 08:24] VITALS: BP 102/62
[2023-03-10] MEDS: atenoloL 25 MG TAB PO SCH (08:24)
[2023-03-10 08:45] VITALS: BP 102/57
[2023-03-10 08:51] LABS: ATYPICAL LYMPH 4 % (0-5); EOSINOPHILS 3 % (0-3); LYMPHOCYTES 24 % (16-44); METAMYELOCYTES 1 % (0-0); MONOCYTES 4 % (0-5); NEUTROPHILS 49 % (28-66)
[2023-03-10 08:52] LABS: HYPOCHROMASIA 2+; POLYCHROMASIA 1+
[2023-03-10 08:53] LABS: ANISOCYTOSIS 2+; PLATELET ESTIMATE MARKED DECREASE (NORMAL)
[2023-03-10] MEDS: FILGRASTIM 300MCG 0.5ML SYRINGE **SC ADMINISTRATION ONLY SC SCH (10:03)
[2023-03-10 11:46] VITALS: BP 102/66
[2023-03-14] MEDS ORDERED: curamed (10:26)
[2023-03-15] MEDS ORDERED: PREG200C PO (07:21)
== END 2023-03-10 17:16 | disposition home health service (06) | DRG 180 ==
LOC: M ED 12:30 → M ED INP 17:00 → M PCU 17:53 → OBSVTOIN 03-08 09:12
PROVIDERS: ADMIT Internal Medicine; ATTEND Internal Medicine
PROC: 0W9930Z Drainage of Right Pleural Cavity with Drainage Device, Percutaneous Approach (ICD-10-PCS; principal; 2023-03-08)
PROC: 0W9B30Z Drainage of Left Pleural Cavity with Drainage Device, Percutaneous Approach (ICD-10-PCS; 2023-03-09)
DX: C78.00 Secondary malignant neoplasm of unspecified lung (principal); D61.810 Antineoplastic chemotherapy induced pancytopenia; J91.0 Malignant pleural effusion; I47.1 Supraventricular tachycardia; C78.7 Secondary malignant neoplasm of liver and intrahepatic bile duct; C79.51 Secondary malignant neoplasm of bone; C50.919 Malignant neoplasm of unspecified site of unspecified female breast; M79.7 Fibromyalgia; J45.909 Unspecified asthma, uncomplicated; M19.90 Unspecified osteoarthritis, unspecified site; F41.9 Anxiety disorder, unspecified; E03.9 Hypothyroidism, unspecified; K59.09 Other constipation; Z88.2 Allergy status to sulfonamides; Z88.8 Allergy status to other drugs, medicaments and biological substances; Z79.891 Long term (current) use of opiate analgesic; Z79.899 Other long term (current) drug therapy; Z79.890 Hormone replacement therapy; Z90.79 Acquired absence of other genital organ(s)

== ENCOUNTER → 2023-03-25 | Outpatient (CLI) | payer MEDICARE, OTHER, MEDICAID ==
[~2023-03-25] MED LIST changes: +DEXA1TA PO; +LYRI200C PO; +MORP10SO2 PO; +MORP1SOL4 PO; +VITA200012 PO; +curamed; +med rec comment
== END ==
LOC: M PLALAB 10:04
PROVIDERS: ATTEND Thoracic Surgery (Cardiothoracic Vascular Surgery)
DX: R91.8 Other nonspecific abnormal finding of lung field (principal); J91.0 Malignant pleural effusion

== ENCOUNTER → 2023-04-05 | Outpatient (CLI) | payer MEDICARE, OTHER, MEDICAID ==
[~2023-04-05] VITALS: Ht 160 cm; Wt 51.8 kg
[2023-04-05 07:56] VITALS: BP 133/88
== END ==
LOC: M PAL 07:51
PROVIDERS: ATTEND Nurse Practitioner Adult Health
DX: C50.919 Malignant neoplasm of unspecified site of unspecified female breast (principal); C79.51 Secondary malignant neoplasm of bone; C78.00 Secondary malignant neoplasm of unspecified lung; C78.7 Secondary malignant neoplasm of liver and intrahepatic bile duct; J91.0 Malignant pleural effusion; Z51.5 Encounter for palliative care; G89.3 Neoplasm related pain (acute) (chronic); R63.0 Anorexia; Z92.21 Personal history of antineoplastic chemotherapy; Z92.3 Personal history of irradiation; K59.00 Constipation, unspecified; R06.02 Shortness of breath; R05.9 Cough, unspecified; Z66 Do not resuscitate; Z80.3 Family history of malignant neoplasm of breast; Z80.7 Family history of other malignant neoplasms of lymphoid, hematopoietic and related tissues; Z80.8 Family history of malignant neoplasm of other organs or systems; Z90.710 Acquired absence of both cervix and uterus; Z90.722 Acquired absence of ovaries, bilateral; Z79.52 Long term (current) use of systemic steroids; Z79.810 Long term (current) use of selective estrogen receptor modulators (SERMs); Z79.899 Other long term (current) drug therapy; Z88.2 Allergy status to sulfonamides; Z88.8 Allergy status to other drugs, medicaments and biological substances; Z88.1 Allergy status to other antibiotic agents; R51.9 Headache, unspecified; R74.01 Elevation of levels of liver transaminase levels

== ENCOUNTER 2023-04-15 14:56 | Observation (INO) | payer MEDICARE, OTHER ==
[~2023-04-15] VITALS: Ht 160 cm; Wt 47.3 kg
[~2023-04-15 14:56] MED LIST changes: -LYRI200C PO; -MORP10SO2 PO; +SODIUM CHLORIDE 0.9% INJ 10 ML SYR IV SCH; -med rec comment
[2023-04-15 16:15] LABS: HEMATOCRIT 32.6 % (36.0-47.0); HEMOGLOBIN 10.5 g/dl (12.0-15.5); MEAN CORPUSCULAR HEMOGLOBIN 28.8 pg (27.0-33.0); MEAN CORPUSCULAR HGB CONC 32.2 g/dl (32.0-36.5); MEAN CORPUSCULAR VOLUME 89.6 fl (80.0-96.0); RED BLOOD COUNT 3.64 10^6/uL (4.00-5.40); WHITE BLOOD COUNT 2.2 10^3/uL (4.0-10.0)
[2023-04-15 16:27] LABS: ALBUMIN 2.9 G/DL (3.2-5.2); ALKALINE PHOSPHATASE 166 U/L (46-116); ALT/SGPT 90 U/L (7.0-40); AST/SGOT 116 U/L (<34); BILIRUBIN,DIRECT 0.4 MG/DL (<0.4); BILIRUBIN,TOTAL 0.9 MG/DL (0.3-1.2); BLOOD UREA NITROGEN 20 MG/DL (9-23); CARBON DIOXIDE LEVEL 20 MMOL/L (20-31); CHLORIDE LEVEL 104 MMOL/L (98-107); CREATININE FOR GFR 0.53 MG/DL (0.55-1.30); GLOMERULAR FILTRATION RATE > 60.0 (>51); GLUCOSE, FASTING 95 MG/DL (60-100); POTASSIUM SERUM 3.9 MMOL/L (3.5-5.1); SODIUM LEVEL 138 MMOL/L (136-145); TOTAL PROTEIN 5.9 G/DL (5.7-8.2)
[2023-04-15 16:29] LABS: THYROXINE (T4) 10.5 UG/DL (4.5-10.9)
[2023-04-15 16:30] LABS: PLATELET COUNT, AUTOMATED 73 10^3/uL (150-450)
[2023-04-15 16:31] LABS: THYROID STIMULATING HORMONE 3.623 uIU/ML (0.55-4.78)
[2023-04-15 16:38] LABS: RSV AMPLIFICATION NEGATIVE (NEGATIVE)
[2023-04-15 16:38] LABS: ATYPICAL LYMPH 5 % (0-5); EOSINOPHILS 1 % (0-3); LYMPHOCYTES 10 % (16-44); METAMYELOCYTES 6 % (0-0); MONOCYTES 1 % (0-5); MYELOCYTES 2 % (0-0); NEUTROPHILS 47 % (28-66)
[2023-04-15 16:39] LABS: ANISOCYTOSIS 2+; PLATELET ESTIMATE DECREASED (NORMAL); POIKILOCYTOSIS 1+
[2023-04-15] MEDS ORDERED: cefTRIAXone SOD 1 GM in D5W MINI-BAG PLUS 50 ML IV ONE (17:05)
[2023-04-15] MEDS ORDERED: MORPHINE 2 MG/ML 1ML VIAL IV PRN (18:05)
[2023-04-15] MEDS ORDERED: SCOPOLAMINE 1MG TRANSDERMAL PATCH TOP PRN (18:45)
[2023-04-15] MEDS ORDERED: MORPHINE 10MG/0.5ML ORAL CONCENTRATE SOLUTION U/D SL PRN ×2 (18:45→20:35)
[2023-04-15] MEDS ORDERED: ATROPINE SULFATE 1% OPHTH SOLN 2ML BTL SL PRN (18:45)
[2023-04-15] MEDS ORDERED: LORazepam 1 MG TAB PO PRN (18:45)
[2023-04-15] MEDS ORDERED: ALTEPLASE 2MG/2ML VIAL XX ONE (19:15)
[2023-04-15] MEDS ORDERED: MORP10SO2 PO (19:41)
[2023-04-15] MEDS ORDERED: LYRI200C PO (19:41)
[2023-04-15] MEDS ORDERED: med rec comment (19:42)
[2023-04-15] MEDS ORDERED: HOME MED LIST COMPLETE! XX SCH (19:45)
[2023-04-15 19:48] VITALS: BP 141/87
[2023-04-15] MEDS ORDERED: ALBUTEROL 90 MCG/ACT 8GM HFA INHALER INH PRN (20:35)
[2023-04-15] MEDS: PREGABALIN 100 MG CAP (LYRICA) PO SCH (22:06)
[2023-04-16] MEDS: ONDANSETRON 4MG TAB PO SCH ×4 (00:13→18:00)
[2023-04-16] MEDS: LEVOTHYROXINE 75MCG TABLET (0.075MG) PO SCH (05:59)
[2023-04-16] MEDS: PREGABALIN 100 MG CAP (LYRICA) PO SCH ×2 (09:00→20:30)
[2023-04-17] MEDS: ONDANSETRON 4MG TAB PO SCH ×5 (00:30→23:30)
[2023-04-17] MEDS: LEVOTHYROXINE 75MCG TABLET (0.075MG) PO SCH (05:58)
[2023-04-17] MEDS ORDERED: ALTEPLASE 2MG/2ML VIAL XX ONE (08:30)
[2023-04-17] MEDS: PREGABALIN 100 MG CAP (LYRICA) PO SCH ×2 (08:55→20:48)
[2023-04-18] MEDS: DOCUSATE SODIUM 100MG CAPSULE PO PRN
[2023-04-18] MEDS: ONDANSETRON 4MG TAB PO SCH ×4 (05:42→23:13)
[2023-04-18] MEDS: LEVOTHYROXINE 75MCG TABLET (0.075MG) PO SCH (05:42)
[2023-04-18] MEDS ORDERED: MOM 30ML SUSPENSION UDC PO PRN (07:55)
[2023-04-18] MEDS: PREGABALIN 100 MG CAP (LYRICA) PO SCH ×2 (09:10→21:35)
[2023-04-18] MEDS: MIRALAX *UNIT DOSE* 17GM PACKET PO SCH (09:10)
[2023-04-19] MEDS: LEVOTHYROXINE 75MCG TABLET (0.075MG) PO SCH (05:45)
[2023-04-19] MEDS: ONDANSETRON 4MG TAB PO SCH ×4 (05:45→18:34)
[2023-04-19] MEDS: PREGABALIN 100 MG CAP (LYRICA) PO SCH ×2 (08:54→20:15)
[2023-04-19] MEDS: MIRALAX *UNIT DOSE* 17GM PACKET PO SCH (08:54)
[2023-04-19] MEDS: ONDANSETRON 4MG ORAL DISINTEGRATING TAB SL SCH ×2 (18:59→23:19)
[2023-04-19] MEDS: DOCUSATE SODIUM 100MG CAPSULE PO PRN (20:15)
[2023-04-20] MEDS: ONDANSETRON 4MG ORAL DISINTEGRATING TAB SL SCH ×3 (05:23→18:24)
[2023-04-20] MEDS: LEVOTHYROXINE 75MCG TABLET (0.075MG) PO SCH (05:23)
[2023-04-20] MEDS: MIRALAX *UNIT DOSE* 17GM PACKET PO SCH (08:34)
[2023-04-20] MEDS: PREGABALIN 100 MG CAP (LYRICA) PO SCH ×3 (08:34→21:00)
[2023-04-20] MEDS: MECLIZINE 12.5 MG TAB PO PRN (11:51)
[2023-04-20] MEDS ORDERED: LORazepam 2 MG/ML 1ML VIAL IV PRN (21:40)
[2023-04-21] MEDS: LEVOTHYROXINE 75MCG TABLET (0.075MG) PO SCH (06:00)
[2023-04-21] MEDS: ONDANSETRON 4MG ORAL DISINTEGRATING TAB SL SCH ×5 (06:00→23:12)
[2023-04-21] MEDS: MIRALAX *UNIT DOSE* 17GM PACKET PO SCH (09:00)
[2023-04-21] MEDS: PREGABALIN 100 MG CAP (LYRICA) PO SCH ×2 (09:00→21:00)
[2023-04-21] MEDS: MECLIZINE 12.5 MG TAB PO PRN (13:01)
[2023-04-21] MEDS: LORazepam 2 MG/ML 1ML VIAL IV PRN ×2 (21:16→23:12)
[2023-04-22] MEDS: LEVOTHYROXINE 75MCG TABLET (0.075MG) PO SCH (05:48)
[2023-04-22] MEDS: ONDANSETRON 4MG ORAL DISINTEGRATING TAB SL SCH (05:49)
[2023-04-22] MEDS ORDERED: ATIV1TAB10 PO ×2 (07:10→12:48)
[2023-04-22] MEDS ORDERED: MORP1SOL5 PO ×2 (07:10→12:48)
[2023-04-22] MEDS ORDERED: HYOS125TA PO ×2 (07:10→12:48)
[2023-04-22] MEDS: LORazepam 2 MG/ML 1ML VIAL IV PRN ×2 (07:19→10:24)
[2023-04-22] MEDS: MIRALAX *UNIT DOSE* 17GM PACKET PO SCH (09:00)
[2023-04-22] MEDS: PREGABALIN 100 MG CAP (LYRICA) PO SCH (09:00)
== END 2023-04-22 10:38 | disposition hospice, inpatient (51) ==
LOC: M ED 14:56 → M ED INP 19:04 → ENRESERV 19:17 → M PCU 19:41
PROVIDERS: ADMIT Internal Medicine; ATTEND Internal Medicine
DX: D61.810 Antineoplastic chemotherapy induced pancytopenia (principal); J91.0 Malignant pleural effusion; C50.911 Malignant neoplasm of unspecified site of right female breast; C78.00 Secondary malignant neoplasm of unspecified lung; C78.7 Secondary malignant neoplasm of liver and intrahepatic bile duct; C79.51 Secondary malignant neoplasm of bone; R53.1 Weakness; D72.825 Bandemia; J45.909 Unspecified asthma, uncomplicated; M79.7 Fibromyalgia; D72.819 Decreased white blood cell count, unspecified; E03.9 Hypothyroidism, unspecified; Z79.899 Other long term (current) drug therapy; Z79.51 Long term (current) use of inhaled steroids; Z88.2 Allergy status to sulfonamides; Z88.8 Allergy status to other drugs, medicaments and biological substances
CPT/HCPCS: 36593; 71045; 71046; 80048; 80076; 83605; 83880; 84436; 84443; 85025; 85049; 85055; 87040; 87631; 92610; 93005; 93041; 94760; 96365; 96375; 96376; 99285; G0378; J0696; J2060; J2997